=== PATIENT | male | born 1950 | race Caucasian/White ===

== ENCOUNTER → 2016-05-19 | Outpatient (CLI) | payer MEDICARE, MEDICAID ==
[~2016-05-19] MED LIST: ACET-2321 PO; BISA10SU61 RECTALLY; CALMOSEPTINE OINTMENT 3.5 G PACKET TOP ONE; CARV25TA PO; CYAN250010 SL; DOCU-168 PO; FISH1CAP2 PO; FLUT9.9S NS; FURO-153 PO; HC A10FO RECTALLY; HYDR-4246 PO; INSU100V SQ; INSU100V8 SQ; LORA0.5T86 PO; LOSA50TA52 PO; POTA20TA10 PO; PRAV10TA42 PO; SALINE FLUSH 10ml SYRINGE IVF ONE; SPIR25TA PO; TAMS0.4C47 PO; VANC2PLA IV
== END ==
LOC: NWCC 13:23
PROVIDERS: ATTEND Internal Medicine
DX: E11.621 Type 2 diabetes mellitus with foot ulcer (principal); L97.422 Non-pressure chronic ulcer of left heel and midfoot with fat layer exposed; S91.105A Unspecified open wound of left lesser toe(s) without damage to nail, initial encounter; S91.302A Unspecified open wound, left foot, initial encounter; X58.XXXS Exposure to other specified factors, sequela; Z86.14 Personal history of Methicillin resistant Staphylococcus aureus infection
CPT/HCPCS: 11042; 87070; 87075; 87076; 87077; 87181; 87186; 87205; A6209; A6210; A9270; G0463

== ENCOUNTER → 2016-05-27 | Outpatient (CLI) | payer MEDICARE, MEDICAID ==
[~2016-05-27] MED LIST changes: -CALMOSEPTINE OINTMENT 3.5 G PACKET TOP ONE; -SALINE FLUSH 10ml SYRINGE IVF ONE
== END ==
LOC: NWCC 13:31
PROVIDERS: ATTEND Internal Medicine
DX: E11.621 Type 2 diabetes mellitus with foot ulcer (principal); L97.422 Non-pressure chronic ulcer of left heel and midfoot with fat layer exposed; S91.105A Unspecified open wound of left lesser toe(s) without damage to nail, initial encounter; Z86.14 Personal history of Methicillin resistant Staphylococcus aureus infection

== ENCOUNTER → 2016-06-02 | Outpatient (CLI) | payer MEDICARE, MEDICAID ==
[~2016-06-02] MED LIST changes: +CALMOSEPTINE OINTMENT 3.5 G PACKET TOP ONE; +SILVER NITRATE APPLICATOR TOP ONE
== END ==
LOC: NWCC 13:26
PROVIDERS: ATTEND Internal Medicine
DX: E11.621 Type 2 diabetes mellitus with foot ulcer (principal); L97.422 Non-pressure chronic ulcer of left heel and midfoot with fat layer exposed; S91.105A Unspecified open wound of left lesser toe(s) without damage to nail, initial encounter; S91.302A Unspecified open wound, left foot, initial encounter; Z86.14 Personal history of Methicillin resistant Staphylococcus aureus infection; G62.9 Polyneuropathy, unspecified
CPT/HCPCS: 11042; A6209; A6210; A9270

== ENCOUNTER → 2016-06-06 | Outpatient (CLI) | payer MEDICARE, MEDICAID ==
[~2016-06-06] MED LIST changes: -CALMOSEPTINE OINTMENT 3.5 G PACKET TOP ONE; -SILVER NITRATE APPLICATOR TOP ONE
== END ==
LOC: NWCC 09:00
PROVIDERS: ATTEND Internal Medicine
DX: E11.621 Type 2 diabetes mellitus with foot ulcer (principal); L97.422 Non-pressure chronic ulcer of left heel and midfoot with fat layer exposed; S91.105A Unspecified open wound of left lesser toe(s) without damage to nail, initial encounter; Z86.14 Personal history of Methicillin resistant Staphylococcus aureus infection; S91.302A Unspecified open wound, left foot, initial encounter
CPT/HCPCS: A6209; G0463

== ENCOUNTER → 2016-06-11 | Outpatient (CLI) | payer MEDICARE, MEDICAID ==
[~2016-06-11] MED LIST changes: +SILVER NITRATE APPLICATOR TOP ONE
== END ==
LOC: NWCC 13:20
PROVIDERS: ATTEND Internal Medicine
DX: E11.621 Type 2 diabetes mellitus with foot ulcer (principal); L97.422 Non-pressure chronic ulcer of left heel and midfoot with fat layer exposed; E11.21 Type 2 diabetes mellitus with diabetic nephropathy; Z86.14 Personal history of Methicillin resistant Staphylococcus aureus infection
CPT/HCPCS: 11042; A6209

== ENCOUNTER → 2016-06-16 | Outpatient (CLI) | payer MEDICARE, MEDICAID ==
[~2016-06-16] MED LIST changes: +POTA8CAP10 PO; +SALINE FLUSH 10ml SYRINGE IVF ONE; -SILVER NITRATE APPLICATOR TOP ONE; +WARF6TAB5 PO
== END ==
LOC: NWCC 08:54
PROVIDERS: ATTEND Internal Medicine
DX: E11.621 Type 2 diabetes mellitus with foot ulcer (principal); L97.422 Non-pressure chronic ulcer of left heel and midfoot with fat layer exposed; Z86.14 Personal history of Methicillin resistant Staphylococcus aureus infection
CPT/HCPCS: 11042; A6021; A6210

== ENCOUNTER → 2016-06-23 | Outpatient (CLI) | payer MEDICARE, MEDICAID ==
[~2016-06-23] MED LIST changes: -SALINE FLUSH 10ml SYRINGE IVF ONE; +SALINE FLUSH 10ml SYRINGE ONE
--- NOTE | 2016-06-23 13:19 | DI ---
Indication: ITS.REASON: R11.621 DIABETIC FT ULCER; L97.422; E11.21 PROCEDURE: US ARTERIAL EXTREMITY LOWER BI: Technique: Grayscale color and duplex Doppler imaging was performed of the arterial tree of both legs. Findings: RIGHT LEG (cm/sec) Common Femoral 115 Superficial Femoral Proximal 107 Mid 123 Distal 77.3 Popliteal 72.2 OMERO-prox 75.6 MONITORING SPECIALIST-prox 39.5 OMERO-dist 88.5 MONITORING SPECIALIST-dist 62.7 LEFT LEG (cm/sec) Common Femoral 96.3 Superficial Femoral Proximal 119 Mid 119 Distal 97.1 Popliteal 112 OMERO-prox 93.7 MONITORING SPECIALIST-prox 120 OMERO-dist 138 MONITORING SPECIALIST-dist 96.3 Normal multiphasic waveforms throughout the right lower extremity. Normal multiphasic waveforms throughout the left lower extremity, except for slightly dampened waveforms in the dorsalis pedis distally. No velocity elevation. IMPRESSION: Mild stenosis in the left dorsalis pedis. No occlusion. .
--- NOTE | 2016-06-23 15:27 | DI ---
Indication: ITS.REASON: L97.422 Non-press chron ulcer of lt heel/midfoot;E11.21; E11.621 PROCEDURE: NM BONE SCAN, 3-PHASE: Encounter: Initial Comparison: Right foot radiographs dated July 16, 2015 and bone scan dated August 25, 2014 and left foot radiographs dated November 14, 2014 Technique: 26.9 mCi of technetium 99m MDP was administered intravenously. Plantar planar spot images of the feet were performed in the arterial, blood pool and delayed phases with lateral projections performed in the blood pool and delayed phases. Findings: Focal uptake is seen in the left first metatarsal head area on all three phases. This is more intense than the comparison study although the region of uptake is similar. The prior area of uptake in the left second metatarsal head area is much less prominent on this study. No areas of abnormal uptake seen within the right foot. Probable degenerative uptake noted in the left midfoot on the delayed phase images. Impression: Three-phase uptake in the left first metatarsal head area consistent with osteomyelitis. .
== END ==
LOC: IMA 10:40
PROVIDERS: ATTEND Internal Medicine
DX: E11.21 Type 2 diabetes mellitus with diabetic nephropathy (principal); I70.203 Unspecified atherosclerosis of native arteries of extremities, bilateral legs; R94.8 Abnormal results of function studies of other organs and systems; E11.621 Type 2 diabetes mellitus with foot ulcer; L97.422 Non-pressure chronic ulcer of left heel and midfoot with fat layer exposed
CPT/HCPCS: 78315; 93925; A9503

== ENCOUNTER → 2016-06-23 | Outpatient (CLI) | payer MEDICARE, MEDICAID ==
[~2016-06-23] MED LIST changes: +CALMOSEPTINE OINTMENT 3.5 G PACKET TOP ONE; +POLY17PO6 PO; -SALINE FLUSH 10ml SYRINGE ONE
== END ==
LOC: NWCC 14:49
PROVIDERS: ATTEND Internal Medicine
DX: E11.621 Type 2 diabetes mellitus with foot ulcer (principal); L97.422 Non-pressure chronic ulcer of left heel and midfoot with fat layer exposed; M86.172 Other acute osteomyelitis, left ankle and foot; Z86.14 Personal history of Methicillin resistant Staphylococcus aureus infection; E11.21 Type 2 diabetes mellitus with diabetic nephropathy; B96.89 Other specified bacterial agents as the cause of diseases classified elsewhere
CPT/HCPCS: 11042; A6209; A9270

== ENCOUNTER → 2016-06-25 | Outpatient (CLI) | payer MEDICARE, MEDICAID ==
[~2016-06-25] MED LIST changes: -CALMOSEPTINE OINTMENT 3.5 G PACKET TOP ONE
--- NOTE | 2016-06-26 23:04 | WOUNDPNF ---
CHIEF COMPLAINT Left foot diabetic foot ulcer. HISTORY OF PRESENT ILLNESS Mr. Fournier is a gentleman who had been treated down in the wound clinic for many months up to a couple of years for this diabetic foot ulcer, which is located over his first metatarsal head. It sounds like it will improve and then it will get worse. It will never completely heal. He has recently had a bone scan which suggests osteomyelitis in the first metatarsal head. He is a type 2 diabetic. He also has had arterial Dopplers, which show good flow. Previous treatments include Gregoria with Mepilex dressing and offloading, with a DH walker. He has also been on multiple oral antibiotics. Currently he is on Levaquin and Bactrim. Past Medical History, Past Surgical History, Medications, Allergies, Social History, and Family History are reviewed by myself and available in the [facility] EMR. REVIEW OF SYSTEMS Negative for fever, chills, nausea, vomiting, constipation, diarrhea. It is positive for numbness in his feet. It is positive for skin infection. PHYSICAL EXAMINATION GENERAL: He is alert and oriented, in no acute distress. He is here by himself today in the [facility]. LEFT FOOT: Exam of his left foot shows a hallux valgus deformity with a diabetic foot ulcer over the first metatarsal head, with subcutaneous tissue exposed. Periwound area has a small callus. It is otherwise clear. He has palpable dorsalis pedis and posterior tibial pulse. He has decreased sensation to light touch throughout the foot. Calf is soft and nontender. No foul odor today. No gross drainage today from the ulceration. Please see the EMR for full measurements. ASSESSMENT Left foot diabetic foot ulcer with possible osteomyelitis. PLAN Because he has the bone scan, which suggests osteomyelitis, I recommended a surgical debridement with a bone biopsy and possible sesamoidectomy to his left foot; although, I think he is at high risk of needing an amputation. I do think it is worth attempting an aggressive surgical debridement and targeted IV antibiotics to see if we can heal his wound for him. He agreed with this plan. We will set this up for surgery next week. I would like him to be off of his antibiotics for five days prior to the surgery. ISAI
== END ==
LOC: NWCC 10:20
PROVIDERS: ATTEND Internal Medicine
DX: E11.621 Type 2 diabetes mellitus with foot ulcer (principal); L97.422 Non-pressure chronic ulcer of left heel and midfoot with fat layer exposed; M86.172 Other acute osteomyelitis, left ankle and foot; Z86.14 Personal history of Methicillin resistant Staphylococcus aureus infection
CPT/HCPCS: A6209; G0463

== ENCOUNTER 2016-07-04 08:45 | Day surgery (SDC) | payer MEDICARE, MEDICAID ==
--- NOTE | 2016-06-25 16:26 | NUR ---
IMPLANTABLE DEVICE Med[employer]onic PostRanka S MANUFACTURING RECRUITER-D Defibrillator Model # [id number] Serial # [id number] Implanted Mar 29, 2013 [employer]
--- NOTE | 2016-06-27 10:17 | NUR ---
PHONE INTERVIEW WITH PATIENT. PMH, MEDS, ALLERGIES REVIEWED DOCUMENTED, Edilson CAMPBELL CONTACT INFORMATION INCLUDED IF PATIENT HAS QUESTIONS. PT WILL CALL Edilson RAMSAY RN ON JUNE 30 TO CONFIRM HE CAN DO HIS SURGERY ON JULY 03. HE IS SCHEDULED FOR A COLONOSCOPY ON JULY 02 IN [place]. PT REPORTS HE TAKES WARFARIN AND IS STOPPING IT ON JUNE 27 BC OF COLONOSCOPY ON 07-02
--- NOTE | 2016-07-03 09:35 | NUR ---
Antibiotics I did speak with patient on Thursday07-01-16 and we changed the date of surgery to 07-04-16, states Dr Squires put in a PICC line and started him on IV antibiotics because his wound was looking worse. Pt has been off of Warfarin since 06-27-16 in preparation for his colonoscopy on 07-02-16. Instructed patient to continue to follow Dr Squires's orders unless he was instructed to do differently. 07-02-[address] Merchant notified of new development with patient taking antibiotics. No new orders at this time. Dr Squires's contact information given to his Tiffani MA. 07-03-[address] Merchant notified of patient still on IV antibiotics and had taken one dose of Warfarin last night. Still plan to proceed tomorrow. left on patient's answering machine to plan for surgery tomorrow, continue to follow Dr Squires's orders for antibiotics, and to hold Warfarin tonight. Requested patient to return my call and my contact information was left on vm. Addendum: 07/03/16 at 1332 by HANNAH RAMSAY RN I did speak with patient on the phone and reviewed his preop orders for today and tomorrow. He is holding his warfarin today, he had his PICC line flushed today but no antibiotic.
[2016-07-04] VITALS (7 sets, daily range): BP systolic 161–191; BP diastolic 85–97; PULSE 58–65; RESP 12–16; TEMP 97.6–97.7; O2SAT 89–97; Ht 182.9 cm; Wt 106.8 kg
[~2016-07-04] VITALS: Ht 182.9 cm; Wt 106.8 kg
[~2016-07-04 08:45] MED LIST changes: +LIDOCAINE 1% (10mg/ml) 2ml SDV INJ ONE; +NORMAL SALINE 1,000 ML IV PRN; -POLY17PO6 PO
--- OUTSIDE RECORDS SUMMARY | 2016-07-04 08:49 | XMS REPORT | Summary of Care ---
Author Author Luis Carlos Sands, T. K. Organization Unknown Address [address], [place] [id number] Phone Unavailable Care Team Providers Care Inseam Trimmer Name Role Phone Benny Barfield D.O. Unavailable Unavailable Sp Dawkins M.D. Unavailable Unavailable Edilson Brennan M.D. Unavailable Unavailable Savannah Zimmerman Unavailable Unavailable Isra Brasher, Jovita Khan Unavailable Unavailable Curry Dhaliwal PP Unavailable Sp Dawkins RP Unavailable Unavailable Unavailable Functional Status Functional Status Health Issues* Name Dates Details Functional status health issues are not documented Status: Cognitive Status Health Issues* Name Dates Details Cognitive status health issues are not documented Status: Problems Name Dates Details Normal coronary arteries (V71.7, Z03.89) Status: Active Benign prostatic hyperplasia without lower urinary tract symptoms, prostatic enlargement of unspecified morphology Status: Active Actinic keratosis (702.0, L57.0) Status: Active 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, left, with fat layer exposed ( 707.14, L97.422) Status: Active On warfarin therapy (V58.61, Z79.01) Status: Active Obstructive sleep apnea (327.23, G47.33) Status: Active Type 2 diabetes mellitus with diabetic neuropathy (250.60, E11.40) Status: Active 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, I50.42) Status: Active Cardiac resynchronization therapy defibrillator (SINGLE NEEDLE OPERATOR-D) in place (V45.02, Z95.810) Status: Active PAF (paroxysmal atrial fibrillation) (427.31, I48.0) Status: Active Hypertension (401.9, I10) Status: Active Hyperlipidemia (272.4, E78.5) Status: Active Medications Name Dates Details Furosemide 40 MG Oral Tablet TAKE 1 TABLET BY MOUTH DAILY Quantity: 90 Jovita Dhaliwal D.O.* Started 30-Oct-2010 ActiveLantus SoloStar 100 UNIT/ML Subcutaneous Solution Pen-injector INJECT 44 UNITS DAILY DIRECTED * Quantity: 11 Refills: 11 Jovita Dhaliwal D.O.* Started 05-Dec-2010 Active3 ML Pen (5 Pens) Carvedilol 6.25 MG Oral Tablet TAKE 1 TABLET BY MOUTH TWICE DAILY * Quantity: 180 Refills: 1 Jovita Dhaliwal D.O.* Started 18-Dec-2010 ActiveNeedles BD PEN NEEDLE MINI [id number] Inject Insulin at hs dx 250.02 * Quantity: 200 Refills: 6 Jovita Dhaliwal D.O.* Started 23-Dec-2010 ActiveWarfarin Sodium 1 MG Oral Tablet TAKE 1 TABLET BY MOUTH DAILY * Quantity: 60 Refills: 2 Jovita Dhaliwal D.O.* Started 20-May-2011 ActiveViagra 50 MG Oral Tablet TAKE DIRECTED. * Quantity: 6 Refills: 0 Sp Dawkins M.D.* Started 25-Mar-2013 ActivePravastatin Sodium 10 MG Oral Tablet TAKE 1/2 TABLET BY MOUTH DAILY * Quantity: 15 Refills: 11 Jovita Dhaliwal D.O.* Started 30-Mar-2013 ActiveWarfarin Sodium 6 MG Oral Tablet take 1 tablet by mouth every day * Quantity: 90 Refills: 1 Jovita Dhaliwal D.O.* Started 11-May-2013 ActiveVitamin B-12 1000 MCG Sublingual Tablet Sublingual [address] 1 MCG Daily * Quantity: 1 Refills: 0 Sp Dawkins M.D.* Started [id number] Tablet Sublingual Bottle Losartan Potassium 50 MG Oral Tablet TAKE 1 TABLET TWICE DAILY. * Quantity: 180 Refills: 3 Jovita Dhaliwal D.O.* Started 28-Feb-2014 ActiveFluidinfo Next Monitor w/Device Kit testing three times daily * Quantity: 1 Refills: 3 Sp Dawkins M.D.* Started 22-Mar-2014 ActiveInsightSquared Contour Next Test In Vitro Strip TEST THREE TIMES A DAY * Quantity: 1 Refills: 3 Jovita Dhaliwal D.O.* Started 22-Mar-2014 [id number] Strip Box Tamsulosin HCl - 0.4 MG Oral Capsule TAKE 1 CAPSULE Daily * Quantity: 30 Refills: 11 Jovita Dhaliwal D.O.* Started 05-Feb-2015 ActiveSupplies CPAP repair, services and supplies, G47.33 Mask, headgear, filters, heated tubing, chinstrap * Quantity: 1 Refills: 0 Savannah Oropeza P.A.* Started 05-Mar-2015 ActiveFish Oil 1000 MG Oral Capsule TAKE 1 CAPSULE DAILY. * Refills: 0 * Started 10-May-2015 ActiveCheratussin AC 100-10 MG/5ML Oral Syrup TAKE 5 - 10 ML EVERY 4 TO 6 HOURS NEEDED FOR COUGH. * Quantity: 1 Refills: 0 Benny Barfield D.O.* Started 04-Jun-2015 Fpsczs938 ML Bottle Supplies AutoCPAP 9-13 cm H2O, Permanent use, G47.33, Heated humidity, [id number], mask , headgear, filters, heated tubing, water chamber, chinstrap * Quantity: 1 Refills: 0 Savannah Oropeza P.A.* Started 07-Jun-2015 ActiveFluticasone Propionate 50 MCG/ACT Nasal Suspension USE 1 SPRAY IN EACH NOSTRIL ONCE DAILY. * Quantity: 1 Refills: 0 Edilson Brennan M.D.* Started 29-Jun-2015 Vvynwm86 GM Bottle Allergies and Adverse Reactions Name Dates Details No Known Drug Allergies Status: Active Past Medical History Name Dates Details History of Acute upper respiratory infection (465.9, J06.9) Status: Resolved History of allergic rhinitis (V12.69, Z87.09) Status: Resolved History of Diabetes mellitus (250.00, E11.9) Status: Resolved History of hypertension (V12.59, Z86.79) Status: Resolved Procedures Procedure Dates Details History of Catheterization Of Artery Of Extremity Completed:11-Jan-2013 History of Pacemaker - Pulse Generator Replacement History of Arterial Catheterization PROTIME PANEL 7000 Ordered:03-Jul-2015 Immunization Name Dates Details Influenza Administered on:10-Dec-2010 Influenza Administered on:02-Feb-2012 Diphtheria-Tetanus Toxoids 6.7-5 LFU/0.5ML Intramuscular Injectable Administered on: Tdap (Boostrix) Administered on: Adacel 5-2-15.5 LF-MCG/0.5 Intramuscular Suspension Lot #: [id number] Administered on:21-Jul-2013 Fluzone High-Dose Intramuscular Suspension Lot #: [id number] Administered on:13-Dec-2013 Prevnar 13 Intramuscular Suspension Lot #: [id number] Administered on:07-Apr-2014 Pneumovax 23 25 MCG/0.5ML Injection Injectable Administered on:09-May-2015 Pneumo (Pneumovax) Lot #: [id number] Administered on:09-May-2015 Family History Mother* Name Dates Details Family history of Status: Active Father* Name Dates Details Family history of Status: Active Social History Name Dates Details Smoking Status* Former smoker Vital Signs Date Test Result Details 08-Aug-2015 13:01 BP Systolic 120 mm[Hg] Status: BP Diastolic 70 mm[Hg] Status: Heart Rate 89 /min Status: Weight 227.0 lb Status: O2 SAT 96 % Status: Body Mass Index Calculated 29.95 kg/m2 Status: Body Surface Area Calculated 2.27 m2 Status: Results Date Description Value Details Results not documented Plan of Care Planned Observations* Name Dates Details Planned Goals not documented Goal Planned Encounters* Appointment; Provider: Carl Ga On 19-Jun-2016 10:15 * Appointment; Provider: John Aldridge On 08-Nov-2015 13:30 * Appointment; Provider: Jovita Dhaliwal On 08:45 * Appointment; Provider: Danyel Rodriguez On 13-Jan-2015 13:00 * Appointment; Provider: Debora Figueroa On 03-Jun-2013 11:30 * Appointment; Provider: Christos Turpin On 29-Mar-2013 10:30 * Appointment; Provider: John Aldridge On 29-Mar-2013 08:30 * Appointment; Provider: Sp Dawkins On 14-Feb-2013 14:45 * Appointment; Provider: Christos Turpin On 11-Jan-2013 08:30 * Appointment; Provider: Francisca Conrad On 08:30 * Appointment; Provider: Francisca Conrad On 09:00 * Appointment; Provider: John Aldridge On 20-Dec-2010 08:00 * Appointment; Provider: John Aldridge On 13:00 * Appointment; Provider: John Aldridge On 09:30 * Appointment; Provider: Moody Choe On 07-Jun-2007 19:15 * Appointment; Provider: Yousif Cherry On 27-Apr-2007 07:30 * Appointment; Provider: Yousif Cherry On 26-Apr-2007 07:00 * Appointment; Provider: Moody Choe On 19-Apr-2007 09:15 * Appointment; Provider: Moody Choe On 18-Apr-2007 09:45 * Appointment; Provider: Modoy Choe On 17-Apr-2007 09:15 * Appointment; Provider: Moody Choe On 16-Apr-2007 08:45 * Appointment; Provider: Moody Choe On 15-Apr-2007 09:00 Instructions * Instructions not documented Encounters Appointment; John Aldridge Encounter Diagnosis: Problem not documented On 08-Aug-2015 13:00 Appointment; Moody Choe Encounter Diagnosis: Problem not documented On 06-Aug-2015 13:15 Appointment; Jovita Dhaliwal Encounter Diagnosis: Problem not documented On 06-Aug-2015 11:00 Appointment; Jovita Dhaliwal Encounter Diagnosis: Problem not documented On 04-Jul-2015 15:40 Appointment; Lety Ortiz Encounter Diagnosis: Problem not documented On 03-Jul-2015 12:10 Appointment; Jovita Dhaliwal Encounter Diagnosis: Problem not documented On 03-Jul-2015 11:49 Appointment; Edilson Brennan Encounter Diagnosis: Problem not documented On 29-Jun-2015 14:45 Appointment; Carl Ga Encounter Diagnosis: Problem not documented On 14-Jun-2015 10:00 Appointment; Moody Choe Encounter Diagnosis: Problem not documented On 07-Jun-2015 15:15 Appointment; Benny Barfield Encounter Diagnosis: Problem not documented On 04-Jun-2015 10:30 Appointment; John Aldridge Encounter Diagnosis: Problem not documented On 10-May-2015 15:00 Appointment; Carl Ga Encounter Diagnosis: Problem not documented On 10-May-2015 09:15 Appointment; Jovita Dhaliwal Encounter Diagnosis: Problem not documented On 09-May-2015 08:30 Appointment; Moody Choe Encounter Diagnosis: Problem not documented On 06-Apr-2015 10:15 Appointment; Jovita Dhaliwal Encounter Diagnosis: Problem not documented On 13-Mar-2015 10:15 Appointment; Moody Choe Encounter Diagnosis: Problem not documented On 05-Mar-2015 14:30 Appointment; Jovita Dhaliwal Encounter Diagnosis: Problem not documented On 15-Feb-2015 13:45 Appointment; Jovita Dhaliwal Encounter Diagnosis: Problem not documented On 05-Feb-2015 13:15 Appointment; John Aldridge Encounter Diagnosis: Problem not documented On 31-Jan-2015 15:45 Appointment; Jovita Dhaliwal Encounter Diagnosis: Problem not documented On 25-Jan-2015 09:30 Appointment; Jovita Dhaliwal Encounter Diagnosis: Problem not documented On 22-Jan-2015 08:35 Appointment; Jovita Dhaliwal Encounter Diagnosis: Problem not documented On 07-Nov-2014 08:45 Appointment; John Aldridge Encounter Diagnosis: Problem not documented On 27-Oct-2014 09:45 Appointment; Jovita Dhaliwal Encounter Diagnosis: Problem not documented On 25-Oct-2014 09:00 Appointment; Jovita Dhaliwal Encounter Diagnosis: Problem not documented On 10:30 Appointment; John Aldridge Encounter Diagnosis: Problem not documented On 10:15 Appointment; Carl Ga Encounter Diagnosis: Problem not documented On 09:15 Appointment; Jovita Dhaliwal Encounter Diagnosis: Problem not documented On 13:30 Appointment; Carl Ga Encounter Diagnosis: Problem not documented On 12:00 Appointment; Jovita Dhaliwal Encounter Diagnosis: Problem not documented On 09:45 Appointment; Carl Ga Encounter Diagnosis: Problem not documented On 26-Jul-2014 09:45 Appointment; Tari Chilel Encounter Diagnosis: Problem not documented On 06-Jul-2014 09:20 Appointment; Jovita Dhaliwal Encounter Diagnosis: Problem not documented On 27-Jun-2014 15:15 Appointment; Jovita Dhaliwal Encounter Diagnosis: Problem not documented On 19-Jun-2014 15:30 Appointment; Jovita Dhaliwal Encounter Diagnosis: Problem not documented On 29-May-2014 14:45 Appointment; Sp Dawkins Encounter Diagnosis: Problem not documented On 22-May-2014 11:30 Appointment; Carl Ga Encounter Diagnosis: Problem not documented On 09-May-2014 09:15 Appointment; Sp Dawkins Encounter Diagnosis: Problem not documented On 27-Apr-2014 15:00 Appointment; Carl Ga Encounter Diagnosis: Problem not documented On 17-Apr-2014 09:45 Appointment; Sp Dawkins Encounter Diagnosis: Problem not documented On 07-Apr-2014 10:45 Appointment; John Aldridge Encounter Diagnosis: Problem not documented On 28-Mar-2014 11:15 Appointment; Sp Dawkins Encounter Diagnosis: Problem not documented On 21-Mar-2014 13:15 Appointment; John Aldridge Encounter Diagnosis: Problem not documented On 28-Feb-2014 10:30 Appointment; John Aldridge Encounter Diagnosis: Problem not documented On 31-Jan-2014 15:00 Appointment; Larry Mckeon Encounter Diagnosis: Problem not documented On 04-Jan-2014 15:35 Appointment; Sp Dawkins Encounter Diagnosis: Problem not documented On 13-Dec-2013 13:15 Appointment; John Aldridge Encounter Diagnosis: Problem not documented On 06-Dec-2013 13:45 Appointment; John Aldridge Encounter Diagnosis: Problem not documented On 23-Nov-2013 14:45 Appointment; Sp Dawkins Encounter Diagnosis: Problem not documented On 14:45 Appointment; Sp Dawkins Encounter Diagnosis: Problem not documented On 10:00 Appointment; Sp Dawkins Encounter Diagnosis: Problem not documented On 13:15 Appointment; Kirt Love Encounter Diagnosis: Problem not documented On 11-Aug-2013 09:30
--- OUTSIDE RECORDS SUMMARY | 2016-07-04 08:49 | XMS REPORT | Continuity of Care Document ---
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 If you do not see the information that you expected, contact Release of Information in the Health Information Management department at [phone] for further assistance in locating additional records.[facility] Active Allergies and Adverse Reactions No Known Allergies Current Medications Prescription Sig. Disp. Refills Start End Date Status Date aspirin 81 mg chew tablet Take 1 Tab by mouth 30 0 04/04/20 Active Daily. 09 carvedilol (COREG) 6.25 Take 1 Tab by mouth Twice 60 0 04/04/20 Active mg tablet Daily. 09 furosemide (LASIX) 40 mg Take 1 Tab by mouth 30 0 /20/20 Active tablet Daily. 09 insulin glargine (LANTUS) Inject 6 Units into 1 0 04/04/20 Active 100 unit/mL injection area(s) as directed At 09 Bedtime Daily. lisinopril (PRINIVIL; Take 0.5 Tabs by mouth At 30 0 04/04/20 Active ZESTRIL) 5 mg tablet Bedtime Daily. 09 nitroglycerin (NITROSTAT) 1 Tab As Needed for Chest 30 0 04/04/20 Active 0.4 mg tablet Pain. 09 potassium chloride SR Take 2 Tabs by mouth 30 0 04/04/20 Active (K-DUR) 20 mEq tablet Daily With Breakfast. 09 spironolactone Take 1 Tab by mouth Twice 60 0 /20/20 Active (ALDACTONE) 25 mg tablet Daily. 09 warfarin (COUMADIN) 1 mg Take 1 Tab by mouth 30 0 20/20 Active tablet Daily. 09 warfarin (COUMADIN) 6 mg Take 1 Tab by mouth 30 0 04/04/19 Active tablet Daily. 09 bacitracin 500 unit/g Apply to affected area 1 tube 0 04/04/19 Active topical ointment Twice Daily. 09 Active Problems Problem Noted Date Diabetes mellitus, adult onset, with peripheral circulatory disorder CHF (congestive heart failure) ([facility]) Overview: 15 to 17 % per patient Left bundle branch block CVA (cerebral vascular accident) ([facility]) Chronic anticoagulation TRE (obstructive sleep apnea) HTN BPH A-fib ([facility]) Social History Tobacco Use Types Packs/Day Years Used Date Never Smoker Alcohol Use Drinks/Week oz/Week Comments No Last Filed Vital Signs Vital Sign Reading Time Taken Blood Pressure 103/69 04/04/2008 3:28 PM REPEATER OPERATOR Pulse 60 04/04/2008 3:28 PM REPEATER OPERATOR Temperature 36.4 C (97.5 F) 04/04/2008 3:28 PM REPEATER OPERATOR Respiratory Rate - - Height - - Weight 94.802 kg (209 lb) 04/04/2008 8:40 AM REPEATER OPERATOR Body Mass Index - - Oxygen Saturation 96% 04/04/2008 3:28 PM REPEATER OPERATOR Plan of Care Health Maintenance Due Date Last Done Comments Hepatitis C Screening 1950 Physical (Comprehensive) 05/26/1955 Exam Pertussis Vaccine 05/26/1959 Tetanus Vaccine 1965 Dilated Eye Exam 1966 Foot Exam 1966 Microalbumin 1966 Colorectal Cancer 1998 Screening Shingles Vaccine 2008 Hba1c 09/30/2008 04/02/2008 Prevnar/Pneumovax (#1) 2013 Influenza Vaccine 11/14/2016 Results from Last 3 Months Not on file
--- OUTSIDE RECORDS SUMMARY | 2016-07-04 08:50 | XMS REPORT ---
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 Role Phone DO WHEAT ROBERT PP Unavailable Reason For Visit Reason for Visit from 09/14/2015 11:30 AM:* Pt Stated Reason for Adm : Dapto Chief Complaint MRSA SEPSIS Social History Functional Status Functional Status from 10/04/2015 7:30 AM:* LOC : Alert * Oriented To : Person,Place,Time Functional Status from 10/03/2015 7:25 AM:* LOC : Alert * Oriented To : Person,Place,Time,Event Functional Status from 10/02/2015 7:50 AM:* LOC : Alert * Oriented To : Person,Place,Time,Event Functional Status from 10/01/2015 7:21 AM:* LOC : Alert * Oriented To : Person,Place,Time,Event Functional Status from 09/30/2015 7:30 AM:* LOC : Alert * Oriented To : Person,Place,Time,Event Functional Status from 09/29/2015 8:21 AM:* LOC : Alert * Oriented To : Person,Place,Time,Event Functional Status from 09/28/2015 7:25 AM:* LOC : Alert * Oriented To : Person,Place,Time Functional Status from 09/27/2015 7:43 AM:* LOC : Alert * Oriented To : Person,Place,Time Functional Status from 09/26/2015 7:33 AM:* LOC : Alert * Oriented To : Person,Place,Time Functional Status from 09/25/2015 7:35 AM:* LOC : Alert * Oriented To : Person,Place,Time,Event Functional Status from 09/24/2015 7:35 AM:* LOC : Alert * Oriented To : Person,Place,Time,Event Functional Status from 09/23/2015 7:34 AM:* LOC : Alert * Oriented To : Person,Place,Time,Event Functional Status from 09/22/2015 7:38 AM:* LOC : Alert * Oriented To : Person,Place,Time,Event Functional Status from 09/21/2015 7:36 AM:* LOC : Alert * Oriented To : Person,Place,Time Functional Status from 09/20/2015 7:58 AM:* LOC : Alert * Oriented To : Person,Place,Time,Event Functional Status from 09/19/2015 7:30 AM:* LOC : Alert * Oriented To : Person,Place,Time Functional Status from 09/18/2015 7:40 AM:* LOC : Alert * Oriented To : Person,Place,Time,Event Functional Status from 09/17/2015 7:56 AM:* LOC : Alert * Oriented To : Person,Place,Time,Event Functional Status from 09/16/2015 7:48 AM:* LOC : Alert * Oriented To : Person,Place,Time,Event Functional Status from 09/15/2015 8:04 AM:* LOC : Alert * Oriented To : Person,Place,Time,Event Functional Status from 09/14/2015 11:30 AM:* LOC : Alert * Oriented To : Person,Place,Time Vital Signs Hospital Vital Signs from 10/04/2015 7:30 AM:* Height : 6/1 ft,in * Temperature : 96.7 F * Pulse : 69 * Respirations : 18 * BP : 153/87 Hospital Vital Signs from 10/03/2015 7:30 AM:* Height : 6/1 ft,in * Temperature : 97.4 F * Pulse : 67 * Respirations : 18 * BP : 163/82 Hospital Vital Signs from 10/02/2015 7:46 AM:* Height : 6/1 ft,in * Temperature : 97.6 F * Pulse : 76 * Respirations : 18 * BP : 145/76 Hospital Vital Signs from 10/01/2015 7:30 AM:* Height : 6/1 ft,in * Temperature : 96.5 F * Pulse : 78 * Respirations : 18 * BP : 162/79 Hospital Vital Signs from 09/30/2015 7:30 AM:* Height : 6/1 ft,in * Temperature : 97.3 F * Pulse : 70 * Respirations : 18 * BP : 136/86 Hospital Vital Signs from 09/29/2015 7:47 AM:* Height : 6/1 ft,in * Temperature : 97.5 F * Pulse : 75 * Respirations : 18 * BP : 152/81 Hospital Vital Signs from 09/28/2015 7:25 AM:* Height : 6/1 ft,in * Temperature : 97.7 F * Pulse : 68 * Respirations : 18 * BP : 135/65 Hospital Vital Signs from 09/27/2015 7:43 AM:* Height : 6/1 ft,in * Temperature : 96.2 F * Pulse : 73 * Respirations : 18 * BP : 157/77 Hospital Vital Signs from 09/26/2015 7:33 AM:* Height : 6/1 ft,in * Temperature : 97.2 F * Pulse : 78 * Respirations : 18 * BP : 138/63 Hospital Vital Signs from 09/25/2015 7:40 AM:* Height : 6/1 ft,in * Temperature : 97.2 F * Pulse : 75 * Respirations : 20 * BP : 132/75 Hospital Vital Signs from 09/24/2015 7:35 AM:* Height : 6/1 ft,in * Temperature : 96.2 F * Pulse : 76 * Respirations : 18 * BP : 125/68 Hospital Vital Signs from 09/23/2015 7:45 AM:* Height : 6/1 ft,in * Temperature : 97.4 F * Pulse : 74 * Respirations : 18 * BP : 145/89 Hospital Vital Signs from 09/22/2015 7:55 AM:* Height : 6/1 ft,in * Temperature : 97.5 F * Pulse : 78 * Respirations : 18 * BP : 133/75 Hospital Vital Signs from 09/21/2015 7:36 AM:* Height : 6/1 ft,in * Temperature : 97.8 F * Pulse : 69 * Respirations : 18 * BP : 128/66 Hospital Vital Signs from 09/20/2015 7:57 AM:* Height : 6/1 ft,in * Temperature : 96.2 F * Pulse : 72 * Respirations : 18 * BP : 129/71 Hospital Vital Signs from 09/19/2015 7:30 AM:* Height : 6/1 ft,in * Temperature : 97.4 F * Pulse : 72 * Respirations : 18 * BP : 135/72 Hospital Vital Signs from 09/18/2015 7:40 AM:* Height : 6/1 ft,in * Temperature : 98.3 F * Pulse : 72 * Respirations : 18 * BP : 113/60 Hospital Vital Signs from 09/17/2015 7:56 AM:* Height : 6/1 ft,in * Temperature : 97.4 F * Pulse : 78 * Respirations : 18 * BP : 138/81 Hospital Vital Signs from 09/16/2015 7:48 AM:* Height : 6/1 ft,in * Temperature : 98.0 F * Pulse : 81 * Respirations : 18 * BP : 141/79 Hospital Vital Signs from 09/15/2015 7:43 AM:* Height : 6/1 ft,in * Temperature : 97.6 F * Pulse : 76 * Respirations : 18 * BP : 125/70 Hospital Vital Signs from 09/14/2015 11:30 AM:* Weight : 225/ lbs,oz * Weight : 102.058/ kg * Height : 6/1 ft,in * Height : 6/1 ft,in * Temperature : 97.6 F * Pulse : 66 * Respirations : 18 * BP : 151/68 Results Chemistry from 10/02/2015 7:47 AMSODIUM 140 MMOL/L (136-145 MMOL/L) POTASSIUM 4.1 MMOL/L (3.5-5.1 MMOL/L) CHLORIDE 107 MMOL/L (98-107 MMOL/L) TCO2 27.5 MMOL/L (21.0-32.0 MMOL/L) *ANION GAP 5.5 MMOL/L L (8.0-16.0 MMOL/L) BUN 15 MG/DL (7-18 MG/DL) CREATININE 1.23 MG/DL (0.70-1.30 MG/DL) *BUN/CREATININE RATIO 12.2 (9.1-17.0 ) GLUCOSE 122 MG/DL H (65-99 MG/DL) *GFR EST NON AFR SAO TOMEAN 60 ML/MIN *GFR EST AFR AMER 70 ML/MIN CALCIUM 8.3 MG/DL L (8.5-10.1 MG/DL) BILIRUBIN TOTAL 0.50 MG/DL (0.20-1.00 MG/DL) TOTAL PROTEIN 7.1 GM/DL (6.4-8.2 GM/DL) ALBUMIN 3.7 GM/DL (3.4-5.0 GM/DL) *GLOBULIN 3.4 GM/DL (2.3-3.5 GM/DL) *A/G RATIO 1.1 MG/DL L (1.5-2.2 MG/DL) ALK PHOS 81 U/L (46-116 U/L) ALT (SGPT) 16 U/L (14-59 U/L) AST (SGOT) 11 U/L L (15-37 U/L) C-REACTIVE PROTEIN <0.05 MG/DL (0.00-0.30 MG/DL) CK 85 U/L (39-308 U/L) Chemistry from 09/30/2015 7:27 AMSODIUM 140 MMOL/L (136-145 MMOL/L) POTASSIUM 3.9 MMOL/L (3.5-5.1 MMOL/L) CHLORIDE 106 MMOL/L (98-107 MMOL/L) TCO2 27.6 MMOL/L (21.0-32.0 MMOL/L) *ANION GAP 6.4 MMOL/L L (8.0-16.0 MMOL/L) BUN 16 MG/DL (7-18 MG/DL) CREATININE 1.23 MG/DL (0.70-1.30 MG/DL) *BUN/CREATININE RATIO 13.0 (9.1-17.0 ) GLUCOSE 140 MG/DL H (65-99 MG/DL) *GFR EST NON AFR SAO TOMEAN 60 ML/MIN *GFR EST AFR AMER 70 ML/MIN CALCIUM 8.5 MG/DL (8.5-10.1 MG/DL) BILIRUBIN TOTAL 0.40 MG/DL (0.20-1.00 MG/DL) TOTAL PROTEIN 7.1 GM/DL (6.4-8.2 GM/DL) ALBUMIN 3.7 GM/DL (3.4-5.0 GM/DL) *GLOBULIN 3.4 GM/DL (2.3-3.5 GM/DL) *A/G RATIO 1.1 MG/DL L (1.5-2.2 MG/DL) ALK PHOS 83 U/L (46-116 U/L) ALT (SGPT) 20 U/L (14-59 U/L) AST (SGOT) 18 U/L (15-37 U/L) C-REACTIVE PROTEIN 0.05 MG/DL (0.00-0.30 MG/DL) CK 75 U/L (39-308 U/L) Chemistry from 09/25/2015 7:43 AMC-REACTIVE PROTEIN 0.12 MG/DL (0.00-0.30 MG/DL) CK 71 U/L (39-308 U/L) Chemistry from 09/24/2015 7:50 AMSODIUM 138 MMOL/L (136-145 MMOL/L) POTASSIUM 4.4 MMOL/L (3.5-5.1 MMOL/L) CHLORIDE 104 MMOL/L (98-107 MMOL/L) TCO2 27.7 MMOL/L (21.0-32.0 MMOL/L) *ANION GAP 6.3 MMOL/L L (8.0-16.0 MMOL/L) BUN 18 MG/DL (7-18 MG/DL) CREATININE 1.22 MG/DL (0.70-1.30 MG/DL) *BUN/CREATININE RATIO 14.8 (9.1-17.0 ) GLUCOSE 195 MG/DL H (65-99 MG/DL) *GFR EST NON AFR SAO TOMEAN 61 ML/MIN *GFRA EST AFR AMER 70 ML/MIN CALCIUM 8.7 MG/DL (8.5-10.1 MG/DL) Chemistry from 09/20/2015 7:46 AMSODIUM 139 MMOL/L (136-145 MMOL/L) POTASSIUM 4.2 MMOL/L (3.5-5.1 MMOL/L) CHLORIDE 105 MMOL/L (98-107 MMOL/L) TCO2 25.5 MMOL/L (21.0-32.0 MMOL/L) *ANION GAP 8.5 MMOL/L (8.0-16.0 MMOL/L) BUN 27 MG/DL H (7-18 MG/DL) CREATININE 1.18 MG/DL (0.70-1.30 MG/DL) *BUN/CREATININE RATIO 22.9 H (9.1-17.0 ) GLUCOSE 187 MG/DL H (65-99 MG/DL) *GFR EST NON AFR SAO TOMEAN 63 ML/MIN *GFRA EST AFR AMER 73 ML/MIN CALCIUM 8.9 MG/DL (8.5-10.1 MG/DL) Hematology from 10/02/2015 7:47 AMWBC 3.6 X10e3/UL (3.6-11.2 X10e3/UL) RBC 4.62 X10e6/UL (4.06-5.63 X10e6/UL) HEMOGLOBIN 12.3 G/DL L (12.5-16.3 G/DL) HEMATOCRIT 37.2 % (36.7-47.1 %) *MCV 80.6 FL (80.0-100.0 FL) *MCH 26.7 PG L (27.0-33.0 PG) *MCHC 33.1 G/DL (32.0-36.0 G/DL) *RDW 15.3 % (12.3-17.0 %) *RDWSD 43.8 (37.1-47.8 ) PLATELET 149 X10e3/UL L (159-386 X10e3/UL) *MPV 8.0 FL (7.4-10.4 FL) *MANUAL DIFF PERFORMED SEGS 58.0 % *BANDS 0.0 % *LYMPHOCYTES 23.0 % *MONOCYTES 10.0 % *EOSINOPHILS 4.0 % *BASOPHILS 2.0 % *REACTIVE LYMPHOCYTES 3.0 % *ABSOLUTE NEUTROPHILS 2.09 X10e3/UL (1.80-7.80 X10e3/UL) *ABSOLUTE LYMPHOCYTES 0.94 X10e3/UL L (1.00-3.00 X10e3/UL) *ABSOLUTE MONOCYTES 0.36 X10e3/UL (0.30-1.00 X10e3/UL) *ABSOLUTE EOSINOPHILS 0.14 X10e3/UL (0.00-0.50 X10e3/UL) *ABSOLUTE BASOPHILS 0.07 X10e3/UL (0.00-0.20 X10e3/UL) *POLYCHROMASIA 1+ ANISOCYTOSIS 3+ SED RATE 20 MM/HR (0-20 MM/HR) Hematology from 09/30/2015 7:27 AMWBC 3.9 X10e3/UL (3.6-11.2 X10e3/UL) RBC 4.82 X10e6/UL (4.06-5.63 X10e6/UL) HEMOGLOBIN 12.9 G/DL (12.5-16.3 G/DL) HEMATOCRIT 38.5 % (36.7-47.1 %) *MCV 79.9 FL L (80.0-100.0 FL) *MCH 26.8 PG L (27.0-33.0 PG) *MCHC 33.6 G/DL (32.0-36.0 G/DL) *RDW 15.2 % (12.3-17.0 %) *RDWSD 42.9 (37.1-47.8 ) PLATELET 160 X10e3/UL (159-386 X10e3/UL) *MPV 8.2 FL (7.4-10.4 FL) *MANUAL DIFF PERFORMED SEGS 63.0 % *BANDS 1.0 % *LYMPHOCYTES 25.0 % *MONOCYTES 6.0 % *EOSINOPHILS 5.0 % *BASOPHILS 0.0 % *ABSOLUTE NEUTROPHILS 2.50 X10e3/UL (1.80-7.80 X10e3/UL) *ABSOLUTE LYMPHOCYTES 0.98 X10e3/UL L (1.00-3.00 X10e3/UL) *ABSOLUTE MONOCYTES 0.23 X10e3/UL L (0.30-1.00 X10e3/UL) *ABSOLUTE EOSINOPHILS 0.20 X10e3/UL (0.00-0.50 X10e3/UL) *ABSOLUTE BASOPHILS 0.00 X10e3/UL (0.00-0.20 X10e3/UL) *POLYCHROMASIA 1+ MICROCYTIC 1+ SED RATE 20 MM/HR (0-20 MM/HR) Hematology from 09/25/2015 7:43 AMSED RATE 34 MM/HR H (0-20 MM/HR) Hematology from 09/24/2015 7:50 AMWBC 4.0 X10e3/UL (3.6-11.2 X10e3/UL) RBC 4.56 X10e6/UL (4.06-5.63 X10e6/UL) HEMOGLOBIN 12.3 G/DL L (12.5-16.3 G/DL) HEMATOCRIT 37.0 % (36.7-47.1 %) *MCV 81.0 FL (80.0-100.0 FL) *MCH 26.9 PG L (27.0-33.0 PG) *MCHC 33.2 G/DL (32.0-36.0 G/DL) *RDW 15.2 % (12.3-17.0 %) *RDWSD 43.8 (37.1-47.8 ) PLATELET 200 X10e3/UL (159-386 X10e3/UL) *MPV 8.2 FL (7.4-10.4 FL) *MANUAL DIFF PERFORMED SEGS 79.0 % *BANDS 3.0 % *LYMPHOCYTES 8.0 % *MONOCYTES 4.0 % *EOSINOPHILS 0.0 % *BASOPHILS 5.0 % *REACTIVE LYMPHOCYTES 1.0 % *ABSOLUTE NEUTROPHILS 3.28 X10e3/UL (1.80-7.80 X10e3/UL) *ABSOLUTE LYMPHOCYTES 0.36 X10e3/UL L (1.00-3.00 X10e3/UL) *ABSOLUTE MONOCYTES 0.16 X10e3/UL L (0.30-1.00 X10e3/UL) *ABSOLUTE EOSINOPHILS 0.00 X10e3/UL (0.00-0.50 X10e3/UL) *ABSOLUTE BASOPHILS 0.20 X10e3/UL (0.00-0.20 X10e3/UL) *POLYCHROMASIA 1+ ANISOCYTOSIS 3+ Hematology from 09/20/2015 7:46 AMWBC 3.7 X10e3/UL (3.6-11.2 X10e3/UL) RBC 4.13 X10e6/UL (4.06-5.63 X10e6/UL) HEMOGLOBIN 11.1 G/DL L (12.5-16.3 G/DL) HEMATOCRIT 33.6 % L (36.7-47.1 %) *MCV 81.4 FL (80.0-100.0 FL) *MCH 26.8 PG L (27.0-33.0 PG) *MCHC 32.9 G/DL (32.0-36.0 G/DL) *RDW 15.2 % (12.3-17.0 %) *RDWSD 44.2 (37.1-47.8 ) PLATELET 250 X10e3/UL (159-386 X10e3/UL) *MPV 7.5 FL (7.4-10.4 FL) *MANUAL DIFF PERFORMED SEGS 72.0 % *BANDS 1.0 % *LYMPHOCYTES 22.0 % *MONOCYTES 2.0 % *EOSINOPHILS 0.0 % *BASOPHILS 1.0 % *REACTIVE LYMPHOCYTES 2.0 % *ABSOLUTE NEUTROPHILS 2.70 X10e3/UL (1.80-7.80 X10e3/UL) *ABSOLUTE LYMPHOCYTES 0.89 X10e3/UL L (1.00-3.00 X10e3/UL) *ABSOLUTE MONOCYTES 0.07 X10e3/UL L (0.30-1.00 X10e3/UL) *ABSOLUTE EOSINOPHILS 0.00 X10e3/UL (0.00-0.50 X10e3/UL) *ABSOLUTE BASOPHILS 0.04 X10e3/UL (0.00-0.20 X10e3/UL) *POLYCHROMASIA 1+ BASOPHILIC STIPPLING 1+ Problems Encounter Diagnosis No relevant problems exist. Additional Problems * Altered Mental Status Comment:Problem resolved by [facility] upon Discharge, Status:Resolved. * Atrial Fibrillation Comment:Problem resolved by [facility] upon Discharge, Status:Resolved. * Chest Pain Comment:Problem resolved by [facility] upon Discharge, Status :Resolved. * Chest Pain Comment:Problem resolved by [facility] Work[facility] upon Discharge, Status :Resolved. * Chronic Kidney Disease, Stage 2 Comment:Problem resolved by [facility] upon Discharge, Status:Resolved. * Coronary Arteriosclerosis Comment:Problem resolved by [facility] Workflow upon Discharge, Status:Resolved. * Diabetes Mellitus Comment:Problem resolved by [facility] upon Discharge , Status:Resolved. * Diabetes Mellitus, Type 2 Comment:Problem resolved by [facility] upon Discharge, Status:Resolved. * Diabetic Foot Ulcer Comment:Problem resolved by [facility] upon Discharge, Status:Resolved. * Fall Risk Comment:Problem resolved by [facility] upon Discharge, Status: Resolved. * Fall Risk Comment:Problem resolved by [facility] Workflow upon Discharge, Status: Resolved. * Fall Risk Comment:Problem resolved by [facility] upon Discharge, Status: Resolved. * Hypertensive Disorder Comment:Problem resolved by [facility] upon Discharge, Status:Resolved. * Infection Risk Comment:Problem resolved by [facility] upon Discharge, Status:Resolved. * Mobility Impairment Comment:Problem resolved by [facility] Work[facility] upon Discharge, Status:Resolved. * Mobility Impairment Comment:Problem resolved by [facility] upon Discharge, Status:Resolved. * Obstructive Sleep Apnea Syndrome Comment:Problem resolved by [facility] upon Discharge, Status:Resolved. * Skin Integrity Impairment Risk Comment:Problem resolved by [facility] upon Discharge, Status:Resolved. * Systemic Infection Comment:Problem resolved by [facility] upon Discharge , Status:Resolved. Encounters Encounter Diagnosis No relevant problems exist. Plan of Care Procedures * Completed Procedure Code: P417KX9 Procedure Name: not valued, on 09/05/2015 12 :00 AM * Completed , on 03/29/2013 12:00 AM * Completed , on 01/17/2013 12:00 AM * Completed , on 01/11/2013 12:00 AM * Completed , on 01/11/2013 12:00 AM * Completed Procedure Code: 86.22 Procedure Name: not valued, on 01/10/2013 12: 00 AM * Completed Procedure Code: 86.22 Procedure Name: not valued, on 12/27/2012 12: 00 AM * Completed , on 12/23/2012 12:00 AM * Completed Procedure Code: 86.28 Procedure Name: not valued, on 12/20/2012 12: 00 AM * Completed Procedure Code: 93.95 Procedure Name: not valued, on 12/14/2012 12: 00 AM * Completed , on 12/14/2012 12:00 AM * Completed Procedure Code: 86.22 Procedure Name: not valued, on 12/13/2012 12: 00 AM * Completed Procedure Code: 86.22 Procedure Name: not valued, on 12/06/2012 12: 00 AM * Completed Procedure Code: 83.45 Procedure Name: not valued, on 11/29/2012 12: 00 AM * Completed Procedure Code: 93.95 Procedure Name: not valued, on 11/22/2012 12: 00 AM * Completed Procedure Code: 83.45 Procedure Name: not valued, on 11/22/2012 12: 00 AM * Completed , on 11/14/2012 12:00 AM * Completed Procedure Code: 83.45 Procedure Name: not valued, on 11/08/2012 12: 00 AM * Completed Procedure Code: 83.45 Procedure Name: not valued, on 11/01/2012 12: 00 AM * Completed Procedure Code: 86.22 Procedure Name: not valued, on 10/25/2012 12: 00 AM * Completed Procedure Code: 86.22 Procedure Name: not valued, on 10/18/2012 12: 00 AM * Completed , on 10/14/2012 12:00 AM * Completed , on 10/07/2012 12:00 AM * Completed , on 10/07/2012 12:00 AM * Completed , on 10/04/2012 12:00 AM * Completed , on 09/28/2012 12:00 AM * Completed , on 08/10/2011 12:00 AM * Completed , on 08/10/2011 12:00 AM * Completed , on 04/08/2011 12:00 AM * Completed , on 03/25/2011 12:00 AM * Completed , on 02/25/2011 12:00 AM * Completed , on 02/11/2011 12:00 AM * Completed , on 01/17/2011 12:00 AM * Completed , on 12/31/2010 12:00 AM * Completed , on 12/17/2010 12:00 AM * Completed , on 12/03/2010 12:00 AM * Completed , on 11/19/2010 12:00 AM * Completed , on 10/15/2010 12:00 AM * Completed , on 10/15/2010 12:00 AM * Completed , on 09/10/2010 12:00 AM * Completed , on 08/20/2010 12:00 AM * Completed , on 08/02/2010 12:00 AM * Completed , on 07/30/2010 12:00 AM * Completed , on 07/15/2010 12:00 AM * Completed , on 07/02/2010 12:00 AM * Completed , on 06/07/2010 12:00 AM * Completed , on 04/16/2010 12:00 AM * Completed , on 04/16/2010 12:00 AM * Completed , on 04/02/2010 12:00 AM * Completed , on 03/26/2010 12:00 AM * Completed , on 03/18/2010 12:00 AM * Completed , on 02/13/2010 12:00 AM * Completed , on 02/12/2010 12:00 AM * Completed , on 01/29/2010 12:00 AM * Completed , on 01/14/2010 12:00 AM * Completed , on 01/10/2010 12:00 AM * Completed , on 12/25/2009 12:00 AM * Completed , on 12/11/2009 12:00 AM * Completed , on 10/23/2009 12:00 AM * Completed , on 09/11/2009 12:00 AM * Completed , on 08/28/2009 12:00 AM * Completed , on 07/31/2009 12:00 AM * Completed , on 05/01/2009 12:00 AM * Completed , on 04/24/2009 12:00 AM * Completed , on 02/13/2009 12:00 AM * Completed , on 02/06/2009 12:00 AM * Completed , on 01/09/2009 12:00 AM * Completed , on 01/02/2009 12:00 AM * Completed , on 12/26/2008 12:00 AM * Completed , on 12/05/2008 12:00 AM * Completed , on 11/14/2008 12:00 AM * Completed , on 10/31/2008 12:00 AM * Completed , on 10/17/2008 12:00 AM * Completed , on 10/10/2008 12:00 AM * Completed , on 10/03/2008 12:00 AM Immunizations No immunizations administered or ordered. Hospital Course Hospital Discharge Instructions Allergies, Adverse Reactions, Alerts * No Latex Allergy. * No IV Contrast Allergy. * No Known Drug Allergies. Medication Medication reconciliation has not been performed.
--- OUTSIDE RECORDS SUMMARY | 2016-07-04 08:50 | XMS REPORT | Summary of Care ---
Author Author Jovita Dhaliwal D.O. Organization Unknown Address [address], [place] [id number] Phone Unavailable Care Team Providers Care Tube Carrier Name Role Phone Sp Dawkins M.D. Unavailable Unavailable Edilson Brennan M.D. Unavailable Unavailable Savannah Zimmerman Unavailable Unavailable Jovita Dhaliwal D.O. Unavailable Unavailable Curry Dhaliwal Unavailable Unavailable Sp Dawkins Unavailable Unavailable Unavailable Unavailable Functional Status Name Dates Details Functional status health issues are not documented Status: Name Dates Details Cognitive status health issues are not documented Status: Problems Name Dates Details Normal coronary arteries (V71.7, Z03.89) Status: Active Benign prostatic hyperplasia without lower urinary tract symptoms, prostatic enlargement of unspecified morphology Status: Active Actinic keratosis (702.0, L57.0) Status: Active Obstructive sleep apnea (327.23, G47.33) Status: Active Cardiac resynchronization therapy defibrillator (LINE ASSEMBLER-D) in place (V45.02, Z95.810) Status: Active Hyperlipidemia (272.4, E78.5) Status: Active On warfarin therapy (V58.61, Z79.01) Status: Active Seborrheic keratosis (702.19, L82.1) Status: Active 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, 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 Medicare annual wellness visit, initial (V70.0, Z00.00) Status: Active Former smoker (V15.82, Z87.891) Status: Active Medicare annual wellness visit, initial (V70.0, Z00.00) Status: Active CHF (congestive heart failure) (428.0, I50.9) Status: Active Papule of skin (709.8, R23.8) Status: Active Lung nodule (793.11, R91.1) Status: Active 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, I50.42) Status: Active 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, left, with fat layer exposed ( 707.14, L97.422) Status: Active Hypertension (401.9, I10) Status: Active PAF (paroxysmal atrial fibrillation) (427.31, I48.0) Status: Active Type 2 diabetes mellitus with diabetic neuropathy (250.60, E11.40) Status: Active Medications Name Dates Details Furosemide 40 MG Oral Tablet TAKE 1 TABLET BY MOUTH DAILY Quantity: 90 Isra D.O.Jovita * Start 30-Oct-2010 Active Lantus SoloStar 100 UNIT/ML Subcutaneous Solution Pen-injector INJECT 44 UNITS DAILY DIRECTED * Quantity: 11 Refills: 11 Isra D.O.Jovita * Start 05-Dec-2010 Active 3 ML Pen (5 Pens) Carvedilol 6.25 MG Oral Tablet TAKE 1 TABLET BY MOUTH TWICE DAILY * Quantity: 180 Refills: 1 Isra D.O.Jovita * Start 18-Dec-2010 Active [place] BD PEN NEEDLE MINI 30yseqv0/16 Inject Insulin at hs dx 250.02 * Quantity: 200 Refills: 6 Isra D.O.Jovita * Start 23-Dec-2010 Active Pravastatin Sodium 10 MG Oral Tablet TAKE 1/2 TABLET BY MOUTH DAILY * Quantity: 15 Refills: 11 Isra D.O.Jovita * Start 30-Mar-2013 Active Warfarin Sodium 6 MG Oral Tablet take 1 tablet by mouth every day * Quantity: 90 Refills: 0 Isra D.O.Jovita * Start 11-May-2013 Active Vitamin B-12 1000 MCG Sublingual Tablet Sublingual PLACE 1 MCG Daily * Quantity: 1 Refills: 0 Sp Dawkins M.D. * Start Active 100 Tablet Sublingual Bottle Lantus SoloStar 100 UNIT/ML Subcutaneous Solution Pen-injector INJECT 25 UNITS DAILY DIRECTED * Quantity: 15 Refills: 3 Isra D.O.Jovita * Start 20-Nov-2015 Active Losartan Potassium 100 MG Oral Tablet Take one tablet by mouth daily * Quantity: 90 Refills: 0 Isra D.O. RFabio Khan * Start 28-Feb-2014 Active [employer] Contour Next Monitor w/Device Kit testing three times daily * Quantity: 1 Refills: 3 Sp Dawkins M.D. * Start 22-Mar-2014 Active [place] Contour Next Test In Vitro Strip TEST THREE TIMES DAILY * Quantity: 100 Refills: 0 Jovita Dhaliwal D.O. * Start 22-Mar-2014 Active Tamsulosin HCl - 0.4 MG Oral Capsule TAKE 1 CAPSULE Daily * Quantity: 30 Refills: 11 Isra Salinas.Jovita Frazier * Start 05-Feb-2015 Active Supplies CPAP repair, services and supplies, G47.33 Mask, headgear, filters, heated tubing, chinstrap * Quantity: 1 Refills: 0 Sandip P.A.[place] * Start 05-Mar-2015 Active Fish Oil 1000 MG Oral Capsule TAKE 1 CAPSULE DAILY. * Refills: 0 * Start 10-May-2015 Active Supplies AutoCPAP 9-13 cm H2O, Permanent use, G47.33, Heated humidity, [id number], mask , headgear, filters, heated tubing, water chamber, chinstrap * Quantity: 1 Refills: 0 Sandip P.A.[place] * Start 07-Jun-2015 Active Fluticasone Propionate 50 MCG/ACT Nasal Suspension USE 1 SPRAY IN EACH NOSTRIL ONCE DAILY. * Quantity: 1 Refills: 0 Edilson Brennan M.D. * Start 29-Jun-2015 Active 16 GM Bottle BD Pen Needle Mini U/F 31G X 5 MM Miscellaneous USE TO INJECT INSULIN AT BEDTIME * Quantity: 200 Refills: 0 Jovita Dhaliwal D.O. * Start Active Allergies and Adverse Reactions Name Dates Details No Known Drug Allergies (Allergy) Status: Active Past Medical History Name Dates Details History of Acute upper respiratory infection (465.9, J06.9) Status: Resolved History of allergic rhinitis (V12.69, Z87.09) Status: Resolved History of Diabetes mellitus (250.00, E11.9) Status: Resolved History of hypertension (V12.59, Z86.79) Status: Resolved Procedures Procedure Dates Details History of Catheterization Of Artery Of Extremity Completed: 11-Jan-2013 History of Pacemaker - Pulse Generator Replacement History of Arterial Catheterization CBC w/ Auto Diff 7150 Ordered: 22-Oct-2015 BASIC METABOLIC PROFILE 1210 Ordered: 22-Oct-2015 HEMOGLOBIN A1C 3507 Ordered: 22-Oct-2015 PROTIME PANEL 7000 Ordered: 16-Nov-2015 PROTIME PANEL 7000 Ordered: 30-Nov-2015 Immunization Name Dates Details Influenza on: 10-Dec-2010 Influenza on: 02-Feb-2012 Diphtheria-Tetanus Toxoids 6.7-5 LFU/0.5ML INJ on: Tdap (Boostrix) on: Adacel 5-2-15.5 LF-MCG/0.5 Intramuscular Suspension Lot #: [id number] on: 21-Jul-2013 Fluzone High-Dose SUSP Lot #: [id number] on: 13-Dec-2013 Prevnar 13 Intramuscular Suspension Lot #: [id number] on: 07-Apr-2014 Pneumovax 23 25 MCG/0.5ML Injection Injectable on: 09-May-2015 Pneumo (Pneumovax) Lot #: [id number] on: 09-May-2015 Family History Name Dates Details Family history of Status: Active Name Dates Details Family history of Status: Active Social History Name Dates Details - Status: Name Dates Details Former smoker Vital Signs Date Test Result Details 30-Nov-2015 13:12 BP Systolic 149 mm[Hg] Status: Comments: Location: ; Position: BP Diastolic 80 mm[Hg] Status: Comments: Location: ; Position: Heart Rate 87 /min Status: Comments: Location: ; Weight 237 lb Status: Body Mass Index Calculated 32.59 kg/m2 Status: Body Surface Area Calculated 2.28 m2 Status: 16-Nov-2015 09:38 Temperature 98.5 f Status: Weight 235 lb Status: Body Mass Index Calculated 32.32 kg/m2 Status: Body Surface Area Calculated 2.27 m2 Status: 14-Nov-2015 10:31 BP Systolic 140 mm[Hg] Status: Comments: Location: ; Position: BP Diastolic 80 mm[Hg] Status: Comments: Location: ; Position: 14-Nov-2015 10:29 BP Systolic 174 mm[Hg] Status: BP Diastolic 96 mm[Hg] Status: Heart Rate 82 /min Status: Weight 240 lb Status: Body Mass Index Calculated 33.01 kg/m2 Status: Body Surface Area Calculated 2.29 m2 Status: Results Date Description Value Details 01-Nov-2015 09:18 ULTRASOUND AORTA AAA SCREENING MEDICARE PATIENT Comments: Exam Date: 11/01/2015 09:04Dictation Date: 11/01/2015 09:18 XS ABDOMINAL AORTA AAA SCREEN 07-Nov-2015 09:53 ECG/ EKG Outside Interp Electro CardioGram 14-Nov-2015 12:12 PROTIME PANEL 7000 PROTIME 19.1 secs (Above high threshold) Range: 12.0-14.9 INR 1.61 22-Nov-2015 15:30 CT CHEST WITH IV CONTRAST Comments: Exam Date: 11/22/2015 14:33Dictation Date: 11/22/2015 15:30 XC CHEST Plan of Care Name Dates Details Planned Observations Planned Goals not documented Planned Encounters Appointment; Provider: Jovita Dhaliwal D.O. On 19-Feb-2016 10:00 Appointment; Provider: John Aldridge M.D. On 10-Dec-2015 09:45 Appointment; Provider: Moody Choe M.D. On 05-Dec-2015 14:15 Interventions Provided Medication Changes* Losartan Potassium 100 MG Oral Tablet - Renew with Changes Labs/Procedures/Imaging* PROTIME PANEL 7000; To be Done: 30 Nov 2015 Instructions Name Dates Details Instructions not documented Encounters Appointment; Jovita Dhaliwal D.O. Encounter Diagnosis: Problem not documented On 21-Nov-2015 14:00 Appointment; Jovita Dhaliwal D.O. Encounter Diagnosis: Problem not documented On 16-Nov-2015 09:15 Appointment; Jovita Dhaliwal D.O. Encounter Diagnosis: Problem not documented On 14-Nov-2015 10:15 Appointment; Moody Choe M.D. Encounter Diagnosis: Problem not documented On 23-Oct-2015 14:45 Appointment; Jovita Dhaliwal D.O. Encounter Diagnosis: Problem not documented On 22-Oct-2015 10:30 Appointment; John Aldridge M.D. Encounter Diagnosis: Problem not documented On 11:30 Appointment; Jovita Dhaliwal D.O. Encounter Diagnosis: Problem not documented On 10:00 Appointment; Moody Choe M.D. Encounter Diagnosis: Problem not documented On 13:45 Appointment; Jovita Dhaliwal D.O. Encounter Diagnosis: Problem not documented On 10:45 Appointment; Jovita Dhaliwal D.O. Encounter Diagnosis: Problem not documented On 10-Aug-2015 10:45 Appointment; John Aldridge M.D. Encounter Diagnosis: Problem not documented On 08-Aug-2015 13:00 Appointment; Moody Choe M.D. Encounter Diagnosis: Problem not documented On 06-Aug-2015 13:15 Appointment; Jovita Dhaliwal D.O. Encounter Diagnosis: Problem not documented On 06-Aug-2015 11:00 Appointment; Jovita Dhaliwal D.O. Encounter Diagnosis: Problem not documented On 04-Jul-2015 15:40 Appointment; Lety Ortiz A.P.R.N. Encounter Diagnosis: Problem not documented On 03-Jul-2015 12:10 Appointment; Jovita Dhaliwal D.O. Encounter Diagnosis: Problem not documented On 03-Jul-2015 11:49 Appointment; Edilson Brennan M.D. Encounter Diagnosis: Problem not documented On 29-Jun-2015 14:45 Appointment; Carl Ga D.O. Encounter Diagnosis: Problem not documented On 14-Jun-2015 10:00 Appointment; Moody Choe M.D. Encounter Diagnosis: Problem not documented On 07-Jun-2015 15:15 Appointment; Benny Barfield D.O. Encounter Diagnosis: Problem not documented On 04-Jun-2015 10:30 Appointment; John Aldridge M.D. Encounter Diagnosis: Problem not documented On 10-May-2015 15:00 Appointment; Carl Ga D.O. Encounter Diagnosis: Problem not documented On 10-May-2015 09:15 Appointment; Jovita Dhaliwal D.O. Encounter Diagnosis: Problem not documented On 09-May-2015 08:30 Appointment; Moody Choe M.D. Encounter Diagnosis: Problem not documented On 06-Apr-2015 10:15 Appointment; Jovita Dhaliwal D.O. Encounter Diagnosis: Problem not documented On 13-Mar-2015 10:15 Appointment; Moody Choe M.D. Encounter Diagnosis: Problem not documented On 05-Mar-2015 14:30 Appointment; Jovita Dhaliwal D.O. Encounter Diagnosis: Problem not documented On 15-Feb-2015 13:45 Appointment; Jovita Dhaliwal D.O. Encounter Diagnosis: Problem not documented On 05-Feb-2015 13:15 Appointment; John Aldridge M.D. Encounter Diagnosis: Problem not documented On 31-Jan-2015 15:45 Appointment; Jovita Dhaliwal D.O. Encounter Diagnosis: Problem not documented On 25-Jan-2015 09:30 Appointment; Jovita Dhaliwal D.O. Encounter Diagnosis: Problem not documented On 22-Jan-2015 08:35 Appointment; Jovita Dhaliwal D.O. Encounter Diagnosis: Problem not documented On 07-Nov-2014 08:45 Appointment; John Aldridge M.D. Encounter Diagnosis: Problem not documented On 27-Oct-2014 09:45 Appointment; Jovita Dhaliwal D.O. Encounter Diagnosis: Problem not documented On 25-Oct-2014 09:00 Appointment; Jovita Dhaliwal D.O. Encounter Diagnosis: Problem not documented On 10:30 Appointment; John Aldridge M.D. Encounter Diagnosis: Problem not documented On 10:15 Appointment; Carl Ga D.O. Encounter Diagnosis: Problem not documented On 09:15 Appointment; Jovita Dhaliwal D.O. Encounter Diagnosis: Problem not documented On 13:30 Appointment; Carl Ga D.O. Encounter Diagnosis: Problem not documented On 12:00 Appointment; Jovita Dhaliwal D.O. Encounter Diagnosis: Problem not documented On 09:45 Appointment; Carl Ga D.O. Encounter Diagnosis: Problem not documented On 26-Jul-2014 09:45 Appointment; Tari Chilel A.P.R.N. Encounter Diagnosis: Problem not documented On 06-Jul-2014 09:20 Appointment; Jovita Dhlaiwal D.O. Encounter Diagnosis: Problem not documented On 27-Jun-2014 15:15 Appointment; Jovita Dhaliwal D.O. Encounter Diagnosis: Problem not documented On 19-Jun-2014 15:30 Appointment; Jovita Dhaliwal D.O. Encounter Diagnosis: Problem not documented On 29-May-2014 14:45 Appointment; Sp Dawkins M.D. Encounter Diagnosis: Problem not documented On 22-May-2014 11:30 Appointment; Carl Ga D.O. Encounter Diagnosis: Problem not documented On 09-May-2014 09:15 Appointment; Sp Dawkins M.D. Encounter Diagnosis: Problem not documented On 27-Apr-2014 15:00 Appointment; Carl Ga D.O. Encounter Diagnosis: Problem not documented On 17-Apr-2014 09:45 Appointment; Sp Dawkins M.D. Encounter Diagnosis: Problem not documented On 07-Apr-2014 10:45 Appointment; John Aldridge M.D. Encounter Diagnosis: Problem not documented On 28-Mar-2014 11:15 Appointment; Sp Dawkins M.D. Encounter Diagnosis: Problem not documented On 21-Mar-2014 13:15 Appointment; John Aldridge M.D. Encounter Diagnosis: Problem not documented On 28-Feb-2014 10:30 Appointment; John Aldridge M.D. Encounter Diagnosis: Problem not documented On 31-Jan-2014 15:00 Appointment; Larry Mckeon M.D. Encounter Diagnosis: Problem not documented On 04-Jan-2014 15:35 Appointment; Sp Dawkins M.D. Encounter Diagnosis: Problem not documented On 13-Dec-2013 13:15 Appointment; John Aldridge M.D. Encounter Diagnosis: Problem not documented On 06-Dec-2013 13:45
--- OUTSIDE RECORDS SUMMARY | 2016-07-04 08:50 | XMS REPORT | Summary of Care ---
Author Author Jovita Dhaliwal D.O. 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 Unavailable Unavailable Tari Chilel APRN Unavailable Unavailable Luis Carlos Sands, T. KFabio Unavailable Unavailable Sp Dawkins M.D. Unavailable Unavailable Jovita Dhaliwal D.O. 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, I50.42) Status: Active Presence of cardiac resynchronization therapy defibrillator (V45.02, Z95.810) Status: Active Hyperlipidemia (272.4, E78.5) Status: Active Hypertension (401.9, I10) Status: Active Acute sinusitis (461.9, J01.90) Status: Active Type 2 diabetes mellitus with diabetic neuropathy (250.60, E11.40) Status: Active Obstructive sleep apnea (327.23, G47.33) Status: Active Atrial fibrillation, currently in sinus rhythm (427.31, I48.91) Status: Active 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 Quantity: 30 Sp Dawkins M.D.* Started 30-Oct-2010 ActiveFurosemide 40 MG Oral Tablet TAKE 1 TABLET BY MOUTH DAILY * Quantity: 90 Refills: 0 Sp Dawkins M.D.* Started 30-Oct-2010 ActiveLantus SoloStar 100 UNIT/ML Subcutaneous Solution Pen-injector INJECT 25 UNITS DAILY DIRECTED * Quantity: 11 Refills: 11 Jovita Dhaliwal D.O.* Started 05-Dec-2010 Active3 ML Pen (5 Pens) Carvedilol 6.25 MG Oral Tablet TAKE 1 TABLET BY MOUTH TWICE DAILY * Quantity: 180 Refills: 1 Jovita Dhaliwal D.O.* Started 18-Dec-2010 ActiveNeedles BD PEN NEEDLE MINI 12dirjh0/16 Inject Insulin at hs dx 250.02 * Quantity: 200 Refills: 6 Jovita Dhaliwal D.O.* Started 23-Dec-2010 ActiveWarfarin Sodium 1 MG Oral Tablet Take 1 tablet daily * Quantity: 60 Refills: 11 Sp Dawkins M.D.* Started 20-May-2011 ActiveViagra 50 MG Oral Tablet [...] 1 Refills: 0 Sp Dawkins M.D.* Started [id number] Tablet Sublingual Bottle Lantus SoloStar 100 UNIT/ML Subcutaneous Solution Pen-injector INJECT 25 UNITS DAILY DIRECTED * Quantity: 1 Refills: 5 Jovita Dhaliwal D.O.* Started 16-Dec-2013 Active3 ML Pen (5 Pens) Carvedilol 12.5 MG Oral Tablet TAKE 1 TABLET TWICE DAILY. * Quantity: 180 Refills: 3 John Aldridge M.D.* Started 28-Feb-2014 ActiveLosartan Potassium 50 MG Oral Tablet TAKE 1 TABLET TWICE DAILY. * Quantity: 180 Refills: 3 Jovita Dhaliwal D.O.* Started 28-Feb-2014 [facility] Cont[facility] Next Monitor w/Device Kit testing three times daily * Quantity: 1 Refills: 3 Sp Dawkins M.D.* Started 22-Mar-2014 ActiveBayer Contour Next Test In Vitro Strip TEST THREE TIMES A DAY * Quantity: 1 Refills: 3 Jovita Dhaliwal D.O.* Started 22-Mar-2014 [id number] Strip Box ZyrTEC Allergy 10 MG Oral Tablet TAKE 1 TABLET DAILY DIRECTED. * Quantity: 30 Refills: 2 Jovita Dhaliwal D.O.* Started 19-Jun-2014 ActiveFluticasone Propionate 50 MCG/ACT Nasal Suspension USE 1 TO 2 SPRAYS IN EACH NOSTRIL ONCE DAILY. * Quantity: 1 Refills: 0 Jovita Dhaliwal D.O.* Started 19-Jun-2014 Kinfaf71 GM Bottle Doxycycline Monohydrate 100 MG Oral Capsule TAKE 1 CAPSULE TWICE DAILY WITH FOOD. * Quantity: 14 Refills: 0 Jovita Dhaliwal D.O.* Started 19-Jun-2014 ActiveCephalexin 500 MG Oral Capsule TAKE 1 CAPSULE 3 TIMES DAILY. * Quantity: 5 Refills: 0 Tari Chilel APRN* Started 06-Jul-2014 ActivePrednisoLONE Acetate 1 % Ophthalmic Suspension INSTILL 1 DROP INTO LEFT EYE 3 TIMES DAILY FOR ONE WEEK * Quantity: 1 Refills: 0 Carl Ga D.O.* Started Active5 ML Bottle Allergies and Adverse Reactions Name Dates [...] History of Pacemaker - Pulse Generator Replacement Procedures not documented Immunization Name Dates Details Influenza Administered on:10-Dec-2010 Influenza Administered on:02-Feb-2012 Diphtheria-Tetanus Toxoids 6.7-5 LFU/0.5ML Intramuscular Injectable Administered on: Tdap (Boostrix) Administered on: Adacel 5-2-15.5 LF-MCG/0.5 Intramuscular Suspension Lot #: [id number] Administered on:21-Jul-2013 Fluzone High-Dose Intramuscular Suspension Lot #: [id number] Administered on:13-Dec-2013 Prevnar 13 Intramuscular Suspension Lot #: [id number] Administered on:07-Apr-2014 Social History Name Dates Details Smoking Status* Former smoker Vital Signs Date Test Result Details 22-Jan-2015 08:45 BP Systolic 130 mm[Hg] Status: BP Diastolic 78 mm[Hg] Status: Heart Rate 84 /min Status: Weight 225.25 lb Status: Body Mass Index Calculated 29.72 kg/m2 Status: Body Surface Area Calculated 2.26 m2 Status: Results Date Description Value Details Results not documented Plan of Care Planned Observations* Name Dates Details Planned Goals not documented Goal Planned Encounters* Appointment; Provider: Carl Ga On 10-May-2015 09:15 * Appointment; Provider: John Aldridge On 02-May-2015 09:45 * Appointment; Provider: Jovita Dhaliwal On 25-Jan-2015 09:30 * Appointment; Provider: Danyel Rodriguez On 13-Jan-2015 [...] Choe On 18-Apr-2007 09:45 * Appointment; Provider: Moody Choe On 17-Apr-2007 09:15 * Appointment; Provider: Moody Choe On 16-Apr-2007 08:45 * Appointment; Provider: Moody Choe On 15-Apr-2007 09:00 Instructions * Instructions not documented Encounters Appointment; Jovita Dhaliwal Encounter Diagnosis: Problem not [...] Diagnosis: Problem not documented On 11-Aug-2013 09:30 Appointment; Sp Dawkins Encounter Diagnosis: Problem not documented On 21-Jul-2013 15:30 Appointment; Eladia Kerr Encounter Diagnosis: Problem not documented On 12-Jul-2013 11:35 Appointment; Eladia Kerr Encounter Diagnosis: Problem not documented On 17-Jun-2013 09:00 Appointment; Eladia Kerr Encounter Diagnosis: Problem not documented On 27-May-2013 09:45 Appointment; John Aldridge Encounter Diagnosis: Problem not documented On 25-May-2013 11:45 Appointment; Sp Dawkins Encounter Diagnosis: Problem not documented On 29-Apr-2013 10:45 Appointment; Carl Ga Encounter Diagnosis: Problem not documented On 15-Apr-2013 09:45 Appointment; John Aldridge Encounter Diagnosis: Problem not documented On 12-Apr-2013 10:45 Appointment; Sp Dawkins Encounter Diagnosis: Problem not documented On 08-Apr-2013 13:45 Appointment; Sp Dawkins Encounter Diagnosis: Problem not documented On 25-Mar-2013 10:00 Appointment; Sp Dawkins Encounter Diagnosis: Problem not documented On 23-Mar-2013 14:15 Appointment; John Aldridge Encounter Diagnosis: Problem not documented On 18-Mar-2013 10:15 Appointment; Sp Dawkins Encounter Diagnosis: Problem not documented On 17-Mar-2013 11:15 Appointment; Sp Dawkins Encounter Diagnosis: Problem not documented On 14-Feb-2013 15:15 Appointment; Kirt Love Encounter Diagnosis: Problem not documented On 07-Feb-2013 14:15 Appointment; Sp Dawkins Encounter Diagnosis: Problem not documented On 27-Jan-2013 13:30 Appointment; John Aldridge Encounter Diagnosis: Problem not documented On 25-Jan-2013 10:15
--- OUTSIDE RECORDS SUMMARY | 2016-07-04 08:50 | XMS REPORT | Summary of Care ---
Author Author Jovita Dhaliwal D.O. Organization Unknown Address [address], [place] [id number] Phone Unavailable Care Team Providers Care Local Operator Name Role Phone Sp Dawkins M.D. 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, left, with fat layer exposed ( 707.14, L97.422) Status: Active Anticoagulant long-term use (V58.61, Z79.01) Status: Active Insomnia (780.52, G47.00) Status: Active Type 2 diabetes mellitus with diabetic neuropathy (250.60, E11.40) Status: Active Tooth infection (522.4, K04.7) Status: Active 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, I50.42) Status: Active Presence of cardiac resynchronization therapy defibrillator (V45.02, Z95.810) Status: Active PAF (paroxysmal atrial fibrillation) (427.31, I48.0) Status: Active On warfarin therapy (V58.61, Z79.01) Status: Active Hypertension (401.9, I10) Status: Active Hyperlipidemia (272.4, E78.5) Status: Active Normal coronary arteries (V71.7, Z03.89) Status: Active Benign prostatic hyperplasia without lower urinary tract symptoms, prostatic enlargement of unspecified morphology (600.00, N40.0) Status: Active Candidal balanitis (112.2, B37.42) Status: Active Actinic keratosis (702.0, L57.0) Status: Active Medications Name Dates Details Furosemide 40 MG Oral Tablet TAKE 1 TABLET BY MOUTH DAILY Quantity: 90 Sp Dawkins M.D.* Started 30-Oct-2010 ActiveLantus SoloStar 100 UNIT/ML Subcutaneous Solution Pen-injector INJECT 25 UNITS DAILY DIRECTED * Quantity: 11 Refills: 11 Jovita Dhaliwal.O.* Started 05-Dec-2010 Active3 ML Pen (5 Pens) Carvedilol 6.25 MG Oral Tablet TAKE 1 TABLET BY MOUTH TWICE DAILY * Quantity: 180 Refills: 1 Jovita Dhaliwal D.O.* Started 18-Dec-2010 ActiveNeedles BD PEN NEEDLE MINI 26mcthd3/16 Inject Insulin at hs dx 250.02 * Quantity: 200 Refills: 6 Jovita Dhaliwal D.O.* Started 23-Dec-2010 ActiveViagra 50 MG Oral Tablet TAKE DIRECTED. [...] 1 Refills: 0 Sp Dawkins M.D.* Started [id number] Tablet Sublingual Bottle Lantus SoloStar 100 UNIT/ML Subcutaneous Solution Pen-injector INJECT 25 UNITS DAILY DIRECTED * Quantity: 1 Refills: 5 Jovita DhaliwalO.* Started 16-Dec-2013 Active3 ML Pen (5 Pens) Losartan Potassium 50 MG Oral Tablet TAKE 1 TABLET TWICE DAILY. * Quantity: 180 Refills: 3 Jovita DhaliwalO.* Started 28-Feb-2014 ActiveParso Next Monitor w/Device Kit testing three times daily * Quantity: 1 Refills: 3 Sp Dawkins M.D.* Started 22-Mar-2014 ActiveBayer Contour Next Test In Vitro Strip TEST THREE TIMES A DAY * Quantity: 1 Refills: 3 Jovita Dhaliwal.O.* Started 22-Mar-2014 [id number] Strip Box Tamsulosin HCl - 0.4 MG Oral Capsule TAKE 1 CAPSULE Daily * Quantity: 30 Refills: 11 Jovita Dhaliwal D.O.* Started 05-Feb-2015 ActiveClotrimazole 1 % External Cream APPLY SPARINGLY TO AFFECTED AREA(S) TWICE DAILY UNTIL RESOLVED * Quantity: 1 Refills: 0 Jovita Dhaliwal.O.* Started 05-Feb-2015 [id number] GM Tube Fluconazole 150 MG Oral Tablet TAKE 1 TABLET ONCE AND REPEAT IN 1 WEEK. * Quantity: 2 Refills: 0 Jovita Dhaliwal.Juancarlos.* Started 05-Feb-2015 Active Allergies and Adverse Reactions Name Dates [...] History of Arterial Catheterization PROTIME PANEL 7000 Ordered:25-Jan-2015 BASIC METABOLIC PROFILE 1210 Ordered:26-Jan-2015 HEMOGLOBIN A1C 3507 Ordered:26-Jan-2015 Immunization Name Dates Details Influenza Administered on:10-Dec-2010 Influenza Administered on:02-Feb-2012 Diphtheria-Tetanus Toxoids 6.7-5 LFU/0.5ML Intramuscular Injectable Administered on: Tdap (Boostrix) Administered on: Adacel 5-2-15.5 LF-MCG/0.5 Intramuscular Suspension Lot #: [id number] Administered on:21-Jul-2013 Fluzone High-Dose Intramuscular Suspension Lot #: [id number] Administered on:13-Dec-2013 Prevnar 13 Intramuscular Suspension Lot #: [id number] Administered on:07-Apr-2014 Family History Mother* Name Dates Details Family history of Status: Active Father* Name Dates Details Family history of Status: Active Social History Name Dates Details Smoking Status* Former smoker Vital Signs Date Test Result Details 15-Feb-2015 13:34 BP Systolic 140 mm[Hg] Status: BP Diastolic 86 mm[Hg] Status: Heart Rate 80 /min Status: Weight 229 lb Status: Body Mass Index Calculated 30.21 kg/m2 Status: Body Surface Area Calculated 2.28 m2 Status: 05-Feb-2015 13:41 BP Systolic 138 mm[Hg] Status: BP Diastolic 70 mm[Hg] Status: Heart Rate 102 /min Status: Weight 229.4375 lb Status: Body Mass Index Calculated 30.27 kg/m2 Status: Body Surface Area Calculated 2.28 m2 Status: 31-Jan-2015 16:00 BP Systolic 140 mm[Hg] Status: BP Diastolic 90 mm[Hg] Status: Heart Rate 84 /min Status: Weight 225.0 lb Status: Body Mass Index Calculated 29.69 kg/m2 Status: Body Surface Area Calculated 2.26 m2 Status: 25-Jan-2015 09:42 BP Systolic 124 mm[Hg] Status: BP Diastolic 70 mm[Hg] Status: Heart Rate 80 /min Status: Weight 231 lb Status: Body Mass Index Calculated 30.48 kg/m2 Status: Body Surface Area Calculated 2.29 m2 Status: 22-Jan-2015 08:45 BP Systolic 130 mm[Hg] Status: BP Diastolic 78 mm[Hg] Status: Heart Rate 84 /min Status: Weight 225.25 lb Status: Body Mass Index Calculated 29.72 kg/m2 Status: Body Surface Area Calculated 2.26 m2 Status: Results Date Description Value Details 23-Jan-2015 11:10 Comprehensive Metabolic Panel 1212 Comments: Fasting : 0 hours SODIUM 140 mmol/L (Better) Range: 133-144 POTASSIUM 4.1 mmol/L (Better) Range: 3.5-5.1 CHLORIDE 102 mmol/L (Better) Range: 98-110 CARBON DIOXIDE 27.5 mmol/L (Better) Range: 23.0-33.0 ANION GAP 11 mmol/L (Better) Range: 6-16 BUN 17 mg/dL (Better) Range: 7-18 CREATININE, SERUM 1.24 mg/dL (Better) Range: 0.70-1.30 Comments: Please note new reference ranges effective 2014.----- BUN:CREATININE RATIO 14 (Better) EST GFR, >60 ml/min (Better) Range: >60 EST GFR, NON-AFR BULGARIAN 58 ml/min (Below low threshold) Range: >60 Comments: EST GFR is reported in ml/min per 1.73 m2 of body surface area. For -Nauruan, please multiple result by 1.2.----- GLUCOSE 97 mg/dL (Better) Range: 70-100 ALK PHOSPHATASE 76 U/L (Better) Range: 46-116 TOTAL BILIRUBIN 0.40 mg/dL (Better) Range: 0.20-1.00 AST 19 U/L (Better) Range: 8-35 ALT 22 U/L (Better) Range: 16-63 Comments: Please note new reference ranges. Effective 2014.----- ALBUMIN 3.5 g/dL (Better) Range: 3.4-5.0 TOTAL PROTEIN 7.5 g/dL (Better) Range: 6.4-8.2 A/G RATIO 0.9 units (Below low threshold) Range: 1.0-1.8 CALCIUM 8.7 mg/dL (Better) Range: 8.5-10.1 13:14 HEMOGLOBIN A1C 3507 Comments: Fastin hours Hemoglobin A1C 6.7 % (Better) ESTIMATED AVG. GLUCOSE 146 (Better) 25-Jan-2015 11:09 PROTIME PANEL 7000 PROTIME 18.9 secs (Above high threshold) Range: 12.0-14.9 INR 1.59 (Better) Plan of Care Planned Observations* Name Dates Details Planned Goals not documented Goal Planned Encounters* Appointment; Provider: Carl Ga On 10-May-2015 09:15 * Appointment; Provider: Jovita Dhaliwal On 09-May-2015 10:15 * Appointment; Provider: John Aldridge On 02-May-2015 09:45 * Appointment; Provider: Moody Choe On 05-Mar-2015 14:30 * Appointment; Provider: Danyel Rodriguez On 13-Jan-2015 [...] Problem not documented On 12:00 Appointment; Jovita Dhalwial Encounter Diagnosis: Problem not documented On 09:45 [...]
--- OUTSIDE RECORDS SUMMARY | 2016-07-04 08:50 | XMS REPORT | Summary of Care ---
Author Author Jovita Dhaliwal D.O. Organization Unknown Address [address] [place], [place] [id number] Phone Unavailable Care Team Providers Care Grinder Set Up Operator Jig Name Role Phone Sp Dawkins M.D. Unavailable Unavailable Edilson Brennan M.D. Unavailable Unavailable Savannah Zimmerman Unavailable Unavailable Jovita Dhaliwal D.O. Unavailable Unavailable Jose King M.D. Unavailable Unavailable Don Reed M.D. 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 Medicare annual wellness visit, initial (V70.0, Z00.00) Status: Active Former smoker (V15.82, Z87.891) Status: Active Medicare annual wellness visit, initial (V70.0, Z00.00) Status: Active Lung nodule (793.11, R91.1) Status: Active Combined form of age-related cataract, left eye (366.19, H25.812) Status: Active Combined form of age-related cataract, right eye (366.19, H25.811) Status: Active Presbyopia OU (367.4, H52.4) Status: Active Blood blister (919.2, T14.8) Status: Active Hordeolum externum of right lower eyelid (373.11, H00.012) Status: Active Anatomical narrow angle, bilateral (365.02, H40.033) Status: Active Left knee tendonitis (727.09, M76.892) Status: Active Low back pain (724.2, M54.5) Status: Active Fatigue (780.79, R53.83) Status: Active 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, left, with fat layer exposed ( 707.14, L97.422) Status: Active Knee pain, right (719.46, M25.561) Status: Active Right knee sprain (844.9, S83.91XA) Status: Active Allergic reaction to chemical substance (989.9, T65.91XA) Status: Active Seborrheic keratosis (702.19, L82.1) Status: Active Acute bronchitis, unspecified organism (466.0, J20.9) Status: Active History of colon polyps (V12.72, Z86.010) Status: Active Actinic keratosis (702.0, L57.0) Status: Active Papule of skin (709.8, R23.8) Status: Active Screen for colon cancer (V76.51, Z12.11) Status: Active Obstructive sleep apnea (327.23, G47.33) Status: Active Type 2 diabetes mellitus with diabetic neuropathy (250.60, E11.40) Status: Active Primary open angle glaucoma of both eyes, moderate stage (365.11, H40.1132) Status: Active Type 2 diabetes mellitus without retinopathy (250.00, E11.9) Status: Active 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 * Start 30-Oct-2010 Active Lantus SoloStar 100 UNIT/ML Subcutaneous Solution Pen-injector INJECT 46 UNITS DAILY DIRECTED * Quantity: 11 Refills: 11 Isra Rita.Jovita Frazier * Start 05-Dec-2010 Active 3 ML Pen (5 Pens) Carvedilol 6.25 MG Oral Tablet TAKE 1 TABLET BY MOUTH TWICE DAILY * Quantity: 180 Refills: 0 Isra D.OJovita Mccarthy * Start 13-Jun-2016 Active [place] BD PEN NEEDLE MINI 62ubozi1/16 Inject Insulin at hs dx 250.02 * Quantity: 200 Refills: 6 Isra D.O.Jovita * Start 23-Dec-2010 Active Pravastatin Sodium 10 MG Oral Tablet TAKE 1/2 TABLET BY MOUTH DAILY * Quantity: 15 Refills: 3 Isra D.O.Jovita * Start 16-May-2016 Active Warfarin Sodium 6 MG Oral Tablet take 1 tablet by mouth every day * Quantity: 90 Refills: 1 Isra D.O.Jovita * Start 21-Feb-2016 Active Vitamin B-12 1000 MCG Sublingual Tablet Sublingual PLACE 1 MCG Daily * Quantity: 1 Refills: 0 Sp Dawkins M.D. * Start Active 100 Tablet Sublingual Bottle Losartan Potassium 50 MG Oral Tablet TAKE 1 TABLET BY MOUTH TWICE DAILY * Quantity: 180 Refills: 0 Isra D.Juancarlos.Jovita * Start 13-Jun-2016 Active Lantus SoloStar 100 UNIT/ML Subcutaneous Solution Pen-injector INJECT 25 UNITS DAILY DIRECTED * Quantity: 15 Refills: 0 Isra D.Jovita Frazier * Start 12-Jun-2016 Active Losartan Potassium 50 MG Oral Tablet TAKE 1 TABLET DAILY. * Quantity: 90 Refills: 3 Isra D.O.Jovita * Start 28-Feb-2014 Active [employer] Contour Next Monitor w/Device Kit testing three times daily * Quantity: 1 Refills: 3 Sp Dawkins M.D. * Start 22-Mar-2014 Active [employer] Contour Next Test In Vitro Strip TEST THREE TIMES DAILY * Quantity: 100 Refills: 1 Isra D.O.Jovita * Start 21-Dec-2015 Active Supplies CPAP repair, services and supplies, G47.33 Mask, headgear, filters, heated tubing, chinstrap * Quantity: 1 Refills: 0 Sandip Montaño.Savannah Carvalho * Start 05-Mar-2015 Active Fish Oil 1000 MG Oral Capsule TAKE 1 CAPSULE DAILY. * Refills: 0 * Start 10-May-2015 Active Supplies AutoCPAP 9-13 cm H2O, Permanent use, G47.33, Heated humidity, [id number], mask , headgear, filters, heated tubing, water chamber, chinstrap * Quantity: 1 Refills: 0 Savannah Zimmerman * Start 07-Jun-2015 Active Fluticasone Propionate 50 MCG/ACT Nasal Suspension USE 1 SPRAY IN EACH NOSTRIL ONCE DAILY. * Quantity: 1 Refills: 0 Edilson Brennan M.D. * Start 29-Jun-2015 Active 16 GM Bottle BD Pen Needle Mini U/F 31G X 5 MM Miscellaneous USE TO INJECT INSULIN AT BEDTIME * Quantity: 200 Refills: 0 Isra D.Jovita Frazier * Start Active Supplies CPAP repair, services and supplies, G47.33 Mask, headgear, filters, heated tubing, chinstrap * Quantity: 1 Refills: 0 Sandip Montaño.Savannah Carvalho * Start 05-Dec-2015 Active Latanoprost 0.005 % Ophthalmic Solution INSTILL 1 DROP IN BOTH EYES AT BEDTIME. * Quantity: 1 Refills: 12 Fernando Sands, Prabhakar Garcia * Start 11-Jan-2016 Active 2.5 ML Bottle Chlorpheniramine Maleate 4 MG Oral Tablet TAKE 1 TABLET EVERY 4 TO 6 HOURS NEEDED. * Quantity: 20 Refills: 0 Jovita Dhaliwal D.O. * Start 15-Apr-2016 Active Metoclopramide HCl - 10 MG Oral Tablet TAKE 1 TABLET Once As Directed HOLD UNTIL ORDERED BY PATIENT * Quantity: 1 Refills: 0 Don Reed M.D. * Start 21-May-2016 Active MetFORMIN HCl - 500 MG Oral Tablet TAKE 1 TABLET BY MOUTH TWICE DAILY * Quantity: 60 Refills: 2 Isra Salinas.Jovita Frazier * Start 27-May-2016 Active Sulfamethoxazole-Trimethoprim 800-160 MG Oral Tablet TAKE 1 TABLET TWICE DAILY WITH FOOD. * Refills: 0 * Start 10-Jun-2016 Active Suprep Bowel Prep Oral Solution DILUTE CONTENTS AND USE DIRECTED FOR BOWEL PREP * Quantity: 1 Refills: 0 Don Reed M.D. * Start 11-Jun-2016 Active 354 ML Bottle Allergies and Adverse Reactions Name [...] History of Arterial Catheterization PROTIME PANEL 7000 Ordered: 09-May-2016 BASIC METABOLIC PROFILE 1210 Ordered: 03-Jun-2016 Quant Microalbumin 1106 Ordered: 03-Jun-2016 HEMOGLOBIN A1C 3507 Ordered: 03-Jun-2016 Immunization Name Dates Details Influenza on: 10-Dec-2010 Influenza on: 02-Feb-2012 Diphtheria-Tetanus Toxoids 6.7-5 LFU/0.5ML INJ on: Tdap (Boostrix) on: Adacel 5-2-15.5 LF-MCG/0.5 Intramuscular Suspension Lot #: [id number] on: 21-Jul-2013 Fluzone High-Dose SUSP Lot #: [id number] on: 13-Dec-2013 Prevnar 13 Intramuscular Suspension Lot #: [id number] on: 07-Apr-2014 Pneumovax 23 25 MCG/0.5ML Injection Injectable on: 09-May-2015 Pneumo (Pneumovax) Lot #: [id number] on: 09-May-2015 Fluzone High-Dose 0.5 ML Intramuscular Suspension Prefilled Syringe Lot #: [id number] on: 28-Dec-2015 Zoster (Zostavax) on: 19-Feb-2016 Family History Name Dates Details Family history of Status: Active Name Dates Details Family history of Status: Active Social History Name Dates Details - Status: Name Dates Details Former smoker Vital Signs Date Test Result Details 10-Jun-2016 10:18 BP Systolic 142 mm[Hg] Status: Comments: Location: ; Position: BP Diastolic 82 mm[Hg] Status: Comments: Location: ; Position: Heart Rate 68 /min Status: Comments: Location: ; Weight 240.0625 lb Status: Physical Findings 97 Status: Comments: O2 Saturation Body Mass Index Calculated 33.02 kg/m2 Status: Body Surface Area Calculated 2.29 m2 Status: 20-May-2016 16:17 BP Systolic 154 mm[Hg] Status: Comments: Location: ; Position: BP Diastolic 89 mm[Hg] Status: Comments: Location: ; Position: Heart Rate 97 /min Status: Comments: Location: ; Physical Findings 100 Status: Comments: O2 Saturation Results Date Description Value Details 26-May-2016 15:13 BASIC METABOLIC PROFILE 1210 Comments: 05/27/16 Fastin hours SODIUM 141 mmol/L Range: 133-144 POTASSIUM 4.4 mmol/L Range: 3.5-5.1 CHLORIDE 105 mmol/L Range: 98-110 CARBON DIOXIDE 28.3 mmol/L Range: 23.0-33.0 ANION GAP 8 mmol/L Range: 6-16 BUN 19 mg/dL (Above high threshold) Range: 7-18 CREATININE, SERUM 1.25 mg/dL Range: 0.70-1.30 EST GFR, >60 ml/min Range: >60 EST GFR, NON-AFR UZBEK 57 ml/min (Below low threshold) Range: >60 Comments: EST GFR is reported in ml/min per 1.73 m2 of body surface area. ----- BUN:CREATININE RATIO 15 GLUCOSE 115 mg/dL (Above high threshold) Range: 70-100 CALCIUM 9.0 mg/dL Range: 8.5-10.1 27-May-2016 08:11 HEMOGLOBIN A1C 3507 Comments: Fastin hours Hemoglobin A1C 7.8 % ESTIMATED AVG. GLUCOSE 177 Plan of Care Name Dates Details Planned Observations PROTIME PANEL 7000 On 26-May-2016 Intent Planned Goals not documented Planned Encounters Appointment; Provider: John Aldridge M.D. On 11-Dec-2016 10:30 Appointment; Provider: Monica Mancera On 08-Dec-2016 14:00 Appointment; Provider: Prabhakar King M.D. On 14:15 Appointment; Provider: Jovita Dhaliwal D.O. On 10:30 Appointment; Provider: Don Reed M.D. On 25-Jun-2016 09:30 Appointment; Provider: Marisela Figueroa On 25-Jun-2016 09:00 Instructions Name Dates Details Instructions not documented Encounters Appointment; Jovita Dhaliwal D.O. Encounter Diagnosis: Problem not documented On 15-Apr-2016 09:20 Appointment; Jovita Dhaliwal D.O. Encounter Diagnosis: Problem not documented On 18-Mar-2016 09:30 Appointment; Jovita Dhaliwal D.O. Encounter Diagnosis: Problem not documented On 12-Mar-2016 11:15 Appointment; Jovita Dhaliwal D.O. Encounter Diagnosis: Problem not documented On 19-Feb-2016 10:00 Appointment; Prabhakar King M.D. Encounter Diagnosis: Problem not documented On 28-Jan-2016 10:15 Appointment; Jovita Dhaliwal D.O. Encounter Diagnosis: Problem not documented On 21-Jan-2016 15:15 Appointment; Prabhakar King M.D. Encounter Diagnosis: Problem not documented On 11-Jan-2016 08:15 Appointment; Prabhakar King M.D. Encounter Diagnosis: Problem not documented On 03-Jan-2016 10:30 Appointment; Jovita Dhaliwal D.O. Encounter Diagnosis: Problem not documented On 02-Jan-2016 14:00 Appointment; Prabhakar King M.D. Encounter Diagnosis: Problem not documented On 01-Jan-2016 09:00 Appointment; Prabhakar King M.D. Encounter Diagnosis: Problem not documented On 31-Dec-2015 13:30 Appointment; Jovita Dhaliwal D.O. Encounter Diagnosis: Problem not documented On 28-Dec-2015 10:00 Appointment; John Aldridge M.D. Encounter Diagnosis: Problem not documented On 12-Dec-2015 13:45 Appointment; John Aldridge M.D. Encounter Diagnosis: Problem not documented On 10-Dec-2015 09:45 Appointment; Moody Choe M.D. Encounter Diagnosis: Problem not documented On 05-Dec-2015 14:15 Appointment; Jovita Dhaliwal D.O. Encounter Diagnosis: Problem not documented On 30-Nov-2015 13:15 Appointment; Jovita Dhaliwal D.O. Encounter Diagnosis: [...] not documented On 06-Apr-2015 10:15 Appointment; Jovita Dhaliawl D.O. Encounter Diagnosis: Problem not documented On [...] documented On 06-Jul-2014 09:20 Appointment; Jovita Dhaliwal D.O. Encounter Diagnosis: Problem not documented On 27-Jun-2014 15:15 Appointment; Jovita Dhaliwal D.O. Encounter Diagnosis: Problem not documented On 19-Jun-2014 15:30
--- OUTSIDE RECORDS SUMMARY | 2016-07-04 08:51 | XMS REPORT | Summary of Care ---
Author Author Edilson Brennan M.D. Organization Unknown Address [address], [place] [id number] Phone Unavailable Care Team Providers Care Training Specialist Name Role Phone Benny Barfield D.O. Unavailable Sp Dawkins M.D. Unavailable Unavailable Edilson Brennan M.D. Unavailable Unavailable Savannah Zimmerman Unavailable Unavailable Jovita Dhaliwal D.O. Unavailable Unavailable Curry Dhaliwal PP Unavailable Sp Dawknis RP Unavailable Unavailable Unavailable Functional Status Functional Status Health Issues* Name Dates Details Functional status health issues are not documented Status: Cognitive Status Health Issues* Name Dates Details Cognitive status health issues are not documented Status: Problems Name Dates Details Intermittent knee pain, left (719.46, M25.562) Status: Active Right shoulder strain (840.9, S46.911A) Status: Active Insomnia (780.52, G47.00) Status: Active Tooth infection (522.4, K04.7) Status: Active Normal coronary arteries (V71.7, Z03.89) Status: Active Benign prostatic hyperplasia without lower urinary tract symptoms, prostatic enlargement of unspecified morphology Status: Active Actinic keratosis (702.0, L57.0) Status: Active External hemorrhoid (455.3, K64.4) Status: Active Slow transit constipation (564.01, K59.01) Status: Active 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, left, with fat layer exposed ( 707.14, L97.422) Status: Active 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, I50.42) Status: Active Cardiac resynchronization therapy defibrillator (PRODUCTION UTILITY WORKER-D) in place (V45.02, Z95.810) Status: Active PAF (paroxysmal atrial fibrillation) (427.31, I48.0) Status: Active On warfarin therapy (V58.61, Z79.01) Status: Active Hypertension (401.9, I10) Status: Active Hyperlipidemia (272.4, E78.5) Status: Active Acute bronchitis, unspecified organism (466.0, J20.9) Status: Active Obstructive sleep apnea (327.23, G47.33) Status: Active Type 2 diabetes mellitus with diabetic neuropathy (250.60, E11.40) Status: Active Combined form of senile cataract of left eye (366.19, H25.812) Status: Active Combined form of senile cataract of right eye (366.19, H25.811) Status: Active Anatomical narrow angle, bilateral (365.02, H40.033) Status: Active 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, 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 Acute maxillary sinusitis, recurrence not specified (461.0, J01.00) Status: Active Medications Name Dates Details Furosemide [...] Started 18-Dec-2010 ActiveNeedles BD PEN NEEDLE MINI 31rzyds6/16 Inject Insulin at hs dx 250.02 * Quantity: 200 Refills: 6 Jovita Dhaliwal D.O.* Started 23-Dec-2010 ActiveWarfarin Sodium 1 MG Oral Tablet TAKE 1 TABLET BY MOUTH DAILY * Quantity: 60 Refills: 2 Jovita DhaliwalO.* Started 20-May-2011 ActiveAmpicillin 500 MG Oral Capsule TAKE 1 CAPSULE 3 times daily * Quantity: 30 Refills: 0 Edilson Brennan M.D.* Started 25-Mar-2013 ActiveViagra 50 MG Oral Tablet TAKE DIRECTED. [...] 1 Refills: 0 Sp Dawkins M.D.* Started Kphygp024 Tablet Sublingual Bottle Losartan Potassium 50 MG Oral Tablet TAKE 1 TABLET TWICE DAILY. * Quantity: 180 Refills: 3 Jovita Dhaliwal D.O.* Started 28-Feb-2014 Activedigitalbox Next Monitor w/Device Kit testing three times daily * Quantity: 1 Refills: 3 Sp Dawkins M.D.* Started 22-Mar-2014 Activedigitalbox Next Test In Vitro Strip TEST THREE TIMES A DAY * Quantity: 1 Refills: 3 Jovita Dhaliwal D.O.* Started 22-Mar-2014 Ajmpts881 Strip Box Tamsulosin HCl - 0.4 MG Oral Capsule TAKE 1 CAPSULE Daily * Quantity: 30 Refills: 11 Jovita Dhaliwal D.O.* Started 05-Feb-2015 ActiveSupplies CPAP repair, services and supplies, G47.33 Mask, headgear, filters, heated tubing, chinstrap * Quantity: 1 Refills: 0 Savannah Oropeza* Started 05-Mar-2015 ActiveColace 100 MG Oral Capsule TAKE 1 CAPSULE TWICE DAILY NEEDED. * Quantity: 60 Refills: 2 Jovita Dhaliwal D.O.* Started 13-Mar-2015 ActiveProctofoam 1 % Rectal Foam USE 1 APPLICATORFUL RECTALLY 1-2 TIMES DAILY. * Quantity: 1 Refills: 0 Jovita Dhaliwal D.O.* Started 13-Mar-2015 Cpcask69 GM Can Fish Oil 1000 MG Oral Capsule TAKE 1 CAPSULE DAILY. * Refills: 0 * Started 10-May-2015 ActiveCheratussin AC 100-10 MG/5ML Oral Syrup TAKE 5 - 10 ML EVERY 4 TO 6 HOURS NEEDED FOR COUGH. * Quantity: 1 Refills: 0 Benny Barfield D.O.* Started 04-Jun-2015 Dcimwk087 ML Bottle Supplies AutoCPAP 9-13 cm H2O, Permanent use, G47.33, Heated humidity, EpddikozV54, mask , headgear, filters, heated tubing, water chamber, chinstrap * Quantity: 1 Refills: 0 Savannah Oropeza* Started 07-Jun-2015 ActiveFluticasone Propionate 50 MCG/ACT Nasal Suspension USE 1 SPRAY IN EACH NOSTRIL ONCE DAILY. * Quantity: 1 Refills: 0 Edilson Brennan M.D.* Started 29-Jun-2015 Soebjc06 GM Bottle Allergies and Adverse Reactions Name [...] Pulse Generator Replacement History of Arterial Catheterization BASIC METABOLIC PROFILE 1210 Ordered:10-May-2015 HEMOGLOBIN A1C 3507 Ordered:10-May-2015 Immunization Name Dates Details Influenza Administered on:10-Dec-2010 Influenza Administered on:02-Feb-2012 Diphtheria-Tetanus Toxoids 6.7-5 LFU/0.5ML Intramuscular Injectable Administered on: Tdap (Boostrix) Administered on: Adacel 5-2-15.5 LF-MCG/0.5 Intramuscular Suspension Lot #: [id number] Administered on:21-Jul-2013 Fluzone High-Dose Intramuscular Suspension Lot #: [id number] Administered on:13-Dec-2013 Prevnar 13 Intramuscular Suspension Lot #: [id number] Administered on:07-Apr-2014 Pneumovax 23 25 MCG/0.5ML Injection Injectable Administered on:09-May-2015 Pneumo (Pneumovax) Lot #: [id number] Administered on:09-May-2015 Family History Mother* Name Dates Details Family history of Status: Active Father* Name Dates Details Family history of Status: Active Social History Name Dates Details Smoking Status* Former smoker Vital Signs Date Test Result Details 29-Jun-2015 14:57 BP Systolic 126 mm[Hg] Status: BP Diastolic 84 mm[Hg] Status: Temperature 97.5 f Status: Heart Rate 84 /min Status: Respiration Rate 20 /min Status: Weight 239 lb Status: Body Mass Index Calculated 31.53 kg/m2 Status: Body Surface Area Calculated 2.32 m2 Status: 07-Jun-2015 15:12 BP Systolic 147 mm[Hg] Status: BP Diastolic 88 mm[Hg] Status: Heart Rate 87 /min Status: Weight 234 lb Status: O2 SAT 94 % Status: Body Mass Index Calculated 30.87 kg/m2 Status: Body Surface Area Calculated 2.3 m2 Status: 04-Jun-2015 10:18 Temperature 97.8 f Status: Heart Rate 78 /min Status: Weight 235.375 lb Status: Body Mass Index Calculated 31.05 kg/m2 Status: Body Surface Area Calculated 2.31 m2 Status: Results Date Description Value Details 14-Jun-2015 11:40 Diabetic Eye Exam Diabetic Eye Exam No Diabetic Retinopathy (Better) Diabetic Eye Exam on Chart Yes (Better) Plan of Care Planned Observations* Name Dates Details Planned Goals not documented Goal Planned Encounters* Appointment; Provider: Carl Ga On 19-Jun-2016 10:15 * Appointment; Provider: John Aldridge On 08-Nov-2015 13:30 * Appointment; Provider: Jovita Dhaliwal On 08:45 * Appointment; Provider: Moody Choe On 06-Aug-2015 13:15 * Appointment; Provider: Danyel Rodriguez On 13-Jan-2015 [...] Instructions * Instructions not documented Encounters Appointment; Edilson Brennan Encounter Diagnosis: Problem not [...]
--- OUTSIDE RECORDS SUMMARY | 2016-07-04 08:51 | XMS REPORT | Summary of Care ---
Author Author Sp Dawkins M.D. Unknown Address [address] [place] [address], [place] [id number] Phone Unavailable Care Team Providers Care Indigo Mixer Name Role Phone John Aldridge M.D. Unavailable Unavailable Sp Dawkins M.D. Unavailable Unavailable Gómez Grier M.D. 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.91, I63.9) Status: Active Benign prostatic hypertrophy with urinary obstruction (600.01, N40.1) Status: Active Actinic keratoses (702.0, L57.0) Status: Active Atrial fibrillation, currently in sinus rhythm (427.31, I48.91) Status: Active Presence of cardiac resynchronization therapy defibrillator (V45.02, Z95.810) Status: Active Congestive heart failure (428.0, I50.9) Status: Active Peripheral neuropathy (356.9, G62.9) Status: Active Anticoagulant long-term use (V58.61, Z79.01) Status: Active Chronic renal failure (585.9, N18.9) Status: Active Combined form of senile cataract (366.19, H25.819) Status: Active Yeast infection of the skin (112.3, B37.2) Status: Active Dry skin dermatitis (692.89, L85.0) Status: Active Acute upper respiratory infection (465.9, J06.9) Status: Active Anatomical narrow angle glaucoma (365.02, H40.039) Status: Active Diabetes mellitus (250.00, E11.9) Status: Active Hypertension (401.9, I10) Status: Active 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 Quantity: 30 Sp Dawkins M.D.* Started 30-Oct-2010 ActiveFurosemide 40 MG Oral Tablet TAKE 1 TABLET BY MOUTH DAILY * Quantity: 90 Refills: 0 Sp Dawkins M.D.* Started 30-Oct-2010 ActiveNeedles BD PEN NEEDLE MINI 53glgyx8/16 * Quantity: 200 Refills: 6 Gómez Grier M.D.* Started 23-Dec-2010 ActiveLantus SoloStar 100 UNIT/ML Subcutaneous Solution Pen-injector INJECT 44 UNIT Daily * Refills: 0 Sp Dawkins M.D.* Started 05-Dec-2010 ActiveTriamcinolone .1%/ Eucerin Compound (50/50 mix) -- 1 pound tub (454 grams) Use liberally twice daily * Quantity: 454 Refills: 5 Sp Dawkins M.D.* Started 25-Mar-2013 ActiveWarfarin Sodium 1 MG Oral Tablet Take 1 tablet daily * Quantity: 60 Refills: 11 Sp Dawkins M.D.* Started 20-May-2011 ActiveViagra 50 MG Oral Tablet TAKE DIRECTED. * Quantity: 6 Refills: 0 Sp Dawkins M.D.* Started 25-Mar-2013 ActiveHydrocodone-Acetaminophen 5-325 MG Oral Tablet TAKE ONE TABLET(S) BY MOUTH EVERY SIX HOURS NEEDED * Quantity: 30 Refills: 0 Sp Dawkins M.D.* Started 28-Mar-2013 ActiveVitamin B-12 1000 MCG Sublingual Tablet Sublingual [address] 1 MCG Daily * Quantity: 1 Refills: 0 Sp Dawkins M.D.* Started Lofqih390 Tablet Sublingual Bottle Carvedilol 12.5 MG Oral Tablet TAKE 1 TABLET TWICE DAILY. * Quantity: 180 Refills: 3 John Aldridge M.D.* Started 28-Feb-2014 ActiveLosartan Potassium 50 MG Oral Tablet TAKE 1 TABLET TWICE DAILY. * Quantity: 180 Refills: 3 John Aldridge M.D.* Started 28-Feb-2014 [facility]/Device Kit testing three times daily * Quantity: 1 Refills: 3 Sp Dawkins M.D.* Started 22-Mar-2014 ActiveBayer Contour Next Test In Vitro Strip TEST THREE TIMES A DAY * Quantity: 1 Refills: 3 Sp Dawkins M.D.* Started 22-Mar-2014 Cwuabv369 Strip Box Ampicillin 500 MG Oral Capsule Take 1 capsule twice daily * Quantity: 30 Refills: 2 Sp Dawkins M.D.* Started 07-Apr-2014 ActivePravastatin Sodium 10 MG Oral Tablet TAKE 1/2 TABLET BY MOUTH DAILY * Quantity: 30 Refills: 3 Sp Dawkins M.D.* Started 30-Mar-2013 ActiveLantus SoloStar 100 UNIT/ML Subcutaneous Solution Pen-injector INJECT 25 UNITS DAILY DIRECTED * Quantity: 15 Refills: 3 Sp Dawkins M.D.* Started 16-Dec-2013 ActiveClotrimazole-Betamethasone 1-0.05 % External Cream APPLY AND RUB IN A THIN FILM TO AFFECTED AREAS TWICE DAILY.(AM AND PM). * Quantity: 1 Refills: 0 Sp Dawkins M.D.* Started 27-Apr-2014 Hkwrff03 GM Tube Allergies and Adverse Reactions Name Dates Details No Known Drug Allergies Status: Active Past Medical History Name Dates Details History of Diabetes mellitus (250.00, E11.9) Status: Resolved History of hypertension (V12.59, Z86.79) Status: Resolved Procedures Procedure Dates Details History of Catheterization Of Artery Of Extremity Completed:11-Jan-2013 History of Pacemaker - Pulse Generator Replacement PSA ( PROSTATE SPECIFIC ANTIGEN) 3100 Ordered:12-May-2014 Immunization Name Dates Details Influenza Administered on:10-Dec-2010 Influenza Administered on:02-Feb-2012 Diphtheria-Tetanus Toxoids 6.7-5 LFU/0.5ML Intramuscular Injectable Administered on: Tdap (Boostrix) Administered on: Adacel 5-2-15.5 LF-MCG/0.5 Intramuscular Suspension Lot #: [id number] Administered on:21-Jul-2013 Fluzone High-Dose Intramuscular Suspension Lot #: [id number] Administered on:13-Dec-2013 Prevnar 13 Intramuscular Suspension Lot #: [id number] Administered on:07-Apr-2014 Social History Name Dates Details Smoking Status* Former smoker Vital Signs Date Test Result Details 22-May-2014 11:05 BP Systolic 130 mm[Hg] Status: BP Diastolic 80 mm[Hg] Status: Heart Rate 87 /min Status: Temperature 97.9 f Status: Weight 228.8 lb Status: O2 SAT 97 % Status: Body Mass Index Calculated 30.19 kg/m2 Status: Body Surface Area Calculated 2.28 m2 Status: 27-Apr-2014 14:22 BP Systolic 114 mm[Hg] Status: BP Diastolic 80 mm[Hg] Status: Heart Rate 89 /min Status: Weight 225 lb Status: O2 SAT 94 % Status: Body Mass Index Calculated 29.69 kg/m2 Status: Body Surface Area Calculated 2.26 m2 Status: Results Date Description Value Details 12-May-2014 11:12 PROTIME PANEL 7000 PROTIME 26.3 secs (Above high threshold) Range: 12.0-14.9 INR 2.47 (Better) Plan of Care Planned Observations* Name Dates Details Planned Goals not documented Goal Planned Encounters* Appointment; Provider: Carl Ga On 10-May-2015 09:15 * Appointment; Provider: John Aldridge On 10:15 * Appointment; Provider: Debora Figueroa On 03-Jun-2013 [...] Instructions * Instructions not documented Encounters Appointment; Sp Dawkins Encounter Diagnosis: Problem not [...] not documented On 06-Dec-2013 13:45 Appointment; John Adlridge Encounter Diagnosis: Problem not documented On 23-Nov-2013 [...] Diagnosis: Problem not documented On 25-Jan-2013 10:15 Appointment; Kirt Love Encounter Diagnosis: Problem not documented On 20-Jan-2013 09:30 Appointment; Lindsey Winkler Encounter Diagnosis: Problem not documented On 12-Jan-2013 12:45 Appointment; Sp Dawkins Encounter Diagnosis: Problem not documented On 27-Dec-2012 15:45 Appointment; John Aldridge Encounter Diagnosis: Problem not documented On 03-Dec-2012 11:30 Appointment; Sp Dawkins Encounter Diagnosis: Problem not documented On 24-Nov-2012 13:30 Appointment; Lnidsey Winkler Encounter Diagnosis: Problem not documented On 23-Nov-2012 13:15 Appointment; Kirt Love Encounter Diagnosis: Problem not documented On 18-Nov-2012 08:30 Appointment; Sp Dawkins Encounter Diagnosis: Problem not documented On 16-Nov-2012 14:45 Appointment; pS Dawkins Encounter Diagnosis: Problem not documented On 11-Nov-2012 11:30 Appointment; Lindsey Winkler Encounter Diagnosis: Problem not documented On 13:30 Appointment; Sp Dwakins Encounter Diagnosis: Problem not documented On 13:45 Appointment; Suzanne Daniel Encounter Diagnosis: Problem not documented On 09:00 Appointment; Sp Dawkins Encounter Diagnosis: Problem not documented On 10:45 Appointment; John Aldridge Encounter Diagnosis: Problem not documented On 26-May-2012 10:30
--- OUTSIDE RECORDS SUMMARY | 2016-07-04 08:51 | XMS REPORT | Summary of Care ---
Author Author Jovita Dhaliwal D.O. Organization Unknown Address [address], [place] [id number] Phone Unavailable Care Team Providers Care Fancy Sewer Name Role Phone Sp Dawkins M.D. 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, left, with fat layer exposed ( 707.14, L97.422) Status: Active Type 2 diabetes mellitus with diabetic neuropathy (250.60, E11.40) Status: Active Hyperlipidemia (272.4, E78.5) Status: Active Papule of skin (709.8, R23.8) Status: Active On warfarin therapy (V58.61, Z79.01) Status: Active PAF (paroxysmal atrial fibrillation) (427.31, I48.0) Status: Active Seborrheic keratosis (702.19, L82.1) Status: Active 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, I50.42) Status: Active 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, 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 Medicare annual wellness visit, initial (V70.0, Z00.00) Status: Active Former smoker (V15.82, Z87.891) Status: Active Medicare annual wellness visit, initial (V70.0, Z00.00) Status: Active Medications Name Dates Details Furosemide 40 MG Oral Tablet TAKE 1 TABLET BY MOUTH DAILY Quantity: 90 Isra D.O.Jovita * Start 30-Oct-2010 Active Lantus SoloStar 100 UNIT/ML Subcutaneous Solution Pen-injector INJECT 44 UNITS DAILY DIRECTED * Quantity: 11 Refills: 11 Isra D.Juancarlos.Jovita * Start 05-Dec-2010 Active 3 ML Pen (5 Pens) Carvedilol 6.25 MG Oral Tablet TAKE 1 TABLET BY MOUTH TWICE DAILY * Quantity: 180 Refills: 1 Isra Salinas.Jovita Frazier * Start 18-Dec-2010 Active Worden BD PEN NEEDLE MINI 69esmyd3/16 Inject Insulin at hs dx 250.02 * Quantity: 200 Refills: 6 Isra Salinas.Juancarlos.Jovita * Start 23-Dec-2010 Active Warfarin Sodium 1 MG Oral Tablet TAKE 1 TABLET BY MOUTH DAILY * Quantity: 60 Refills: 2 Isra Salinas.Juancarlos.Jovita * Start 20-May-2011 Active Pravastatin Sodium 10 MG Oral Tablet TAKE 1/2 TABLET BY MOUTH DAILY * Quantity: 15 Refills: 11 Isra Salinas.Juancarlos.Jovita * Start 30-Mar-2013 Active Warfarin Sodium 6 MG Oral Tablet take 1 tablet by mouth every day * Quantity: 90 Refills: 0 Isra D.Jovita Frazier * Start 11-May-2013 Active Vitamin B-12 1000 MCG Sublingual Tablet Sublingual PLACE 1 MCG Daily * Quantity: 1 Refills: 0 Sp Dawkins M.D. * Start Active 100 Tablet Sublingual Bottle Lantus SoloStar 100 UNIT/ML Subcutaneous Solution Pen-injector INJECT 25 UNITS DAILY DIRECTED * Quantity: 15 Refills: 0 Isra D.OJovita Mccarthy * Start 18-Oct-2015 Active Losartan Potassium 50 MG Oral Tablet TAKE 1 TABLET TWICE DAILY. * Quantity: 180 Refills: 3 Isra D.O.Jovita * Start 28-Feb-2014 Active [employer] Contour Next Monitor w/Device Kit testing three [...] cm H2O, Permanent use, G47.33, Heated humidity, LkgcyhtpM40, mask , headgear, filters, heated tubing, water [...] of Arterial Catheterization PROTIME PANEL 7000 Ordered: Immunization Name Dates Details Influenza on: 10-Dec-2010 Influenza on: 02-Feb-2012 Diphtheria-Tetanus Toxoids 6.7-5 LFU/0.5ML INJ on: Tdap (Boostrix) on: Adacel 5-2-15.5 LF-MCG/0.5 Intramuscular Suspension Lot #: [id number] on: 21-Jul-2013 Fluzone High-Dose SUSP Lot #: [id number] on: 13-Dec-2013 Prevnar 13 Intramuscular Suspension Lot #: [id number] on: 07-Apr-2014 Pneumovax 23 25 MCG/0.5ML Injection Injectable on: 09-May-2015 Pneumo (Pneumovax) Lot #: [id number] on: 09-May-2015 Family History Name Dates Details Family history of Status: Active Name Dates Details Family history of Status: Active Social History Name Dates Details - Status: Name Dates Details Former smoker Vital Signs Date Test Result Details 22-Oct-2015 10:28 BP Systolic 120 mm[Hg] Status: Comments: Location: ; Position: BP Diastolic 74 mm[Hg] Status: Comments: Location: ; Position: Heart Rate 74 /min Status: Comments: Location: ; Height 71.5 in Status: Weight 230 lb Status: Body Mass Index Calculated 31.63 kg/m2 Status: Body Surface Area Calculated 2.25 m2 Status: 11:24 BP Systolic 120 mm[Hg] Status: Comments: Location: ; Position: BP Diastolic 72 mm[Hg] Status: Comments: Location: ; Position: Heart Rate 68 /min Status: Comments: Location: ; Weight 229.125 lb Status: Physical Findings 97 Status: Comments: O2 Saturation Body Mass Index Calculated 30.23 kg/m2 Status: Body Surface Area Calculated 2.28 m2 Status: 10:10 BP Systolic 144 mm[Hg] Status: Comments: Location: LUE; Position: Sitting BP Diastolic 82 mm[Hg] Status: Comments: Location: LUE; Position: Sitting Heart Rate 64 /min Status: Comments: Location: ; Weight 229 lb Status: Physical Findings 99 Status: Comments: O2 Saturation Body Mass Index Calculated 30.21 kg/m2 Status: Body Surface Area Calculated 2.28 m2 Status: 10:52 BP Systolic 130 mm[Hg] Status: Comments: Location: ; Position: BP Diastolic 82 mm[Hg] Status: Comments: Location: ; Position: Heart Rate 85 /min Status: Comments: Location: ; Weight 220.5 lb Status: Body Mass Index Calculated 29.09 kg/m2 Status: Body Surface Area Calculated 2.24 m2 Status: Results Date Description Value Details 12:27 BASIC METABOLIC PROFILE 1210 Comments: 09/05/15 SODIUM 137 mmol/L Range: 133-144 POTASSIUM 4.3 mmol/L Range: 3.5-5.1 CHLORIDE 102 mmol/L Range: 98-110 CARBON DIOXIDE 25.6 mmol/L Range: 23.0-33.0 ANION GAP 9 mmol/L Range: 6-16 BUN 20 mg/dL (Above high threshold) Range: 7-18 CREATININE, SERUM 1.17 mg/dL Range: 0.70-1.30 Comments: Please note new reference ranges effective 2014.----- EST GFR, >60 ml/min Range: >60 EST GFR, NON-AFR BRAZILIAN >60 ml/min Range: >60 Comments: EST GFR is reported in ml/min per 1.73 m2 of body surface area. For -[place], please multiple result by 1.2.----- BUN:CREATININE RATIO 17 GLUCOSE 152 mg/dL (Above high threshold) Range: 70-100 CALCIUM 9.1 mg/dL Range: 8.5-10.1 12:30 PROTIME PANEL 7000 PROTIME 22.7 secs (Above high threshold) Range: 12.0-14.9 INR 2.00 13:19 HEMOGLOBIN A1C 3507 Hemoglobin A1C 6.0 % ESTIMATED AVG. GLUCOSE 126 Plan of Care Name Dates Details Planned Observations PROTIME PANEL 7000 On Intent Planned Goals not documented Planned Encounters Appointment; Provider: Jovita Dhaliwal D.O. On 19-Feb-2016 10:00 Appointment; Provider: John Aldridge M.D. On 08-Feb-2016 11:00 Appointment; Provider: Moody Choe M.D. On 23-Oct-2015 14:45 Instructions Name Dates Details Instructions not documented [...] documented On 06-Dec-2013 13:45 Appointment; John Aldridge M.D. Encounter Diagnosis: Problem not documented On 23-Nov-2013 14:45
--- OUTSIDE RECORDS SUMMARY | 2016-07-04 08:51 | XMS REPORT | Summary of Care ---
Author Author Jovita Dhaliwal D.O. Organization Unknown Address [address], [place] [id number] Phone Unavailable Care Team Providers Care Fashion Buyer Name Role Phone Sp Dawkins M.D. Unavailable Unavailable Edilson Brennan M.D. Unavailable Unavailable Savannah Zimmerman Unavailable Unavailable Jovita Dhaliawl D.O. Unavailable Unavailable Jose King M.D. 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 Medicare annual wellness visit, initial (V70.0, Z00.00) Status: Active Former smoker (V15.82, Z87.891) Status: Active Medicare annual wellness visit, initial (V70.0, Z00.00) Status: Active Papule of skin (709.8, R23.8) Status: Active Lung nodule (793.11, R91.1) Status: Active Obstructive sleep apnea (327.23, G47.33) Status: Active Cardiac resynchronization therapy defibrillator (JUNIOR BRAND MANAGER-D) in place (V45.02, Z95.810) Status: Active On warfarin therapy (V58.61, Z79.01) Status: Active Actinic keratosis (702.0, L57.0) Status: Active Combined form of age-related cataract, [...] Low back pain (724.2, M54.5) Status: Active Primary open angle glaucoma of both eyes, moderate stage (365.11, H40.1132) Status: Active Fatigue (780.79, R53.83) Status: Active 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, I50.42) Status: Active 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 Bill * Start 30-Oct-2010 Active Lantus SoloStar 100 UNIT/ML Subcutaneous Solution Pen-injector INJECT 44 UNITS DAILY DIRECTED * Quantity: 11 Refills: 11 Isra D.O. R. Bill * Start 05-Dec-2010 Active 3 ML Pen (5 Pens) Carvedilol 6.25 MG Oral Tablet TAKE 1 TABLET BY MOUTH TWICE DAILY * Quantity: 180 Refills: 0 Isra D.O., R. Bill * Start 19-Dec-2015 Active [place] BD PEN NEEDLE MINI 14kvnib9/16 Inject Insulin at hs dx 250.02 * Quantity: 200 Refills: 6 Isra D.O. R. Bill * Start 23-Dec-2010 Active Pravastatin Sodium 10 MG Oral Tablet TAKE 1/2 TABLET BY MOUTH DAILY * Quantity: 15 Refills: 11 Isra Salinas.Juancarlos.Jovita * Start 30-Mar-2013 Active Warfarin Sodium 6 MG Oral Tablet take 1 tablet by mouth every day * Quantity: 90 Refills: 1 Isra Salinas.Jovita Frazier * Start 21-Feb-2016 Active Vitamin B-12 1000 MCG Sublingual Tablet Sublingual PLACE 1 MCG Daily * Quantity: 1 Refills: 0 Sp Dawkins M.D. * Start Active 100 Tablet Sublingual Bottle Losartan Potassium 50 MG Oral Tablet TAKE 1 TABLET BY MOUTH TWICE DAILY * Quantity: 180 Refills: 0 Jovita Dhaliwal D.O. * Start 21-Feb-2016 Active Lantus SoloStar 100 UNIT/ML Subcutaneous Solution Pen-injector INJECT 25 UNITS DAILY DIRECTED * Quantity: 15 Refills: 0 Isra Salinas.Jovita Frazier * Start 19-Dec-2015 Active Losartan Potassium 100 MG Oral Tablet Take one tablet by mouth daily * Quantity: 90 Refills: 0 Jovita Dhaliwal D.O. * Start 28-Feb-2014 Active SurgiCount Medical Contour Next Monitor w/Device Kit testing three times daily * Quantity: 1 Refills: 3 Sp Dawkins M.D. * Start 22-Mar-2014 Active Jeronimo Contour Next Test In Vitro Strip TEST THREE TIMES DAILY * Quantity: 100 Refills: 1 Jovita Dhaliwal D.O. * Start 21-Dec-2015 Active Tamsulosin HCl - 0.4 MG Oral [...] cm H2O, Permanent use, G47.33, Heated humidity, [id number], mask , headgear, filters, heated tubing, water [...] BEDTIME * Quantity: 200 Refills: 0 Isra D.O.Jovita * Start Active Supplies CPAP repair, services and supplies, G47.33 Mask, headgear, filters, heated tubing, chinstrap * Quantity: 1 Refills: 0 Sandip P.ASavannah Mccarthy * Start 05-Dec-2015 Active Latanoprost 0.005 % Ophthalmic Solution INSTILL 1 DROP IN BOTH EYES AT BEDTIME. * Quantity: 1 Refills: 12 Prabhakar King M.D. * Start 11-Jan-2016 Active 2.5 ML Bottle PredniSONE 20 MG Oral Tablet TAKE 2 TABLETS DAILY WITH FOOD * Quantity: 10 Refills: 0 Isra D.O.Jovita * Start 18-Mar-2016 Active Allergies and Adverse Reactions Name Dates [...] of Arterial Catheterization PROTIME PANEL 7000 Ordered: 11-Feb-2016 PROTIME PANEL 7000 Ordered: 19-Feb-2016 BASIC METABOLIC PROFILE 1210 Ordered: 19-Feb-2016 HEMOGLOBIN A1C 3507 Ordered: 19-Feb-2016 Immunization Name Dates Details Influenza on: 10-Dec-2010 Influenza on: 02-Feb-2012 Diphtheria-Tetanus Toxoids 6.7-5 LFU/0.5ML INJ on: Tdap (Boostrix) on: Adacel 5-2-15.5 LF-MCG/0.5 Intramuscular Suspension Lot #: [id number] on: 21-Jul-2013 Fluzone High-Dose SUSP Lot #: [id number] on: 13-Dec-2013 Prevnar 13 Intramuscular Suspension Lot #: [id number] on: 07-Apr-2014 Pneumovax 23 25 MCG/0.5ML Injection Injectable on: 09-May-2015 Pneumo (Pneumovax) Lot #: [id number] on: 09-May-2015 Fluzone High-Dose 0.5 ML Intramuscular Suspension Prefilled Syringe Lot #: [id number] on: 28-Dec-2015 Zoster (Zostavax) on: 19-Feb-2016 Family History Name Dates Details Family history of Status: Active Name Dates Details Family history of Status: Active Social History Name Dates Details - Status: Name Dates Details Former smoker Vital Signs Date Test Result Details 18-Mar-2016 09:43 BP Systolic 156 mm[Hg] Status: Comments: Location: ; Position: BP Diastolic 87 mm[Hg] Status: Comments: Location: ; Position: Temperature 97.5 f Status: Heart Rate 85 /min Status: Comments: Location: ; Weight 241 lb Status: Body Mass Index Calculated 33.14 kg/m2 Status: Body Surface Area Calculated 2.29 m2 Status: 12-Mar-2016 11:48 BP Systolic 130 mm[Hg] Status: Comments: Location: ; Position: BP Diastolic 87 mm[Hg] Status: Comments: Location: ; Position: Heart Rate 88 /min Status: Comments: Location: ; Weight 230 lb Status: Body Mass Index Calculated 31.63 kg/m2 Status: Body Surface Area Calculated 2.25 m2 Status: 19-Feb-2016 09:57 BP Systolic 139 mm[Hg] Status: Comments: Location: ; Position: BP Diastolic 83 mm[Hg] Status: Comments: Location: ; Position: Heart Rate 78 /min Status: Comments: Location: ; Weight 243 lb Status: Body Mass Index Calculated 33.42 kg/m2 Status: Body Surface Area Calculated 2.3 m2 Status: Results Date Description Value Details 18-Feb-2016 14:53 CBC w/ Auto Diff 7150 WBC 4.9 K/uL Range: 4.5-11.0 RBC 5.19 mil/uL Range: 4.20-5.40 HGB 15.7 g/dL Range: 14.0-18.0 HCT 45.0 % Range: 42.0-53.0 MCV 86.8 fL Range: 80.0-99.0 MCH 30.3 pg Range: 27.3-32.5 MCHC 35.0 % Range: 32.0-36.0 RDW 15.4 % (Above high threshold) Range: 11.6-14.8 PLATELETS 156 K/uL Range: 150-400 MPV 8.1 fL Range: 6.0-11.0 %NEUTRO 66.1 % Range: 37.0-80.0 %LYMPHS 24.0 % Range: 13.0-50.0 %MONO 5.6 % Range: 0.0-12.0 %EOS 2.4 % Range: 0.0-7.0 %BASO 0.8 % Range: 0.0-2.5 %LAWRENCE 1.1 % Range: 0.0-5.0 NEUTRO 3.2 K/uL Range: 2.0-6.9 LYMPHS 1.2 K/uL Range: 0.6-3.4 MONOS 0.3 K/uL Range: 0.0-0.9 EOS 0.1 K/uL Range: 0.0-0.7 BASO 0.0 K/uL Range: 0.0-0.2 14:54 PROTIME PANEL 7000 PROTIME 20.5 secs (Above high threshold) Range: 12.0-14.9 INR 1.76 15:22 Vitamin D, 25 - Hydroxy 3111 VITAMIN D, 25-HYDROXY 33 ng/mL Range: 30-100 15:22 VITAMIN B12 3606 VITAMIN B12 673 pg/mL Range: 211-911 15:24 BASIC METABOLIC PROFILE 1210 SODIUM 140 mmol/L Range: 133-144 POTASSIUM 4.2 mmol/L Range: 3.5-5.1 CHLORIDE 105 mmol/L Range: 98-110 CARBON DIOXIDE 26.7 mmol/L Range: 23.0-33.0 ANION GAP 8 mmol/L Range: 6-16 BUN 14 mg/dL Range: 7-18 CREATININE, SERUM 1.29 mg/dL Range: 0.70-1.30 EST GFR, >60 ml/min Range: >60 EST GFR, NON-AFR BURKINAN 55 ml/min (Below low threshold) Range: >60 Comments: EST GFR is reported in ml/min per 1.73 m2 of body surface area. ----- BUN:CREATININE RATIO 11 GLUCOSE 139 mg/dL (Above high threshold) Range: 70-100 CALCIUM 8.3 mg/dL (Below low threshold) Range: 8.5-10.1 15:25 LIPID PROFILE 1184 CHOLESTEROL 139 mg/dL Range: <200 TRIGLYCERIDES 114 mg/dL Range: 30-200 HDL Cholesterol 43 mg/dL Range: >39 NON HDL CHOLESTEROL 96 CARDIAC RSK FACTOR 3.2 units (Below low threshold) Range: 4.4-5.0 LDL - CALCULATED 73 mg/dL Range: 0-130 15:25 MAGNESIUM 1260 MAGNESIUM 1.8 mg/dL Range: 1.8-2.4 16:10 HEMOGLOBIN A1C 3507 Hemoglobin A1C 7.1 % ESTIMATED AVG. GLUCOSE 157 12-Mar-2016 11:53 XRay KNEE-Right Comments: Exam Date: 03/12/2016 11: 17Dictation Date: 03/12/2016 11:53 X KNEE COMP (MIN 4V) RT Plan of Care Name Dates Details Planned Observations Planned Goals not documented Planned Encounters Appointment; Provider: Monica Mancera On 08-Dec-2016 14:00 Appointment; Provider: John Aldridge M.D. On 10-Jun-2016 10:15 Appointment; Provider: Prabhakar King M.D. On 02-Jun-2016 10:15 Appointment; Provider: Jovita Dhaliwal D.O. On 27-May-2016 09:30 Interventions Provided Medication Changes* PredniSONE 20 MG Oral Tablet - Start Instructions Name Dates Details Instructions not documented [...]
--- OUTSIDE RECORDS SUMMARY | 2016-07-04 08:52 | XMS REPORT | Summary of Care ---
Author Author Jovita Dhaliwal D.O. Organization Unknown Address [address], [place] [id number] Phone Unavailable Care Team Providers Care Welding Technician Name Role Phone Carl Ga D.O. Unavailable [...] Obstructive sleep apnea (327.23, G47.33) Status: Active Diabetes mellitus (250.00, E11.9) Status: Active Intermittent knee pain, left (719.46, M25.562) Status: Active Right shoulder strain (840.9, S46.911A) Status: Active 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, I50.42) Status: Active Presence of cardiac resynchronization therapy defibrillator (V45.02, Z95.810) Status: Active Atrial fibrillation, currently in sinus rhythm (427.31, I48.91) Status: Active Anticoagulant long-term use (V58.61, Z79.01) Status: Active Hyperlipidemia (272.4, E78.5) Status: Active Hypertension (401.9, I10) Status: Active Acute sinusitis (461.9, J01.90) Status: Active Medications Name Dates Details Warfarin [...] DAILY * Quantity: 180 Refills: 1 Jovita Dhaliwal.O.* Started 18-Dec-2010 ActiveNeedles BD PEN NEEDLE MINI 05osrzh5/16 Inject Insulin at hs dx 250.02 * Quantity: 200 Refills: 6 Jovita Dhaliwal D.O.* Started 23-Dec-2010 ActiveViagra 50 MG Oral Tablet TAKE DIRECTED. * Quantity: 6 Refills: 0 Sp Dawkins M.D.* Started 25-Mar-2013 ActiveWarfarin Sodium 1 MG Oral Tablet Take 1 tablet daily * Quantity: 60 Refills: 11 Sp Dawkins M.D.* Started 20-May-2011 ActivePravastatin Sodium 10 MG Oral Tablet TAKE 1/2 TABLET BY MOUTH DAILY * Quantity: 30 Refills: 3 Sp Dawkins M.D.* Started 30-Mar-2013 ActiveVitamin B-12 1000 MCG Sublingual Tablet Sublingual PLACE 1 MCG Daily * Quantity: 1 Refills: 0 Sp Dawkins M.D.* Started [id number] Tablet Sublingual Bottle Carvedilol 12.5 MG Oral Tablet TAKE 1 TABLET TWICE DAILY. * Quantity: 180 Refills: 3 John Aldridge M.D.* Started 28-Feb-2014 Pulse.io Next Monitor w/Device Kit testing three times daily * Quantity: 1 Refills: 3 Sp Dawkins M.D.* Started 22-Mar-2014 ActivePollitoIngles Next Test In Vitro Strip TEST THREE TIMES A DAY * Quantity: 1 Refills: 3 Jovita Dhaliwal D.O.* Started 22-Mar-2014 [id number] Strip Box ZyrTEC Allergy 10 MG Oral Tablet TAKE 1 TABLET DAILY DIRECTED. * Quantity: 30 Refills: 2 Jovita Dhaliwal.O.* Started 19-Jun-2014 ActiveFluticasone Propionate 50 MCG/ACT Nasal Suspension USE 1 TO 2 SPRAYS IN EACH NOSTRIL ONCE DAILY. * Quantity: 1 Refills: 0 Jovita DhaliwalO.* Started 19-Jun-2014 Xhpwlb75 GM Bottle Doxycycline Monohydrate 100 MG Oral Capsule TAKE 1 CAPSULE TWICE DAILY WITH FOOD. * Quantity: 14 Refills: 0 Jovita Dhaliwal D.O.* Started 19-Jun-2014 ActiveCephalexin 500 MG Oral Capsule TAKE 1 CAPSULE 3 TIMES DAILY. * Quantity: 5 Refills: 0 Tari Chilel BOTTOM PAINTER* Started 06-Jul-2014 ActiveLantus SoloStar 100 UNIT/ML Subcutaneous Solution Pen-injector INJECT 25 UNITS DAILY DIRECTED * Quantity: 1 Refills: 5 Jovita Dhaliwal D.O.* Started 16-Dec-2013 Active3 ML Pen (5 Pens) Warfarin Sodium 6 MG Oral Tablet take 1 tablet by mouth every day * Quantity: 90 Refills: 1 Jovita Dhaliwal D.O.* Started 11-May-2013 ActivePrednisoLONE Acetate 1 % Ophthalmic Suspension INSTILL 1 DROP INTO LEFT EYE 3 TIMES DAILY FOR ONE WEEK * Quantity: 1 Refills: 0 Carl Ga D.O.* Started Active5 ML Bottle Losartan Potassium 50 MG Oral Tablet TAKE 1 TABLET TWICE DAILY. * Quantity: 180 Refills: 3 Jovita Dhaliwal D.O.* Started 28-Feb-2014 ActiveAmoxicillin 500 MG Oral Tablet TAKE 1 TABLET 3 TIMES DAILY. * Quantity: 21 Refills: 0 Jovita Dhaliwal D.O.* Started 07-Nov-2014 Active Allergies and Adverse Reactions Name Dates [...] History of Pacemaker - Pulse Generator Replacement PROTIME PANEL 7000 Ordered:25-Oct-2014 Comprehensive Metabolic Panel 1212 Ordered:25-Oct-2014 HEMOGLOBIN A1C 3507 Ordered:25-Oct-2014 Immunization Name Dates Details Influenza Administered on:10-Dec-2010 Influenza Administered on:02-Feb-2012 Diphtheria-Tetanus Toxoids 6.7-5 LFU/0.5ML Intramuscular Injectable Administered on: Tdap (Boostrix) Administered on: Adacel 5-2-15.5 LF-MCG/0.5 Intramuscular Suspension Lot #: [id number] Administered on:21-Jul-2013 Fluzone High-Dose Intramuscular Suspension Lot #: [id number] Administered on:13-Dec-2013 Prevnar 13 Intramuscular Suspension Lot #: [id number] Administered on:07-Apr-2014 Social History Name Dates Details Smoking Status* Former smoker Vital Signs Date Test Result Details 07-Nov-2014 08:52 BP Systolic 120 mm[Hg] Status: BP Diastolic 72 mm[Hg] Status: Temperature 97.5 f Status: Heart Rate 92 /min Status: Weight 233 lb Status: O2 SAT 97 % Status: Body Mass Index Calculated 30.74 kg/m2 Status: Body Surface Area Calculated 2.3 m2 Status: 27-Oct-2014 09:54 BP Systolic 132 mm[Hg] Status: BP Diastolic 86 mm[Hg] Status: Heart Rate 60 /min Status: Respiration Rate 20 /min Status: Weight 225.4 lb Status: Body Mass Index Calculated 29.74 kg/m2 Status: Body Surface Area Calculated 2.26 m2 Status: 25-Oct-2014 09:09 BP Systolic 138 mm[Hg] Status: BP Diastolic 78 mm[Hg] Status: Heart Rate 86 /min Status: Weight 228 lb Status: Body Mass Index Calculated 30.08 kg/m2 Status: Body Surface Area Calculated 2.28 m2 Status: Results Date Description Value Details 10:47 PROTIME PANEL 7000 PROTIME 33.5 secs (Above high threshold) Range: 12.0-14.9 INR 3.39 (Better) 25-Oct-2014 11:12 PROTIME PANEL 7000 PROTIME 26.2 secs (Above high threshold) Range: 12.0-14.9 INR 2.46 (Better) 11:14 BASIC METABOLIC PROFILE 1210 SODIUM 137 mmol/L (Better) Range: 133-144 POTASSIUM 4.1 mmol/L (Better) Range: 3.5-5.1 CHLORIDE 100 mmol/L (Better) Range: 98-110 CARBON DIOXIDE 26.9 mmol/L (Better) Range: 23.0-33.0 ANION GAP 10 mmol/L (Better) Range: 6-16 BUN 19 mg/dL (Above high threshold) Range: 7-18 CREATININE, SERUM 1.10 mg/dL (Better) Range: 0.70-1.30 Comments: Please note new reference ranges effective 2014.----- EST GFR, >60 ml/min (Better) Range: >60 EST GFR, NON-AFR TURKMEN >60 ml/min (Better) Range: >60 Comments: EST GFR is reported in ml/min per 1.73 m2 of body surface area. For -Pakistani, please multiple result by 1.2.----- BUN:CREATININE RATIO 17 (Better) GLUCOSE 108 mg/dL (Above high threshold) Range: 70-100 CALCIUM 9.0 mg/dL (Better) Range: 8.5-10.1 Plan of Care Planned Observations* Name Dates Details Planned Goals not documented Goal Planned Encounters* Appointment; Provider: Carl Ga On 10-May-2015 09:15 * Appointment; Provider: John Aldridge On 02-May-2015 09:45 * Appointment; Provider: Jovita Dhaliwal On 25-Jan-2015 09:30 * Appointment; Provider: Debora Figueroa On 03-Jun-2013 [...] Problem not documented On 13-Dec-2013 13:15 Appointment; oJhn Aldridge Encounter Diagnosis: Problem not documented On [...] Problem not documented On 20-Jan-2013 09:30 Appointment; Lnidsey Winkler Encounter Diagnosis: Problem not documented On 12-Jan-2013 12:45 Appointment; Sp Dawkins Encounter Diagnosis: Problem not documented On 27-Dec-2012 15:45 Appointment; John Aldridge Encounter Diagnosis: Problem not documented On 03-Dec-2012 11:30 Appointment; Sp Dawkins Encounter Diagnosis: Problem not documented On 24-Nov-2012 13:30 Appointment; Lindsey Winkler Encounter Diagnosis: Problem not documented On 23-Nov-2012 13:15 Appointment; Kirt Love Encounter Diagnosis: Problem not documented On 18-Nov-2012 08:30 Appointment; Sp Dawkins Encounter Diagnosis: Problem not documented On 16-Nov-2012 14:45 Appointment; Sp Dawkins Encounter Diagnosis: Problem not documented On 11-Nov-2012 11:30
--- OUTSIDE RECORDS SUMMARY | 2016-07-04 08:52 | XMS REPORT | Referral Summary ---
Author Author [facility] Organization [facility] Address Unknown Phone Unavailable Encounter VC Date(s): 12/12/14 - 12/12/14 [facility] [address] [place] [address] [place] [address] Discharge Disposition: 01-Home or Self Care Attending Physician: Mike Monson MD Admitting Physician: Mike Monson MD Vital Signs No data available for this section Problem List Condition Effective Dates Status Health Status Informant Atrial 2013 Active fibrillation(Confirm ed) Pacemaker-replacemen 2013 Active t(Confirmed) Pacemaker(Confirmed) 2007 Active Cardiomyopathy(Confi Active rmed) Cerebrovascular 2010 Active accident(Confirmed) Congestive heart 2008 Active failure(Confirmed) Diabetes(Confirmed) Active Diabetic foot Active ulcer(Confirmed) Diabetic Active neuropathy(Confirmed ) Hypertension(Confirm Active ed) Renal Active disease(Confirmed) Osteomyelitis(Confir Active med) Allergies, Adverse Reactions, Alerts No Known Allergies Medications carvedilol 6.25 mg oral tablet 1 tabs, Oral, BID, with food, 0 Refill(s) Start Date: 03/24/14 Status: Ordered furosemide 40 mg oral tablet 1 tabs, Oral, Daily, 0 Refill(s) Start Date: 03/24/14 Status: Ordered Lantus Solostar Pen 100 units/mL subcutaneous solution SubCutaneous, inject by subcutaneous route as directed by doctor, 0 Refill(s) Start Date: 03/24/14 Status: Ordered lisinopril 10 mg oral tablet 1 tabs, Oral, Daily, 0 Refill(s) Start Date: 03/24/14 Status: Ordered pravastatin 10 mg oral tablet 1 tabs, Oral, Daily, 0 Refill(s) Start Date: 03/24/14 Status: Ordered warfarin 1 mg oral tablet 2 tabs, Oral, Daily, 0 Refill(s) Start Date: 03/24/14 Status: Ordered warfarin 5 mg oral tablet 1 tabs, Oral, Daily, 0 Refill(s) Start Date: 03/24/14 Status: Ordered Results No data available for this section Immunizations No data available for this section Procedures Procedure Date Related Diagnosis Body Site Debridement, muscle and/or fascia (includes 12/12/14 epidermis, dermis, and subcutaneous tissue, if performed); first 20 sq cm or less Replacement/pacemaker/dual chamber 03/2013 Procedure/heart catherization 2012 Placement/pacemaker 2007 Procedure/IV ABX and hyperbaric oxygen Social History No data available for this section Assessment and Plan No data available for this section
--- OUTSIDE RECORDS SUMMARY | 2016-07-04 08:52 | XMS REPORT | Summary of Care ---
Author Author Luis Carlos Sands, T. K. Organization Unknown Address [address], [place] [id number] Phone Unavailable Care Team Providers Care Staff Weapons Officer Name Role Phone Sp Dawkins M.D. Unavailable [...] Active Tooth infection (522.4, K04.7) Status: Active PAF (paroxysmal atrial fibrillation) (427.31, I48.0) Status: Active On warfarin therapy (V58.61, Z79.01) Status: Active Normal coronary arteries (V71.7, Z03.89) Status: Active 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, I50.42) Status: Active Presence of cardiac resynchronization therapy defibrillator (V45.02, Z95.810) Status: Active Hypertension (401.9, I10) [...] Started 18-Dec-2010 ActiveNeedles BD PEN NEEDLE MINI 38tdfbl5/16 Inject Insulin at hs dx 250.02 * [...] 1 Refills: 0 Sp Dawkins M.D.* Started [id number] Tablet Sublingual Bottle Lantus SoloStar 100 UNIT/ML Subcutaneous Solution Pen-injector INJECT 25 UNITS DAILY DIRECTED * Quantity: 1 Refills: 5 Jovita Dhaliwal D.O.* Started 16-Dec-2013 Active3 ML Pen (5 Pens) Losartan Potassium 50 MG Oral Tablet TAKE 1 TABLET TWICE DAILY. * Quantity: 180 Refills: 3 Jovita Dhaliwal D.O.* Started 28-Feb-2014 ActiveBriteseed Next Monitor w/Device Kit testing three times daily * Quantity: 1 Refills: 3 Sp Dawkins M.D.* Started 22-Mar-2014 ActiveBriteseed Next Test In Vitro Strip TEST THREE TIMES A DAY * Quantity: 1 Refills: 3 Jovita Dhaliwal D.O.* Started 22-Mar-2014 Xenfzi888 Strip Box Allergies and Adverse Reactions Name Dates Details [...] Adacel 5-2-15.5 LF-MCG/0.5 Intramuscular Suspension Lot #: [id number] Administered on:21-Jul-2013 Fluzone High-Dose Intramuscular Suspension Lot #: [id number] Administered on:13-Dec-2013 Prevnar 13 Intramuscular Suspension Lot #: [id number] Administered on:07-Apr-2014 Family History Mother* Name Dates Details Family history of Status: Active Father* Name Dates Details Family history of Status: Active Social History Name Dates Details Smoking Status* Former smoker Vital Signs Date Test Result Details 31-Jan-2015 16:00 BP Systolic 140 mm[Hg] Status: [...] ml/min (Better) Range: >60 EST GFR, NON-AFR LATVIAN 58 ml/min (Below low threshold) Range: >60 Comments: EST GFR is reported in ml/min per 1.73 m2 of body surface area. For -[place], please multiple result by 1.2.----- GLUCOSE 97 [...] Problem not documented On 23-Mar-2013 14:15 Appointment; Aldridge, T. K. Encounter Diagnosis: Problem not documented On 18-Mar-2013 10:15 Appointment; Sp Dawkins Encounter Diagnosis: Problem not documented On 17-Mar-2013 11:15 Appointment; Sp aDwkins Encounter Diagnosis: Problem not documented On 14-Feb-2013 15:15 Appointment; Kirt Love Encounter Diagnosis: Problem not documented On 07-Feb-2013 14:15
--- OUTSIDE RECORDS SUMMARY | 2016-07-04 08:52 | XMS REPORT | Summary of Care ---
Author Author Jovita Dhaliwal D.O. Organization Unknown Address [address], [place] [id number] Phone Unavailable Care Team Providers Care Hose Inspector Name Role Phone Sp Dawkins M.D. Unavailable [...] Active Lung nodule (793.11, R91.1) Status: Active Cardiac resynchronization therapy defibrillator (SALICYLIC ACID BLENDER-D) in place (V45.02, Z95.810) Status: Active Combined form of age-related cataract, [...] for colon cancer (V76.51, Z12.11) Status: Active 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, I50.42) Status: Active Hyperlipidemia (272.4, E78.5) Status: Active Hypertension (401.9, I10) Status: Active Obstructive sleep apnea (327.23, G47.33) Status: Active PAF (paroxysmal atrial fibrillation) (427.31, I48.0) Status: Active On warfarin therapy (V58.61, Z79.01) Status: Active Type 2 diabetes mellitus with diabetic neuropathy (250.60, E11.40) Status: Active Medications Name Dates Details Furosemide 40 MG Oral Tablet TAKE 1 TABLET BY MOUTH DAILY Quantity: 90 Isra D.O. R. Bill * Start 30-Oct-2010 Active Lantus SoloStar 100 UNIT/ML Subcutaneous Solution Pen-injector INJECT 46 UNITS DAILY DIRECTED * Quantity: 11 Refills: 11 Isra D.O. R. Bill * Start 05-Dec-2010 Active 3 ML Pen (5 Pens) Carvedilol 6.25 MG Oral Tablet TAKE 1 TABLET BY MOUTH TWICE DAILY * Quantity: 180 Refills: 0 Isra D.O., R. Bill * Start 18-Mar-2016 Active [place] BD PEN NEEDLE MINI 88tmplz1/16 Inject Insulin at hs dx 250.02 * Quantity: 200 Refills: 6 Jovita Dhaliwal D.O. * Start 23-Dec-2010 Active Pravastatin Sodium 10 MG Oral Tablet TAKE 1/2 TABLET BY MOUTH DAILY * Quantity: 15 Refills: 3 Isra Salinas.Jovita Frazier * Start 16-May-2016 Active Warfarin Sodium 6 MG Oral Tablet take 1 tablet by mouth every day * Quantity: 90 Refills: 1 Jovita Dhaliwal D.O. * Start 21-Feb-2016 Active Vitamin B-12 1000 MCG Sublingual Tablet Sublingual PLACE 1 MCG Daily * Quantity: 1 Refills: 0 Sp Dawkins M.D. * Start Active 100 Tablet Sublingual Bottle Losartan Potassium 50 MG Oral Tablet TAKE 1 TABLET BY MOUTH TWICE DAILY * Quantity: 180 Refills: 0 Jovita Dhaliwal D.O. * Start 21-Feb-2016 Active Losartan Potassium 100 MG Oral Tablet Take one tablet by mouth daily * Quantity: 90 Refills: 0 Jovita Dhaliwal D.O. * Start 28-Feb-2014 Active LOC&ALL Contour Next Monitor w/Device Kit testing three times daily * Quantity: 1 Refills: 3 Sp Dawkins M.D. * Start 22-Mar-2014 Active LOC&ALL Contour Next Test In Vitro Strip TEST [...] Refills: 0 Sandip P.ASavannah Mccarthy * Start 05-Mar-2015 Active Fish Oil 1000 MG Oral Capsule TAKE 1 CAPSULE DAILY. * Refills: 0 * Start 10-May-2015 Active Supplies AutoCPAP 9-13 cm H2O, Permanent use, G47.33, Heated humidity, [id number], mask , headgear, filters, heated tubing, water chamber, chinstrap * Quantity: 1 Refills: 0 Sandip PSavannah Alba * Start 07-Jun-2015 Active Fluticasone Propionate 50 MCG/ACT Nasal Suspension USE 1 SPRAY IN EACH NOSTRIL ONCE DAILY. * Quantity: 1 Refills: 0 Edilson Brennan M.D. * Start 29-Jun-2015 Active 16 GM Bottle BD Pen Needle Mini U/F 31G X 5 MM Miscellaneous USE TO INJECT INSULIN AT BEDTIME * Quantity: 200 Refills: 0 Isra D.OJovita Mccarthy * Start Active Supplies CPAP repair, services and supplies, G47.33 Mask, headgear, filters, heated tubing, chinstrap * Quantity: 1 Refills: 0 Savannah Zimmerman * Start 05-Dec-2015 Active Latanoprost 0.005 % Ophthalmic Solution INSTILL 1 DROP IN BOTH EYES AT BEDTIME. * Quantity: 1 Refills: 12 Prabhakar King M.D. * Start 11-Jan-2016 Active 2.5 ML Bottle Chlorpheniramine Maleate 4 MG Oral Tablet TAKE 1 TABLET EVERY 4 TO 6 HOURS NEEDED. * Quantity: 20 Refills: 0 Isra D.OJovita Mccarthy * Start 15-Apr-2016 Active Metoclopramide HCl - 10 MG Oral Tablet TAKE 1 TABLET Once As Directed HOLD UNTIL ORDERED BY PATIENT * Quantity: 1 Refills: 0 Don Reed M.D. * Start 21-May-2016 Active MetFORMIN HCl - 500 MG Oral Tablet TAKE 1 TABLET BY MOUTH TWICE DAILY * Quantity: 60 Refills: 2 Isra D.O.Jovita * Start 27-May-2016 Active Allergies and Adverse Reactions Name Dates [...] Pulse Generator Replacement History of Arterial Catheterization Colonoscopy- Screening or Dx Ordered: 15-Apr-2016 PROTIME PANEL 7000 Ordered: 09-May-2016 Immunization Name Dates Details Influenza on: 10-Dec-2010 Influenza on: 02-Feb-2012 Diphtheria-Tetanus Toxoids 6.7-5 LFU/0.5ML INJ on: Tdap (Boostrix) on: Adacel 5-2-15.5 LF-MCG/0.5 Intramuscular Suspension Lot #: [id number] on: 21-Jul-2013 Fluzone High-Dose SUSP Lot #: [id number] on: 13-Dec-2013 Prevnar 13 Intramuscular Suspension Lot #: [id number] on: 07-Apr-2014 Pneumovax 23 25 MCG/0.5ML Injection Injectable on: 09-May-2015 Pneumo (Pneumovax) Lot #: [id number] on: 09-May-2015 Fluzone High-Dose 0.5 ML Intramuscular Suspension Prefilled Syringe Lot #: [id number] on: 28-Dec-2015 Zoster (Zostavax) on: 19-Feb-2016 Family History Name Dates Details Family history of Status: Active Name Dates Details Family history of Status: Active Social History Name Dates Details - Status: Name Dates Details Former smoker Vital Signs Date Test Result Details 20-May-2016 16:17 BP Systolic 154 mm[Hg] Status: Comments: Location: ; Position: BP Diastolic 89 mm[Hg] Status: Comments: Location: ; Position: Heart Rate 97 /min Status: Comments: Location: ; Physical Findings 100 Status: Comments: O2 Saturation Results Date Description Value Details 09-May-2016 15:08 PROTIME PANEL 7000 PROTIME 23.0 secs (Above high threshold) Range: 12.0-14.9 INR 2.13 26-May-2016 15:13 BASIC METABOLIC PROFILE 1210 Comments: 05/27/16 Fastin hours SODIUM 141 mmol/L Range: 133-144 POTASSIUM 4.4 mmol/L Range: 3.5-5.1 CHLORIDE 105 mmol/L Range: 98-110 CARBON DIOXIDE 28.3 mmol/L Range: 23.0-33.0 ANION GAP 8 mmol/L Range: 6-16 BUN 19 mg/dL (Above high threshold) Range: 7-18 CREATININE, SERUM 1.25 mg/dL Range: 0.70-1.30 EST GFR, >60 ml/min Range: >60 EST GFR, NON-AFR [place] 57 ml/min (Below low threshold) Range: >60 [...] Monica Mancera On 08-Dec-2016 14:00 Appointment; Provider: Jovita Dhaliwal D.O. On 10:30 Appointment; Provider: John Aldridge M.D. On 10-Jun-2016 10:15 Appointment; Provider: Don Reed M.D. On 04-Jun-2016 08:30 Appointment; Provider: Marisela Figueroa On 04-Jun-2016 08:00 Appointment; Provider: Prabhakar King M.D. On 02-Jun-2016 10:15 Interventions Provided Medication Changes* Lantus SoloStar 100 UNIT/ML Subcutaneous Solution Pen- injector - Renew * MetFORMIN HCl - 500 MG Oral Tablet - Start Instructions Name Dates Details Instructions not documented Encounters Appointment; Jovita Dhaliwal D.O. Encounter Diagnosis: Problem not documented On 20-May-2016 16:15 Appointment; Jovita Dhaliwal D.O. Encounter Diagnosis: Problem [...]
--- OUTSIDE RECORDS SUMMARY | 2016-07-04 08:52 | XMS REPORT | Summary of Care ---
Author Author Don Reed M.D. Organization Unknown Address [address] [place], [place] [id number] Phone Unavailable Care Team Providers Care Shake Out Worker Name Role Phone Sp Dawkins M.D. Unavailable [...] bronchitis, unspecified organism (466.0, J20.9) Status: Active Actinic keratosis (702.0, L57.0) Status: Active Papule of skin (709.8, R23.8) Status: Active Obstructive sleep apnea (327.23, G47.33) Status: Active Type 2 diabetes mellitus with diabetic neuropathy (250.60, E11.40) Status: Active Primary open angle glaucoma of both eyes, moderate stage (365.11, H40.1132) Status: Active Type 2 diabetes mellitus without retinopathy (250.00, E11.9) Status: Active 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, I50.42) Status: Active Cardiac resynchronization therapy defibrillator (X RAY SERVICE TECHNICIAN-D) in place (V45.02, Z95.810) Status: Active Hyperlipidemia (272.4, E78.5) Status: Active Hypertension (401.9, I10) Status: Active PAF (paroxysmal atrial fibrillation) (427.31, I48.0) Status: Active On warfarin therapy (V58.61, Z79.01) Status: Active History of colon polyps (V12.72, Z86.010) Status: Active Screen for colon cancer (V76.51, Z12.11) Status: Active Medications Name Dates Details Furosemide [...] DAILY * Quantity: 180 Refills: 0 Isra D.O.Jovita * Start 13-Jun-2016 Active [place] BD PEN NEEDLE MINI 05ufdpf2/16 Inject Insulin at hs dx 250.02 * [...] DAILY * Quantity: 180 Refills: 0 Isra D.O.Jovita * Start 13-Jun-2016 Active Lantus SoloStar 100 UNIT/ML Subcutaneous Solution Pen-injector INJECT 25 UNITS DAILY DIRECTED * Quantity: 15 Refills: 0 Isra D.O.Jovita * Start 12-Jun-2016 Active Losartan Potassium 50 MG Oral Tablet TAKE 1 TABLET DAILY. * Quantity: 90 Refills: 3 Isra D.O.Jovita * Start 28-Feb-2014 Active [place] Contour Next Monitor w/Device Kit testing three times daily * Quantity: 1 Refills: 3 Sp Dawkins M.D. * Start 22-Mar-2014 Active [place] Contour Next Test In Vitro Strip TEST THREE TIMES DAILY * Quantity: 100 Refills: 0 Isra D.O.Jovita * Start 18-Jun-2016 Active Supplies CPAP repair, services and supplies, G47.33 Mask, headgear, filters, heated tubing, chinstrap * Quantity: 1 Refills: 0 Sandip Montaño.Savannah Carvalho * Start 05-Mar-2015 Active Fish Oil 1000 MG Oral Capsule TAKE 1 CAPSULE DAILY. * Refills: 0 * Start 10-May-2015 Active Supplies AutoCPAP 9-13 cm H2O, Permanent use, G47.33, Heated humidity, [id number], mask , headgear, filters, heated tubing, water [...] NEEDED. * Quantity: 20 Refills: 0 Isra D.Jovita Frazier * Start 15-Apr-2016 Active Metoclopramide HCl - 10 MG Oral Tablet TAKE 1 TABLET Once As Directed HOLD UNTIL ORDERED BY PATIENT * Quantity: 1 Refills: 0 Don Reed M.D. * Start 21-May-2016 Active MetFORMIN HCl - 500 MG Oral Tablet TAKE 1 TABLET BY MOUTH TWICE DAILY * Quantity: 60 Refills: 2 Isra D.Juancarlos.Jovita * Start 27-May-2016 Active Sulfamethoxazole-Trimethoprim 800-160 MG Oral Tablet TAKE 1 TABLET TWICE DAILY WITH FOOD. * Refills: 0 * Start 10-Jun-2016 Active Warfarin Sodium 5 MG Oral Tablet TAKE 1 TABLET DAILY ALONG WITH 1MG x 2 TO EQUAL 7MG DAILY * Quantity: 30 Refills: 0 Isra D.O.Jovita * Start 20-Jun-2016 Active Warfarin Sodium 1 MG Oral Tablet TAKE 2TABLET DAILY WITH 5MG TO EQUAL 7 MG DAILY DIRECTED * Quantity: 30 Refills: 6 Isra D.O.Jovita * Start 20-Jun-2016 Active Allergies and Adverse Reactions Name Dates [...] of Arterial Catheterization BASIC METABOLIC PROFILE 1210 Ordered: 03-Jun-2016 Quant Microalbumin 1106 Ordered: 03-Jun-2016 HEMOGLOBIN A1C 3507 Ordered: 03-Jun-2016 Immunization Name Dates Details Influenza on: 10-Dec-2010 Influenza on: 02-Feb-2012 Diphtheria-Tetanus Toxoids 6.7-5 LFU/0.5ML INJ on: Tdap (Boostrix) on: Adacel 5-2-15.5 LF-MCG/0.5 Intramuscular Suspension Lot #: [id number] on: 21-Jul-2013 Fluzone High-Dose SUSP Lot #: [id number] on: 13-Dec-2013 Prevnar 13 Intramuscular Suspension Lot #: [id number] on: 07-Apr-2014 Pneumovax 23 25 MCG/0.5ML Injection Injectable on: 09-May-2015 Pneumo (Pneumovax) Lot #: [id number] on: 09-May-2015 Fluzone High-Dose 0.5 ML Intramuscular Suspension Prefilled Syringe Lot #: [id number] on: 28-Dec-2015 Zoster (Zostavax) on: 19-Feb-2016 Family [...] m2 Status: Results Date Description Value Details 13-Jun-2016 15:20 PROTIME PANEL 7000 PROTIME 13.1 secs Range: 12.0-14.9 INR 1.03 02-Jul-2016 08:53 PROTIME PANEL 7000 PROTIME 16.1 secs (Above high threshold) Range: 12.0-14.9 INR 1.34 10:04 Colonoscopy Normal Range: 0 Plan of Care Name Dates Details Planned Observations Planned Goals not documented Planned Encounters Appointment; Provider: John Aldridge M.D. On 11-Dec-2016 10:30 Appointment; Provider: Monica Mancera On 08-Dec-2016 14:00 Appointment; Provider: Prabhakar King M.D. On 14:15 Appointment; Provider: Jovita Dhaliwal D.O. On 10:30 Interventions Provided Medication Changes* Suprep Bowel Prep 17.5-3.13-1.6 GM/180ML Oral Solution - Completed Instructions Name Dates Details Instructions not documented Encounters Appointment; Marisela Figueroa Encounter Diagnosis: Problem not documented On 02-Jul-2016 09:00 Appointment; John Aldridge M.D. Encounter Diagnosis: Problem not documented On 10-Jun-2016 10:15 Appointment; Prabhakar King M.D. Encounter Diagnosis: Problem not documented On 02-Jun-2016 10:15 Appointment; Jovita Dhaliwal D.O. Encounter Diagnosis: Problem not documented On 27-May-2016 09:30 Appointment; Jovita Dhaliwal D.O. Encounter Diagnosis: [...]
--- OUTSIDE RECORDS SUMMARY | 2016-07-04 08:53 | XMS REPORT | Summary of Care ---
Author Author Jovita Dhaliwal D.O. Organization Unknown Address [address], [place] [id number] Phone Unavailable Care Team Providers Care Can Carrier Name Role Phone Carl Ga D.O. Unavailable [...] Of The Left Sole (707.14) Status: Active Presence of cardiac resynchronization therapy defibrillator (V45.02, Z95.810) Status: Active Anticoagulant long-term use (V58.61, Z79.01) Status: Active Congestive heart failure (428.0, I50.9) Status: Active Obstructive sleep apnea (327.23, G47.33) Status: Active Atrial fibrillation, currently in sinus rhythm (427.31, I48.91) Status: Active Diabetes mellitus (250.00, E11.9) Status: Active Hypertension (401.9, I10) Status: Active Intermittent knee pain, left (719.46, M25.562) Status: Active Right shoulder strain (840.9, S46.911A) Status: Active Medications Name Dates Details Warfarin [...] Started 18-Dec-2010 [employer] BD PEN NEEDLE MINI 11pwcij7/16 Inject Insulin at hs dx 250.02 * [...] Refills: 3 Sp Dawkins M.D.* Started 30-Mar-2013 ActiveWarfarin Sodium 6 MG Oral Tablet take 1 tablet by mouth every day * Quantity: 90 Refills: 1 Jovita Dhaliwal D.O.* Started 11-May-2013 ActiveVitamin B-12 1000 MCG Sublingual Tablet Sublingual PLACE 1 MCG Daily * Quantity: 1 Refills: 0 Sp Dawkins M.D.* Started Nccuwh266 Tablet Sublingual Bottle Lantus SoloStar 100 UNIT/ML [...] Refills: 3 Jovita Dhaliwal D.O.* Started 28-Feb-2014 [employer] Next Monitor w/Device Kit testing three times daily * Quantity: 1 Refills: 3 Sp Dawkins M.D.* Started 22-Mar-2014 [place] Next Test In Vitro Strip TEST THREE TIMES A DAY * Quantity: 1 Refills: 3 Jovita Dhaliwal D.O.* Started 22-Mar-2014 Tktbft662 Strip Box ZyrTEC Allergy 10 MG Oral Tablet TAKE 1 TABLET DAILY DIRECTED. * Quantity: 30 Refills: 2 Jovita Dhaliwal D.O.* Started 19-Jun-2014 ActiveFluticasone Propionate 50 MCG/ACT Nasal Suspension USE 1 TO 2 SPRAYS IN EACH NOSTRIL ONCE DAILY. * Quantity: 1 Refills: 0 Jovita Dhaliwal D.O.* Started 19-Jun-2014 Nqygaf00 GM Bottle Doxycycline Monohydrate 100 MG Oral Capsule TAKE 1 CAPSULE TWICE DAILY WITH FOOD. * Quantity: 14 Refills: 0 Jovita Dhaliwal D.O.* Started 19-Jun-2014 ActiveCephalexin 500 MG Oral Capsule TAKE 1 CAPSULE 3 TIMES DAILY. * Quantity: 5 Refills: 0 Tari Chilel SPONGE HOOKER* Started 06-Jul-2014 ActivePrednisoLONE Acetate 1 % Ophthalmic Suspension INSTILL 1 DROP INTO LEFT EYE 3 TIMES DAILY FOR ONE WEEK * Quantity: 1 Refills: 0 Carl Ga.Juancarlos.* Started Active5 ML Bottle Allergies and Adverse [...] Pulse Generator Replacement PROTIME PANEL 7000 Ordered:25-Oct-2014 Immunization Name Dates Details Influenza Administered on:10-Dec-2010 Influenza Administered on:02-Feb-2012 Diphtheria-Tetanus Toxoids 6.7-5 LFU/0.5ML Intramuscular Injectable Administered on: Tdap (Boostrix) Administered on: Adacel 5-2-15.5 LF-MCG/0.5 Intramuscular Suspension Lot #: [id number] Administered on:21-Jul-2013 Fluzone High-Dose Intramuscular Suspension Lot #: [id number] Administered on:13-Dec-2013 Prevnar 13 Intramuscular Suspension Lot #: [id number] Administered on:07-Apr-2014 Social History Name Dates Details Smoking Status* Former smoker Vital Signs Date Test Result Details 25-Oct-2014 09:09 BP Systolic 138 mm[Hg] Status: [...] ml/min (Better) Range: >60 EST GFR, NON-AFR [place] >60 ml/min (Better) Range: >60 Comments: EST GFR is reported in ml/min per 1.73 m2 of body surface area. For -Malian, please multiple result by 1.2.----- BUN:CREATININE RATIO 17 (Better) GLUCOSE 108 mg/dL (Above high threshold) Range: 70-100 CALCIUM 9.0 mg/dL (Better) Range: 8.5-10.1 Plan of Care Planned Observations* Name Dates Details Planned Goals not documented Goal Planned Encounters* Appointment; Provider: Carl Ga On 10-May-2015 09:15 * Appointment; Provider: Jovita Dhaliwal On 25-Jan-2015 09:30 * Appointment; Provider: John Aldridge On 27-Oct-2014 09:45 * Appointment; Provider: Debora Figueroa On 03-Jun-2013 [...] Diagnosis: Problem not documented On 09:15 Appointment; Joviat Dhaliwal Encounter Diagnosis: Problem not documented On [...]
--- OUTSIDE RECORDS SUMMARY | 2016-07-04 08:53 | XMS REPORT | Summary of Care ---
Author Author John Aldridge M.D. Organization Unknown Address [address], [place] [phone] Phone Unavailable Care Team Providers Care Vp Integration Name Role Phone Carl Ga D.O. Unavailable Unavailable Tari Chilel APRN Unavailable Unavailable John Aldridge M.D. Unavailable Unavailable Sp Dawkins [...] Status: Active Hypertension (401.9, I10) Status: Active Medications Name Dates Details Warfarin [...] Started 18-Dec-2010 [employer] BD PEN NEEDLE MINI 06xslgd6/16 Inject Insulin at hs dx 250.02 * [...] 1 Refills: 0 Sp Dawkins M.D.* Started Nykqzt614 Tablet Sublingual Bottle Lantus SoloStar 100 UNIT/ML [...] Refills: 3 Jovita Dhaliwal D.O.* Started 28-Feb-2014 [employer] Next Monitor w/Device Kit testing three times daily * Quantity: 1 Refills: 3 Sp Dawkins M.D.* Started 22-Mar-2014 [employer] Contour Next Test In Vitro Strip TEST THREE TIMES A DAY * Quantity: 1 Refills: 3 Jovita Dhaliwal D.O.* Started 22-Mar-2014 Ceijtr451 Strip Box ZyrTEC Allergy 10 MG Oral Tablet TAKE 1 TABLET DAILY DIRECTED. * Quantity: 30 Refills: 2 Jovita Dhaliwal D.O.* Started 19-Jun-2014 ActiveFluticasone Propionate 50 MCG/ACT Nasal Suspension USE 1 TO 2 SPRAYS IN EACH NOSTRIL ONCE DAILY. * Quantity: 1 Refills: 0 Jovita Dhaliwal D.O.* Started 19-Jun-2014 Npbmqu51 GM Bottle Doxycycline Monohydrate 100 MG Oral [...] Adacel 5-2-15.5 LF-MCG/0.5 Intramuscular Suspension Lot #: [id number] Administered on:21-Jul-2013 Fluzone High-Dose Intramuscular Suspension Lot #: [id number] Administered on:13-Dec-2013 Prevnar 13 Intramuscular Suspension Lot #: [id number] Administered on:07-Apr-2014 Social History Name Dates Details Smoking Status* Former smoker Vital Signs Date Test Result Details 27-Oct-2014 09:54 BP Systolic 132 mm[Hg] Status: [...] ml/min (Better) Range: >60 EST GFR, NON-AFR [place] >60 ml/min (Better) Range: >60 Comments: EST GFR is reported in ml/min per 1.73 m2 of body surface area. For -[place]rist[place], please multiple result by 1.2.----- BUN:CREATININE RATIO [...]
--- OUTSIDE RECORDS SUMMARY | 2016-07-04 08:53 | XMS REPORT | Summary of Care ---
Author Author Savannah Zimmerman Organization Unknown Address [address] [place] [address] Phone Unavailable Care Team Providers Care Fermenting Cellar Dropper Name Role Phone Benny Barfield D.O. Unavailable Unavailable Sp Dawkins M.D. Unavailable Unavailable Savannah Zimmerman Unavailable Unavailable [...] Slow transit constipation (564.01, K59.01) Status: Active Type 2 diabetes mellitus with diabetic neuropathy (250.60, E11.40) Status: Active 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, left, with fat layer exposed ( 707.14, L97.422) Status: Active 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, I50.42) Status: Active Cardiac resynchronization therapy defibrillator (DIRECTOR FUNDRAISING-D) in place (V45.02, Z95.810) Status: Active PAF (paroxysmal atrial fibrillation) (427.31, I48.0) Status: Active On warfarin therapy (V58.61, Z79.01) Status: Active Hypertension (401.9, I10) Status: Active Hyperlipidemia (272.4, E78.5) Status: Active Acute bronchitis, unspecified organism (466.0, J20.9) Status: Active Acute maxillary sinusitis, recurrence not specified (461.0, J01.00) Status: Active Obstructive sleep apnea (327.23, G47.33) Status: Active Medications Name Dates Details Furosemide [...] Started 18-Dec-2010 ActiveNeedles BD PEN NEEDLE MINI 79lqsws2/16 Inject Insulin at hs dx 250.02 * Quantity: 200 Refills: 6 Jovita Dhaliwal D.O.* Started 23-Dec-2010 ActiveWarfarin Sodium 1 MG Oral Tablet TAKE 1 TABLET BY MOUTH DAILY * Quantity: 60 Refills: 2 Jovita Dhaliwal.O.* Started 20-May-2011 ActiveAmpicillin 500 MG Oral Capsule TAKE 1 CAPSULE 3 times daily * Quantity: 30 Refills: 0 Jovita Dhaliwal D.O.* Started 25-Mar-2013 ActiveViagra 50 MG Oral Tablet [...] 1 Refills: 0 Sp Dawkins M.D.* Started Iklylv176 Tablet Sublingual Bottle Losartan Potassium 50 MG Oral Tablet TAKE 1 TABLET TWICE DAILY. * Quantity: 180 Refills: 3 Jovita Dhaliwal D.O.* Started 28-Feb-2014 ActiveDezide Next Monitor w/Device Kit testing three times daily * Quantity: 1 Refills: 3 Sp Dawkins M.D.* Started 22-Mar-2014 ActiveBaAdvanced Digital Design Contour Next Test In Vitro Strip TEST THREE TIMES A DAY * Quantity: 1 Refills: 3 Jovita Dhaliwal D.O.* Started 22-Mar-2014 Dlogcc949 Strip Box Tamsulosin HCl - 0.4 MG Oral Capsule TAKE 1 CAPSULE Daily * Quantity: 30 Refills: 11 Jovita Dhaliwal D.O.* Started 05-Feb-2015 ActiveSupplies CPAP repair, services and supplies, G47.33 Mask, headgear, filters, heated tubing, chinstrap * Quantity: 1 Refills: 0 Savannah Oropeza P.A.* Started 05-Mar-2015 ActiveColace 100 MG Oral Capsule TAKE 1 CAPSULE TWICE DAILY NEEDED. * Quantity: 60 Refills: 2 Jovita Dhaliwal D.O.* Started 13-Mar-2015 ActiveProctofoam 1 % Rectal Foam USE 1 APPLICATORFUL RECTALLY 1-2 TIMES DAILY. * Quantity: 1 Refills: 0 Jovita Dhaliwal D.O.* Started 13-Mar-2015 Mivwfg10 GM Can Fish Oil 1000 MG Oral Capsule TAKE 1 CAPSULE DAILY. * Refills: 0 * Started 10-May-2015 ActiveAzithromycin 250 MG Oral Tablet TAKE 2 TABLETS ON DAY 1 THEN TAKE 1 TABLET A DAY FOR 4 DAYS. * Quantity: 1 Refills: 0 Benny Barfield D.O.* Started 04-Jun-2015 Active6 Tablet Bottle Cheratussin AC 100-10 MG/5ML Oral Syrup TAKE 5 - 10 ML EVERY 4 TO 6 HOURS NEEDED FOR COUGH. * Quantity: 1 Refills: 0 Benny Barfield D.O.* Started 04-Jun-2015 Pxvcuo443 ML Bottle Supplies AutoCPAP 9-13 cm H2O, Permanent use, G47.33, Heated humidity, JkwmnapoK42, mask , headgear, filters, heated tubing, water chamber, chinstrap * Quantity: 1 Refills: 0 Savannah Oropeza P.A.* Started 07-Jun-2015 Active Allergies and Adverse Reactions Name Dates [...] History of Arterial Catheterization PROTIME PANEL 7000 Ordered:09-May-2015 BASIC METABOLIC PROFILE 1210 Ordered:10-May-2015 HEMOGLOBIN A1C 3507 Ordered:10-May-2015 Immunization Name Dates Details Influenza Administered on:10-Dec-2010 Influenza Administered on:02-Feb-2012 Diphtheria-Tetanus Toxoids 6.7-5 LFU/0.5ML Intramuscular Injectable Administered on: Tdap (Boostrix) Administered on: Adacel 5-2-15.5 LF-MCG/0.5 Intramuscular Suspension Lot #: [id number] Administered on:21-Jul-2013 Fluzone High-Dose Intramuscular Suspension Lot #: [id number] Administered on:13-Dec-2013 Prevnar 13 Intramuscular Suspension Lot #: [id number] Administered on:07-Apr-2014 Pneumovax 23 25 MCG/0.5ML Injection Injectable Administered on:09-May-2015 Pneumo (Pneumovax) Lot #: [id number] Administered on:09-May-2015 Family History Mother* Name Dates Details Family history of Status: Active Father* Name Dates Details Family history of Status: Active Social History Name Dates Details Smoking Status* Former smoker Vital Signs Date Test Result Details 07-Jun-2015 15:12 BP Systolic 147 mm[Hg] Status: [...] Body Surface Area Calculated 2.31 m2 Status: 10-May-2015 15:20 BP Systolic 130 mm[Hg] Status: BP Diastolic 70 mm[Hg] Status: 10-May-2015 15:08 BP Systolic 156 mm[Hg] Status: BP Diastolic 84 mm[Hg] Status: Heart Rate 82 /min Status: Weight 234.6 lb Status: O2 SAT 96 % Status: Body Mass Index Calculated 30.95 kg/m2 Status: Body Surface Area Calculated 2.3 m2 Status: 09-May-2015 08:30 BP Systolic 140 mm[Hg] Status: BP Diastolic 82 mm[Hg] Status: Heart Rate 90 /min Status: Weight 230.375 lb Status: Body Mass Index Calculated 30.39 kg/m2 Status: Body Surface Area Calculated 2.29 m2 Status: Results Date Description Value Details Results not documented Plan of Care Planned Observations* Name Dates Details Planned Goals not documented Goal Planned Encounters* Appointment; Provider: John Aldridge On 08-Nov-2015 13:30 * Appointment; Provider: Joivta Dhaliwal On 08:45 * Appointment; Provider: Carl Ga On 14-Jun-2015 10:00 * Appointment; Provider: Danyel Rodriguez On 13-Jan-2015 [...] Instructions * Instructions not documented Encounters Appointment; Moody Choe Encounter Diagnosis: Problem not [...] Problem not documented On 06-Dec-2013 13:45 Appointment; Aldridge, T. K. Encounter Diagnosis: Problem not documented On 23-Nov-2013 [...]
--- OUTSIDE RECORDS SUMMARY | 2016-07-04 08:53 | XMS REPORT | Summary of Care ---
Author Author Jovita Dhaliwal D.O. Organization Unknown Address [address], [place] [address] Phone Unavailable Care Team Providers Care Grievance Manager Name Role Phone Carl Ga D.O. Unavailable Unavailable Luis Carlos Sands, John Black Unavailable Unavailable Sp Dawkins M.D. 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] Started 18-Dec-2010 ActiveNeedles BD PEN NEEDLE MINI 10wqwvq9/16 Inject Insulin at hs dx 250.02 * Quantity: 200 Refills: 6 Jovita Dhaliwal D.O.* Started 23-Dec-2010 ActiveWarfarin Sodium 1 MG Oral Tablet Take 1 tablet daily * Quantity: 60 Refills: 11 Sp Dawkins M.D.* Started 20-May-2011 ActiveAmpicillin 500 MG Oral Capsule [...] 1 Refills: 0 Sp Dawkins M.D.* Started Udpgej940 Tablet Sublingual Bottle Lantus SoloStar 100 UNIT/ML [...] DAILY. * Quantity: 180 Refills: 3 Jovita Dhaliwal.O.* Started 28-Feb-2014 ActiveBayer Contour Next Monitor w/Device Kit testing three times daily * Quantity: 1 Refills: 3 Sp Dawkins M.D.* Started 22-Mar-2014 ActiveBayer Contour Next Test In Vitro Strip TEST THREE TIMES A DAY * Quantity: 1 Refills: 3 Jovita DhaliwalO.* Started 22-Mar-2014 Ikpuww554 Strip Box ZyrTEC Allergy 10 MG Oral Tablet TAKE 1 TABLET DAILY DIRECTED. * Quantity: 30 Refills: 2 Jovita Dhaliwal.Juancarlos.* Started 19-Jun-2014 ActiveFluticasone Propionate 50 MCG/ACT Nasal Suspension USE 1 TO 2 SPRAYS IN EACH NOSTRIL ONCE DAILY. * Quantity: 1 Refills: 0 Jovita Dhaliwal.O.* Started 19-Jun-2014 Ibbtmg22 GM Bottle PrednisoLONE Acetate 1 % Ophthalmic Suspension INSTILL 1 [...] - Pulse Generator Replacement PROTIME PANEL 7000 Ordered:25-Jan-2015 Immunization Name Dates Details Influenza Administered on:10-Dec-2010 Influenza Administered on:02-Feb-2012 Diphtheria-Tetanus Toxoids 6.7-5 LFU/0.5ML Intramuscular Injectable Administered on: Tdap (Boostrix) Administered on: Adacel 5-2-15.5 LF-MCG/0.5 Intramuscular Suspension Lot #: [id number] Administered on:21-Jul-2013 Fluzone High-Dose Intramuscular Suspension Lot #: [id number] Administered on:13-Dec-2013 Prevnar 13 Intramuscular Suspension Lot #: [id number] Administered on:07-Apr-2014 Social History Name Dates Details Smoking Status* Former smoker Vital Signs Date Test Result Details 25-Jan-2015 09:42 BP Systolic 124 mm[Hg] Status: [...] ml/min (Better) Range: >60 EST GFR, NON-AFR [place] CITIZ[place] 58 ml/min (Below low threshold) Range: >60 Comments: EST GFR is reported in ml/min per 1.73 m2 of body surface area. For -[place], please multiple result by 1.2.----- GLUCOSE 97 [...] Choe On 05-Mar-2015 14:30 * Appointment; Provider: John Aldridge On 31-Jan-2015 15:45 * Appointment; Provider: Danyel Rodriguez On 13-Jan-2015 [...]
--- OUTSIDE RECORDS SUMMARY | 2016-07-04 08:54 | XMS REPORT | Summary of Care ---
Author Author Jovita Dhaliwal D.O. Organization Unknown Address [address] [place], [place] [id number] Phone Unavailable Care Team Providers Care Charm Filter Operator Helper Name Role Phone Sp Dawkins M.D. Unavailable [...] G47.33) Status: Active Cardiac resynchronization therapy defibrillator (TRAFFIC SUPERVISOR-D) in place (V45.02, Z95.810) Status: Active Hypertension [...] Papule of skin (709.8, R23.8) Status: Active Medications Name Dates Details Furosemide 40 MG Oral Tablet TAKE 1 TABLET BY MOUTH DAILY Quantity: 90 Isra D.Jovita Frazier * Start 30-Oct-2010 Active Lantus SoloStar 100 UNIT/ML Subcutaneous Solution Pen-injector INJECT 44 UNITS DAILY DIRECTED * Quantity: 11 Refills: 11 Isra D.Jovita Frazier * Start 05-Dec-2010 Active 3 ML Pen (5 Pens) Carvedilol 6.25 MG Oral Tablet TAKE 1 TABLET BY MOUTH TWICE DAILY * Quantity: 180 Refills: 1 Isra Salinas.Jovita Frazier * Start 18-Dec-[address] BD PEN NEEDLE MINI 63cxsgs3/16 Inject Insulin at hs dx 250.02 * Quantity: 200 Refills: 6 Jovita Dhaliwal D.O. * Start 23-Dec-2010 Active Warfarin Sodium 1 MG Oral Tablet TAKE 1 TABLET BY MOUTH DAILY * Quantity: 60 Refills: 2 Jovita Dhaliwal D.O. * Start 20-May-2011 Active Pravastatin Sodium 10 MG Oral Tablet TAKE 1/2 TABLET BY MOUTH DAILY * Quantity: 15 Refills: 11 Isra Salinas.Jovita Frazier * Start 30-Mar-2013 Active Warfarin Sodium 6 MG Oral Tablet take 1 tablet by mouth every day * Quantity: 90 Refills: 0 Jovita Dhaliwal D.O. * Start 11-May-2013 Active Vitamin B-12 1000 MCG Sublingual Tablet Sublingual PLACE 1 MCG Daily * Quantity: 1 Refills: 0 Sp Dawkins M.D. * Start Active 100 Tablet Sublingual Bottle Lantus SoloStar 100 UNIT/ML Subcutaneous Solution Pen-injector INJECT 25 UNITS DAILY DIRECTED * Quantity: 15 Refills: 0 Isra DJovita Cole * Start 18-Oct-2015 Active PPLCONNECT Next Monitor w/Device Kit testing three times daily * Quantity: 1 Refills: 3 Sp Dawkins M.D. * Start 22-Mar-2014 Active Losartan Potassium 50 MG Oral Tablet TAKE 1 TABLET TWICE DAILY. * Quantity: 180 Refills: 3 Isra Salinas.Jovita Frazier * Start 28-Feb-2014 Active Tamsulosin HCl - 0.4 MG Oral Capsule TAKE 1 CAPSULE Daily * Quantity: 30 Refills: 11 Isra D.O.Jovita * Start 05-Feb-2015 Active Supplies CPAP repair, services and supplies, G47.33 Mask, headgear, filters, heated tubing, chinstrap * Quantity: 1 Refills: 0 Sandip P.A., Savannah * Start 05-Mar-2015 Active Fish Oil 1000 MG Oral Capsule TAKE 1 CAPSULE DAILY. * Refills: 0 * Start 10-May-2015 Active Supplies AutoCPAP 9-13 cm H2O, Permanent use, G47.33, Heated humidity, XyagqdvlA58, mask , headgear, filters, heated tubing, water chamber, chinstrap * Quantity: 1 Refills: 0 Sandip P.A., Savannah * Start 07-Jun-2015 Active Fluticasone Propionate 50 MCG/ACT Nasal Suspension USE 1 SPRAY IN EACH NOSTRIL ONCE DAILY. * Quantity: 1 Refills: 0 Edilson Brennan M.D. * Start 29-Jun-2015 Active 16 GM Bottle Jeronimo Contour Next Test In Vitro Strip TEST THREE TIMES DAILY * Quantity: 100 Refills: 0 Isra D.OJovita Mccarthy * Start 22-Mar-2014 Active BD Pen Needle Mini U/F 31G X 5 MM Miscellaneous USE TO INJECT INSULIN AT BEDTIME * Quantity: 200 Refills: 0 Isra D.O.Jovita * Start Active Allergies and Adverse Reactions [...] Ordered: 22-Oct-2015 PROTIME PANEL 7000 Ordered: 16-Nov-2015 Immunization Name Dates Details Influenza on: 10-Dec-2010 Influenza on: 02-Feb-2012 Diphtheria-Tetanus Toxoids 6.7-5 LFU/0.5ML INJ on: Tdap (Boostrix) on: Adacel 5-2-15.5 LF-MCG/0.5 Intramuscular Suspension Lot #: [id number] on: 21-Jul-2013 Fluzone High-Dose SUSP Lot #: [id number] on: 13-Dec-2013 Prevnar 13 Intramuscular Suspension Lot #: [id number] on: 07-Apr-2014 Pneumovax 23 25 MCG/0.5ML Injection Injectable on: 09-May-2015 Pneumo (Pneumovax) Lot #: [id number] on: 09-May-2015 Family History Name Dates Details Family history of Status: Active Name Dates Details Family history of Status: Active Social History Name Dates Details - Status: Name Dates Details Former smoker Vital Signs Date Test Result Details 16-Nov-2015 09:38 Temperature 98.5 f Status: Weight 235 lb Status: Body Mass Index Calculated 32.32 kg/m2 Status: Body Surface Area Calculated 2.27 m2 Status: 14-Nov-2015 10:31 BP Systolic 140 mm[Hg] Status: Comments: Location: ; Position: BP Diastolic 80 mm[Hg] Status: Comments: Location: ; Position: 14-Nov-2015 10:29 BP Systolic 174 mm[Hg] Status: Comments: Location: ; Position: BP Diastolic 96 mm[Hg] Status: Comments: Location: ; Position: Heart Rate 82 /min Status: Weight 240 lb Status: Body Mass Index Calculated 33.01 kg/m2 Status: Body Surface Area Calculated 2.29 m2 Status: 22-Oct-2015 10:28 BP Systolic 120 mm[Hg] Status: BP Diastolic 74 mm[Hg] Status: Heart Rate 74 /min Status: Height 71.5 in Status: Weight 230 lb Status: Body Mass Index Calculated 31.63 kg/m2 Status: Body Surface Area Calculated 2.25 m2 Status: Results Date Description Value Details 22-Oct-2015 12:58 PROTIME PANEL 7000 Comments: Critical result called to Jocelyne/Isra by Tiffani Hirsch on 10/22/2015 at 1:02 PM (INR) PROTIME 57.3 secs (Above high threshold) Range: 12.0-14.9 INR 6.42 (High alert) Comments: Verified by Repeat Analysis----- 29-Oct-2015 10:18 PROTIME PANEL 7000 PROTIME 15.3 secs (Above high threshold) Range: 12.0-14.9 INR 1.22 01-Nov-2015 09:18 ULTRASOUND AORTA AAA SCREENING MEDICARE PATIENT Comments: Exam Date: 11/01/2015 09:04Dictation Date: 11/01/2015 09:18 XS ABDOMINAL AORTA AAA SCREEN 07-Nov-2015 09:53 ECG/ EKG Outside Interp Electro CardioGram 14-Nov-2015 12:12 PROTIME PANEL 7000 PROTIME 19.1 secs (Above high threshold) Range: 12.0-14.9 INR 1.61 Plan of Care Name Dates Details Planned Observations PROTIME PANEL 7000 On 30-Nov-2015 Intent Planned Goals not documented Planned Encounters Appointment; Provider: Jovita Dhaliwal D.O. On 19-Feb-2016 10:00 Appointment; Provider: John Aldridge M.D. On 10-Dec-2015 09:45 Appointment; Provider: Moody Choe M.D. On 05-Dec-2015 14:15 Instructions Name Dates Details Instructions not documented Encounters Appointment; Jovita Dhaliwal D.O. Encounter Diagnosis: Problem not documented On 14-Nov-2015 10:15 Appointment; Modoy Choe M.D. Encounter Diagnosis: Problem not documented [...]
--- OUTSIDE RECORDS SUMMARY | 2016-07-04 08:54 | XMS REPORT | Summary of Care ---
Author Author Provider, Outside Organization Unknown Address Unknown Phone Unavailable Care Team Providers Care Endband Cutter Hand Name Role Phone Sp Dawkins M.D. Unavailable [...] G47.33) Status: Active Cardiac resynchronization therapy defibrillator (COMPUTER INFORMATION SCIENCE PROFESSOR-D) in place (V45.02, Z95.810) Status: Active Hypertension [...] 1 Isra D.O.Jovita * Start 18-Dec-2010 Active [place] BD PEN NEEDLE MINI 17wfymx2/16 Inject Insulin at hs dx 250.02 * Quantity: 200 Refills: 6 Isra D.O.Jovita * Start 23-Dec-2010 Active Warfarin Sodium 1 MG Oral Tablet TAKE 1 TABLET BY MOUTH DAILY * Quantity: 60 Refills: 2 Isra D.O.Jovita * Start 20-May-2011 Active Pravastatin Sodium 10 [...] 15 Refills: 0 Isra D.O.Jovita * Start 18-Oct-2015 Active Losartan Potassium 50 MG Oral Tablet TAKE 1 TABLET TWICE DAILY. * Quantity: 180 Refills: 3 Isra D.O.Jovita * Start 28-Feb-2014 Active Baiyaxuan Contour Next Monitor w/Device Kit testing three times daily * Quantity: 1 Refills: 3 Sp Dawkins M.D. * Start 22-Mar-2014 Active Jeronimo Contour Next Test In Vitro Strip TEST THREE TIMES DAILY * Quantity: 100 Refills: 0 Isra D.O.Jovita * Start 22-Mar-2014 Active Tamsulosin HCl - 0.4 MG Oral Capsule TAKE 1 CAPSULE Daily * Quantity: 30 Refills: 11 Jovita Dhaliwal D.O. * Start 05-Feb-2015 Active Supplies CPAP repair, services and supplies, G47.33 Mask, headgear, filters, heated tubing, chinstrap * Quantity: 1 Refills: 0 Sandip P.A., [place] * Start 05-Mar-2015 Active Fish Oil 1000 MG Oral Capsule TAKE 1 CAPSULE DAILY. * Refills: 0 * Start 10-May-2015 Active Supplies AutoCPAP 9-13 cm H2O, Permanent use, G47.33, Heated humidity, RgssrvxiR81, mask , headgear, filters, heated tubing, water [...] Adacel 5-2-15.5 LF-MCG/0.5 Intramuscular Suspension Lot #: [id number] on: 21-Jul-2013 Fluzone High-Dose SUSP Lot #: [id number] on: 13-Dec-2013 Prevnar 13 Intramuscular Suspension Lot #: [id number] on: 07-Apr-2014 Pneumovax 23 25 MCG/0.5ML Injection Injectable on: 09-May-2015 Pneumo (Pneumovax) Lot #: [id number] on: 09-May-2015 Family History Name Dates Details [...] >60 ml/min Range: >60 EST GFR, NON-AFR [place] >60 ml/min Range: >60 Comments: EST GFR is reported in ml/min per 1.73 m2 of body surface area. For -[place], please multiple result by 1.2.----- BUN:CREATININE RATIO [...] Provider: Moody Choe M.D. On 23-Oct-2015 14:45 Appointment; Provider: Danyel Rodriguez M.D. On 15:00 Appointment; Provider: Danyel Rodriguez M.D. On 13-Jan-2015 13:00 Appointment; Provider: Debora Figueroa On 03-Jun-2013 11:30 Appointment; Provider: Christos Turpin M.D. On 29-Mar-2013 10:30 Appointment; Provider: John Aldridge M.D. On 29-Mar-2013 08:30 Appointment; Provider: Sp Dawkins M.D. On 14-Feb-2013 14:45 Appointment; Provider: Christos Turpin M.D. On 11-Jan-2013 08:30 Appointment; Provider: Francisca Conrad P.T.A.|PHARMACEUTICAL LABORATORY TECHNICIAN On 08:30 Appointment; Provider: Francisca Conrad P.T.A.|PHARMACEUTICAL LABORATORY TECHNICIAN On 09:00 Appointment; Provider: John Aldridge M.D. On 20-Dec-2010 08:00 Appointment; Provider: John Aldridge M.D. On 13:00 Appointment; Provider: John Aldridge M.D. On 09:30 Appointment; Provider: Moody Choe M.D. On 07-Jun-2007 19:15 Appointment; Provider: Yousif Cherry M.D. On 27-Apr-2007 07:30 Appointment; Provider: Yousif Cherry M.D. On 26-Apr-2007 07:00 Appointment; Provider: Moody Choe M.D. On 19-Apr-2007 09:15 Appointment; Provider: Moody Choe M.D. On 18-Apr-2007 09:45 Appointment; Provider: Moody Choe M.D. On 17-Apr-2007 09:15 Appointment; Provider: Moody Choe M.D. On 16-Apr-2007 08:45 Appointment; Provider: Moody Choe M.D. On 15-Apr-2007 09:00 Instructions Name Dates Details Instructions not [...] not documented On 31-Jan-2015 15:45 Appointment; Jovita hDaliwal D.O. Encounter Diagnosis: Problem not documented On [...] Problem not documented On 21-Mar-2014 13:15 Appointment; oJhn Aldridge M.D. Encounter Diagnosis: Problem not documented [...] Encounter Diagnosis: Problem not documented On 23-Nov-2013 14:45"
--- OUTSIDE RECORDS SUMMARY | 2016-07-04 08:54 | XMS REPORT | Summary of Care ---
Author Author John Aldridge M.D. Organization Unknown Address [address] [place], [place] [address] Phone Unavailable Care Team Providers Care Methods Specialist Name Role Phone Carl Ga D.O. Unavailable Unavailable Tari Chilel APRN Unavailable Unavailable Luis Carlos Sands, John Black [...] Anticoagulant long-term use (V58.61, Z79.01) Status: Active Atrial fibrillation, currently in sinus rhythm (427.31, I48.91) Status: Active Congestive heart failure (428.0, I50.9) Status: Active Hypertension (401.9, I10) Status: Active Obstructive sleep apnea (327.23, G47.33) Status: Active Diabetes mellitus (250.00, E11.9) Status: Active Medications Name Dates Details Warfarin [...] Started 18-Dec-2010 ActiveNeedles BD PEN NEEDLE MINI 64ecimq7/16 Inject Insulin at hs dx 250.02 * [...] 1 Refills: 0 Sp Dawkins M.D.* Started Qlnzcd200 Tablet Sublingual Bottle Lantus SoloStar 100 UNIT/ML [...] Refills: 3 Jovita Dhaliwal D.O.* Started 28-Feb-2014 ActiveYobble Next Monitor w/Device Kit testing three times daily * Quantity: 1 Refills: 3 Sp Dawkins M.D.* Started 22-Mar-2014 ActiveYobble Next Test In Vitro Strip TEST THREE TIMES A DAY * Quantity: 1 Refills: 3 Jovita Dhaliwal D.O.* Started 22-Mar-2014 Oymoaz027 Strip Box ZyrTEC Allergy 10 MG Oral Tablet TAKE 1 TABLET DAILY DIRECTED. * Quantity: 30 Refills: 2 Jovita Dhaliwal D.O.* Started 19-Jun-2014 ActiveFluticasone Propionate 50 MCG/ACT Nasal Suspension USE 1 TO 2 SPRAYS IN EACH NOSTRIL ONCE DAILY. * Quantity: 1 Refills: 0 Jovita Dhaliwal D.O.* Started 19-Jun-2014 Glslwc60 GM Bottle Doxycycline Monohydrate 100 MG Oral Capsule TAKE 1 CAPSULE TWICE DAILY WITH FOOD. * Quantity: 14 Refills: 0 Jovita Dhaliwal D.O.* Started 19-Jun-2014 ActiveCephalexin 500 MG Oral Capsule TAKE 1 CAPSULE 3 TIMES DAILY. * Quantity: 5 Refills: 0 Tari Chilel SYRUP MAKER* Started 06-Jul-2014 ActivePrednisoLONE Acetate 1 % Ophthalmic Suspension INSTILL 1 DROP INTO LEFT EYE 3 TIMES DAILY FOR ONE WEEK * Quantity: 1 Refills: 0 TarCarl mendez D.O.* Started Active5 ML Bottle Allergies and [...] - Pulse Generator Replacement PROTIME PANEL 7000 Ordered: Immunization Name Dates Details Influenza Administered on:10-Dec-2010 Influenza Administered on:02-Feb-2012 Diphtheria-Tetanus Toxoids 6.7-5 LFU/0.5ML Intramuscular Injectable Administered on: Tdap (Boostrix) Administered on: Adacel 5-2-15.5 LF-MCG/0.5 Intramuscular Suspension Lot #: [id number] Administered on:21-Jul-2013 Fluzone High-Dose Intramuscular Suspension Lot #: [id number] Administered on:13-Dec-2013 Prevnar 13 Intramuscular Suspension Lot #: [id number] Administered on:07-Apr-2014 Social History Name Dates Details Smoking Status* Former smoker Vital Signs Date Test Result Details No Known Vitals to report Results Date Description Value Details 14:25 PROTIME PANEL 7000 PROTIME 13.9 secs (Better) Range: 12.0-14.9 INR 1.08 (Better) Plan of Care Planned Observations* Name Dates Details Planned Goals not documented Goal Planned Encounters* Appointment; Provider: Carl Ga On 10-May-2015 09:15 * Appointment; Provider: Jovita Dhaliwal On 10:30 * Appointment; Provider: John Aldridge On 10:15 [...] Instructions * Instructions not documented Encounters Appointment; Carl Ga Encounter Diagnosis: Problem not [...] Problem not documented On 12-Jul-2013 11:35 Appointment; Cirilo Crystal Encounter Diagnosis: Problem not documented On 17-Jun-2013 09:00 Appointment; Cirilo Crystal Encounter Diagnosis: Problem not documented On 27-May-2013 [...] Problem not documented On 13:30 Appointment; Sp Dawkins Encounter Diagnosis: Problem not documented On 13:45
--- OUTSIDE RECORDS SUMMARY | 2016-07-04 08:54 | XMS REPORT ---
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 : Never Smoker Social History from 09/03/2015 12:30 PM:* Tobacco Use? : Never Smoker Social History from 09/03/2015 3:47 AM:* Tobacco Use? : Never Smoker Functional Status Functional Status from 09/06/2015 7:10 AM:* LOC : Alert * Oriented To : Person,Place,Time,Event * Weight Bearing Status : Full * Assist Level : Independent * # Assists : 1 Functional Status from 09/05/2015 7:30 PM:* LOC : Alert * Oriented To : Person,Place,Time,Event * Weight Bearing Status : Full * Assist Level : Partial * # Assists : 1 Functional Status from 09/05/2015 7:57 AM:* LOC : Confused * Oriented To : Person * Weight Bearing Status : Full * Assist Level : Partial * # Assists : 1 Functional Status from 09/04/2015 7:40 PM:* LOC : Alert * Oriented To : Person,Place,Time,Event * Weight Bearing Status : Full * Assist Level : Independent * # Assists : 1 Functional Status from 09/04/2015 8:04 AM:* LOC : Alert * Oriented To : Person * Weight Bearing Status : Full * Assist Level : Dependent * # Assists : 1 Functional Status from 09/03/2015 7:20 PM:* LOC : Alert * Oriented To : Person,Place,Time,Event * Weight Bearing Status : Full * Assist Level : Partial * # Assists : 1 Functional Status from 09/03/2015 7:40 AM:* LOC : Alert * Oriented To : Person,Place,Time,Event * Weight Bearing Status : Full * Assist Level : Partial * # Assists : 1 Functional Status from 09/03/2015 3:47 AM:* LOC : Alert * Oriented To : Person,Place,Time * Weight Bearing Status : Full * Assist Level : Partial * # Assists : 1 Vital Signs [facility] Vital Signs from 09/06/2015 7:45 AM:* Heart Rate : 72 * Resp Rate : 17 * O2 Saturation (%) : 86 [facility] Vital Signs from 09/06/2015 7:30 AM:* Heart Rate : 73 * Resp Rate : 19 * O2 Saturation (%) : 90 [facility] Vital Signs from 09/06/2015 7:15 AM:* Heart Rate : 72 * Resp Rate : 20 * O2 Saturation (%) : 85 [facility] Vital Signs from 09/06/2015 7:00 AM:* Temp : 99.5 * Heart Rate : 73 * Resp Rate : 20 * Systolic BP (mmHg) : 137 * Diastolic BP (mmHg) : 70 * Mean BP (mmHg) : 95 * O2 Saturation (%) : 90 [facility] Vital Signs from 09/06/2015 12:00 AM:* Heart Rate : 70 * Resp Rate : 16 * Systolic BP (mmHg) : 130 * Diastolic BP (mmHg) : 70 * Mean BP (mmHg) : 92 * O2 Saturation (%) : 97 [facility] Vital Signs from 09/05/2015 11:00 PM:* Temp : 99 * Heart Rate : 69 * Resp Rate : 17 * Systolic BP (mmHg) : 129 * Diastolic BP (mmHg) : 64 * Mean BP (mmHg) : 85 * O2 Saturation (%) : 94 [facility] Vital Signs from 09/05/2015 10:45 PM:* Heart Rate : 73 * Resp Rate : 17 * O2 Saturation (%) : 93 [facility] Vital Signs from 09/05/2015 10:30 PM:* Heart Rate : 72 * Resp Rate : 18 * O2 Saturation (%) : 93 [facility] Vital Signs from 09/05/2015 10:15 PM:* Heart Rate : 74 * Resp Rate : 27 * O2 Saturation (%) : 95 [facility] Vital Signs from 09/05/2015 9:45 PM:* Heart Rate : 70 * Resp Rate : 18 * Systolic BP (mmHg) : 144 * Diastolic BP (mmHg) : 72 * Mean BP (mmHg) : 97 * O2 Saturation (%) : 97 [facility] Vital Signs from 09/05/2015 9:30 PM:* Heart Rate : 70 * Resp Rate : 21 * Systolic BP (mmHg) : 145 * Diastolic BP (mmHg) : 79 * Mean BP (mmHg) : 99 * O2 Saturation (%) : 97 [facility] Vital Signs from 09/05/2015 9:15 PM:* Heart Rate : 72 * Resp Rate : 23 * Systolic BP (mmHg) : 152 * Diastolic BP (mmHg) : 65 * Mean BP (mmHg) : 85 * O2 Saturation (%) : 96 [facility] Vital Signs from 09/05/2015 9:00 PM:* Heart Rate : 70 * Resp Rate : 19 * Systolic BP (mmHg) : 143 * Diastolic BP (mmHg) : 76 * Mean BP (mmHg) : 105 * O2 Saturation (%) : 97 [facility] Vital Signs from 09/05/2015 8:45 PM:* Heart Rate : 69 * Resp Rate : 19 * Systolic BP (mmHg) : 142 * Diastolic BP (mmHg) : 59 * Mean BP (mmHg) : 100 * O2 Saturation (%) : 97 [facility] Vital Signs from 09/05/2015 8:30 PM:* Heart Rate : 71 * Resp Rate : 18 * Systolic BP (mmHg) : 141 * Diastolic BP (mmHg) : 67 * Mean BP (mmHg) : 85 * O2 Saturation (%) : 99 [facility] Vital Signs from 09/05/2015 8:15 PM:* Heart Rate : 69 * Resp Rate : 21 * Systolic BP (mmHg) : 152 * Diastolic BP (mmHg) : 68 * Mean BP (mmHg) : 105 * O2 Saturation (%) : 98 [facility] Vital Signs from 09/05/2015 8:00 PM:* Heart Rate : 69 * Resp Rate : 16 * Systolic BP (mmHg) : 141 * Diastolic BP (mmHg) : 78 * Mean BP (mmHg) : 97 * O2 Saturation (%) : 97 [facility] Vital Signs from 09/05/2015 7:45 PM:* Heart Rate : 70 * Resp Rate : 25 * Systolic BP (mmHg) : 125 * Diastolic BP (mmHg) : 116 * Mean BP (mmHg) : 121 * O2 Saturation (%) : 96 [facility] Vital Signs from 09/05/2015 7:30 PM:* Heart Rate : 70 * Resp Rate : 23 * Systolic BP (mmHg) : 125 * Diastolic BP (mmHg) : 78 * Mean BP (mmHg) : 91 * O2 Saturation (%) : 97 [facility] Vital Signs from 09/05/2015 7:15 PM:* Heart Rate : 69 * Resp Rate : 25 * Systolic BP (mmHg) : 137 * Diastolic BP (mmHg) : 72 * Mean BP (mmHg) : 90 * O2 Saturation (%) : 97 [facility] Vital Signs from 09/05/2015 7:00 PM:* Temp : 99.1 * Heart Rate : 69 * Resp Rate : 25 * Systolic BP (mmHg) : 141 * Diastolic BP (mmHg) : 69 * Mean BP (mmHg) : 99 * O2 Saturation (%) : 99 [facility] Vital Signs from 09/05/2015 5:15 PM:* Heart Rate : 69 * Resp Rate : 19 [facility] Vital Signs from 09/05/2015 5:00 PM:* Heart Rate : 69 * Resp Rate : 20 * Systolic BP (mmHg) : 117 * Diastolic BP (mmHg) : 65 * Mean BP (mmHg) : 84 * O2 Saturation (%) : 94 [facility] Vital Signs from 09/05/2015 4:45 PM:* Heart Rate : 69 * Resp Rate : 21 * Systolic BP (mmHg) : 128 * Diastolic BP (mmHg) : 69 * Mean BP (mmHg) : 92 * O2 Saturation (%) : 92 [facility] Vital Signs from 09/05/2015 4:30 PM:* Temp : 99.9 * Heart Rate : 72 * Resp Rate : 69 * Systolic BP (mmHg) : 124 * Diastolic BP (mmHg) : 44 * Mean BP (mmHg) : 90 * O2 Saturation (%) : 94 [facility] Vital Signs from 09/05/2015 3:30 PM:* Heart Rate : 81 * Resp Rate : 17 [facility] Vital Signs from 09/05/2015 3:15 PM:* Temp : 100.6 * Heart Rate : 74 * Resp Rate : 20 * O2 Saturation (%) : 94 [facility] Vital Signs from 09/05/2015 3:00 PM:* Heart Rate : 73 * Resp Rate : 18 [facility] Vital Signs from 09/05/2015 2:45 PM:* Heart Rate : 74 * Resp Rate : 20 * Systolic BP (mmHg) : 142 * Diastolic BP (mmHg) : 75 * Mean BP (mmHg) : 95 * O2 Saturation (%) : 91 [facility] Vital Signs from 09/05/2015 2:30 PM:* Heart Rate : 74 * Resp Rate : 19 [facility] Vital Signs from 09/05/2015 2:15 PM:* Heart Rate : 75 * Resp Rate : 25 [facility] Vital Signs from 09/05/2015 2:00 PM:* Heart Rate : 72 * Resp Rate : 15 [facility] Vital Signs from 09/05/2015 1:45 PM:* Heart Rate : 73 * Resp Rate : 21 [facility] Vital Signs from 09/05/2015 1:30 PM:* Heart Rate : 72 * Resp Rate : 20 [facility] Vital Signs from 09/05/2015 1:15 PM:* Heart Rate : 73 * Resp Rate : 18 * O2 Saturation (%) : 91 [facility] Vital Signs from 09/05/2015 1:00 PM:* Heart Rate : 70 * Resp Rate : 11 [facility] Vital Signs from 09/05/2015 12:45 PM:* Heart Rate : 69 * Resp Rate : 13 * O2 Saturation (%) : 91 [facility] Vital Signs from 09/05/2015 12:30 PM:* Heart Rate : 75 * Resp Rate : 15 [facility] Vital Signs from 09/05/2015 12:15 PM:* Heart Rate : 71 * Resp Rate : 15 [facility] Vital Signs from 09/05/2015 12:00 PM:* Heart Rate : 71 * Resp Rate : 19 [facility] Vital Signs from 09/05/2015 11:45 AM:* Heart Rate : 70 * Resp Rate : 22 [facility] Vital Signs from 09/05/2015 11:30 AM:* Heart Rate : 71 * Resp Rate : 16 * Systolic BP (mmHg) : 128 * Diastolic BP (mmHg) : 71 * Mean BP (mmHg) : 77 * O2 Saturation (%) : 83 [facility] Vital Signs from 09/05/2015 11:15 AM:* Heart Rate : 72 * Resp Rate : 21 * O2 Saturation (%) : 90 [facility] Vital Signs from 09/05/2015 11:00 AM:* Temp : 98.7 * Heart Rate : 72 * Resp Rate : 20 [facility] Vital Signs from 09/05/2015 10:45 AM:* Heart Rate : 72 * Resp Rate : 23 [facility] Vital Signs from 09/05/2015 10:30 AM:* Heart Rate : 73 * Resp Rate : 21 [facility] Vital Signs from 09/05/2015 10:15 AM:* Heart Rate : 75 * Resp Rate : 22 [facility] Vital Signs from 09/05/2015 10:00 AM:* Heart Rate : 73 * Resp Rate : 16 [facility] Vital Signs from 09/05/2015 9:45 AM:* Heart Rate : 76 * Resp Rate : 21 [facility] Vital Signs from 09/05/2015 9:30 AM:* Heart Rate : 75 * Resp Rate : 23 [facility] Vital Signs from 09/05/2015 9:15 AM:* Heart Rate : 76 * Resp Rate : 18 * O2 Saturation (%) : 90 [facility] Vital Signs from 09/05/2015 9:00 AM:* Heart Rate : 78 * Resp Rate : 20 [facility] Vital Signs from 09/05/2015 8:45 AM:* Heart Rate : 77 * Resp Rate : 21 [facility] Vital Signs from 09/05/2015 8:30 AM:* Heart Rate : 76 * Resp Rate : 22 [facility] Vital Signs from 09/05/2015 8:15 AM:* Heart Rate : 75 * Resp Rate : 20 [facility] Vital Signs from 09/05/2015 8:00 AM:* Heart Rate : 77 * Resp Rate : 21 * Systolic BP (mmHg) : 161 * Diastolic BP (mmHg) : 80 * Mean BP (mmHg) : 106 [facility] Vital Signs from 09/05/2015 7:45 AM:* Heart Rate : 76 * Resp Rate : 24 * O2 Saturation (%) : 93 [facility] Vital Signs from 09/05/2015 7:30 AM:* Heart Rate : 72 * Resp Rate : 23 * O2 Saturation (%) : 88 [facility] Vital Signs from 09/05/2015 7:15 AM:* Heart Rate : 71 * Resp Rate : 17 * O2 Saturation (%) : 90 [facility] Vital Signs from 09/05/2015 7:00 AM:* Temp : 97.6 * Heart Rate : 75 * Resp Rate : 19 * Systolic BP (mmHg) : 109 * Diastolic BP (mmHg) : 70 * Mean BP (mmHg) : 87 * O2 Saturation (%) : 88 [facility] Vital Signs from 09/05/2015 3:50 AM:* Weight : 111.0/ kg * Height : 6/1 ft,in [facility] Vital Signs from 09/05/2015 3:00 AM:* Temp : 100 * Heart Rate : 89 * Resp Rate : 20 * Systolic BP (mmHg) : 135 * Diastolic BP (mmHg) : 72 * Mean BP (mmHg) : 89 * O2 Saturation (%) : 92 [facility] Vital Signs from 09/05/2015 2:00 AM:* Heart Rate : 97 * Resp Rate : 26 * Systolic BP (mmHg) : 129 * Diastolic BP (mmHg) : 68 * Mean BP (mmHg) : 89 * O2 Saturation (%) : 83 [facility] Vital Signs from 09/05/2015 1:00 AM:* Heart Rate : 94 * Resp Rate : 22 * Systolic BP (mmHg) : 137 * Diastolic BP (mmHg) : 71 * Mean BP (mmHg) : 98 * O2 Saturation (%) : 90 [facility] Vital Signs from 09/05/2015 12:00 AM:* Heart Rate : 103 * Resp Rate : 33 * Systolic BP (mmHg) : 153 * Diastolic BP (mmHg) : 81 * Mean BP (mmHg) : 107 * O2 Saturation (%) : 96 [facility] Vital Signs from 09/04/2015 11:15 PM:* Heart Rate : 85 * Resp Rate : 34 * Systolic BP (mmHg) : 165 * Diastolic BP (mmHg) : 96 * Mean BP (mmHg) : 132 * O2 Saturation (%) : 90 [facility] Vital Signs from 09/04/2015 11:00 PM:* Temp : 102.2 * Heart Rate : 120 * Resp Rate : 37 * O2 Saturation (%) : 72 [facility] Vital Signs from 09/04/2015 7:00 PM:* Temp : 98.6 * O2 Saturation (%) : 90 [facility] Vital Signs from 09/04/2015 6:00 PM:* Temp : 99.1 * O2 Saturation (%) : 92 [facility] Vital Signs from 09/04/2015 5:00 PM:* Heart Rate : 70 * Systolic BP (mmHg) : 146 * Diastolic BP (mmHg) : 79 * Mean BP (mmHg) : 99 [facility] Vital Signs from 09/04/2015 4:00 PM:* Heart Rate : 72 * Systolic BP (mmHg) : 116 * Diastolic BP (mmHg) : 53 * Mean BP (mmHg) : 74 * O2 Saturation (%) : 92 [facility] Vital Signs from 09/04/2015 3:00 PM:* Heart Rate : 70 * Systolic BP (mmHg) : 140 * Diastolic BP (mmHg) : 69 * Mean BP (mmHg) : 102 [facility] Vital Signs from 09/04/2015 2:00 PM:* Heart Rate : 70 * Resp Rate : 22 * Systolic BP (mmHg) : 118 * Diastolic BP (mmHg) : 69 * Mean BP (mmHg) : 89 [facility] Vital Signs from 09/04/2015 1:00 PM:* Heart Rate : 70 * Resp Rate : 20 * Systolic BP (mmHg) : 111 * Diastolic BP (mmHg) : 70 * Mean BP (mmHg) : 78 [facility] Vital Signs from 09/04/2015 12:00 PM:* Heart Rate : 72 * Resp Rate : 18 * Systolic BP (mmHg) : 108 * Diastolic BP (mmHg) : 64 * Mean BP (mmHg) : 78 * O2 Saturation (%) : 92 [facility] Vital Signs from 09/04/2015 11:00 AM:* Heart Rate : 70 * Resp Rate : 16 * Systolic BP (mmHg) : 121 * Diastolic BP (mmHg) : 81 * Mean BP (mmHg) : 99 [facility] Vital Signs from 09/04/2015 9:30 AM:* Heart Rate : 70 * Resp Rate : 20 * Systolic BP (mmHg) : 93 * Diastolic BP (mmHg) : 78 * Mean BP (mmHg) : 91 [facility] Signs from 09/04/2015 8:00 AM:* Heart Rate : 72 * Resp Rate : 18 * Systolic BP (mmHg) : 113 * Diastolic BP (mmHg) : 57 * Mean BP (mmHg) : 66 * O2 Saturation (%) : 95 [facility] Vital Signs from 09/04/2015 7:45 AM:* O2 Saturation (%) : 97 [facility]ital Signs from 09/04/2015 7:30 AM:* O2 Saturation (%) : 96 [facility] Vital Signs from 09/04/2015 7:15 AM:* Temp : 98.8 * Heart Rate : 70 * Resp Rate : 16 * Systolic BP (mmHg) : 109 * Diastolic BP (mmHg) : 60 * Mean BP (mmHg) : 75 * O2 Saturation (%) : 93 [facility] Vital Signs from 09/04/2015 6:17 AM:* Weight : 107.1/ kg * Height : 6/1 ft,in [facility] Vital Signs from 09/04/2015 4:38 AM:* Temperature : 101.1 F [facility] Vital Signs from 09/04/2015 4:30 AM:* Heart Rate : 69 * Resp Rate : 14 * O2 Saturation (%) : 97 [facility] Vital Signs from 09/04/2015 4:15 AM:* Heart Rate : 72 * Resp Rate : 12 * O2 Saturation (%) : 97 [facility] Vital Signs from 09/04/2015 4:00 AM:* Temp : 101.1 * Heart Rate : 69 * Resp Rate : 14 * O2 Saturation (%) : 97 [facility] Vital Signs from 09/04/2015 3:45 AM:* Heart Rate : 75 * Resp Rate : 15 * O2 Saturation (%) : 99 [facility] Vital Signs from 09/04/2015 3:30 AM:* Heart Rate : 71 * Resp Rate : 12 * O2 Saturation (%) : 97 [facility] Vital Signs from 09/04/2015 3:15 AM:* Heart Rate : 70 * Resp Rate : 15 * O2 Saturation (%) : 96 [facility] Vital Signs from 09/04/2015 3:00 AM:* Heart Rate : 71 * Resp Rate : 14 * Systolic BP (mmHg) : 109 * Diastolic BP (mmHg) : 54 * Mean BP (mmHg) : 70 * O2 Saturation (%) : 90 [facility] Vital Signs from 09/04/2015 2:45 AM:* Heart Rate : 71 * Resp Rate : 15 * O2 Saturation (%) : 90 [facility] Vital Signs from 09/04/2015 2:30 AM:* Heart Rate : 72 * Resp Rate : 14 * O2 Saturation (%) : 93 [facility] Vital Signs from 09/04/2015 2:15 AM:* Heart Rate : 74 * Resp Rate : 13 * O2 Saturation (%) : 96 [facility] Vital Signs from 09/04/2015 2:00 AM:* Heart Rate : 70 * Resp Rate : 14 * Systolic BP (mmHg) : 108 * Diastolic BP (mmHg) : 52 * Mean BP (mmHg) : 69 * O2 Saturation (%) : 96 [facility] Vital Signs from 09/04/2015 1:45 AM:* Heart Rate : 71 * Resp Rate : 14 * O2 Saturation (%) : 96 [facility] Vital Signs from 09/04/2015 1:30 AM:* Heart Rate : 70 * Resp Rate : 15 * O2 Saturation (%) : 96 [facility] Vital Signs from 09/04/2015 1:15 AM:* Heart Rate : 71 * Resp Rate : 16 * O2 Saturation (%) : 97 [facility] Vital Signs from 09/04/2015 1:00 AM:* Heart Rate : 74 * Resp Rate : 16 * Systolic BP (mmHg) : 104 * Diastolic BP (mmHg) : 58 * Mean BP (mmHg) : 73 * O2 Saturation (%) : 96 [facility] Vital Signs from 09/04/2015 12:45 AM:* Heart Rate : 75 * Resp Rate : 15 * O2 Saturation (%) : 95 Results Chemistry from 09/04/2015 1:16 PMVANCOMYCIN TROUGH 8.9 MCG/ML (5.0-10.0 MCG/ML) Chemistry from 09/04/2015 3:48 AMSODIUM 135 MMOL/L L (136-145 MMOL/L) POTASSIUM 3.9 MMOL/L (3.5-5.1 MMOL/L) CHLORIDE 104 MMOL/L (98-107 MMOL/L) TCO2 26.1 MMOL/L (21.0-32.0 MMOL/L) *ANION GAP 4.9 MMOL/L L (8.0-16.0 MMOL/L) BUN 19 MG/DL H (7-18 MG/DL) CREATININE 1.39 MG/DL H (0.70-1.30 MG/DL) *BUN/CREATININE RATIO 13.7 (9.1-17.0 ) GLUCOSE 92 MG/DL (65-99 MG/DL) *GFR EST NON AFR CITIZEN OF [place] 52 ML/MIN *GFRA EST AFR AMER 60 ML/MIN CALCIUM 7.8 MG/DL L (8.5-10.1 MG/DL) Chemistry from 09/03/2015 5:41 PMTROPONIN-I 0.162 NG/ML H (0.000-0.056 NG/ML) Chemistry from 09/03/2015 11:36 AMTROPONIN-I 0.170 NG/ML H (0.000-0.056 NG/ML) Chemistry from 09/03/2015 8:04 AMLACTIC ACID 2.1 mmol/L H (0.9-1.7 mmol/L) Chemistry from 09/03/2015 4:47 AMSODIUM 141 MMOL/L (136-145 MMOL/L) POTASSIUM 3.1 MMOL/L L (3.5-5.1 MMOL/L) CHLORIDE 107 MMOL/L (98-107 MMOL/L) TCO2 23.6 MMOL/L (21.0-32.0 MMOL/L) *ANION GAP 10.4 MMOL/L (8.0-16.0 MMOL/L) BUN 21 MG/DL H (7-18 MG/DL) CREATININE 1.45 MG/DL H (0.70-1.30 MG/DL) *BUN/CREATININE RATIO 14.5 (9.1-17.0 ) GLUCOSE 76 MG/DL (65-99 MG/DL) CALCIUM 8.2 MG/DL L (8.5-10.1 MG/DL) BILIRUBIN TOTAL 0.60 MG/DL (0.20-1.00 MG/DL) TOTAL PROTEIN 6.3 GM/DL L (6.4-8.2 GM/DL) ALBUMIN 3.4 GM/DL (3.4-5.0 GM/DL) *GLOBULIN 2.9 GM/DL (2.3-3.5 GM/DL) *A/G RATIO 1.2 MG/DL L (1.5-2.2 MG/DL) ALK PHOS 76 U/L (46-116 U/L) ALT (SGPT) 14 U/L (14-59 U/L) AST (SGOT) 12 U/L L (15-37 U/L) TROPONIN-I 0.173 NG/ML H (0.000-0.056 NG/ML) LACTIC ACID 2.0 mmol/L H (0.9-1.7 mmol/L) Hematology from 09/04/2015 3:48 AMWBC 11.1 X10e3/UL (3.6-11.2 X10e3/UL) RBC 3.73 X10e6/UL L (4.06-5.63 X10e6/UL) HEMOGLOBIN 10.1 G/DL L (12.5-16.3 G/DL) HEMATOCRIT 30.7 % L (36.7-47.1 %) *MCV 82.5 FL (80.0-100.0 FL) *MCH 27.2 PG (27.0-33.0 PG) *MCHC 33.0 G/DL (32.0-36.0 G/DL) *RDW 14.8 % (12.3-17.0 %) *RDWSD 43.3 (37.1-47.8 ) PLATELET 98 X10e3/UL L (159-386 X10e3/UL) *MPV 8.2 FL (7.4-10.4 FL) *MANUAL DIFF PERFORMED SEGS 81.0 % *BANDS 11.0 % *LYMPHOCYTES 4.0 % *MONOCYTES 3.0 % *EOSINOPHILS 0.0 % *BASOPHILS 0.0 % METAMYELOCYTES 1.0 % *ABSOLUTE NEUTROPHILS 10.32 X10e3/UL H (1.80-7.80 X10e3/UL) *ABSOLUTE LYMPHOCYTES 0.44 X10e3/UL L (1.00-3.00 X10e3/UL) *ABSOLUTE MONOCYTES 0.33 X10e3/UL (0.30-1.00 X10e3/UL) *ABSOLUTE EOSINOPHILS 0.00 X10e3/UL (0.00-0.50 X10e3/UL) *ABSOLUTE BASOPHILS 0.00 X10e3/UL (0.00-0.20 X10e3/UL) *POLYCHROMASIA 1+ BASOPHILIC STIPPLING 1+ Coagulation from 09/06/2015 6:20 AM*PROTHROMBIN TIME 24.8 SECONDS H (9.4-11.5 SECONDS) *INR 2.2 H (0.9-1.1 ) Coagulation from 09/05/2015 4:20 AM*PROTHROMBIN TIME 18.3 SECONDS H (9.4-11.5 SECONDS) *INR 1.7 H (0.9-1.1 ) Coagulation from 09/04/2015 3:48 AM*PROTHROMBIN TIME 28.6 SECONDS H (9.4-11.5 SECONDS) *INR 2.6 H (0.9-1.1 ) Coagulation from 09/03/2015 11:36 AM*PROTHROMBIN TIME 47.0 SECONDS H (9.4-11.5 SECONDS) *INR 4.1 HH (0.9-1.1 ) Microbiology from 09/05/2015 4:20 AM* CULTURE BLOOD (Preliminary Result) Specimen Number: [id number] Sample Collection Date/Time: 09/05/2015 4:20 AM Specimen Source: Blood Peripheral CULTURE BLOOD: No growth after 24 hours of incubation, testing to continue for an additional 96 hours. * CULTURE BLOOD (Preliminary Result) Specimen Number: [id number] Sample Collection Date/Time: 09/05/2015 4:20 AM Specimen Source: Blood Peripheral CULTURE BLOOD: Gram stain:Gram positive cocci in clusters 09/05/2015 23:18 JDN Staphylococcus aureus See report #[id number] for MARCO ANTONIO Microbiology from 09/03/2015 6:15 PM* C. DIFFICILE Specimen Number: [id number] Sample Collection Date/Time: 09/03/2015 6:15 PM Specimen Source: Stool C. DIFFICILE: Negative-No toxigenic C. difficile detected. THE ILLUMIGENE C.DIFFICILE PCR ASSAY UTILIZES LOOP-MEDIATED ISOTHERMAL DNA AMPLIFICATION (LAMP ) TECHNOLOGY TO DETECT A GENE SEGMENT PRESENT IN ALL KNOWN TOXIGENIC C. DIFFICILE STRAINS. Microbiology from 09/03/2015 12:50 PM* CULTURE ANAEROBIC Specimen Number: [id number] Sample Collection Date/Time: 09/03/2015 12:50 PM Specimen Source: Foot Left CULTURE WOUND: Pseudomonas aeruginosa Rare growth Staphylococcus aureus Very rare growth - Methicillin Resistant Staphylococcus aureus isolated. Use Infection Control Precautions. - This isolate is presumed to be resistant based on detection of inducible clindamycin resistance. Clindamycin may still be effective in some patients. *GRAM STAIN: Few Epithelial cells Rare RBC's Rare WBC's No organisms seen CULTURE ANAEROBIC: No anaerobes isolated *ISOLATE1: Pseudomonas aeruginosa *ISOLATE2: Staphylococcus aureus 1 2 Comment Result Value Pseudomonas aeruginosa Staphylococcus aureus Result Status Final Result Final Result Cefepime <=1 S Ceftazidime =4 S Ciprofloxacin >=8 R Clindamycin =0.25 R Daptomycin =1 S Doxycycline =8 I Gentamicin <=1 S <=0.5 S Levofloxacin =1 S =4 R Linezolid =2 S Meropenem =0.5 S Moxifloxacin =2 R Oxacillin >=4 R Piperacillin/tazobactam =8 S Rifampin <=0.5 S Tetracycline >=16 R Tigecycline =0.25 S Tobramycin <=1 S Trimethoprim/Sulfa <=10 S Vancomycin =1 S * CULTURE WOUND Specimen Number: [id number] Sample Collection Date/Time: 09/03/2015 12:50 PM Specimen Source: Foot Left CULTURE ANAEROBIC: No anaerobes isolated *GRAM STAIN: Few Epithelial cells Rare RBC's Rare WBC's No organisms seen CULTURE WOUND: Pseudomonas aeruginosa Rare growth Staphylococcus aureus Very rare growth - Methicillin Resistant Staphylococcus aureus isolated. Use Infection Control Precautions. - This isolate is presumed to be resistant based on detection of inducible clindamycin resistance. Clindamycin may still be effective in some patients. *ISOLATE1: Pseudomonas aeruginosa *ISOLATE2: Staphylococcus aureus 1 2 Comment Result Value Pseudomonas aeruginosa Staphylococcus aureus Result Status Final Result Final Result Cefepime <=1 S Ceftazidime =4 S Ciprofloxacin >=8 R Clindamycin =0.25 R Daptomycin =1 S Doxycycline =8 I Gentamicin <=1 S <=0.5 S Levofloxacin =1 S =4 R Linezolid =2 S Meropenem =0.5 S Moxifloxacin =2 R Oxacillin >=4 R Piperacillin/tazobactam =8 S Rifampin <=0.5 S Tetracycline >=16 R Tigecycline =0.25 S Tobramycin <=1 S Trimethoprim/Sulfa <=10 S Vancomycin =1 S * *GRAM STAIN Specimen Number: [id number] Sample Collection Date/Time: 09/03/2015 12:50 PM Specimen Source: Foot Left CULTURE ANAEROBIC: No anaerobes isolated CULTURE WOUND: Pseudomonas aeruginosa Rare growth Staphylococcus aureus Very rare growth - Methicillin Resistant Staphylococcus aureus isolated. Use Infection Control Precautions. - This isolate is presumed to be resistant based on detection of inducible clindamycin resistance. Clindamycin may still be effective in some patients. *GRAM STAIN: Few Epithelial cells Rare RBC's Rare WBC's No organisms seen *ISOLATE1: Pseudomonas aeruginosa *ISOLATE2: Staphylococcus aureus 1 2 Comment Result Value Pseudomonas aeruginosa Staphylococcus aureus Result Status Final Result Final Result Cefepime <=1 S Ceftazidime =4 S Ciprofloxacin >=8 R Clindamycin =0.25 R Daptomycin =1 S Doxycycline =8 I Gentamicin <=1 S <=0.5 S Levofloxacin =1 S =4 R Linezolid =2 S Meropenem =0.5 S Moxifloxacin =2 R Oxacillin >=4 R Piperacillin/tazobactam =8 S Rifampin <=0.5 S Tetracycline >=16 R Tigecycline =0.25 S Tobramycin <=1 S Trimethoprim/Sulfa <=10 S Vancomycin =1 S Echocardiology from 09/05/2015 12:00 AMEchocardiogram See also the report from this date CT Scan from 09/03/2015 2:26 PMCT ABD/PELVIS W/CONTRAST History: left psoas muscle fluid collection . Technique: Post contrast images were performed after the administration of 75 milliliters of Isovue intravenous contrast. Priors: CT of abdomen pelvis dated 08/03/2015 Findings: Abdomen Lung bases: There has been interval improvement in a left pleural effusion with development of mild linear left lower lobe atelectasis. A small hiatal hernia is noted. Liver: Normal density. No definable mass. Spleen: There is mild splenomegaly. Pancreas: No discrete mass or inflammatory process. Gallbladder and biliary tract: No radiodense calculus or dilation. Adrenal glands: Normal. Kidneys: Normal enhancement. No masses. There are punctate nonobstructing left upper and left lower pole renal calculi. There is no evidence of hydronephrosis. Urinary Bladder: Normal. Aorta: Normal in caliber. No periaortic lymphadenopathy. Bowel and Mesentery: Grossly normal. No findings of appendicitis. Ascites: None. There has been interval decrease in size in a complex fluid collection within the lateral aspect of the left psoas muscle which now measures 2.5 centimeters transverse by 1.9 centimeters AP by 5.4 centimeter cephalocaudal compared with 4.3 x 7 by 7.4 centimeters previously. Pelvis Lymphadenopathy: None. Reproductive: Unremarkable. Osseous Structures: There are remote fracture deformities of the right superior and inferior pubic rami. Impression: Interval decrease in size in a complex fluid collection within the left psoas muscle, suspicious for improving hematoma versus abscess. Punctate nonobstructing left renal calculi. Mild splenomegaly. Electronically signed by: Bita Jurado MD Dictated: 09/03/2015 14:46 Problems Encounter Diagnosis * Chronic Kidney Disease, Stage 2 Status:Active. * Diabetes Mellitus Status:Active. * Diabetic Foot Ulcer Status:Active. * Fall Risk Status:Active. * Mobility Impairment Status:Active. * Obstructive Sleep Apnea Syndrome Status:Active. * Skin Integrity Impairment Risk Status:Active. * Systemic Infection Status:Active. Additional Problems * Altered Mental Status Comment:Problem resolved by [facility] Work[employer] upon Discharge, Status:Resolved. * Atrial Fibrillation Comment:Problem resolved by [facility] Workflow upon Discharge, Status:Resolved. * Chest Pain Comment:Problem resolved by [facility] Workflow upon Discharge, Status :Resolved. * Chest Pain Comment:Problem resolved by [facility] Workflow upon Discharge, Status :Resolved. * Coronary Arteriosclerosis Comment:Problem resolved by [facility] Workflow upon Discharge, Status:Resolved. * Diabetes Mellitus, Type 2 Comment:Problem resolved by [facility] Workflow upon Discharge, Status:Resolved. * Hypertensive Disorder Comment:Problem resolved by [facility] Workflow upon Discharge, Status:Resolved. * Infection Risk Comment:Problem resolved by [facility] Workflow upon Discharge, Status:Resolved. Encounters Encounter Diagnosis * Chronic Kidney Disease, Stage 2 Status:Active. * Diabetes Mellitus Status:Active. * Diabetic Foot Ulcer Status:Active. * Fall Risk Status:Active. * Mobility Impairment Status:Active. * Obstructive Sleep Apnea Syndrome Status:Active. * Skin Integrity Impairment Risk Status:Active. * Systemic Infection Status:Active. Plan of Care Treatment Plan from 09/05/2015 11:15 AM:* [facility] to reveiw discharge planning. Dr. Whalen would like for patient to consider LTAC at discharge for wound care. Patient declined and stated he didn' t want to go to [place]. 'er discussed possibility of skilled care and patient declined this as well stating he felt he could go home. [facility] if he would consider any options to receive the care needed for getting his wounds healed. He asked "what do you mean?" [facility] began to discuss with patient the need for more medical services that what he can receive at home or as outpatient, but discussion was interrupted by visit from MARIANNE Kelley. [facility] left so he could meet with [facility]. [facility] tomorrow. 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 Patient cont to receive IV antibiotics for diabetic foot wounds. Cont to run fevers > 101. ID consulted to manage antibiotics. Surgery consulted d/t concern for the L psoas muscle being filled w/ fluid. Will repeat CT a/p. Further POC dependent upon test results et consult recommendations. Treatment Plan from 09/03/2015 2:39 PM:* Care Management Note : Patient lives at home with spouse and plans to return at dismissal. He has recently discharged from hospital snu and was set up at outpatient infusion for iv meds. Uncertain if this will need to be set up again. Home health, fpc may be options if needed. Will continue to follow and set up services as needed. Social work assessment completed and patient high risk for readmission. Treatment Plan from 09/03/2015 10:32 AM:* Care Management Note : Admission status: Inpatient Patient presented to ER for complaints of nausea, vomiting, fever, and BLE wounds. Patient has history of MRSA - completed Outpatient IV Vancomycin per Dr Edward. Dr Edward also notes possible abscess present. labs: K+ 3.1. Bun 21. Cr 1.45. Ca 8.2. AST 12. Troponin 0.173. Lactic acid 3.1. CXR: Cardiomegaly and mild pulmonary venous congestion. 3View Left foot: Appear erosive changes involving 1 of the sesamoid bones. Possibility osteo myelitis is not excluded. Temp in ER 102.8. Consulted Skin/wound for evaluation of diabetic foot wounds. Consulted Infectious Disease for septicemia. Home CPAP. Follow vital signs with oximetry. Bedside glucose checks ac/hs. SCDs for DVT prevention. I/O. Up with assist. Cultures pending. Follow labs. IVF at 200. IV Vancomycin and Aztreonam. Replace K+ with PO. patient stay is anticipated longer than 2 midnights. meets inpatient status for sepsis. Procedures * Completed , on 03/29/2013 12:00 AM [...] or ordered. Hospital Course Hospital Discharge Instructions How to care for yourself at home from 09/06/2015 9:25 AM:* Discharge Activity : Activity as tolerated,May Shower * Discharge Diet : As before hospitalization * Discharge Diet: : ADA * Discharge Wound Care : Keep dressings dry,Change dressings as necessary, Notify your physician if the following develops: redness, swelling, drainage or color of drainage changes, odor or increased pain. * Call your doctor if: : Fever over 101 F or severe chills,Chest pain or other unexplained symptoms,Tingling or numbness develops,A sudden increase or decrease in weight,You have persistent or worsening symptoms,If you have Heart Failure and you gain 3 pounds within 1 week or your symptoms worsen. (Weigh at home tomorrow morning) * Specific Discharge Teaching Instructions provided: : No * Discharge on Warfarin : Yes * Appointment for INR : last INR 1.8 Allergies, Adverse Reactions, Alerts * No Latex Allergy. * No IV Contrast Allergy. * No Known Drug Allergies. Medication It is the responsibility of the patient or patient architectural representative to confirm the list of medications with either the patient's personal care provider or the patient's follow-up care provider to ensure the patient has an appropriate list of medications to take at home. Discharge medications Continued medications* carvedilol 25 mg Tablet, Ordered By: VANDANA WHALEN MD Directions: 1 tablet oral twice a day * cyanocobalamin (vitamin B-12) (Vitamin B-12) 1,000 mcg Tablet, Ordered By: VANDANA WHALEN MD Directions: 1 tablet oral daily with breakfast * docusate sodium (DOK) 100 mg Capsule, Ordered By: VANDANA WHALEN MD Directions: 1 capsule oral twice a day * doxycycline hyclate 100 mg Capsule, Ordered By: VANDANA WHALEN MD Directions: 1 capsule oral twice a day Additional Instructions: TK 1 C PO BID PER DAY FOR 7 DAYS * fluticasone 50 mcg/actuation spray,suspension, Ordered By: VANDANA WHALEN MD Directions: 1 spray nasal daily * furosemide 40 mg Tablet, Ordered By: VANDANA WHALEN MD Directions: 1 tablet oral daily * HYDROcodone-acetaminophen 5 mg-325 mg Tablet, Ordered By: VANDANA WHALEN MD Directions: 1 tablet oral every six hours PRN PAIN * insulin glargine (LanTUS Solostar) 100 unit/mL (3 mL) Insulin Pen, Ordered By : VANDANA WHALEN MD Directions: 25 unit subcutaneous daily at bedtime Additional Instructions: INJECT 25 UNITS D UTD * losartan 50 mg Tablet, Ordered By: VANDANA WHALEN MD Directions: 1 tablet oral twice a day * omega-3 fatty acids-fish oil (Fish Oil) 340 mg-1,000 mg Capsule, Ordered By: VANDANA WHALEN MD Directions: 1 capsule oral daily with breakfast * potassium chloride 20 mEq tablet,ER particles/crystals, Ordered By: VANDANA WHALEN MD Directions: 1 tablet oral daily with breakfast * pravastatin 10 mg Tablet, Ordered By: VANDANA WHALEN MD Directions: 1 tablet oral daily at bedtime * spironolactone 25 mg Tablet, Ordered By: VANDANA WHALEN MD Directions: 1 tablet oral daily * tamsuLOSIN 0.4 mg capsule,extended release 24hr, Ordered By: VANDANA WHALEN MD Directions: 1 capsule oral daily at bedtime * warfarin 7.5 mg Tablet, Ordered By: VANDANA WHALEN MD Directions: 1 tablet oral daily Stopped medications* None
--- OUTSIDE RECORDS SUMMARY | 2016-07-04 08:55 | XMS REPORT | Summary of Care ---
Author Author Jovita Dhaliwal D.O. Organization Unknown Address [address], [place] [address] Phone Unavailable Care Team Providers Care Machine Puller Name Role Phone Sp Dawkins M.D. Unavailable Unavailable Edilson Brennan M.D. Unavailable Unavailable Savannah Zimmemran Unavailable Unavailable Jovita Dhaliwal D.O. Unavailable Unavailable [...] G47.33) Status: Active Cardiac resynchronization therapy defibrillator (ANIMAL HUSBANDRY TECHNICIAN-D) in place (V45.02, Z95.810) Status: Active Hypertension [...] Isra Salinas.Jovita Frazier * Start 18-Dec-2010 Active [place] BD PEN NEEDLE MINI 82haupl3/16 Inject Insulin at hs dx 250.02 * [...] day * Quantity: 90 Refills: 0 Isra D.oJvita Frazier * Start 11-May-2013 Active Vitamin B-12 [...] 3 Isra D.O.Jovita * Start 28-Feb-2014 Active Figma Contour Next Monitor w/Device Kit testing three [...] cm H2O, Permanent use, G47.33, Heated humidity, ZaviurlrS47, mask , headgear, filters, heated tubing, water [...] Adacel 5-2-15.5 LF-MCG/0.5 Intramuscular Suspension Lot #: [id number] on: 21-Jul-2013 Fluzone High-Dose SUSP Lot #: [id number] on: 13-Dec-2013 Prevnar 13 Intramuscular Suspension Lot #: [id number] on: 07-Apr-2014 Pneumovax 23 25 MCG/0.5ML Injection Injectable on: 09-May-2015 Pneumo (Pneumovax) Lot #: [id number] on: 09-May-2015 Family History Name Dates Details [...] >60 ml/min Range: >60 EST GFR, NON-AFR FINNISH >60 ml/min Range: >60 Comments: EST GFR is reported in ml/min per 1.73 m2 of body surface area. For -H[place] Konger, please multiple result by 1.2.----- BUN:CREATININE RATIO [...] Provider: Moody Choe M.D. On 23-Oct-2015 14:45 Interventions Provided Labs/Procedures/Imaging* Diabetic Foot - Pulse Exam; Done: 22-Oct-2015 * Diabetic Foot - Sensory Exam; Done: 22-Oct-2015 * Diabetic Foot - Visual Exam; Done: 22-Oct-2015 Instructions Name Dates Details Instructions not documented Encounters Appointment; John Aldridge M.D. Encounter Diagnosis: Problem [...] not documented On 05-Feb-2015 13:15 Appointment; John Alrdidge M.D. Encounter Diagnosis: Problem not documented On [...]
--- OUTSIDE RECORDS SUMMARY | 2016-07-04 08:55 | XMS REPORT | Summary of Care ---
Author Author Jovita Dhaliwal D.O. Organization Unknown Address [address], [place] [id number] Phone Unavailable Care Team Providers Care Elevator Service Technician Name Role Phone Benny Barfield D.O. 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, left, with fat layer exposed ( 707.14, L97.422) Status: Active Type 2 diabetes mellitus with diabetic neuropathy (250.60, E11.40) Status: Active PAF (paroxysmal atrial fibrillation) (427.31, I48.0) Status: Active On warfarin therapy (V58.61, Z79.01) Status: Active Medications Name Dates Details Furosemide 40 MG Oral Tablet TAKE 1 TABLET BY MOUTH DAILY Quantity: 90 Jovita Dhaliwal.O.* Started 30-Oct-2010 ActiveLantus SoloStar 100 UNIT/ML Subcutaneous Solution Pen-injector INJECT 44 UNITS DAILY DIRECTED * Quantity: 11 Refills: 11 Jovita Dhaliwal D.O.* Started 05-Dec-2010 Active3 ML Pen (5 Pens) Carvedilol 6.25 MG Oral Tablet TAKE 1 TABLET BY MOUTH TWICE DAILY * Quantity: 180 Refills: 1 Jovita Dhaliwal D.O.* Started 18-Dec-2010 ActiveNeedles BD PEN NEEDLE MINI 28lattc1/16 Inject Insulin at hs dx 250.02 * [...] 1 Refills: 0 Sp Dawkins M.D.* Started Cjqqfv210 Tablet Sublingual Bottle Losartan Potassium 50 MG Oral Tablet TAKE 1 TABLET TWICE DAILY. * Quantity: 180 Refills: 3 Jovita Dhaliwal D.O.* Started 28-Feb-2014 [facility] [place] [facility] Next Monitor w/Device Kit testing three times daily * Quantity: 1 Refills: 3 Sp Dawkins M.D.* Started 22-Mar-2014 ActiveUnisense FertiliTech Contour Next Test In Vitro Strip TEST THREE TIMES A DAY * Quantity: 1 Refills: 3 Jovita Dhaliwal D.O.* Started 22-Mar-2014 Gnxaod892 Strip Box Tamsulosin HCl - 0.4 MG [...] Refills: 0 Benny Barfield D.O.* Started 04-Jun-2015 Iygfbq313 ML Bottle Supplies AutoCPAP 9-13 cm H2O, Permanent use, G47.33, Heated humidity, UcbnjfhoU74, mask , headgear, filters, heated tubing, water chamber, chinstrap * Quantity: 1 Refills: 0 Savannah Oropeza P.A.* Started 07-Jun-2015 ActiveFluticasone Propionate 50 MCG/ACT Nasal Suspension USE 1 SPRAY IN EACH NOSTRIL ONCE DAILY. * Quantity: 1 Refills: 0 Edilson Brennan M.D.* Started 29-Jun-2015 Tygruv14 GM Bottle Allergies and Adverse Reactions Name [...] Pulse Generator Replacement History of Arterial Catheterization Procedures not documented Immunization Name Dates Details Influenza Administered on:10-Dec-2010 Influenza Administered on:02-Feb-2012 Diphtheria-Tetanus Toxoids 6.7-5 LFU/0.5ML Intramuscular Injectable Administered on: Tdap (Boostrix) Administered on: Adacel 5-2-15.5 LF-MCG/0.5 Intramuscular Suspension Lot #: [id number] Administered on:21-Jul-2013 Fluzone High-Dose Intramuscular Suspension Lot #: [id number] Administered on:13-Dec-2013 Prevnar 13 Intramuscular Suspension Lot #: [id number] Administered on:07-Apr-2014 Pneumovax 23 25 MCG/0.5ML Injection Injectable Administered on:09-May-2015 Pneumo (Pneumovax) Lot #: [id number] Administered on:09-May-2015 Family History Mother* Name Dates [...] m2 Status: Results Date Description Value Details 08-Aug-2015 15:12 PROTIME PANEL 7000 PROTIME 17.6 secs (Above high threshold) Range: 12.0-14.9 INR 1.45 (Better) Plan of Care Planned Observations* Name Dates Details Planned Goals not documented Goal Planned Encounters* Appointment; Provider: Carl Ga On 19-Jun-2016 10:15 * Appointment; Provider: John Aldridge On 08-Feb-2016 11:00 * Appointment; Provider: Jovita Dhaliwal On 08:45 [...] Dhaliwal Encounter Diagnosis: Problem not documented On 10-Aug-2015 10:45 Appointment; John Aldridge Encounter Diagnosis: Problem [...]
--- OUTSIDE RECORDS SUMMARY | 2016-07-04 08:55 | XMS REPORT | Summary of Care ---
Author Author Jovita Dhaliwal D.O. Organization Unknown Address [address], [place] [id number] Phone Unavailable Care Team Providers Care Drill Press Hand Name Role Phone Ranjana MARTINEZNTari Unavailable Unavailable John Aldridge M.D. 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 Yeast infection of the skin (112.3, B37.2) Status: Active Dry skin dermatitis (692.89, L85.0) Status: Active Diabetic foot ulcer (250.80, E11.621) Status: Active Folliculitis (704.8, L73.9) Status: Active Peripheral neuropathy (356.9, G62.9) Status: Active Puncture wound of finger (883.0, S61.239A) Status: Active Blister of finger (915.2, S60.429A) Status: Active 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 Quantity: 30 Sp Dawkins M.D.* Started 30-Oct-2010 ActiveFurosemide 40 MG Oral Tablet TAKE 1 TABLET BY MOUTH DAILY * Quantity: 90 Refills: 0 Sp Dawkins M.D.* Started 30-Oct-2010 ActiveLantus SoloStar 100 UNIT/ML Subcutaneous Solution Pen-injector INJECT 44 UNIT Daily * Refills: 0 Sp Dawkins M.D.* Started 05-Dec-2010 ActiveNeedles BD PEN NEEDLE MINI 45bfbae9/16 Inject Insulin at hs dx 250.02 * [...] 1 Refills: 0 Sp Dawkins M.D.* Started Bvckbo200 Tablet Sublingual Bottle Carvedilol 12.5 MG Oral Tablet TAKE 1 TABLET TWICE DAILY. * Quantity: 180 Refills: 3 John Aldridge M.D.* Started 28-Feb-2014 ActiveLosartan Potassium 50 MG Oral Tablet TAKE 1 TABLET TWICE DAILY. * Quantity: 180 Refills: 3 John Aldridge M.D.* Started 28-Feb-2014 ActiveBayer Contour Next Monitor w/Device Kit testing three times daily * Quantity: 1 Refills: 3 Sp Dawkins M.D.* Started 22-Mar-2014 ActiveBayer Contour Next Test In Vitro Strip TEST THREE TIMES A DAY * Quantity: 1 Refills: 3 Jovita Dhaliwal D.O.* Started 22-Mar-2014 Mkvupz473 Strip Box ZyrTEC Allergy 10 MG Oral Tablet TAKE 1 TABLET DAILY DIRECTED. * Quantity: 30 Refills: 2 Isra RFabio Khan D.O.* Started 19-Jun-2014 ActiveFluticasone Propionate 50 MCG/ACT Nasal Suspension USE 1 TO 2 SPRAYS IN EACH NOSTRIL ONCE DAILY. * Quantity: 1 Refills: 0 Jovita Dhaliwal D.O.* Started 19-Jun-2014 Ozqgge09 GM Bottle Doxycycline Monohydrate 100 MG Oral Capsule TAKE 1 CAPSULE TWICE DAILY WITH FOOD. * Quantity: 14 Refills: 0 Jovita Dhaliwal D.O.* Started 19-Jun-2014 ActiveCephalexin 500 MG Oral Capsule TAKE 1 CAPSULE 3 TIMES DAILY. * Quantity: 5 Refills: 0 Tari Chilel APRN* Started 06-Jul-2014 Active Allergies and Adverse Reactions Name Dates [...] History of Pacemaker - Pulse Generator Replacement BASIC METABOLIC PROFILE 1210 Ordered:28-Jun-2014 HEMOGLOBIN A1C 3507 Ordered:28-Jun-2014 CBC w/ Auto Diff 7150 Ordered:28-Jun-2014 Immunization Name Dates Details Influenza Administered on:10-Dec-2010 Influenza Administered on:02-Feb-2012 Diphtheria-Tetanus Toxoids 6.7-5 LFU/0.5ML Intramuscular Injectable Administered on: Tdap (Boostrix) Administered on: Adacel 5-2-15.5 LF-MCG/0.5 Intramuscular Suspension Lot #: [id number] Administered on:21-Jul-2013 Fluzone High-Dose Intramuscular Suspension Lot #: [id number] Administered on:13-Dec-2013 Prevnar 13 Intramuscular Suspension Lot #: [id number] Administered on:07-Apr-2014 Social History Name Dates Details Smoking Status* Former smoker Vital Signs Date Test Result Details 10:13 BP Systolic 124 mm[Hg] Status: BP Diastolic 60 mm[Hg] Status: Heart Rate 80 /min Status: Weight 230 lb Status: Body Mass Index Calculated 30.35 kg/m2 Status: Body Surface Area Calculated 2.28 m2 Status: Results Date Description Value Details 14:55 CBC w/ Auto Diff 7150 Comments: appointment with DR Dhaliwal 08/31/14 Fastin hours WBC 8.8 K/uL (Better) Range: 4.5-11.0 RBC 5.59 mil/uL (Above high threshold) Range: 4.20-5.40 HGB 16.0 g/dL (Better) Range: 14.0-18.0 HCT 47.1 % (Better) Range: 42.0-53.0 MCV 84.2 fL (Better) Range: 80.0-99.0 MCH 28.6 pg (Better) Range: 27.3-32.5 MCHC 33.9 % (Better) Range: 32.0-36.0 RDW 14.2 % (Better) Range: 11.6-14.8 PLATELETS 188 K/uL (Better) Range: 150-400 MPV 8.3 fL (Better) Range: 6.0-11.0 %NEUTRO 74.5 % (Better) Range: 37.0-80.0 %LYMPHS 15.7 % (Better) Range: 13.0-50.0 %MONO 6.0 % (Better) Range: 0.0-12.0 %EOS 1.5 % (Better) Range: 0.0-7.0 %BASO 1.0 % (Better) Range: 0.0-2.5 %LAWRENCE 1.3 % (Better) Range: 0.0-5.0 NEUTRO 6.5 K/uL (Better) Range: 2.0-6.9 LYMPHS 1.4 K/uL (Better) Range: 0.6-3.4 MONOS 0.5 K/uL (Better) Range: 0.0-0.9 EOS 0.1 K/uL (Better) Range: 0.0-0.7 BASO 0.1 K/uL (Better) Range: 0.0-0.2 15:06 LIPID PROFILE 1184 Comments: Fastin hours CHOLESTEROL 155 mg/dL (Better) Range: <200 TRIGLYCERIDES 188 mg/dL (Better) Range: 30-200 HDL Cholesterol 35 mg/dL (Below low threshold) Range: >39 NON HDL CHOLESTEROL 120 (Better) CARDIAC RSK FACTOR 4.4 units (Better) Range: 4.4-5.0 LDL - CALCULATED 82 mg/dL (Better) Range: 0-130 15:07 PROTIME PANEL 7000 Comments: Fastin hours PROTIME 16.5 secs (Above high threshold) Range: 12.0-14.9 INR 1.35 (Better) 08:39 HEMOGLOBIN A1C 3507 Comments: Fastin hours Hemoglobin A1C 7.4 % (Better) ESTIMATED AVG. GLUCOSE 166 (Better) 09:59 ECG/ EKG Preop Electro CardioGram ECG waiting for interpretation, click ImageLink button to view/confirm the study. (Better) 10:06 XRay CHEST-PA & LAT Comments: Exam Date: 08/17/2014 09: 44Dictation Date: 08/17/2014 10:06 X CHEST PA & LAT (Better) 10:11 Urinalysis, reflex to Micro and Culture ([facility]) 8016 pH 5.0 (Better) Range: 5.0-7.5 SP GRAVITY 1.030 (Better) Range: 1.010-1.030 APPEARANCE Cloudy (Abnormal) Range: Clear COLOR Yellow (Better) Range: Straw-Yellow PROTEIN 15 mg/dL (Abnormal) Range: Negative-Trace GLUCOSE Negative mg/dL (Better) Range: Negative KETONES Negative mg/dL (Better) Range: Negative BILIRUBIN Negative (Better) Range: Negative BLOOD Negative (Better) Range: Negative UROBIL 0.2 EU/dL (Better) Range: 0.2-1.0 NITRITE Negative (Better) Range: Negative LEUKOCYTES Negative (Better) Range: Negative Plan of Care Planned Observations* Name Dates Details Planned Goals not documented Goal Planned Encounters* Appointment; Provider: Carl Ga On 10-May-2015 09:15 * Appointment; Provider: Jovita Dhaliwal On 10:30 * Appointment; Provider: John Aldridge On 10:15 * Appointment; Provider: Carl Ga On 09:15 * Appointment; Provider: Jovita Dhaliwal On 13:30 * Appointment; Provider: Carl Ga On 12:00 * Appointment; Provider: Debora Figueroa On 03-Jun-2013 11:30 * Appointment; Provider: Christos Turipn On 29-Mar-2013 10:30 * Appointment; Provider: John Aldridge On 29-Mar-2013 08:30 * Appointment; Provider: Sp Dawkins On 14-Feb-2013 14:45 * Appointment; Provider: Christos Turpin On 11-Jan-2013 08:30 * Appointment; Provider: Francisca Conrad On 08:30 * Appointment; Provider: rFancisca Conrad On 09:00 * Appointment; Provider: John Aldridge On 20-Dec-2010 08:00 * Appointment; Provider: John Aldirdge On 13:00 * Appointment; Provider: John Aldridge [...]
--- OUTSIDE RECORDS SUMMARY | 2016-07-04 08:55 | XMS REPORT | Summary of Care ---
Author Author Luis Carlos Sands, T. Sofia Organization Unknown Address [address], [place] [id number] Phone Unavailable Care Team Providers Care Motorcycle Engine Assembler Name Role Phone Sp Dawkins M.D. Unavailable [...] K04.7) Status: Active Medications Name Dates Details Furosemide [...] Started 18-Dec-2010 ActiveNeedles BD PEN NEEDLE MINI 17gbqrd3/16 Inject Insulin at hs dx 250.02 * [...] 1 Refills: 0 Sp Dawkins M.D.* Started Aepyrv951 Tablet Sublingual Bottle Lantus SoloStar 100 UNIT/ML Subcutaneous Solution Pen-injector INJECT 25 UNITS DAILY DIRECTED * Quantity: 1 Refills: 5 Jovita Dhaliwal D.O.* Started 16-Dec-2013 Active3 ML Pen (5 Pens) Losartan Potassium 50 MG Oral Tablet TAKE 1 TABLET TWICE DAILY. * Quantity: 180 Refills: 3 Jovita Dhaliwal D.O.* Started 28-Feb-2014 ActiveProvesica Next Monitor w/Device Kit testing three times daily * Quantity: 1 Refills: 3 Sp Dawkins M.D.* Started 22-Mar-2014 Venda Next Test In Vitro Strip TEST THREE TIMES A DAY * Quantity: 1 Refills: 3 Jovita Dhaliwal D.O.* Started 22-Mar-2014 Ujdthb125 Strip Box Allergies and Adverse Reactions Name [...] Adacel 5-2-15.5 LF-MCG/0.5 Intramuscular Suspension Lot #: [id number] Administered on:21-Jul-2013 Fluzone High-Dose Intramuscular Suspension Lot #: [id number] Administered on:13-Dec-2013 Prevnar 13 Intramuscular Suspension Lot #: [id number] Administered on:07-Apr-2014 Family History Mother* Name Dates [...] ml/min (Better) Range: >60 EST GFR, NON-AFR ZAMBIAN 58 ml/min (Below low threshold) Range: >60 Comments: EST GFR is reported in ml/min per 1.73 m2 of body surface area. For -Belarusian, please multiple result by 1.2.----- GLUCOSE 97 [...] not documented On 08-Apr-2013 13:45 Appointment; Sp aDwkins Encounter Diagnosis: Problem not documented On 25-Mar-2013 [...]
--- OUTSIDE RECORDS SUMMARY | 2016-07-04 08:56 | XMS REPORT | Summary of Care ---
Author Author Jovita Dhaliwal D.O. Organization Unknown Address [address] [place], [place] [id number] Phone Unavailable Care Team Providers Care Advertising Executive Name Role Phone Benny Barfield D.O. 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 Combined form of senile cataract of right eye (366.19, H25.811) Status: Active Anatomical narrow angle, bilateral (365.02, H40.033) Status: Active 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, 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 Bilateral impacted cerumen (380.4, H61.23) Status: Active Acute bronchitis, unspecified organism (466.0, [...] Started 18-Dec-2010 ActiveNeedles BD PEN NEEDLE MINI 58askbl7/16 Inject Insulin at hs dx 250.02 * Quantity: 200 Refills: 6 Jovita Dhaliwal.O.* Started 23-Dec-2010 ActiveWarfarin Sodium 1 MG Oral [...] 15 Refills: 11 Jovita Dhaliwal D.O.* Started 15-Av-2014 ActiveWarfarin Sodium 6 MG Oral Tablet take 1 tablet by mouth every day * Quantity: 90 Refills: 1 Jovita Dhaliwal D.O.* Started 11-May-2013 ActiveVitamin B-12 1000 MCG Sublingual Tablet Sublingual PL[address] 1 MCG Daily * Quantity: 1 Refills: 0 Sp Dawkins M.D.* Started [id number] Tablet Sublingual Bottle Losartan Potassium 50 MG Oral Tablet TAKE 1 TABLET TWICE DAILY. * Quantity: 180 Refills: 3 Jovita Dhaliwal D.O.* Started 28-Feb-2014 [employer] Next Monitor w/Device Kit testing three times daily * Quantity: 1 Refills: 3 Sp Dawkins M.D.* Started 22-Mar-2014 [employer] Contour Next Test In Vitro Strip TEST THREE TIMES A DAY * Quantity: 1 Refills: 3 Jovita Dhaliwal D.O.* Started 22-Mar-2014 [id number] Strip Box Tamsulosin HCl - 0.4 MG [...] Refills: 0 Jovita Dhaliwal D.O.* Started 13-Mar-2015 [id number] GM Can Fish Oil 1000 MG Oral Capsule TAKE 1 CAPSULE DAILY. * Refills: 0 * Started 10-May-2015 ActiveCheratussin AC 100-10 MG/5ML Oral Syrup TAKE 5 - 10 ML EVERY 4 TO 6 HOURS NEEDED FOR COUGH. * Quantity: 1 Refills: 0 Benny Barfield D.O.* Started 04-Jun-2015 [id number] ML Bottle Supplies AutoCPAP 9-13 cm H2O, Permanent use, G47.33, Heated humidity, [id number], mask , headgear, filters, heated tubing, water chamber, chinstrap * Quantity: 1 Refills: 0 Savannah Oropeza* Started 07-Jun-2015 ActiveFluticasone Propionate 50 MCG/ACT Nasal Suspension USE 1 SPRAY IN EACH NOSTRIL ONCE DAILY. * Quantity: 1 Refills: 0 Edilson Brennan M.D.* Started 29-Jun-2015 Cdqzua83 GM Bottle PredniSONE 10 MG Oral Tablet TAKE 6 TABLETS TODAY, THEN DECREASE BY 1 TABLET EACH DAY UNTIL GONE. * Quantity: 21 Refills: 0 Jovita Dhaliwal D.O.* Started 04-Jul-2015 ActiveAzithromycin 250 MG Oral Tablet TAKE 2 TABLETS ON DAY 1 THEN TAKE 1 TABLET A DAY FOR 4 DAYS. * Quantity: 6 Refills: 0 Jovita Dhaliwal.O.* Started 04-Jul-2015 Active Allergies and Adverse Reactions Name Dates [...] PROFILE 1210 Ordered:10-May-2015 HEMOGLOBIN A1C 3507 Ordered:10-May-2015 PROTIME PANEL 7000 Ordered:03-Jul-2015 Immunization Name Dates Details Influenza Administered on:10-Dec-2010 Influenza Administered on:02-Feb-2012 Diphtheria-Tetanus Toxoids 6.7-5 LFU/0.5ML Intramuscular Injectable Administered on: Tdap (Boostrix) Administered on: Adacel 5-2-15.5 LF-MCG/0.5 Intramuscular Suspension Lot #: [id number] Administered on:21-Jul-2013 Fluzone High-Dose Intramuscular Suspension Lot #: [id number] Administered on:13-Dec-2013 Prevnar 13 Intramuscular Suspension Lot #: [id number] Administered on:07-Apr-2014 Pneumovax 23 25 MCG/0.5ML Injection Injectable Administered on:09-May-2015 Pneumo (Pneumovax) Lot #: [id number] Administered on:09-May-2015 Family History Mother* Name Dates Details Family history of Status: Active Father* Name Dates Details Family history of Status: Active Social History Name Dates Details Smoking Status* Former smoker Vital Signs Date Test Result Details 04-Jul-2015 15:44 Temperature 97.8 f Status: Heart Rate 90 /min Status: O2 SAT 96 % Status: 03-Jul-2015 11:53 BP Systolic 148 mm[Hg] Status: BP Diastolic 82 mm[Hg] Status: Heart Rate 89 /min Status: Weight 235 lb Status: Body Mass Index Calculated 31 kg/m2 Status: Body Surface Area Calculated 2.3 m2 Status: 29-Jun-2015 14:57 BP Systolic 126 mm[Hg] Status: [...] Diabetic Eye Exam on Chart Yes (Better) 03-Jul-2015 13:11 PROTIME PANEL 7000 PROTIME 22.7 secs (Above high threshold) Range: 12.0-14.9 INR 2.00 (Better) Plan of Care Planned Observations* Name Dates Details Planned Goals not documented Goal Planned Encounters* Appointment; Provider: Carl Ga On 19-Jun-2016 10:15 * Appointment; Provider: John Aldridge On 08-Nov-2015 13:30 * Appointment; Provider: Jovita Dhaliwal On 08:45 * Appointment; Provider: Moody Choe On 06-Aug-2015 13:15 * Appointment; Provider: Daneyl Rodriguez On 13-Jan-2015 13:00 * Appointment; Provider: Deobra Figueroa On 03-Jun-2013 11:30 * Appointment; Provider: [...] Problem not documented On 21-Jul-2013 15:30 Appointment; Eldaia Kerr Encounter Diagnosis: Problem not documented On 12-Jul-2013 11:35
--- OUTSIDE RECORDS SUMMARY | 2016-07-04 08:56 | XMS REPORT | Summary of Care ---
Author Author Benny Barfield D.O. Unknown Address [address], [place] [id number] Phone Unavailable Care Team Providers Care Underwriting Service Representative Name Role Phone Sp Dawkins M.D. 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, I50.42) Status: Active Cardiac resynchronization therapy defibrillator (MUCK BOSS-D) in place (V45.02, Z95.810) Status: Active PAF [...] DIRECTED * Quantity: 11 Refills: 11 Jovita DhaliwalO.* Started 05-Dec-2010 Active3 ML Pen (5 Pens) Carvedilol 6.25 MG Oral Tablet TAKE 1 TABLET BY MOUTH TWICE DAILY * Quantity: 180 Refills: 1 Jovita Dhaliwal D.O.* Started 18-Dec-2010 ActiveNeedles BD PEN NEEDLE MINI 48nskde3/16 Inject Insulin at hs dx 250.02 * Quantity: 200 Refills: 6 Jovita Dhaliwal D.O.* Started 23-Dec-2010 ActiveWarfarin Sodium 1 MG Oral Tablet TAKE 1 TABLET BY MOUTH DAILY * Quantity: 60 Refills: 2 Jovita Dhaliwal D.O.* Started 20-May-2011 ActiveAmpicillin 500 MG Oral Capsule TAKE 1 CAPSULE 3 times daily * Quantity: 30 Refills: 0 Jovita DhaliwalO.* Started 25-Mar-2013 ActiveViagra 50 MG Oral Tablet TAKE DIRECTED. * Quantity: 6 Refills: 0 Sp Dawkins M.D.* Started 25-Mar-2013 ActivePravastatin Sodium 10 MG Oral Tablet TAKE 1/2 TABLET BY MOUTH DAILY * Quantity: 15 Refills: 11 Jovita DhaliwalO.* Started 30-Mar-2013 ActiveWarfarin Sodium 6 MG Oral Tablet take 1 tablet by mouth every day * Quantity: 90 Refills: 1 Jovita Dhaliwal D.O.* Started 11-May-2013 ActiveVitamin B-12 1000 MCG Sublingual Tablet Sublingual PLACE 1 MCG Daily * Quantity: 1 Refills: 0 Sp Dawkins M.D.* Started [id number] Tablet Sublingual Bottle Losartan Potassium 50 MG Oral Tablet TAKE 1 TABLET TWICE DAILY. * Quantity: 180 Refills: 3 Jovita DhaliwalO.* Started 28-Feb-2014 [employer] Next Monitor w/Device Kit testing three times daily * Quantity: 1 Refills: 3 Sp Dawkins M.D.* Started 22-Mar-2014 [employer] Contour Next Test In Vitro Strip TEST THREE TIMES A DAY * Quantity: 1 Refills: 3 Jovita Dhaliwal D.O.* Started 22-Mar-2014 [id number] Strip Box Tamsulosin HCl - 0.4 MG [...] Refills: 0 Jovita Dhaliwal D.O.* Started 13-Mar-2015 Udtkqg39 GM Can Fish Oil 1000 MG Oral Capsule TAKE 1 CAPSULE DAILY. * Refills: 0 * Started 10-May-2015 Active Allergies and Adverse Reactions Name Dates [...] Adacel 5-2-15.5 LF-MCG/0.5 Intramuscular Suspension Lot #: [id number] Administered on:21-Jul-2013 Fluzone High-Dose Intramuscular Suspension Lot #: [id number] Administered on:13-Dec-2013 Prevnar 13 Intramuscular Suspension Lot #: [id number] Administered on:07-Apr-2014 Pneumovax 23 25 MCG/0.5ML Injection Injectable Administered on:09-May-2015 Pneumo (Pneumovax) Lot #: [id number] Administered on:09-May-2015 Family History Mother* Name Dates Details Family history of Status: Active Father* Name Dates Details Family history of Status: Active Social History Name Dates Details Smoking Status* Former smoker Vital Signs Date Test Result Details 04-Jun-2015 10:18 Temperature 97.8 f Status: Heart [...] m2 Status: Results Date Description Value Details 08-May-2015 11:01 BASIC METABOLIC PROFILE 1210 Comments: Items were attached to this order: PT Fastin hours SODIUM 142 mmol/L (Better) Range: 133-144 POTASSIUM 4.1 mmol/L (Better) Range: 3.5-5.1 CHLORIDE 105 mmol/L (Better) Range: 98-110 CARBON DIOXIDE 26.9 mmol/L (Better) Range: 23.0-33.0 ANION GAP 10 mmol/L (Better) Range: 6-16 BUN 19 mg/dL (Above high threshold) Range: 7-18 CREATININE, SERUM 1.32 mg/dL (Above high threshold) Range: 0.70-1.30 Comments: Please note new reference ranges effective 2014.----- EST GFR, >60 ml/min (Better) Range: >60 EST GFR, NON-AFR CHADIAN 54 ml/min (Below low threshold) Range: >60 Comments: EST GFR is reported in ml/min per 1.73 m2 of body surface area. For -Spanish, please multiple result by 1.2.----- BUN:CREATININE RATIO 14 (Better) GLUCOSE 89 mg/dL (Better) Range: 70-100 CALCIUM 9.1 mg/dL (Better) Range: 8.5-10.1 11:06 PROTIME PANEL 7000 Comments: Items were attached to this order: PT Fastin hours PROTIME 18.8 secs (Above high threshold) Range: 12.0-14.9 INR 1.58 (Better) 12:57 HEMOGLOBIN A1C 3507 Comments: Items were attached to this order: PT Fastin hours Hemoglobin A1C 6.2 % (Better) ESTIMATED AVG. GLUCOSE 131 (Better) Plan of Care Planned Observations* Name Dates Details Planned Goals not documented Goal Planned Encounters* Appointment; Provider: John Aldridge On 08-Nov-2015 13:30 * Appointment; Provider: Jovita Dhaliwal On 08:45 * Appointment; Provider: Carl Ga On 14-Jun-2015 10:00 * Appointment; Provider: Moody Choe On 07-Jun-2015 15:15 * Appointment; Provider: Danyel Rodriguez On 13-Jan-2015 [...] Choe On 07-Jun-2007 19:15 * Appointment; Provider: Yuosif Cherry On 27-Apr-2007 07:30 * Appointment; Provider: Yousif Cherry On 26-Apr-2007 07:00 * Appointment; Provider: Moody Choe On 19-Apr-2007 09:15 * Appointment; Provider: Moody Choe On 18-Apr-2007 09:45 * Appointment; Provider: Moody Choe On 17-Apr-2007 09:15 * Appointment; Provider: Moody Choe On 16-Apr-2007 08:45 * Appointment; Provider: Moody Choe On 15-Apr-2007 09:00 Instructions * Instructions not documented Encounters Appointment; Benny Barfield Encounter Diagnosis: Problem not [...] not documented On 29-May-2014 14:45 Appointment; Sp Dawkisn Encounter Diagnosis: Problem not documented On 22-May-2014 [...]
--- OUTSIDE RECORDS SUMMARY | 2016-07-04 08:56 | XMS REPORT ---
Author Author GENERATED, SYSTEM Organization Unknown Address Unknown Phone Unavailable Care Team Providers Care Maintenance Of Way Supervisor Name Role Phone DO WHEAT ROBERT PP Unavailable Reason For Visit Reason for Visit from 08/04/2015 8:52 AM:* Pt Stated Reason for Adm : Vancomycin infusions Chief Complaint MRSA SEPTICEMIA D/T L DM FOOT INFECTION Social History Functional Status Functional Status from 08/14/2015 7:50 AM:* LOC : Alert * Oriented To : Person,Place,Time Functional Status from 08/13/2015 8:30 AM:* LOC : Alert * Oriented To : Person,Place,Time Functional Status from 08/12/2015 7:35 AM:* LOC : Alert * Oriented To : Person,Place,Time Functional Status from 08/11/2015 7:50 AM:* LOC : Alert * Oriented To : Person,Place,Time Functional Status from 08/10/2015 7:50 AM:* LOC : Alert * Oriented To : Person,Place,Time Functional Status from 08/09/2015 7:37 AM:* LOC : Alert * Oriented To : Person,Place,Time,Event Functional Status from 08/08/2015 7:50 AM:* LOC : Alert * Oriented To : Person,Place,Time Functional Status from 08/07/2015 8:10 AM:* LOC : Alert * Oriented To : Person,Place,Time Functional Status from 08/06/2015 8:10 AM:* LOC : Alert * Oriented To : Person,Place,Time,Event Functional Status from 08/05/2015 8:15 AM:* LOC : Alert * Oriented To : Person,Place,Time,Event Functional Status from 08/04/2015 8:52 AM:* LOC : Alert * Oriented To : Person,Place,Time,Event Vital Signs Hospital Vital Signs from 08/14/2015 7:50 AM:* Height : 6/1 ft,in * Temperature : 97.5 F * Pulse : 80 * Respirations : 18 * BP : 155/91 Hospital Vital Signs from 08/13/2015 8:30 AM:* Height : 6/1 ft,in * Temperature : 97.6 F * Pulse : 78 * Respirations : 18 * BP : 138/84 Hospital Vital Signs from 08/12/2015 7:35 AM:* Height : 6/1 ft,in * Temperature : 97.1 F * Pulse : 88 * Respirations : 18 * BP : 131/82 Hospital Vital Signs from 08/11/2015 7:50 AM:* Height : 6/1 ft,in * Temperature : 96.7 F * Pulse : 95 * Respirations : 18 * BP : 126/66 Hospital Vital Signs from 08/10/2015 7:50 AM:* Height : 6/1 ft,in * Temperature : 97.7 F * Pulse : 83 * Respirations : 18 * BP : 130/71 Hospital Vital Signs from 08/09/2015 7:39 AM:* Height : 6/1 ft,in * Temperature : 96.2 F * Pulse : 77 * Respirations : 18 * BP : 124/64 Hospital Vital Signs from 08/08/2015 8:00 AM:* Height : 6/1 ft,in * Temperature : 97.3 F * Pulse : 77 * Respirations : 18 * BP : 126/64 Hospital Vital Signs from 08/07/2015 8:15 AM:* Height : 6/1 ft,in * Temperature : 96.2 F * Pulse : 87 * Respirations : 18 * BP : 105/64 Hospital Vital Signs from 08/06/2015 8:10 AM:* Height : 6/1 ft,in * Temperature : 97.1 F * Pulse : 80 * Respirations : 18 * BP : 120/63 Hospital Vital Signs from 08/05/2015 8:15 AM:* Height : 6/1 ft,in * Temperature : 97.0 F * Pulse : 74 * Respirations : 18 * BP : 127/69 Hospital Vital Signs from 08/04/2015 8:52 AM:* Weight : 225/ lbs,oz * Height : 6/1 ft,in * Height : 6/1 ft,in * Temperature : 97.5 F * Pulse : 73 * Respirations : 18 * BP : 128/62 Results Chemistry from 08/13/2015 8:04 AMSODIUM 142 MMOL/L (136-145 MMOL/L) POTASSIUM 3.8 MMOL/L (3.5-5.1 MMOL/L) CHLORIDE 108 MMOL/L H (98-107 MMOL/L) TCO2 26.6 MMOL/L (21.0-32.0 MMOL/L) *ANION GAP 7.4 MMOL/L L (8.0-16.0 MMOL/L) BUN 10 MG/DL (7-18 MG/DL) CREATININE 1.25 MG/DL (0.70-1.30 MG/DL) *BUN/CREATININE RATIO 8.0 L (9.1-17.0 ) GLUCOSE 83 MG/DL (65-99 MG/DL) *GFR EST NON AFR MARSHALLESE 59 ML/MIN *GFRA EST AFR AMER 69 ML/MIN CALCIUM 8.6 MG/DL (8.5-10.1 MG/DL) C-REACTIVE PROTEIN 1.16 MG/DL H (0.00-0.30 MG/DL) VANCOMYCIN TROUGH 11.5 MCG/ML H (5.0-10.0 MCG/ML) Chemistry from 08/06/2015 8:16 AMSODIUM 138 MMOL/L (136-145 MMOL/L) POTASSIUM 4.3 MMOL/L (3.5-5.1 MMOL/L) CHLORIDE 104 MMOL/L (98-107 MMOL/L) TCO2 26.8 MMOL/L (21.0-32.0 MMOL/L) *ANION GAP 7.2 MMOL/L L (8.0-16.0 MMOL/L) BUN 20 MG/DL H (7-18 MG/DL) CREATININE 1.33 MG/DL H (0.70-1.30 MG/DL) *BUN/CREATININE RATIO 15.0 (9.1-17.0 ) GLUCOSE 193 MG/DL H (65-99 MG/DL) *GFR EST NON AFR MARSHALLESE 55 ML/MIN *GFRA EST AFR AMER 64 ML/MIN CALCIUM 8.8 MG/DL (8.5-10.1 MG/DL) C-REACTIVE PROTEIN 1.86 MG/DL H (0.00-0.30 MG/DL) VANCOMYCIN TROUGH 13.3 MCG/ML H (5.0-10.0 MCG/ML) Hematology from 08/13/2015 8:04 AMWBC 3.6 X10e3/UL (3.6-11.2 X10e3/UL) RBC 3.91 X10e6/UL L (4.06-5.63 X10e6/UL) HEMOGLOBIN 10.9 G/DL L (12.5-16.3 G/DL) HEMATOCRIT 32.4 % L (36.7-47.1 %) *MCV 83.0 FL (80.0-100.0 FL) *MCH 27.8 PG (27.0-33.0 PG) *MCHC 33.6 G/DL (32.0-36.0 G/DL) *RDW 14.4 % (12.3-17.0 %) *RDWSD 42.0 (37.1-47.8 ) PLATELET 173 X10e3/UL (159-386 X10e3/UL) *MPV 7.2 FL L (7.4-10.4 FL) *MANUAL DIFF PERFORMED SEGS 72.0 % *BANDS 4.0 % *LYMPHOCYTES 11.0 % *MONOCYTES 8.0 % *EOSINOPHILS 3.0 % *BASOPHILS 2.0 % *ABSOLUTE NEUTROPHILS 2.74 X10e3/UL (1.80-7.80 X10e3/UL) *ABSOLUTE LYMPHOCYTES 0.40 X10e3/UL L (1.00-3.00 X10e3/UL) *ABSOLUTE MONOCYTES 0.29 X10e3/UL L (0.30-1.00 X10e3/UL) *ABSOLUTE EOSINOPHILS 0.11 X10e3/UL (0.00-0.50 X10e3/UL) *ABSOLUTE BASOPHILS 0.07 X10e3/UL (0.00-0.20 X10e3/UL) *POLYCHROMASIA 1+ SED RATE 53 MM/HR H (0-20 MM/HR) Hematology from 08/06/2015 8:16 AMWBC 4.5 X10e3/UL (3.6-11.2 X10e3/UL) RBC 4.12 X10e6/UL (4.06-5.63 X10e6/UL) HEMOGLOBIN 11.3 G/DL L (12.5-16.3 G/DL) HEMATOCRIT 34.3 % L (36.7-47.1 %) *MCV 83.4 FL (80.0-100.0 FL) *MCH 27.4 PG (27.0-33.0 PG) *MCHC 32.8 G/DL (32.0-36.0 G/DL) *RDW 14.5 % (12.3-17.0 %) *RDWSD 42.9 (37.1-47.8 ) PLATELET 151 X10e3/UL L (159-386 X10e3/UL) *MPV 7.7 FL (7.4-10.4 FL) *MANUAL DIFF PERFORMED SEGS 75.0 % *BANDS 1.0 % *LYMPHOCYTES 12.0 % *MONOCYTES 4.0 % *EOSINOPHILS 4.0 % *BASOPHILS 4.0 % *ABSOLUTE NEUTROPHILS 3.42 X10e3/UL (1.80-7.80 X10e3/UL) *ABSOLUTE LYMPHOCYTES 0.54 X10e3/UL L (1.00-3.00 X10e3/UL) *ABSOLUTE MONOCYTES 0.18 X10e3/UL L (0.30-1.00 X10e3/UL) *ABSOLUTE EOSINOPHILS 0.18 X10e3/UL (0.00-0.50 X10e3/UL) *ABSOLUTE BASOPHILS 0.18 X10e3/UL (0.00-0.20 X10e3/UL) SED RATE 56 MM/HR H (0-20 MM/HR) Problems Encounter Diagnosis No relevant problems exist. [...] Workflow upon Discharge, Status:Resolved. Encounters Encounter Diagnosis No relevant problems exist. Plan of Care Procedures * Completed , on 03/29/2013 12:00 [...]
--- OUTSIDE RECORDS SUMMARY | 2016-07-04 08:56 | XMS REPORT ---
Author Author GENERATED, SYSTEM Organization Unknown Address Unknown Phone Unavailable Care Team Providers Care Administrative Processor Name Role Phone DO WHEAT ROBERT PP Unavailable Reason For Visit Reason for Visit from 07/25/2015 7:20 PM:* Pt Stated Reason for Adm : septic foot wound Chief Complaint CELLULITIS Social History Social History from 08/03/2015 3:39 PM:* Tobacco Use? : Never Smoker Social History from 07/26/2015 3:30 PM:* Tobacco Use? : Never Smoker Social History from 07/25/2015 7:20 PM:* Tobacco Use? : Never Smoker Functional Status Functional Status from 08/03/2015 9:15 AM:* LOC : Alert * Oriented To : Person,Place,Time,Event * Weight Bearing Status : Full * Assist Level : Independent * # Assists : 1 Functional Status from 08/02/2015 7:34 PM:* LOC : Alert * Oriented To : Person,Place,Time,Event * Weight Bearing Status : Full * Assist Level : Independent * # Assists : Independent Functional Status from 08/02/2015 10:15 AM:* LOC : Alert * Oriented To : Person,Place,Time,Event * Weight Bearing Status : Full * Assist Level : Independent * # Assists : Independent Functional Status from 08/01/2015 11:39 PM:* LOC : Alert * Oriented To : Person,Place,Time,Event * Weight Bearing Status : Full * Assist Level : Independent * # Assists : Independent Functional Status from 08/01/2015 8:09 PM:* LOC : Alert * Oriented To : Person,Place,Time,Event * Weight Bearing Status : Full * Assist Level : Independent * # Assists : Independent Functional Status from 08/01/2015 7:55 AM:* LOC : Alert * Oriented To : Person,Place,Time,Event * Weight Bearing Status : Full * Assist Level : Independent * # Assists : Independent Functional Status from 07/31/2015 7:58 PM:* LOC : Alert * Oriented To : Person,Place,Time,Event * Weight Bearing Status : Full * Assist Level : Independent * # Assists : Independent Functional Status from 07/31/2015 8:22 AM:* # Assists : Independent Functional Status from 07/31/2015 8:20 AM:* LOC : Alert * Oriented To : Person,Place,Time,Event * Weight Bearing Status : Full * Assist Level : Independent * # Assists : Independent Functional Status from 07/30/2015 8:22 PM:* LOC : Alert * Oriented To : Person,Place,Time,Event * Weight Bearing Status : Full * Assist Level : Independent * # Assists : Independent Functional Status from 07/30/2015 7:55 AM:* LOC : Alert * Oriented To : Person,Place,Time,Event * Weight Bearing Status : Full * Assist Level : Independent * # Assists : Independent Functional Status from 07/29/2015 7:27 PM:* LOC : Alert * Oriented To : Person,Place,Time,Event * Weight Bearing Status : Full * Assist Level : Independent * # Assists : Independent Functional Status from 07/29/2015 8:30 AM:* # Assists : Independent Functional Status from 07/29/2015 7:15 AM:* LOC : Alert * Oriented To : Person,Place,Time,Event * Weight Bearing Status : Full * Assist Level : Independent * # Assists : Independent Functional Status from 07/28/2015 8:20 PM:* LOC : Alert * Oriented To : Person,Place,Time,Event * Weight Bearing Status : Full * Assist Level : Independent * # Assists : Independent Functional Status from 07/28/2015 10:00 AM:* LOC : Alert * Oriented To : Person,Place,Time,Event * Weight Bearing Status : Full * Assist Level : Independent * # Assists : Independent Functional Status from 07/27/2015 7:51 PM:* LOC : Alert * Oriented To : Person,Place,Time,Event * Weight Bearing Status : Full * Assist Level : Independent * # Assists : Independent Functional Status from 07/27/2015 7:45 AM:* LOC : Alert * Oriented To : Person,Place,Time,Event * Weight Bearing Status : Full * Assist Level : Independent * # Assists : Independent Functional Status from 07/26/2015 7:39 PM:* LOC : Alert * Oriented To : Person,Place,Time,Event * Weight Bearing Status : Full * Assist Level : Partial * # Assists : 1 Functional Status from 07/26/2015 10:38 AM:* Oriented To : Person,Place,Time Functional Status from 07/26/2015 9:50 AM:* LOC : Alert * Oriented To : Person,Place,Time,Event * Weight Bearing Status : Full * Assist Level : Partial * # Assists : 1 Functional Status from 07/26/2015 8:40 AM:* Oriented To : Person,Place,Time,Event Functional Status from 07/25/2015 7:20 PM:* LOC : Alert * Oriented To : Person,Place,Time,Event * Weight Bearing Status : Full * Assist Level : Partial * # Assists : 1 Vital Signs Hospital Vital Signs from 08/03/2015 5:00 AM:* Height : 6/1 ft,in * Temperature : 06.0 F * Pulse : 71 * Respirations : 18 * BP : 112/58 Hospital Vital Signs from 08/02/2015 3:31 AM:* Height : 6/1 ft,in * Temperature : 95.3 F * Pulse : 72 * Respirations : 18 * BP : 110/55 Hospital Vital Signs from 08/01/2015 5:27 AM:* Height : 6/1 ft,in * Temperature : 95.5 F * Pulse : 70 * Respirations : 20 * BP : 113/55 Hospital Vital Signs from 07/31/2015 2:09 AM:* Height : 6/1 ft,in * Temperature : 95.7 F * Pulse : 71 * Respirations : 20 * BP : 127/61 Hospital Vital Signs from 07/30/2015 10:56 AM:* Weight : 102.4/ kg * Height : 6/1 ft,in Hospital Vital Signs from 07/30/2015 5:56 AM:* Weight : 102.4/ kg * Height : 6/1 ft,in * Temperature : 96.2 F * Pulse : 70 * Respirations : 20 * BP : 114/59 Hospital Vital Signs from 07/29/2015 6:48 AM:* Height : 6/1 ft,in * Temperature : 97.8 F * Pulse : 73 * Respirations : 20 * BP : 113/55 Hospital Vital Signs from 07/28/2015 6:22 AM:* Height : 6/1 ft,in * Temperature : 96.1 F * Pulse : 80 * Respirations : 20 * BP : 122/65 Hospital Vital Signs from 07/27/2015 3:59 AM:* Height : 6/1 ft,in * Temperature : 97.0 F * Pulse : 85 * Respirations : 20 * BP : 132/66 Hospital Vital Signs from 07/26/2015 9:09 PM:* Height : 6/1 ft,in * BP : 128/61 Hospital Vital Signs from 07/26/2015 9:43 AM:* Height : 6/1 ft,in Hospital Vital Signs from 07/26/2015 6:04 AM:* Height : 6/1 ft,in * Temperature : 97.4 F * Pulse : 72 * Respirations : 18 * BP : 112/57 Hospital Vital Signs from 07/25/2015 7:20 PM:* Weight : 106.9/ kg * Height : 6/1 ft,in Hospital Vital Signs from 07/25/2015 7:00 PM:* Height : 6/1 ft,in * Temperature : 98.7 F * Pulse : 89 * Respirations : 20 * BP : 167/83 Results Chemistry from 08/02/2015 4:30 AMSODIUM 137 MMOL/L (136-145 MMOL/L) POTASSIUM 4.5 MMOL/L (3.5-5.1 MMOL/L) CHLORIDE 103 MMOL/L (98-107 MMOL/L) TCO2 27.4 MMOL/L (21.0-32.0 MMOL/L) *ANION GAP 6.6 MMOL/L L (8.0-16.0 MMOL/L) BUN 27 MG/DL H (7-18 MG/DL) CREATININE 1.30 MG/DL (0.70-1.30 MG/DL) *BUN/CREATININE RATIO 20.8 H (9.1-17.0 ) GLUCOSE 140 MG/DL H (65-99 MG/DL) *GFR EST NON AFR [facility] 56 ML/MIN *GFRA EST AFR AMER 65 ML/MIN CALCIUM 8.3 MG/DL L (8.5-10.1 MG/DL) Chemistry from 08/01/2015 7:55 AMVANCOMYCIN TROUGH 19.3 MCG/ML H (5.0-10.0 MCG/ML ) Chemistry from 07/30/2015 5:10 AMSODIUM 137 MMOL/L (136-145 MMOL/L) POTASSIUM 4.4 MMOL/L (3.5-5.1 MMOL/L) CHLORIDE 102 MMOL/L (98-107 MMOL/L) TCO2 28.8 MMOL/L (21.0-32.0 MMOL/L) *ANION GAP 6.2 MMOL/L L (8.0-16.0 MMOL/L) BUN 26 MG/DL H (7-18 MG/DL) CREATININE 1.22 MG/DL (0.70-1.30 MG/DL) *BUN/CREATININE RATIO 21.3 H (9.1-17.0 ) GLUCOSE 143 MG/DL H (65-99 MG/DL) *GFR EST NON AFR [facility] 61 ML/MIN *GFRA EST AFR AMER 71 ML/MIN CALCIUM 8.6 MG/DL (8.5-10.1 MG/DL) C-REACTIVE PROTEIN 1.68 MG/DL H (0.00-0.30 MG/DL) Chemistry from 07/29/2015 7:54 PMVANCOMYCIN TROUGH 23.7 MCG/ML H (5.0-10.0 MCG/ML ) Chemistry from 07/28/2015 6:00 AMSODIUM 138 MMOL/L (136-145 MMOL/L) POTASSIUM 4.6 MMOL/L (3.5-5.1 MMOL/L) CHLORIDE 104 MMOL/L (98-107 MMOL/L) TCO2 28.6 MMOL/L (21.0-32.0 MMOL/L) *ANION GAP 5.4 MMOL/L L (8.0-16.0 MMOL/L) BUN 23 MG/DL H (7-18 MG/DL) CREATININE 1.31 MG/DL H (0.70-1.30 MG/DL) *BUN/CREATININE RATIO 17.6 H (9.1-17.0 ) GLUCOSE 139 MG/DL H (65-99 MG/DL) *GFR EST NON AFR [facility] 56 ML/MIN *GFRA EST AFR AMER 65 ML/MIN CALCIUM 8.6 MG/DL (8.5-10.1 MG/DL) C-REACTIVE PROTEIN 2.87 MG/DL H (0.00-0.30 MG/DL) Chemistry from 07/27/2015 7:48 PMVANCOMYCIN TROUGH 34.0 MCG/ML H (5.0-10.0 MCG/ML ) Chemistry from 07/27/2015 4:00 AMSODIUM 138 MMOL/L (136-145 MMOL/L) POTASSIUM 4.1 MMOL/L (3.5-5.1 MMOL/L) CHLORIDE 103 MMOL/L (98-107 MMOL/L) TCO2 28.5 MMOL/L (21.0-32.0 MMOL/L) *ANION GAP 6.5 MMOL/L L (8.0-16.0 MMOL/L) BUN 22 MG/DL H (7-18 MG/DL) CREATININE 1.28 MG/DL (0.70-1.30 MG/DL) *BUN/CREATININE RATIO 17.2 H (9.1-17.0 ) GLUCOSE 148 MG/DL H (65-99 MG/DL) *GFR EST NON AFR [facility] 57 ML/MIN *GFRA EST AFR AMER 67 ML/MIN CALCIUM 8.4 MG/DL L (8.5-10.1 MG/DL) C-REACTIVE PROTEIN 2.81 MG/DL H (0.00-0.30 MG/DL) Chemistry from 07/26/2015 5:50 AMSODIUM 138 MMOL/L (136-145 MMOL/L) POTASSIUM 3.8 MMOL/L (3.5-5.1 MMOL/L) CHLORIDE 102 MMOL/L (98-107 MMOL/L) TCO2 30.4 MMOL/L (21.0-32.0 MMOL/L) *ANION GAP 5.6 MMOL/L L (8.0-16.0 MMOL/L) BUN 22 MG/DL H (7-18 MG/DL) CREATININE 1.18 MG/DL (0.70-1.30 MG/DL) *BUN/CREATININE RATIO 18.6 H (9.1-17.0 ) GLUCOSE 77 MG/DL (65-99 MG/DL) *GFR EST NON AFR [facility] 63 ML/MIN *GFRA EST AFR AMER 73 ML/MIN CALCIUM 8.6 MG/DL (8.5-10.1 MG/DL) C-REACTIVE PROTEIN 2.64 MG/DL H (0.00-0.30 MG/DL) Hematology from 08/02/2015 4:30 AMWBC 4.1 X10e3/UL (3.6-11.2 X10e3/UL) RBC 3.74 X10e6/UL L (4.06-5.63 X10e6/UL) HEMOGLOBIN 10.2 G/DL L (12.5-16.3 G/DL) HEMATOCRIT 31.1 % L (36.7-47.1 %) *MCV 83.1 FL (80.0-100.0 FL) *MCH 27.4 PG (27.0-33.0 PG) *MCHC 33.0 G/DL (32.0-36.0 G/DL) *RDW 14.4 % (12.3-17.0 %) *RDWSD 42.4 (37.1-47.8 ) PLATELET 159 X10e3/UL (159-386 X10e3/UL) *MPV 7.6 FL (7.4-10.4 FL) *MANUAL DIFF PERFORMED SEGS 73.0 % *BANDS 1.0 % *LYMPHOCYTES 15.0 % *MONOCYTES 7.0 % *EOSINOPHILS 4.0 % *BASOPHILS 0.0 % *ABSOLUTE NEUTROPHILS 3.03 X10e3/UL (1.80-7.80 X10e3/UL) *ABSOLUTE LYMPHOCYTES 0.62 X10e3/UL L (1.00-3.00 X10e3/UL) *ABSOLUTE MONOCYTES 0.29 X10e3/UL L (0.30-1.00 X10e3/UL) *ABSOLUTE EOSINOPHILS 0.16 X10e3/UL (0.00-0.50 X10e3/UL) *ABSOLUTE BASOPHILS 0.00 X10e3/UL (0.00-0.20 X10e3/UL) *POLYCHROMASIA 1+ Hematology from 07/30/2015 5:10 AMWBC 5.1 X10e3/UL (3.6-11.2 X10e3/UL) RBC 3.90 X10e6/UL L (4.06-5.63 X10e6/UL) HEMOGLOBIN 10.5 G/DL L (12.5-16.3 G/DL) HEMATOCRIT 32.4 % L (36.7-47.1 %) *MCV 83.2 FL (80.0-100.0 FL) *MCH 26.9 PG L (27.0-33.0 PG) *MCHC 32.4 G/DL (32.0-36.0 G/DL) *RDW 14.3 % (12.3-17.0 %) *RDWSD 42.4 (37.1-47.8 ) PLATELET 194 X10e3/UL (159-386 X10e3/UL) *MPV 8.1 FL (7.4-10.4 FL) Hematology from 07/28/2015 6:00 AMWBC 4.9 X10e3/UL (3.6-11.2 X10e3/UL) RBC 3.81 X10e6/UL L (4.06-5.63 X10e6/UL) HEMOGLOBIN 10.5 G/DL L (12.5-16.3 G/DL) HEMATOCRIT 31.8 % L (36.7-47.1 %) *MCV 83.5 FL (80.0-100.0 FL) *MCH 27.5 PG (27.0-33.0 PG) *MCHC 32.9 G/DL (32.0-36.0 G/DL) *RDW 14.7 % (12.3-17.0 %) *RDWSD 43.8 (37.1-47.8 ) PLATELET 199 X10e3/UL (159-386 X10e3/UL) *MPV 7.8 FL (7.4-10.4 FL) AUTOMATED DIFF PERFORMED SEGS 74.5 % *LYMPHOCYTES 14.1 % *MONOCYTES 8.0 % *EOSINOPHILS 2.0 % *BASOPHILS 1.4 % *ABSOLUTE NEUTROPHILS 3.70 X10e3/UL (1.80-7.80 X10e3/UL) *ABSOLUTE LYMPHOCYTES 0.70 X10e3/UL L (1.00-3.00 X10e3/UL) *ABSOLUTE MONOCYTES 0.40 X10e3/UL (0.30-1.00 X10e3/UL) *ABSOLUTE EOSINOPHILS 0.10 X10e3/UL (0.00-0.50 X10e3/UL) *ABSOLUTE BASOPHILS 0.10 X10e3/UL (0.00-0.20 X10e3/UL) Hematology from 07/27/2015 4:00 AMWBC 5.8 X10e3/UL (3.6-11.2 X10e3/UL) RBC 3.64 X10e6/UL L (4.06-5.63 X10e6/UL) HEMOGLOBIN 10.0 G/DL L (12.5-16.3 G/DL) HEMATOCRIT 30.3 % L (36.7-47.1 %) *MCV 83.4 FL (80.0-100.0 FL) *MCH 27.4 PG (27.0-33.0 PG) *MCHC 32.8 G/DL (32.0-36.0 G/DL) *RDW 14.7 % (12.3-17.0 %) *RDWSD 43.3 (37.1-47.8 ) PLATELET 196 X10e3/UL (159-386 X10e3/UL) *MPV 8.0 FL (7.4-10.4 FL) AUTOMATED DIFF PERFORMED SEGS 79.0 % *LYMPHOCYTES 10.6 % *MONOCYTES 8.1 % *EOSINOPHILS 1.5 % *BASOPHILS 0.8 % *ABSOLUTE NEUTROPHILS 4.60 X10e3/UL (1.80-7.80 X10e3/UL) *ABSOLUTE LYMPHOCYTES 0.60 X10e3/UL L (1.00-3.00 X10e3/UL) *ABSOLUTE MONOCYTES 0.50 X10e3/UL (0.30-1.00 X10e3/UL) *ABSOLUTE EOSINOPHILS 0.10 X10e3/UL (0.00-0.50 X10e3/UL) *ABSOLUTE BASOPHILS 0.00 X10e3/UL (0.00-0.20 X10e3/UL) Hematology from 07/26/2015 5:50 AMWBC 6.3 X10e3/UL (3.6-11.2 X10e3/UL) RBC 3.81 X10e6/UL L (4.06-5.63 X10e6/UL) HEMOGLOBIN 10.4 G/DL L (12.5-16.3 G/DL) HEMATOCRIT 31.7 % L (36.7-47.1 %) *MCV 83.1 FL (80.0-100.0 FL) *MCH 27.4 PG (27.0-33.0 PG) *MCHC 32.9 G/DL (32.0-36.0 G/DL) *RDW 14.4 % (12.3-17.0 %) *RDWSD 42.0 (37.1-47.8 ) PLATELET 216 X10e3/UL (159-386 X10e3/UL) *MPV 7.9 FL (7.4-10.4 FL) AUTOMATED DIFF PERFORMED SEGS 78.5 % *LYMPHOCYTES 11.0 % *MONOCYTES 7.7 % *EOSINOPHILS 1.7 % *BASOPHILS 1.1 % *ABSOLUTE NEUTROPHILS 4.90 X10e3/UL (1.80-7.80 X10e3/UL) *ABSOLUTE LYMPHOCYTES 0.70 X10e3/UL L (1.00-3.00 X10e3/UL) *ABSOLUTE MONOCYTES 0.50 X10e3/UL (0.30-1.00 X10e3/UL) *ABSOLUTE EOSINOPHILS 0.10 X10e3/UL (0.00-0.50 X10e3/UL) *ABSOLUTE BASOPHILS 0.10 X10e3/UL (0.00-0.20 X10e3/UL) CT Scan from 08/03/2015 1:37 PMCT ABD/PELVIS W/CONTRAST History: left psoas muscle abscess . Technique: Post contrast images were performed after the administration of 95 milliliters of Isovue intravenous contrast. Priors: None. Findings: Abdomen Lung bases: There is minimal bibasilar atelectasis and a small left pleural effusion Liver: Normal density. No definable mass. Spleen: Normal. Pancreas: No discrete mass or inflammatory process. Gallbladder and biliary tract: No radiodense calculus or dilation. Adrenal glands: Normal. Kidneys: Normal enhancement. No masses. No radiodense stones or hydronephrosis. Urinary Bladder: Normal. Aorta: Normal in caliber. No periaortic lymphadenopathy. Bowel and Mesentery: There is a moderate of stool noted within colon. No findings of appendicitis. Ascites: None. There is fullness within left psoas muscle. There is complex fluid collection in the left psoas muscle measuring 4.3 x 7.0 centimeters in transverse dimension. Differential include infectious process, hematoma, and necrotic mass. Pelvis Lymphadenopathy: None. Reproductive: Unremarkable. Osseous Structures: No suspicious findings. Impression: There is a complex collection in fullness involving the left psoas muscle with mild adjacent strandy changes. Differential includes early abscess, hematoma, and necrotic mass. Small left pleural effusion and left basilar atelectasis. Constipation. Electronically signed by: Sabino Gore MD Dictated: 08/03/2015 14:41 Problems Encounter Diagnosis * Fall Risk Status:Active. * Infection Risk Status:Active. Additional Problems * Altered Mental Status [...] upon Discharge, Status:Resolved. Encounters Encounter Diagnosis * Fall Risk Status:Active. * Infection Risk Status:Active. Plan of Care Follow-up Appointments from 08/03/2015 3:39 PM:* #1 Office appointment: : Outpatient IV's * #1 Date/Time : 08/04/2015 9:00 AM * Address # 1 : [facility]: [address] - * #2 Office appointment: : Call to schedule follow-up appt with Dr. Squires * Address # 2 : [facility]: [address], [address] * #3 Office appointment: : Dr. Wheat (arrive 30 min early for lab work...INR) * #3 Date/Time : 08/06/2015 11:00 AM * Address # 3 : [facility]: [facility] [address] [facility] [place] * #4 Office appointment: : [facility] * #4 Date/Time : 08/07/2015 11:00 AM * Address # 4 : * #5 Office appointment: : Dr. Aldridge * #5 Date/Time : 08/08/2015 1:00 PM * Address # 5 : [facility]: [address] [place] or Treatment Plan from 08/03/2015 9:10 AM:* Care Management Note : Arranged for outpatient IV's at hospital beginning tomorrow at 9 a.m. Treatment Plan from 08/02/2015 3:10 PM:* Care Management Note : Received word from Infectious Disease that they are changing patient's IV's to daily and that patient wants to go home and come in as an outpatient for IV's. Visited with patient. He assures he is able to come in daily for IV's. Will set up outpatient IV's. Treatment Plan from 07/31/2015 12:10 PM:* Care Management Note : Visited with patient this a.m. Patient lives at home with spouse and planning to return home at discharge. Is unsure at this time if will need any services. At noon, had team meeting. Patient will be on IV antibiotices through August 15 and will continue skilled care. Procedures * Completed , on 03/29/2013 12:00 [...] to care for yourself at home from 08/03/2015 3:39 PM:* Do not drive or operate machinery for: : Do NOT operate a vehicle while taking narcotic pain medication. Do not operate a vehicle until you feel safe to operate it. * Discharge Diet: : 2,400 Calorie Diabetic, Low Fat, Low Cholesterol Diet with NO Added Salt * Call your doctor if: : Fever over 101 F or severe chills,Chest pain or other unexplained symptoms,Tingling or numbness develops,A sudden increase or decrease in weight,You have persistent or worsening symptoms,If you have Heart Failure and you gain 3 pounds within 1 week or your symptoms worsen. (Weigh at home tomorrow morning) Allergies, Adverse Reactions, Alerts * No Latex Allergy. * No IV Contrast Allergy. * No Known Drug Allergies. Medication It is the responsibility of the patient or patient customer retention representative to confirm the list of medications with either the patient's personal care provider or the patient's follow-up care provider to ensure the patient has an appropriate list of medications to take at home. Discharge medications New medications* Vancomycin 1.75 gm IV daily through 08/16/15 Additional Instructions: Vancomycin 1.75 gm IV daily start 08/02/15 at 0900 * pravastatin 10 mg Tablet, Ordered By: DEWEY HANEY PA-C Directions: 1 tablet oral daily at bedtime * carvedilol 25 mg Tablet, Ordered By: DEWEY HANEY PA-C Directions: 1 tablet oral twice a day * cyanocobalamin (vitamin B-12) (Vitamin B-12) 1,000 mcg Tablet, Ordered By: DEWEY HANEY PA-C Directions: 1 tablet oral daily with breakfast * omega-3 fatty acids-fish oil (Fish Oil) 340 mg-1,000 mg Capsule, Ordered By: DEWEY HANEY PA-C Directions: 1 capsule oral daily with breakfast * docusate sodium (DOK) 100 mg Capsule, Ordered By: DEWEY HANEY PA-C Directions: 1 capsule oral twice a day * fluticasone 50 mcg/actuation spray,suspension, Ordered By: DEWEY HANEY PA-C Directions: 1 spray nasal daily * furosemide 40 mg Tablet, Ordered By: DEWEY HANEY PA-C Directions: 1 tablet oral daily * HYDROcodone-acetaminophen 5 mg-325 mg Tablet, Ordered By: MARIANNE MARTINEZ Directions: 1 tablet oral every six hours PRN PAIN * INSULIN GLARGINE (LANTUS) 44 Units subcut [facility] Directions: 0.35 mL daily at bedtime * losartan 50 mg Tablet, Ordered By: DEWEY HANEY PA-C Directions: 1 tablet oral twice a day * potassium chloride 20 mEq tablet,ER particles/crystals, Ordered By: DEWEY HANEY PA-C Directions: 1 tablet oral daily with breakfast * spironolactone 25 mg Tablet, Ordered By: DEWEY HANEY PA-C Directions: 1 tablet oral daily * tamsuLOSIN 0.4 mg capsule,extended release 24hr, Ordered By: DEWEY HANEY PA-C Directions: 1 capsule oral daily at bedtime Continued medications* warfarin 7.5 mg Tablet, Ordered By: VAUGHN MARTINEZ Directions: 1 tablet oral daily Stopped medications* insulin glargine (LanTUS) 100 unit/mL Solution Directions: 44 unit subcutaneous daily at bedtime
--- OUTSIDE RECORDS SUMMARY | 2016-07-04 08:56 | XMS REPORT | Summary of Care ---
Author Author Jovita Dhaliwal D.O. Organization Unknown Address [address], [place] [id number] Phone Unavailable Care Team Providers Care Aircraft Delivery Checker Name Role Phone John Aldridge M.D. Unavailable Unavailable Sp Dawkins M.D. Unavailable Unavailable Jovita Dhaliwal D.O. 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) Status: Active Diabetic foot ulcer (250.80, E11.621) Status: Active Congestive heart failure (428.0, I50.9) Status: Active Hypertension (401.9, I10) Status: Active Acute upper respiratory infection (465.9, J06.9) Status: Active Allergic rhinitis (477.9, J30.9) Status: Active Folliculitis (704.8, L73.9) Status: Active Anticoagulant long-term use (V58.61, Z79.01) Status: Active Atrial fibrillation, currently in sinus rhythm (427.31, I48.91) Status: Active Chronic renal failure (585.9, N18.9) Status: Active Diabetes mellitus (250.00, E11.9) Status: Active Obstructive sleep apnea (327.23, G47.33) Status: Active Peripheral neuropathy (356.9, G62.9) Status: Active Medications Name Dates Details Warfarin [...] Started 05-Dec-2010 ActiveNeedles BD PEN NEEDLE MINI 26yhrph2/16 Inject Insulin at hs dx 250.02 * [...] 1 Refills: 0 Sp Dawkins M.D.* Started [id number] Tablet Sublingual Bottle Carvedilol 12.5 MG Oral Tablet TAKE 1 TABLET TWICE DAILY. * Quantity: 180 Refills: 3 John Aldridge M.D.* Started 28-Feb-2014 ActiveLosartan Potassium 50 MG Oral Tablet TAKE 1 TABLET TWICE DAILY. * Quantity: 180 Refills: 3 John Aldridge M.D.* Started 28-Feb-2014 Caterva Next Monitor w/Device Kit testing three times daily * Quantity: 1 Refills: 3 Sp Dawkins M.D.* Started 22-Mar-2014 ActiveBayer Contour Next Test In Vitro Strip TEST THREE TIMES A DAY * Quantity: 1 Refills: 3 Isra RFabio Khan D.O.* Started 22-Mar-2014 [id number] Strip Box ZyrTEC Allergy 10 MG Oral Tablet TAKE 1 TABLET DAILY DIRECTED. * Quantity: 30 Refills: 2 Isra R. Bill D.O.* Started 19-Jun-2014 ActiveFluticasone Propionate 50 MCG/ACT Nasal Suspension USE 1 TO 2 SPRAYS IN EACH NOSTRIL ONCE DAILY. * Quantity: 1 Refills: 0 Isra R. Bill D.O.* Started 19-Jun-2014 [id number] GM Bottle Doxycycline Monohydrate 100 MG Oral Capsule TAKE 1 CAPSULE TWICE DAILY WITH FOOD. * Quantity: 14 Refills: 0 Isra R. Bill D.O.* Started 19-Jun-2014 Active Allergies and Adverse Reactions Name Dates Details No Known Drug Allergies Status: Active Past Medical History Name Dates Details History of Diabetes mellitus (250.00, E11.9) Status: Resolved History of hypertension (V12.59, Z86.79) Status: Resolved Procedures Procedure Dates Details History of Catheterization Of Artery Of Extremity Completed:11-Jan-2013 History of Pacemaker - Pulse Generator Replacement PSA ( PROSTATE SPECIFIC ANTIGEN) 3100 Ordered:12-May-2014 LIPID PROFILE 1184 Ordered:30-May-2014 HEMOGLOBIN A1C 3507 Ordered:30-May-2014 Comprehensive Metabolic Panel 1212 Ordered:30-May-2014 CBC w/ Auto Diff 7150 Ordered:30-May-2014 PROTIME PANEL 7000 Ordered:27-Jun-2014 Immunization Name Dates Details Influenza Administered on:10-Dec-2010 Influenza Administered on:02-Feb-2012 Diphtheria-Tetanus Toxoids 6.7-5 LFU/0.5ML Intramuscular Injectable Administered on: Tdap (Boostrix) Administered on: Adacel 5-2-15.5 LF-MCG/0.5 Intramuscular Suspension Lot #: [id number] Administered on:21-Jul-2013 Fluzone High-Dose Intramuscular Suspension Lot #: [id number] Administered on:13-Dec-2013 Prevnar 13 Intramuscular Suspension Lot #: [id number] Administered on:07-Apr-2014 Social History Name Dates Details Smoking Status* Former smoker Vital Signs Date Test Result Details 27-Jun-2014 15:22 BP Systolic 124 mm[Hg] Status: BP Diastolic 60 mm[Hg] Status: Heart Rate 84 /min Status: Weight 229 lb Status: Body Mass Index Calculated 30.21 kg/m2 Status: Body Surface Area Calculated 2.28 m2 Status: 19-Jun-2014 15:17 Heart Rate 88 /min Status: Temperature 97.3 f Status: Weight 229.1875 lb Status: O2 SAT 95 % Status: Body Mass Index Calculated 30.24 kg/m2 Status: Body Surface Area Calculated 2.28 m2 Status: 29-May-2014 14:58 BP Systolic 124 mm[Hg] Status: BP Diastolic 72 mm[Hg] Status: Heart Rate 74 /min Status: Weight 232.25 lb Status: Height 73 in Status: Body Mass Index Calculated 30.64 kg/m2 Status: Body Surface Area Calculated 2.29 [...] not documented On 24-Nov-2012 13:30 Appointment; Lindsey iWnkler Encounter Diagnosis: Problem not documented On 23-Nov-2012 [...]
--- OUTSIDE RECORDS SUMMARY | 2016-07-04 08:57 | XMS REPORT | Referral Summary ---
Author Author [facility] [place] Organization [facility] [place] Address Unknown Phone Unavailable Encounter VC Date(s): 01/09/15 - 01/09/15 [facility] [place] [address] [place] [address] ELLEN Barajas [id number] Discharge Disposition: 01-Home or Self Care Attending [...] Procedures Procedure Date Related Diagnosis Body Site Replacement/pacemaker/dual chamber 03/2013 Procedure/heart catherization 2012 Placement/pacemaker 2007 Procedure/IV ABX and hyperbaric oxygen Social History No data available for this section Assessment and Plan No data available for this section
--- OUTSIDE RECORDS SUMMARY | 2016-07-04 08:57 | XMS REPORT | Summary of Care ---
Author Author Jovita Dhaliwal D.O. Organization Unknown Address [address], [place] [id number] Phone Unavailable Care Team Providers Care Mill Feeder Name Role Phone Sp Dawkins M.D. Unavailable [...] G47.33) Status: Active Cardiac resynchronization therapy defibrillator (INTERVENTIONAL SALE CONSULTANT-D) in place (V45.02, Z95.810) Status: Active Hyperlipidemia [...] 1 Isra D.O.Jovita * Start 18-Dec-2010 Active [place] BD PEN NEEDLE MINI 84wtizk9/16 Inject Insulin at hs dx 250.02 * [...] D.O. RFabio Khan * Start 28-Feb-2014 Active [employer] Contour Next Monitor w/Device Kit testing three [...] cm H2O, Permanent use, G47.33, Heated humidity, MdnbxuwrA76, mask , headgear, filters, heated tubing, water [...] Adacel 5-2-15.5 LF-MCG/0.5 Intramuscular Suspension Lot #: [id number] on: 21-Jul-2013 Fluzone High-Dose SUSP Lot #: [id number] on: 13-Dec-2013 Prevnar 13 Intramuscular Suspension Lot #: [id number] on: 07-Apr-2014 Pneumovax 23 25 MCG/0.5ML Injection Injectable on: 09-May-2015 Pneumo (Pneumovax) Lot #: [id number] on: 09-May-2015 Family History Name Dates Details [...] m2 Status: Results Date Description Value Details 07-Nov-2015 09:53 ECG/ EKG Outside Interp Electro CardioGram 14-Nov-2015 12:12 PROTIME PANEL 7000 PROTIME 19.1 secs (Above high threshold) Range: 12.0-14.9 INR 1.61 22-Nov-2015 15:30 CT CHEST WITH IV CONTRAST Comments: Exam Date: 11/22/2015 14:33Dictation Date: 11/22/2015 15:30 XC CHEST 30-Nov-2015 15:12 PROTIME PANEL 7000 PROTIME 14.1 secs Range: 12.0-14.9 INR 1.10 Plan of Care Name Dates Details Planned Observations Planned Goals not documented Planned Encounters Appointment; Provider: Jovita Dhaliwal D.O. On 19-Feb-2016 10:00 Appointment; Provider: John Aldridge M.D. On 10-Dec-2015 09:45 Appointment; Provider: Moody Choe M.D. On 05-Dec-2015 14:15 Interventions Provided Medication Changes* Losartan Potassium 100 MG Oral Tablet - Renew with Changes Labs/Procedures/Imaging* PROTIME PANEL 7000; To be Done: 30 Nov 2015 * PROTIME PANEL 7000; Done: Nov 30 2015 1:26PM Instructions Name Dates Details Instructions not documented [...]
--- OUTSIDE RECORDS SUMMARY | 2016-07-04 08:57 | XMS REPORT | Summary of Care ---
Author Author Jovita Dhaliwal D.O. Organization Unknown Address [address], [place] [id number] Phone Unavailable Care Team Providers Care Setter Cold Rolling Machine Name Role Phone Carl Ga D.O. Unavailable [...] Started 18-Dec-2010 Active[employer]les BD PEN NEEDLE MINI 86ekrnr3/16 Inject Insulin at hs dx 250.02 * [...] 1 Refills: 0 Sp Dawkins M.D.* Started [id number] Tablet Sublingual Bottle Lantus SoloStar 100 UNIT/ML [...] Refills: 3 Jovita Dhaliwal D.O.* Started 28-Feb-2014 [facility] Next Monitor w/Device Kit testing three times daily * Quantity: 1 Refills: 3 Sp Dawkins M.D.* Started 22-Mar-2014 Active[employer]ayer Contour Next Test In Vitro Strip TEST THREE TIMES A DAY * Quantity: 1 Refills: 3 Jovita Dhaliwal D.O.* Started 22-Mar-2014 Xmzdrx409 Strip Box ZyrTEC Allergy 10 MG Oral Tablet TAKE 1 TABLET DAILY DIRECTED. * Quantity: 30 Refills: 2 Jovita Dhaliwal.O.* Started 19-Jun-2014 ActiveFluticasone Propionate 50 MCG/ACT Nasal Suspension USE 1 TO 2 SPRAYS IN EACH NOSTRIL ONCE DAILY. * Quantity: 1 Refills: 0 Jovita Dhaliwal.O.* Started 19-Jun-2014 Dwgbfe12 GM Bottle Doxycycline Monohydrate 100 MG Oral Capsule TAKE 1 CAPSULE TWICE DAILY WITH FOOD. * Quantity: 14 Refills: 0 Jovita Dhaliwal.Juancarlos.* Started 19-Jun-2014 ActiveCephalexin 500 MG Oral Capsule TAKE 1 CAPSULE 3 TIMES DAILY. * Quantity: 5 Refills: 0 Tari Chilel APRN* Started 06-Jul-2014 ActivePrednisoLONE Acetate 1 % Ophthalmic Suspension INSTILL 1 DROP INTO LEFT EYE 3 TIMES DAILY FOR ONE WEEK * Quantity: 1 Refills: 0 Carl Ga.O.* Started Active5 ML Bottle Amoxicillin 500 MG Oral Tablet TAKE 1 TABLET 3 TIMES DAILY. * Quantity: 21 Refills: 0 Jovita DhaliwalO.* Started 07-Nov-2014 Active Allergies and Adverse Reactions Name Dates Details No Known Drug Allergies Status: Active Past Medical History Name Dates Details History of Acute upper respiratory infection (465.9, J06.9) Status: Resolved History of allergic rhinitis (V12.69, Z87.09) Status: Resolved History of Diabetes mellitus (250.00, E11.9) Status: Resolved History of hypertension (V12.59, Z86.79) Status: Resolved Procedures Procedure Dates Details History of Pacemaker - Pulse Generator Replacement History of Catheterization Of Artery Of Extremity Completed:11-Jan-2013 Procedures not documented Immunization Name Dates Details Influenza Administered on:10-Dec-2010 Influenza Administered on:02-Feb-2012 Diphtheria-Tetanus Toxoids 6.7-5 LFU/0.5ML Intramuscular Injectable Administered on: Tdap (Boostrix) Administered on: Adacel 5-2-15.5 LF-MCG/0.5 Intramuscular Suspension Lot #: [id number] Administered on:21-Jul-2013 Fluzone High-Dose Intramuscular Suspension Lot #: [id number] Administered on:13-Dec-2013 Prevnar 13 Intramuscular Suspension Lot #: [id number] Administered on:07-Apr-2014 Social History Name Dates Details Smoking Status* Former smoker Vital Signs Date Test Result Details No Known Vitals to report Results Date Description Value Details Results not [...]
--- OUTSIDE RECORDS SUMMARY | 2016-07-04 08:57 | XMS REPORT | Summary of Care ---
Author Author Jovita Dhaliwal D.O. Organization Unknown Address [address], [place] [id number] Phone Unavailable Care Team Providers Care Forms Builder Name Role Phone Sp Dawkins M.D. Unavailable [...] G47.33) Status: Active Cardiac resynchronization therapy defibrillator (MATERIALS COORDINATOR-D) in place (V45.02, Z95.810) Status: Active Hypertension [...] Isra Salinas.Jovita Frazier * Start 18-Dec-2010 Active [place] BD PEN NEEDLE MINI 80kmrvf3/16 Inject Insulin at hs dx 250.02 * [...] 3 Isra D.O.Jovita * Start 28-Feb-2014 Active [employer] Contour Next Monitor w/Device Kit testing three [...] cm H2O, Permanent use, G47.33, Heated humidity, RazfzvyuZ52, mask , headgear, filters, heated tubing, water [...] of Arterial Catheterization PROTIME PANEL 7000 Ordered: 22-Oct-2015 CBC w/ Auto Diff 7150 Ordered: 22-Oct-2015 BASIC METABOLIC PROFILE 1210 Ordered: 22-Oct-2015 HEMOGLOBIN A1C 3507 Ordered: 22-Oct-2015 ULTRASOUND AORTA AAA SCREENING MEDICARE PATIENT Ordered: 22-Oct-2015 Immunization Name Dates Details Influenza on: 10-Dec-2010 Influenza on: 02-Feb-2012 Diphtheria-Tetanus Toxoids 6.7-5 LFU/0.5ML INJ on: Tdap (Boostrix) on: Adacel 5-2-15.5 LF-MCG/0.5 Intramuscular Suspension Lot #: [id number] on: 21-Jul-2013 Fluzone High-Dose SUSP Lot #: [id number] on: 13-Dec-2013 Prevnar 13 Intramuscular Suspension Lot #: [id number] on: 07-Apr-2014 Pneumovax 23 25 MCG/0.5ML Injection Injectable on: 09-May-2015 Pneumo (Pneumovax) Lot #: [id number] on: 09-May-2015 Family History Name Dates Details [...] BP Systolic 120 mm[Hg] Status: Comments: Location: LUE; Position: Sitting BP Diastolic 72 mm[Hg] Status: Comments: Location: E; Position: Sitting Heart Rate 68 /min Status: Comments: Location: ; Weight 229.125 lb Status: Physical Findings 97 Status: Comments: O2 Saturation Body Mass Index Calculated 30.23 kg/m2 Status: Body Surface Area Calculated 2.28 m2 Status: 10:10 BP Systolic 144 mm[Hg] Status: Comments: Location: ; Position: BP Diastolic 82 mm[Hg] Status: Comments: Location: ; Position: Heart Rate 64 /min Status: Comments: Location: ; Weight 229 lb Status: Physical Findings 99 Status: Comments: O2 Saturation Body Mass Index Calculated 30.21 kg/m2 Status: Body Surface Area Calculated 2.28 m2 Status: Results Date Description Value Details 22-Oct-2015 12:58 PROTIME PANEL 7000 Comments: Critical result called to Burt by Tiffani Hirsch on 10/22/2015 at 1:02 PM (INR) PROTIME 57.3 secs (Above high threshold) Range: 12.0-14.9 INR 6.42 (High alert) Comments: Verified by Repeat Analysis----- Plan of Care Name Dates Details Planned Observations CBC w/ Auto Diff 7150 On 19-Feb-2016 Intent BASIC METABOLIC PROFILE 1210 On 19-Feb-2016 Intent HEMOGLOBIN A1C 3507 On 19-Feb-2016 Intent Planned Goals not documented Planned Encounters Appointment; Provider: Jovita Dhaliwal D.O. On 19-Feb-2016 10:00 Appointment; Provider: John Aldridge M.D. On 08-Feb-2016 11:00 Interventions Provided Labs/Procedures/Imaging* PROTIME PANEL 7000; To be Done: 22 Oct 2015 * ULTRASOUND AORTA AAA SCREENING MEDICARE PATIENT; To be Done: 22 Oct 2015 * Diabetic Foot - Pulse Exam; Done: 22-Oct-2015 [...]
--- OUTSIDE RECORDS SUMMARY | 2016-07-04 08:57 | XMS REPORT | Summary of Care ---
Author Author Jovita Dhaliwal D.O. Organization Unknown Address [address] [place], [place] [id number] Phone Unavailable Care Team Providers Care Form Setter Name Role Phone Sp Dawkins M.D. 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, left, with fat layer exposed ( 707.14, L97.422) Status: Active Fatigue (780.79, R53.83) Status: Active Blood blister (919.2, T14.8) Status: Active Actinic keratosis (702.0, L57.0) Status: Active Seborrheic keratosis (702.19, L82.1) Status: Active Obstructive sleep apnea (327.23, G47.33) Status: Active Hyperlipidemia (272.4, E78.5) Status: Active Lung nodule (793.11, R91.1) Status: Active Screen for colon cancer (V76.51, Z12.11) Status: Active Former smoker (V15.82, Z87.891) Status: Active 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, 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 PAF (paroxysmal atrial fibrillation) (427.31, I48.0) Status: Active 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, I50.42) Status: Active Hypertension (401.9, I10) Status: Active Primary open angle glaucoma of both eyes, moderate stage (365.11, H40.1132) Status: Active Left knee tendonitis (727.09, M76.892) Status: Active Anatomical narrow angle, bilateral (365.02, H40.033) Status: Active On warfarin therapy (V58.61, Z79.01) Status: Active Acute bronchitis, unspecified organism (466.0, J20.9) Status: Active Knee pain, right (719.46, M25.561) Status: Active Cardiac resynchronization therapy defibrillator (DRUG DISCOVERY INFORMATICS SPECIALIST-D) in place (V45.02, Z95.810) Status: Active Type 2 diabetes mellitus with diabetic neuropathy (250.60, E11.40) Status: Active Papule of skin (709.8, R23.8) Status: Active Allergic reaction to chemical substance (989.9, T65.91XA) Status: Active Medicare annual wellness visit, initial (V70.0, Z00.00) Status: Active Medicare annual wellness visit, initial (V70.0, Z00.00) Status: Active Combined form of age-related cataract, right eye (366.19, H25.811) Status: Active Combined form of age-related cataract, left eye (366.19, H25.812) Status: Active Benign prostatic hyperplasia without lower urinary tract symptoms, prostatic enlargement of unspecified morphology Status: Active Medications Name Dates Details Furosemide [...] D.O., R. Bill * Start 18-Mar-2016 Active [place] BD PEN NEEDLE MINI 59joemo8/16 Inject Insulin at hs dx 250.02 * Quantity: 200 Refills: 6 Isra Salinas.Jovita Frazier * Start 23-Dec-2010 Active Pravastatin Sodium 10 [...] DAILY * Quantity: 180 Refills: 0 Isra Salinas.Jovita Frazier * Start 21-Feb-2016 Active Lantus SoloStar 100 UNIT/ML Subcutaneous Solution Pen-injector INJECT 25 UNITS DAILY DIRECTED * Quantity: 15 Refills: 0 Jovita Dhaliwal D.O. * Start 12-May-2016 Active Losartan Potassium 100 MG Oral Tablet Take one tablet by mouth daily * Quantity: 90 Refills: 0 Jovita Dhaliwal D.O. * Start 28-Feb-2014 Active [employer] Contour Next Monitor w/Device Kit testing three times daily * Quantity: 1 Refills: 3 Sp Dawkins M.D. * Start 22-Mar-2014 Active [employer] Contour Next Test In Vitro Strip TEST [...] cm H2O, Permanent use, G47.33, Heated humidity, ZzpncoqqN09, mask , headgear, filters, heated tubing, water chamber, chinstrap * Quantity: 1 Refills: 0 Sandip Montaño.Ivette.[place] * Start 07-Jun-2015 Active Fluticasone Propionate 50 [...] 1 Refills: 0 Sandip P.A.[place] * Start 05-Dec-2015 Active Latanoprost 0.005 % Ophthalmic Solution INSTILL 1 DROP IN BOTH EYES AT BEDTIME. * Quantity: 1 Refills: 12 Prabhakar King M.D. * Start 11-Jan-2016 Active 2.5 ML Bottle Chlorpheniramine Maleate 4 MG Oral Tablet TAKE 1 TABLET EVERY 4 TO 6 HOURS NEEDED. * Quantity: 20 Refills: 0 Isra D.O.Jovita * Start 15-Apr-2016 Active Metoclopramide HCl - 10 MG Oral Tablet TAKE 1 TABLET Once As Directed HOLD UNTIL ORDERED BY PATIENT * Quantity: 1 Refills: 0 Don Reed M.D. * Start 21-May-2016 Active Allergies and Adverse Reactions Name Dates [...] Pulse Generator Replacement History of Arterial Catheterization History of Catheterization Of Artery Of Extremity Completed: 11-Jan-2013 Colonoscopy- Screening or Dx Ordered: 15-Apr-2016 PROTIME PANEL 7000 Ordered: 09-May-2016 Immunization Name Dates Details Influenza on: 10-Dec-2010 Influenza on: 02-Feb-2012 Diphtheria-Tetanus Toxoids 6.7-5 LFU/0.5ML INJ on: Tdap (Boostrix) on: Adacel 5-2-15.5 LF-MCG/0.5 Intramuscular Suspension Lot #: [id number] on: 21-Jul-2013 Fluzone High-Dose SUSP Lot #: [id number] on: 13-Dec-2013 Prevnar 13 Intramuscular Suspension Lot #: [id number] on: 07-Apr-2014 Pneumovax 23 25 MCG/0.5ML Injection Injectable on: 09-May-2015 Pneumo (Pneumovax) Lot #: [id number] on: 09-May-2015 Fluzone High-Dose 0.5 ML Intramuscular Suspension Prefilled Syringe Lot #: [id number] on: 28-Dec-2015 Zoster (Zostavax) on: 19-Feb-2016 Family [...] (Above high threshold) Range: 12.0-14.9 INR 2.13 Plan of Care Name Dates Details Planned Observations HEMOGLOBIN A1C 3507 On 16-May-2016 Intent BASIC METABOLIC PROFILE 1210 On 16-May-2016 Intent Planned Goals not documented Planned Encounters Appointment; Provider: Monica Mancera On 08-Dec-2016 14:00 Appointment; Provider: John Aldridge M.D. On 10-Jun-2016 10:15 Appointment; Provider: Don Reed M.D. On 04-Jun-2016 08:30 Appointment; Provider: Marisela Figueroa On 04-Jun-2016 08:00 Appointment; Provider: Prabhakar King M.D. On 02-Jun-2016 10:15 Appointment; Provider: Jovita Dhaliwal D.O. On 27-May-2016 09:30 Instructions Name Dates Details Instructions not documented Encounters Appointment; Prabhakar King M.D. Encounter Diagnosis: Problem [...]
--- OUTSIDE RECORDS SUMMARY | 2016-07-04 08:58 | XMS REPORT | Summary of Care ---
Author Author Jovita Dhaliwal D.O. Organization Unknown Address [address], [place] [id number] Phone Unavailable Care Team Providers Care Lip Reading Teacher Name Role Phone Sp Dawkins M.D. Unavailable [...] R91.1) Status: Active Cardiac resynchronization therapy defibrillator (SUPERVISOR TYPESETTING-D) in place (V45.02, Z95.810) Status: Active Combined [...] D.O., R. Bill * Start 18-Mar-2016 Active [place] BD PEN NEEDLE MINI 24xeojb4/16 Inject Insulin at hs dx 250.02 * [...] Jovita Dhaliwal D.O. * Start 28-Feb-2014 Active [employer] Contour Next Monitor w/Device Kit testing three times daily * Quantity: 1 Refills: 3 Sp Dawkins M.D. * Start 22-Mar-2014 Active [employer] Contour Next Test In Vitro Strip TEST [...] cm H2O, Permanent use, G47.33, Heated humidity, TbmxkknlU68, mask , headgear, filters, heated tubing, water [...] Adacel 5-2-15.5 LF-MCG/0.5 Intramuscular Suspension Lot #: [id number] on: 21-Jul-2013 Fluzone High-Dose SUSP Lot #: [id number] on: 13-Dec-2013 Prevnar 13 Intramuscular Suspension Lot #: [id number] on: 07-Apr-2014 Pneumovax 23 25 MCG/0.5ML Injection Injectable on: 09-May-2015 Pneumo (Pneumovax) Lot #: [id number] on: 09-May-2015 Fluzone High-Dose 0.5 ML Intramuscular Suspension Prefilled Syringe Lot #: [id number] on: 28-Dec-2015 Zoster (Zostavax) on: 19-Feb-2016 Family [...] >60 ml/min Range: >60 EST GFR, NON-AFR GREEK 57 ml/min (Below low threshold) Range: >60 [...]
--- OUTSIDE RECORDS SUMMARY | 2016-07-04 08:58 | XMS REPORT | Summary of Care ---
Author Author Jovita Dhaliwal D.O. Organization Unknown Address [address], [place] [address] Phone Unavailable Care Team Providers Care Railroad Car Inspector Name Role Phone Sp Dawkins M.D. [...] sleep apnea (327.23, G47.33) Status: Active 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, I50.42) Status: Active Cardiac resynchronization therapy defibrillator (LICENSE DISTRIBUTOR-D) in place (V45.02, Z95.810) Status: Active Hyperlipidemia (272.4, E78.5) Status: Active Hypertension (401.9, I10) Status: Active PAF (paroxysmal atrial fibrillation) (427.31, I48.0) Status: Active On warfarin therapy (V58.61, Z79.01) Status: Active Actinic keratosis (702.0, L57.0) Status: Active Type 2 diabetes mellitus with diabetic neuropathy (250.60, E11.40) Status: Active Combined form of age-related cataract, left eye (366.19, H25.812) Status: Active Combined form of age-related cataract, right eye (366.19, H25.811) Status: Active Presbyopia OU (367.4, H52.4) Status: Active Blood blister (919.2, T14.8) Status: Active Hordeolum externum of right lower eyelid (373.11, H00.012) Status: Active Anatomical narrow angle, bilateral (365.02, H40.033) Status: Active 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 RFabio Khan * Start 19-Dec-2015 Active [place] BD PEN NEEDLE MINI 89guphj7/16 Inject Insulin at hs dx 250.02 * [...] 180 Refills: 0 Isra D.O.Jovita * Start 19-Dec-2015 Active Lantus SoloStar 100 UNIT/ML Subcutaneous Solution Pen-injector INJECT 25 UNITS DAILY DIRECTED * Quantity: 15 Refills: 0 Isra D.O.Jovita * Start 19-Dec-2015 Active Losartan Potassium 100 MG Oral Tablet Take one tablet by mouth daily * Quantity: 90 Refills: 0 Isra D.O.Jovita * Start 28-Feb-2014 Active [employer] Contour Next Monitor w/Device Kit testing three times daily * Quantity: 1 Refills: 3 Sp Dawkins M.D. * Start 22-Mar-2014 Active [employer] Contour Next Test In Vitro Strip TEST THREE TIMES DAILY * Quantity: 100 Refills: 1 Isra Salinas.Jovita Frazier * Start 21-Dec-2015 Active Tamsulosin HCl - [...] cm H2O, Permanent use, G47.33, Heated humidity, MefwepjcJ89, mask , headgear, filters, heated tubing, water [...] 0 Jovita Dhaliwal D.O. * Start Active Supplies CPAP repair, services and supplies, G47.33 Mask, headgear, filters, heated tubing, chinstrap * Quantity: 1 Refills: 0 Sandip Montaño.A.[place] * Start 05-Dec-2015 Active Latanoprost 0.005 % Ophthalmic Solution INSTILL 1 DROP IN BOTH EYES AT BEDTIME. * Quantity: 1 Refills: 12 Prabhakar King M.D. * Start 11-Jan-2016 Active 2.5 ML Bottle Allergies and Adverse Reactions Name [...] Arterial Catheterization PROTIME PANEL 7000 Ordered: 11-Feb-2016 Vitamin D, 25 - Hydroxy 3111 Ordered: 18-Feb-2016 VITAMIN B12 3606 Ordered: 18-Feb-2016 MAGNESIUM 1260 Ordered: 18-Feb-2016 LIPID PROFILE 1184 Ordered: 18-Feb-2016 Immunization Name Dates Details Influenza on: 10-Dec-2010 Influenza on: 02-Feb-2012 Diphtheria-Tetanus Toxoids 6.7-5 LFU/0.5ML INJ on: Tdap (Boostrix) on: Adacel 5-2-15.5 LF-MCG/0.5 Intramuscular Suspension Lot #: [id number] on: 21-Jul-2013 Fluzone High-Dose SUSP Lot #: [id number] on: 13-Dec-2013 Prevnar 13 Intramuscular Suspension Lot #: [id number] on: 07-Apr-2014 Pneumovax 23 25 MCG/0.5ML Injection Injectable on: 09-May-2015 Pneumo (Pneumovax) Lot #: [id number] on: 09-May-2015 Fluzone High-Dose 0.5 ML Intramuscular Suspension Prefilled Syringe Lot #: [id number] on: 28-Dec-2015 Family History Name Dates Details Family history of Status: Active Name Dates Details Family history of Status: Active Social History Name Dates Details - Status: Name Dates Details Former smoker Vital Signs Date Test Result Details 21-Jan-2016 15:39 BP Systolic 149 mm[Hg] Status: Comments: Location: ; Position: BP Diastolic 89 mm[Hg] Status: Comments: Location: ; Position: Heart Rate 84 /min Status: Comments: Location: ; Weight 238 lb Status: Body Mass Index Calculated 32.73 kg/m2 Status: Body Surface Area Calculated 2.28 m2 Status: Results Date Description Value Details 21-Jan-2016 17:07 PROTIME PANEL 7000 PROTIME 15.2 secs (Above high threshold) Range: 12.0-14.9 INR 1.21 06-Feb-2016 15:11 PROTIME PANEL 7000 PROTIME 21.3 secs (Above high threshold) Range: 12.0-14.9 INR 1.85 Plan of Care Name Dates Details Planned Observations Planned Goals not documented Planned Encounters Appointment; Provider: Monica Mancera On 08-Dec-2016 14:00 Appointment; Provider: John Aldridge M.D. On 10-Jun-2016 10:15 Appointment; Provider: Prabhakar King M.D. On 02-Jun-2016 10:15 Appointment; Provider: Jovita Dhaliwal D.O. On 19-Feb-2016 10:00 Instructions Name Dates Details Instructions not documented [...]
--- OUTSIDE RECORDS SUMMARY | 2016-07-04 08:58 | XMS REPORT ---
Author Author Blayne Warner [facility] eClinicalWorks Address Unknown Phone Unavailable Care Team Providers Care Farm Marketer Name Role Phone Blayne Warner CP Unavailable Allergies No Known Allergies Problems Problem Type Condition Code Onset Dates Condition Status Problem NYHA class 3 systolic congestive heart failure with reduced left ventricular function I50.20 Active Problem Cardiomyopathy I42.9 Active Medications No Known Medications Results No Known Results Summary Purpose eClinicalWorks Submission
--- OUTSIDE RECORDS SUMMARY | 2016-07-04 08:58 | XMS REPORT | Summary of Care ---
Author Author Jovita Dhaliwal D.O. Organization Unknown Address [address], [place] [id number] Phone Unavailable Care Team Providers Care Transfer Station Attendant Name Role Phone Benny Barfield D.O. Unavailable [...] E78.5) Status: Active Cardiac resynchronization therapy defibrillator (SERVICE ARCHITECT-D) in place (V45.02, Z95.810) Status: Active Chronic [...] I10) Status: Active Medications Name Dates Details Furosemide [...] Started 18-Dec-2010 ActiveNeedles BD PEN NEEDLE MINI 31qhikb7/16 Inject Insulin at hs dx 250.02 * [...] * Quantity: 90 Refills: 0 Jovita Dhaliwal D.O.* Started 11-May-2013 ActiveVitamin B-12 1000 MCG Sublingual Tablet Sublingual [address] 1 MCG Daily * Quantity: 1 Refills: 0 Sp Dawkins M.D.* Started Uehyyi360 Tablet Sublingual Bottle Lantus SoloStar 100 UNIT/ML Subcutaneous Solution Pen-injector INJECT 25 UNITS DAILY DIRECTED * Quantity: 15 Refills: 0 Jovita Dhaliwal D.O.* Started 16-Dec-2013 ActiveLosartan Potassium 50 MG Oral Tablet TAKE 1 TABLET TWICE DAILY. * Quantity: 180 Refills: 3 Jovita Dhaliwal D.O.* Started 28-Feb-2014 CO-Value Next Monitor w/Device Kit testing three times daily * Quantity: 1 Refills: 3 Sp Dawkins M.D.* Started 22-Mar-2014 [email or web address] Next Test In Vitro Strip TEST THREE TIMES DAILY * Quantity: 100 Refills: 0 Jovita Dhaliwal D.O.* Started 22-Mar-2014 ActiveTamsulosin HCl - 0.4 MG Oral Capsule TAKE 1 CAPSULE Daily * Quantity: 30 Refills: 11 Jovita Dhaliwal D.O.* Started 05-Feb-2015 ActiveSupplies CPAP repair, services and supplies, G47.33 Mask, headgear, filters, heated tubing, chinstrap * Quantity: 1 Refills: 0 Savannah Oropeza.A.* Started 05-Mar-2015 ActiveFish Oil 1000 MG Oral Capsule TAKE 1 CAPSULE DAILY. * Refills: 0 * Started 10-May-2015 ActiveCheratussin AC 100-10 MG/5ML Oral Syrup TAKE 5 - 10 ML EVERY 4 TO 6 HOURS NEEDED FOR COUGH. * Quantity: 1 Refills: 0 Benny Barfield D.O.* Started 04-Jun-2015 Uiancg858 ML Bottle Supplies AutoCPAP 9-13 cm H2O, Permanent use, G47.33, Heated humidity, RbiwsnvoC35, mask , headgear, filters, heated tubing, water chamber, chinstrap * Quantity: 1 Refills: 0 Savannah Oropeza.A.* Started 07-Jun-2015 ActiveFluticasone Propionate 50 MCG/ACT Nasal Suspension USE 1 SPRAY IN EACH NOSTRIL ONCE DAILY. * Quantity: 1 Refills: 0 Edilson Brennan M.D.* Started 29-Jun-2015 Pbmnmf10 GM Bottle BD Pen Needle Mini U/F 31G X 5 MM Miscellaneous USE TO INJECT INSULIN AT BEDTIME * Quantity: 200 Refills: 0 Jovita Dhaliwal D.O.* Started Active Allergies and Adverse Reactions Name Dates [...] Adacel 5-2-15.5 LF-MCG/0.5 Intramuscular Suspension Lot #: [id number] Administered on:21-Jul-2013 Fluzone High-Dose Intramuscular Suspension Lot #: [id number] Administered on:13-Dec-2013 Prevnar 13 Intramuscular Suspension Lot #: [id number] Administered on:07-Apr-2014 Pneumovax 23 25 MCG/0.5ML Injection Injectable Administered on:09-May-2015 Pneumo (Pneumovax) Lot #: [id number] Administered on:09-May-2015 Family History Mother* Name Dates Details Family history of Status: Active Father* Name Dates Details Family history of Status: Active Social History Name Dates Details Smoking Status* Former smoker Vital Signs Date Test Result Details 10:52 BP Systolic 130 mm[Hg] Status: BP Diastolic 82 mm[Hg] Status: Heart Rate 85 /min Status: Weight 220.5 lb Status: Body Mass Index Calculated 29.09 kg/m2 Status: Body Surface Area Calculated 2.24 m2 Status: Results Date Description Value Details 11:08 PROTIME PANEL 7000 PROTIME 14.7 secs (Better) Range: 12.0-14.9 INR 1.16 (Better) Plan of Care Planned Observations* Name Dates Details Planned Goals not documented Goal Planned Encounters* Appointment; Provider: Carl Ga On 19-Jun-2016 10:15 * Appointment; Provider: John Aldridge On 08-Feb-2016 11:00 * Appointment; Provider: John Aldridge On 11:30 * Appointment; Provider: Jovita Dhaliwal On 10:00 * Appointment; Provider: Moody Choe On 13:45 * Appointment; Provider: Danyel Rodriguez On 15:00 * Appointment; Provider: Danyel Rodriguez On 13-Jan-2015 [...] Dhaliwal Encounter Diagnosis: Problem not documented On 10:45 Appointment; Jovita Dhaliwal Encounter Diagnosis: Problem not [...] Problem not documented On 29-Jun-2015 14:45 Appointment; aCrl Ga Encounter Diagnosis: Problem not documented On [...]
--- OUTSIDE RECORDS SUMMARY | 2016-07-04 08:58 | XMS REPORT | Summary of Care ---
Author Author Jovita Dhaliwal D.O. Organization Unknown Address [address], [place] [address] Phone Unavailable Care Team Providers Care [place] Flaker Name Role Phone Sp Dawkins M.D. 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, I50.42) Status: Active Cardiac resynchronization therapy defibrillator (PUBLIC POLICY ASSOCIATE-D) in place (V45.02, Z95.810) Status: Active Hyperlipidemia (272.4, E78.5) Status: Active Hypertension (401.9, I10) Status: Active PAF (paroxysmal atrial fibrillation) (427.31, I48.0) Status: Active On warfarin therapy (V58.61, Z79.01) Status: Active Medications Name Dates Details Furosemide 40 MG Oral Tablet TAKE 1 TABLET BY MOUTH DAILY Quantity: 90 Isra D.Juancarlos.Jovita * Start 30-Oct-2010 Active Lantus SoloStar 100 UNIT/ML Subcutaneous Solution Pen-injector INJECT 44 UNITS DAILY DIRECTED * Quantity: 11 Refills: 11 Isra D.O.Jovita * Start 05-Dec-2010 Active 3 ML Pen (5 Pens) Carvedilol 6.25 MG Oral Tablet TAKE 1 TABLET BY MOUTH TWICE DAILY * Quantity: 180 Refills: 1 Isra Salinas.Jovita Frazier * Start 18-Dec-2010 Active Lyons BD PEN NEEDLE MINI 85dcizw9/16 Inject Insulin at hs dx 250.02 * Quantity: 200 Refills: 6 Isra Salinas.Juancarlos.Jovita * Start 23-Dec-2010 Active Pravastatin Sodium 10 MG Oral Tablet TAKE 1/2 TABLET BY MOUTH DAILY * Quantity: 15 Refills: 11 Isra Salinas.Jovita Frazier * Start 30-Mar-2013 Active Warfarin Sodium 6 MG Oral Tablet take 1 tablet by mouth every day * Quantity: 90 Refills: 0 Isra Salinas.Jovita Frazier * Start 11-May-2013 Active Vitamin B-12 1000 MCG Sublingual Tablet Sublingual PLACE 1 MCG Daily * Quantity: 1 Refills: 0 Sp Dawkins M.D. * Start Active 100 Tablet Sublingual Bottle Lantus SoloStar 100 UNIT/ML Subcutaneous Solution Pen-injector INJECT 25 UNITS DAILY DIRECTED * Quantity: 15 Refills: 3 Isra D.Jovita Frazier * Start 20-Nov-2015 Active Losartan Potassium 100 MG Oral Tablet Take one tablet by mouth daily * Quantity: 90 Refills: 0 Isra Salinas.Jovita Frazier * Start 28-Feb-2014 Active Jeronimo Contour Next Test In Vitro Strip TEST THREE TIMES DAILY * Quantity: 100 Refills: 0 Isra D.Jovita Frazier * Start 22-Mar-2014 Active Tamsulosin HCl - 0.4 MG Oral Capsule TAKE 1 CAPSULE Daily * Quantity: 30 Refills: 11 Isra D.O.Jovita * Start 05-Feb-2015 Active Supplies CPAP repair, services and supplies, G47.33 Mask, headgear, filters, heated tubing, chinstrap * Quantity: 1 Refills: 0 Sandip P.A.Savannah * Start 05-Mar-2015 Active Supplies AutoCPAP 9-13 cm H2O, Permanent use, G47.33, Heated humidity, JsxtfsvyC95, mask , headgear, filters, heated tubing, water chamber, chinstrap * Quantity: 1 Refills: 0 Sandip P.A.Savannah * Start 07-Jun-2015 Active Supplies CPAP repair, services and supplies, G47.33 Mask, headgear, filters, heated tubing, chinstrap * Quantity: 1 Refills: 0 Sandip P.A.Savannah * Start 05-Dec-2015 Active BD Pen Needle Mini U/F 31G X 5 MM Miscellaneous USE TO INJECT INSULIN AT BEDTIME * Quantity: 200 Refills: 0 Jovita Dhaliwal D.O. * Start Active Fluticasone Propionate 50 MCG/ACT Nasal Suspension USE 1 SPRAY IN EACH NOSTRIL ONCE DAILY. * Quantity: 1 Refills: 0 Edilson Brennan M.D. * Start 29-Jun-2015 Active 16 GM Bottle Fish Oil 1000 MG Oral Capsule TAKE 1 CAPSULE DAILY. * Refills: 0 * Start 10-May-2015 Active Curbsy Contour Next Monitor w/Device Kit testing three times daily * Quantity: 1 Refills: 3 Sp Dawkins M.D. * Start 22-Mar-2014 Active Allergies and Adverse Reactions Name Dates [...] 3507 Ordered: 22-Oct-2015 PROTIME PANEL 7000 Ordered: 12-Dec-2015 Immunization Name Dates Details Influenza on: 10-Dec-2010 Influenza on: 02-Feb-2012 Diphtheria-Tetanus Toxoids 6.7-5 LFU/0.5ML INJ on: Tdap (Boostrix) on: Adacel 5-2-15.5 LF-MCG/0.5 Intramuscular Suspension Lot #: [id number] on: 21-Jul-2013 Fluzone High-Dose SUSP Lot #: [id number] on: 13-Dec-2013 Prevnar 13 Intramuscular Suspension Lot #: [id number] on: 07-Apr-2014 Pneumovax 23 25 MCG/0.5ML Injection Injectable on: 09-May-2015 Pneumo (Pneumovax) Lot #: [id number] on: 09-May-2015 Family History Name Dates Details Family history of Status: Active Name Dates Details Family history of Status: Active Social History Name Dates Details - Status: Name Dates Details Former smoker Vital Signs Date Test Result Details 12-Dec-2015 14:23 BP Systolic 128 mm[Hg] Status: Comments: Location: ; Position: BP Diastolic 60 mm[Hg] Status: Comments: Location: ; Position: Heart Rate 77 /min Status: Comments: Location: ; Weight 233.375 lb Status: Physical Findings 96 Status: Comments: O2 Saturation Body Mass Index Calculated 32.1 kg/m2 Status: Body Surface Area Calculated 2.26 m2 Status: 05-Dec-2015 14:23 BP Systolic 130 mm[Hg] Status: Comments: Location: ; Position: BP Diastolic 82 mm[Hg] Status: Comments: Location: ; Position: Heart Rate 84 /min Status: Comments: Location: ; Height 71.5 in Status: Weight 235 lb Status: Physical Findings 98 Status: Comments: O2 Saturation Body Mass Index Calculated 32.32 kg/m2 Status: Body Surface Area Calculated 2.27 m2 Status: 30-Nov-2015 13:12 BP Systolic 149 mm[Hg] Status: Comments: Location: ; Position: BP Diastolic 80 mm[Hg] Status: Comments: Location: ; Position: Heart Rate 87 /min Status: Comments: Location: ; Weight 237 lb Status: Body Mass Index Calculated 32.59 kg/m2 Status: Body Surface Area Calculated 2.28 m2 Status: Results Date Description Value Details 22-Nov-2015 15:30 CT CHEST WITH IV CONTRAST Comments: Exam Date: 11/22/2015 14:33Dictation Date: 11/22/2015 15:30 XC CHEST 30-Nov-2015 15:12 PROTIME PANEL 7000 PROTIME 14.1 secs Range: 12.0-14.9 INR 1.10 04-Dec-2015 12:06 PROTIME PANEL 7000 PROTIME 15.5 secs (Above high threshold) Range: 12.0-14.9 INR 1.24 12-Dec-2015 10:30 PROTIME PANEL 7000 PROTIME 33.3 secs (Above high threshold) Range: 12.0-14.9 INR 3.24 Plan of Care Name Dates Details Planned Observations Planned Goals not documented Planned Encounters Appointment; Provider: Monica Mancera On 08-Dec-2016 14:00 Appointment; Provider: John Aldridge M.D. On 10-Jun-2016 10:15 Appointment; Provider: Jovita Dhaliwal D.O. On 19-Feb-2016 10:00 Interventions Provided Labs/Procedures/Imaging* PROTIME PANEL 7000; To be Done: 12 Dec 2015 Instructions Name Dates Details Instructions not [...] not documented On 22-May-2014 11:30 Appointment; Carl aG D.O. Encounter Diagnosis: Problem not documented On [...]
--- OUTSIDE RECORDS SUMMARY | 2016-07-04 08:59 | XMS REPORT | Summary of Care ---
Author Author Jovita Dhaliwal D.O. Organization Unknown Address [address], [place] [address] Phone Unavailable Care Team Providers Care Order Management Specialist Name Role Phone John Aldridge M.D. Unavailable [...] Diabetic foot ulcer (250.80, E11.621) Status: Active Anticoagulant long-term use (V58.61, Z79.01) Status: Active Atrial fibrillation, currently in sinus rhythm (427.31, I48.91) Status: Active Chronic renal failure (585.9, N18.9) Status: Active Congestive heart failure (428.0, I50.9) Status: Active Diabetes mellitus (250.00, E11.9) Status: Active Hypertension (401.9, I10) Status: Active Peripheral neuropathy (356.9, G62.9) Status: Active Obstructive sleep apnea (327.23, G47.33) Status: Active Acute upper respiratory infection (465.9, J06.9) Status: Active Allergic rhinitis (477.9, J30.9) Status: Active Folliculitis (704.8, L73.9) Status: Active Medications Name Dates Details Warfarin [...] Started 05-Dec-2010 ActiveNeedles BD PEN NEEDLE MINI 09pbqjb9/16 Inject Insulin at hs dx 250.02 * [...] 1 Refills: 0 Sp Dawkins M.D.* Started Pbynhz008 Tablet Sublingual Bottle Carvedilol 12.5 MG Oral Tablet TAKE 1 TABLET TWICE DAILY. * Quantity: 180 Refills: 3 John Aldridge M.D.* Started 28-Feb-2014 ActiveLosartan Potassium 50 MG Oral Tablet TAKE 1 TABLET TWICE DAILY. * Quantity: 180 Refills: 3 John Aldridge M.D.* Started 28-Feb-2014 [employer] Next Monitor w/Device Kit testing three times daily * Quantity: 1 Refills: 3 Sp Dawkins M.D.* Started 22-Mar-2014 ActiveBayer Contour Next Test In Vitro Strip TEST THREE TIMES A DAY * Quantity: 1 Refills: 3 Isra RFabio Khan D.O.* Started 22-Mar-2014 Ecxjit592 Strip Box ZyrTEC Allergy 10 MG Oral Tablet TAKE 1 TABLET DAILY DIRECTED. * Quantity: 30 Refills: 2 Isra R. Bill D.O.* Started 19-Jun-2014 ActiveFluticasone Propionate 50 MCG/ACT Nasal Suspension USE 1 TO 2 SPRAYS IN EACH NOSTRIL ONCE DAILY. * Quantity: 1 Refills: 0 Isra R. Bill D.O.* Started 19-Jun-2014 Ksttsg77 GM Bottle Doxycycline Monohydrate 100 MG Oral [...] Ordered:30-May-2014 CBC w/ Auto Diff 7150 Ordered:30-May-2014 Immunization Name Dates Details Influenza Administered on:10-Dec-2010 Influenza Administered on:02-Feb-2012 Diphtheria-Tetanus Toxoids 6.7-5 LFU/0.5ML Intramuscular Injectable Administered on: Tdap (Boostrix) Administered on: Adacel 5-2-15.5 LF-MCG/0.5 Intramuscular Suspension Lot #: [id number] Administered on:21-Jul-2013 Fluzone High-Dose Intramuscular Suspension Lot #: [id number] Administered on:13-Dec-2013 Prevnar 13 Intramuscular Suspension Lot #: [id number] Administered on:07-Apr-2014 Social History Name Dates Details Smoking Status* Former smoker Vital Signs Date Test Result Details 19-Jun-2014 15:17 Heart Rate 88 /min Status: [...] Body Surface Area Calculated 2.29 m2 Status: 22-May-2014 11:05 BP Systolic 130 mm[Hg] Status: [...] Problem not documented On 27-Dec-2012 15:45 Appointment; Aldridge, T. K. Encounter Diagnosis: Problem not documented On 03-Dec-2012 [...]
--- OUTSIDE RECORDS SUMMARY | 2016-07-04 08:59 | XMS REPORT | Summary of Care ---
Author Author Moody Choe M.D. Unknown Address [address] [place], [place] [id number] Phone Unavailable Care Team Providers Care Cook Ice Cream Name Role Phone Sp Dawkins M.D. Unavailable [...] Active Acute sinusitis (461.9, J01.90) Status: Active Chronic ulcer of plantar surface [...] Active Actinic keratosis (702.0, L57.0) Status: Active Dyspnea (786.09, R06.00) Status: Active Obstructive sleep apnea (327.23, G47.33) [...] Started 18-Dec-2010 ActiveNeedles BD PEN NEEDLE MINI 88vqtjc7/16 Inject Insulin at hs dx 250.02 * Quantity: 200 Refills: 6 Jovita Dhaliwal.Juancarlos.* Started 23-Dec-2010 ActiveViagra 50 MG Oral Tablet TAKE DIRECTED. * Quantity: 6 Refills: 0 Sp Dawkins M.D.* Started 25-Mar-2013 ActivePravastatin Sodium 10 MG Oral Tablet TAKE 1/2 TABLET BY MOUTH DAILY * Quantity: 15 Refills: 11 Jovita Dhaliwal.Juancarlos.* Started 30-Mar-2013 ActiveWarfarin Sodium 6 MG Oral Tablet take 1 tablet by mouth every day * Quantity: 90 Refills: 1 Jovita Dhaliwal D.O.* Started 11-May-2013 ActiveVitamin B-12 1000 MCG Sublingual Tablet Sublingual PLACE 1 MCG Daily * Quantity: 1 Refills: 0 Sp Dawkins M.D.* Started Pzlrkd148 Tablet Sublingual Bottle Lantus SoloStar 100 UNIT/ML Subcutaneous Solution Pen-injector INJECT 25 UNITS DAILY DIRECTED * Quantity: 1 Refills: 5 Jovita Dhaliwal D.O.* Started 16-Dec-2013 Active3 ML Pen (5 Pens) Losartan Potassium 50 MG Oral Tablet TAKE 1 TABLET TWICE DAILY. * Quantity: 180 Refills: 3 Jovita Dhaliwal D.O.* Started 28-Feb-2014 ActiveDatabricks Next Monitor w/Device Kit testing three times daily * Quantity: 1 Refills: 3 Sp Dawkins M.D.* Started 22-Mar-2014 ActiveBayer Contour Next Test In Vitro Strip TEST THREE TIMES A DAY * Quantity: 1 Refills: 3 Jovita Dhaliwal D.O.* Started 22-Mar-2014 Ztiquo645 Strip Box Tamsulosin HCl - 0.4 MG Oral Capsule TAKE 1 CAPSULE Daily * Quantity: 30 Refills: 11 Jovita Dhaliwal.Juancarlos.* Started 05-Feb-2015 ActiveClotrimazole 1 % External Cream APPLY SPARINLGY TO TO THE AFFECTED AREA TWICE DAILY UNTIL RESOLVED * Quantity: 15 Refills: 0 Jovita Dhaliwal D.O.* Started 05-Feb-2015 ActiveFluconazole 150 MG Oral Tablet TAKE 1 TABLET ONCE AND REPEAT IN 1 WEEK. * Quantity: 2 Refills: 0 Jovita Dhaliwal D.O.* Started 05-Feb-2015 ActiveSupplies CPAP repair, services and supplies, G47.33 Mask, headgear, filters, heated tubing, chinstrap * Quantity: 1 Refills: 0 Saavnnah Oropeza.Maia* Started 05-Mar-2015 Active Allergies and Adverse Reactions Name Dates [...] of Arterial Catheterization BASIC METABOLIC PROFILE 1210 Ordered:26-Jan-2015 HEMOGLOBIN A1C 3507 Ordered:26-Jan-2015 PROTIME PANEL 7000 Ordered:02-Mar-2015 Immunization Name Dates Details Influenza Administered on:10-Dec-2010 Influenza Administered on:02-Feb-2012 Diphtheria-Tetanus Toxoids 6.7-5 LFU/0.5ML Intramuscular Injectable Administered on: Tdap (Boostrix) Administered on: Adacel 5-2-15.5 LF-MCG/0.5 Intramuscular Suspension Lot #: [id number] Administered on:21-Jul-2013 Fluzone High-Dose Intramuscular Suspension Lot #: [id number] Administered on:13-Dec-2013 Prevnar 13 Intramuscular Suspension Lot #: [id number] Administered on:07-Apr-2014 Family History Mother* Name Dates Details Family history of Status: Active Father* Name Dates Details Family history of Status: Active Social History Name Dates Details Smoking Status* Former smoker Vital Signs Date Test Result Details 05-Mar-2015 13:44 BP Systolic 138 mm[Hg] Status: BP Diastolic 94 mm[Hg] Status: Heart Rate 84 /min Status: Height 73 in Status: Weight 225 lb Status: O2 SAT 98 % Status: Body Mass Index Calculated 29.69 kg/m2 Status: Body Surface Area Calculated 2.26 m2 Status: 15-Feb-2015 13:34 BP Systolic 140 mm[Hg] Status: [...] m2 Status: Results Date Description Value Details 15-Feb-2015 15:03 PROTIME PANEL 7000 PROTIME 17.9 secs (Above high threshold) Range: 12.0-14.9 INR 1.48 (Better) 01-Mar-2015 15:21 PROTIME PANEL 7000 PROTIME 27.4 secs (Above high threshold) Range: 12.0-14.9 INR 2.53 (Better) 05-Mar-2015 13:17 XRay CHEST-PA & LAT Comments: Exam Date: 03/05/2015 12 :30Dictation Date: 03/05/2015 13:17 X CHEST PA & LAT (Better) Plan of Care Planned Observations* Name Dates Details Planned Goals not documented Goal Planned Encounters* Appointment; Provider: Carl Ga On 10-May-2015 09:15 * Appointment; Provider: Jovita Dhaliwal On 09-May-2015 10:15 * Appointment; Provider: John Aldridge On 02-May-2015 09:45 * Appointment; Provider: Moody Choe On 06-Apr-2015 10:15 * Appointment; Provider: Danyel Rodriguez On 13-Jan-2015 [...]
--- OUTSIDE RECORDS SUMMARY | 2016-07-04 08:59 | XMS REPORT ---
Author Author GENERATED, SYSTEM Organization Unknown Address Unknown Phone Unavailable Care Team Providers Care Timber Estimator Name Role Phone DO WHEAT ROBERT PP Unavailable Reason For Visit Reason for Visit from 01/12/2015 1:41 AM:* Pt Stated Reason for Adm : Chest Pain Chief Complaint CHEST PAIN Social History Social History from 01/14/2015 9:55 AM:* Tobacco Use? : Former Smoker Social History from 01/12/2015 2:40 PM:* Tobacco Use? : Former Smoker Social History from 01/12/2015 1:41 AM:* Tobacco Use? : Former Smoker Functional Status Functional Status from 01/14/2015 8:20 AM:* LOC : Alert * Oriented To : Person,Place,Time,Event * Weight Bearing Status : Full * Assist Level : Independent * # Assists : Independent Functional Status from 01/13/2015 7:55 PM:* LOC : Alert * Oriented To : Person,Place,Time,Event * Weight Bearing Status : Full * Assist Level : Independent * # Assists : Independent Functional Status from 01/13/2015 9:00 AM:* LOC : Alert * Oriented To : Person,Place,Time,Event * Weight Bearing Status : Full * Assist Level : Partial * # Assists : 1 Functional Status from 01/12/2015 9:20 PM:* LOC : Alert * Oriented To : Person,Place,Time * Weight Bearing Status : Full * Assist Level : Partial * # Assists : 1 Functional Status from 01/12/2015 8:32 AM:* LOC : Alert * Oriented To : Person,Place,Time,Event * Weight Bearing Status : Full * Assist Level : Partial * # Assists : 1 Functional Status from 01/12/2015 1:41 AM:* LOC : Alert * Oriented To : Person,Place,Time * Weight Bearing Status : Full * Assist Level : Partial * # Assists : 1 Vital Signs Hospital Vital Signs from 01/14/2015 6:44 AM:* Height : 6/1 ft,in * Temperature : 97.3 F * Pulse : 72 * Respirations : 20 * BP : 140/71 Hospital Vital Signs from 01/14/2015 4:03 AM:* Height : 6/1 ft,in * Pulse : 74 * Respirations : 18 * BP : 120/59 Hospital Vital Signs from 01/13/2015 11:08 PM:* Height : 6/1 ft,in * Temperature : 97.1 F * Pulse : 72 * Respirations : 20 * BP : 125/60 Hospital Vital Signs from 01/13/2015 7:55 PM:* Heart Rate : 71 Hospital Vital Signs from 01/13/2015 7:29 PM:* Height : 6/1 ft,in * Temperature : 97.2 F * Pulse : 71 * Respirations : 20 * BP : 121/64 Hospital Vital Signs from 01/13/2015 6:35 PM:* Height : 6/1 ft,in * Temperature : 98.8 F * Pulse : 72 * Respirations : 20 * BP : 118/62 Hospital Vital Signs from 01/13/2015 5:35 PM:* Height : 6/1 ft,in * Temperature : 97.7 F * Pulse : 80 * Respirations : 20 * BP : 115/68 Hospital Vital Signs from 01/13/2015 4:35 PM:* Height : 6/1 ft,in * Pulse : 80 * BP : 107/59 Hospital Vital Signs from 01/13/2015 4:05 PM:* Height : 6/1 ft,in * Temperature : 98.7 F * Pulse : 83 * Respirations : 20 * BP : 115/64 Hospital Vital Signs from 01/13/2015 3:35 PM:* Height : 6/1 ft,in * Pulse : 92 * BP : 114/69 Hospital Vital Signs from 01/13/2015 3:20 PM:* Height : 6/1 ft,in * Pulse : 84 * BP : 107/63 Hospital Vital Signs from 01/13/2015 3:05 PM:* Height : 6/1 ft,in * Pulse : 88 * BP : 105/60 Hospital Vital Signs from 01/13/2015 2:50 PM:* Height : 6/1 ft,in * Pulse : 87 * BP : 109/66 Hospital Vital Signs from 01/13/2015 2:35 PM:* Height : 6/1 ft,in * Temperature : 98.4 F * Pulse : 83 * Respirations : 20 * BP : 112/68 Hospital Vital Signs from 01/13/2015 10:50 AM:* Height : 6/1 ft,in * Temperature : 97.1 F * Pulse : 54 * Respirations : 20 * BP : 122/64 Hospital Vital Signs from 01/13/2015 9:00 AM:* Heart Rate : 64 Hospital Vital Signs from 01/13/2015 7:05 AM:* Height : 6/1 ft,in * Temperature : 98.2 F * Pulse : 66 * Respirations : 20 * BP : 120/67 Hospital Vital Signs from 01/13/2015 4:12 AM:* Weight : 99.1/ kg * Height : 6/1 ft,in Hospital Vital Signs from 01/12/2015 10:50 PM:* Height : 6/1 ft,in * Temperature : 99.3 F * Pulse : 76 * Respirations : 20 * BP : 117/65 Hospital Vital Signs from 01/12/2015 7:18 PM:* Height : 6/1 ft,in * Temperature : 97.1 F * Pulse : 81 * Respirations : 20 * BP : 143/71 Hospital Vital Signs from 01/12/2015 3:52 PM:* Height : 6/1 ft,in * Temperature : 96.0 F * Pulse : 78 * Respirations : 18 * BP : 131/75 Hospital Vital Signs from 01/12/2015 11:07 AM:* Height : 6/1 ft,in * Temperature : 97.9 F * Pulse : 76 * Respirations : 18 * BP : 132/79 Hospital Vital Signs from 01/12/2015 8:57 AM:* Height : 6/1 ft,in Hospital Vital Signs from 01/12/2015 7:26 AM:* Height : 6/1 ft,in * Temperature : 99.7 F * Pulse : 72 * Respirations : 20 * BP : 148/73 Hospital Vital Signs from 01/12/2015 2:54 AM:* Height : 6/1 ft,in * Temperature : 99.6 F * Pulse : 79 * Respirations : 20 * BP : 129/61 Hospital Vital Signs from 01/12/2015 1:41 AM:* Weight : 101.6/ kg * Height : 6/1 ft,in Hospital Vital Signs from 01/12/2015 1:06 AM:* Weight : 101.6/ kg * Height : 6/1 ft,in * Temperature : 99.0 F * Pulse : 78 * Respirations : 20 * BP : 177/81 Results Chemistry from 01/14/2015 5:35 AMSODIUM 136 MMOL/L (136-145 MMOL/L) POTASSIUM 3.8 MMOL/L (3.5-5.1 MMOL/L) CHLORIDE 104 MMOL/L (98-107 MMOL/L) TCO2 26.2 MMOL/L (21.0-32.0 MMOL/L) *ANION GAP 5.8 MMOL/L L (8.0-16.0 MMOL/L) BUN 20 MG/DL H (7-18 MG/DL) CREATININE 1.12 MG/DL (0.70-1.30 MG/DL) *BUN/CREATININE RATIO 17.9 H (9.1-17.0 ) GLUCOSE 129 MG/DL H (65-99 MG/DL) *GFR EST NON AFR CYMRAES 68 ML/MIN *GFRA EST AFR AMER 79 ML/MIN CALCIUM 8.7 MG/DL (8.5-10.1 MG/DL) Chemistry from 01/13/2015 5:05 AMSODIUM 134 MMOL/L L (136-145 MMOL/L) POTASSIUM 4.2 MMOL/L (3.5-5.1 MMOL/L) CHLORIDE 101 MMOL/L (98-107 MMOL/L) TCO2 27.3 MMOL/L (21.0-32.0 MMOL/L) *ANION GAP 5.7 MMOL/L L (8.0-16.0 MMOL/L) BUN 24 MG/DL H (7-18 MG/DL) CREATININE 1.43 MG/DL H (0.70-1.30 MG/DL) *BUN/CREATININE RATIO 16.8 (9.1-17.0 ) GLUCOSE 154 MG/DL H (65-99 MG/DL) *GFR EST NON AFR CYMRAES 50 ML/MIN *GFRA EST AFR AMER 58 ML/MIN CALCIUM 9.0 MG/DL (8.5-10.1 MG/DL) Hematology from 01/14/2015 5:35 AMWBC 6.0 X10e3/UL (3.6-11.2 X10e3/UL) RBC 4.44 X10e6/UL (4.06-5.63 X10e6/UL) HEMOGLOBIN 12.8 G/DL (12.5-16.3 G/DL) HEMATOCRIT 38.1 % (36.7-47.1 %) *MCV 85.9 FL (80.0-100.0 FL) *MCH 28.8 PG (27.0-33.0 PG) *MCHC 33.5 G/DL (32.0-36.0 G/DL) *RDW 13.9 % (12.3-17.0 %) *RDWSD 41.6 (37.1-47.8 ) PLATELET 131 X10e3/UL L (159-386 X10e3/UL) *MPV 8.7 FL (7.4-10.4 FL) AUTOMATED DIFF PERFORMED SEGS 73.5 % *LYMPHOCYTES 15.0 % *MONOCYTES 8.8 % *EOSINOPHILS 2.2 % *BASOPHILS 0.5 % *ABSOLUTE NEUTROPHILS 4.40 X10e3/UL (1.80-7.80 X10e3/UL) *ABSOLUTE LYMPHOCYTES 0.90 X10e3/UL L (1.00-3.00 X10e3/UL) *ABSOLUTE MONOCYTES 0.50 X10e3/UL (0.30-1.00 X10e3/UL) *ABSOLUTE EOSINOPHILS 0.10 X10e3/UL (0.00-0.50 X10e3/UL) *ABSOLUTE BASOPHILS 0.00 X10e3/UL (0.00-0.20 X10e3/UL) Hematology from 01/13/2015 5:05 AMWBC 9.0 X10e3/UL (3.6-11.2 X10e3/UL) RBC 4.69 X10e6/UL (4.06-5.63 X10e6/UL) HEMOGLOBIN 13.4 G/DL (12.5-16.3 G/DL) HEMATOCRIT 40.6 % (36.7-47.1 %) *MCV 86.6 FL (80.0-100.0 FL) *MCH 28.7 PG (27.0-33.0 PG) *MCHC 33.1 G/DL (32.0-36.0 G/DL) *RDW 13.9 % (12.3-17.0 %) *RDWSD 42.0 (37.1-47.8 ) PLATELET 132 X10e3/UL L (159-386 X10e3/UL) *MPV 8.8 FL (7.4-10.4 FL) AUTOMATED DIFF PERFORMED SEGS 79.4 % *LYMPHOCYTES 9.9 % *MONOCYTES 9.6 % *EOSINOPHILS 0.7 % *BASOPHILS 0.4 % *ABSOLUTE NEUTROPHILS 7.20 X10e3/UL (1.80-7.80 X10e3/UL) *ABSOLUTE LYMPHOCYTES 0.90 X10e3/UL L (1.00-3.00 X10e3/UL) *ABSOLUTE MONOCYTES 0.90 X10e3/UL (0.30-1.00 X10e3/UL) *ABSOLUTE EOSINOPHILS 0.10 X10e3/UL (0.00-0.50 X10e3/UL) *ABSOLUTE BASOPHILS 0.00 X10e3/UL (0.00-0.20 X10e3/UL) Coagulation from 01/14/2015 5:35 AM*PROTHROMBIN TIME 12.2 SECONDS H (9.4-11.5 SECONDS) *INR 1.1 (0.9-1.1 ) Coagulation from 01/13/2015 5:05 AM*PROTHROMBIN TIME 18.7 SECONDS H (9.4-11.5 SECONDS) *INR 1.7 H (0.9-1.1 ) Problems Encounter Diagnosis * Altered Mental Status Status:Active. * Atrial Fibrillation Status:Active. * Chest Pain Status:Active. * Coronary Arteriosclerosis Status:Active. * Diabetes Mellitus, Type 2 Status:Active. * Fall Risk Status:Active. * Hypertensive Disorder Status:Active. * Mobility Impairment Status:Active. Encounters Encounter Diagnosis * Altered Mental Status Status:Active. * Atrial Fibrillation Status:Active. * Chest Pain Status:Active. * Coronary Arteriosclerosis Status:Active. * Diabetes Mellitus, Type 2 Status:Active. * Fall Risk Status:Active. * Hypertensive Disorder Status:Active. * Mobility Impairment Status:Active. Plan of Care Follow-up Appointments from 01/14/2015 9:55 AM:* #1 Office appointment: : Cardiology will call to make follow up appt * Address # 1 : [facility]: [address] [place]- or * #2 Office appointment: : Dr. hWeat in one week * Address # 2 : [facility]: [address] [place]- [phone] or Treatment Plan from 01/12/2015 3:19 PM:* Care Management Note : Patient is in need of a heart cath, but is on Coumadin. The Coumadin was stopped today, and INRs will be monitored. Once INR is at an appropriate level the heart cath will be completed - anticipate Thursday/Thursday. D/t monitoring and risk for discharge prior to heart cath patient will stay until completed. Patient is appropriate for inpatient and changed at this time per PCP. Treatment Plan from 01/12/2015 8:42 AM:* Care Management Note : Patient was admitted as observation d/t chest pain. POC is to consult cardio, place on tele , and monitor labs/VS/symptoms. Chest xray was negative, and troponin's 0.12, 0.09. Will continue to follow. Procedures * Completed , on 03/29/2013 12:00 [...] to care for yourself at home from 01/14/2015 9:55 AM:* Discharge Activity : Activity as tolerated,May Shower,Do not engage in sports, heavy work or heavy lifting until your physician gives permission,No Tub Bath * Discharge Diet : As before hospitalization * Call your doctor if: : Fever over 101 F or severe chills,Chest pain or other unexplained symptoms,Tingling or numbness develops,A sudden increase or decrease in weight,You have persistent or worsening symptoms,If you have Heart Failure and you gain 3 pounds within 1 week or your symptoms worsen. (Weigh at home tomorrow morning) * Specific Discharge Teaching Instructions provided: : Yes * Specific Discharge Teaching Instructions Reviewed: : Cardiology Post Catherization Instructions,Coumadin Teaching * Discharge on Warfarin : Yes * Appointment for INR : will call Dr. Wheat on 01/15 to make appt Allergies, Adverse Reactions, Alerts * No Latex Allergy. * No IV Contrast Allergy. * No Known Drug Allergies. Medication It is the responsibility of the patient or patient senior human resources representative to confirm the list of medications with either the patient's personal care provider or the patient's follow-up care provider to ensure the patient has an appropriate list of medications to take at home. Discharge medications New medications* amiodarone 200 mg poBID for 5 days then daily Continued medications* insulin glargine (LanTUS) 100 unit/mL Solution, Ordered By: MONSE FIELDS MD Directions: 44 unit subcutaneous daily at bedtime * losartan 50 mg Tablet, Ordered By: MONSE FIELDS MD Directions: 1 tablet oral daily * warfarin 6 mg Tablet, Ordered By: MONSE FIELDS MD Directions: 1 tablet oral daily Changed medications* carvedilol 3.125 mg Tablet, Ordered By: MONSE FIELDS MD Directions: 1 tablet oral twice a day Stopped medications* None
--- OUTSIDE RECORDS SUMMARY | 2016-07-04 08:59 | XMS REPORT | Summary of Care ---
Author Author Jovita Dhaliwal D.O. Organization Unknown Address [address], [place] [id number] Phone Unavailable Care Team Providers Care Cloud Architect Name Role Phone Sp Dawkins M.D. Unavailable [...] Right shoulder strain (840.9, S46.911A) Status: Active Anticoagulant long-term use (V58.61, Z79.01) Status: Active Insomnia (780.52, G47.00) Status: Active Tooth infection (522.4, K04.7) Status: Active Presence of cardiac resynchronization therapy defibrillator (V45.02, Z95.810) Status: Active On warfarin therapy (V58.61, Z79.01) Status: Active Normal coronary arteries (V71.7, Z03.89) Status: Active Benign prostatic hyperplasia without lower urinary tract symptoms, prostatic enlargement of unspecified morphology Status: Active Actinic keratosis (702.0, L57.0) Status: Active External hemorrhoid (455.3, K64.4) Status: Active Slow transit constipation (564.01, K59.01) Status: Active Hypertension (401.9, I10) Status: Active [...] layer exposed ( 707.14, L97.422) Status: Active Medications Name Dates Details Furosemide [...] Started 18-Dec-2010 ActiveNeedles BD PEN NEEDLE MINI 01ofdsu6/16 Inject Insulin at hs dx 250.02 * Quantity: 200 Refills: 6 Jovita Dhaliwal D.O.* Started 23-Dec-2010 ActiveAmpicillin 500 MG Oral Capsule TAKE 1 [...] 1 Refills: 0 Sp Dawkins M.D.* Started Ituibv187 Tablet Sublingual Bottle Losartan Potassium 50 MG Oral Tablet TAKE 1 TABLET TWICE DAILY. * Quantity: 180 Refills: 3 Jovita Dhaliwal D.O.* Started 28-Feb-2014 [employer] [place] Next Monitor w/Device Kit testing three times daily * Quantity: 1 Refills: 3 Sp Dawkins M.D.* Started 22-Mar-2014 [employer] [place] Next Test In Vitro Strip TEST THREE TIMES A DAY * Quantity: 1 Refills: 3 Jovita Dhaliwal D.O.* Started 22-Mar-2014 Tlzyui989 Strip Box Tamsulosin HCl - 0.4 MG Oral Capsule TAKE 1 CAPSULE Daily * Quantity: 30 Refills: 11 Jovita Dhaliwal D.O.* Started 05-Feb-2015 ActiveClotrimazole 1 % External Cream APPLY SPARINLGY TO TO THE AFFECTED AREA TWICE DAILY UNTIL RESOLVED * Quantity: 15 Refills: 0 Jovita Dhaliwal.Juancarlos.* Started 05-Feb-2015 ActiveSupplies CPAP repair, services and supplies, G47.33 Mask, headgear, filters, heated tubing, chinstrap * Quantity: 1 Refills: 0 Savannah Oropeza P.A.* Started 05-Mar-2015 ActiveColace 100 MG Oral Capsule TAKE 1 CAPSULE TWICE DAILY NEEDED. * Quantity: 60 Refills: 2 Jovita Dhaliwal.Juancarlos.* Started 13-Mar-2015 ActiveProctofoam 1 % Rectal Foam USE 1 APPLICATORFUL RECTALLY 1-2 TIMES DAILY. * Quantity: 1 Refills: 0 Jovita Dhaliwal D.O.* Started 13-Mar-2015 Yotyti10 GM Can Allergies and Adverse Reactions Name Dates Details [...] Adacel 5-2-15.5 LF-MCG/0.5 Intramuscular Suspension Lot #: [id number] Administered on:21-Jul-2013 Fluzone High-Dose Intramuscular Suspension Lot #: [id number] Administered on:13-Dec-2013 Prevnar 13 Intramuscular Suspension Lot #: [id number] Administered on:07-Apr-2014 Pneumovax 23 25 MCG/0.5ML Injection Injectable Administered on:09-May-2015 Pneumo (Pneumovax) Lot #: [id number] Administered on:09-May-2015 Family History Mother* Name Dates Details Family history of Status: Active Father* Name Dates Details Family history of Status: Active Social History Name Dates Details Smoking Status* Former smoker Vital Signs Date Test Result Details 09-May-2015 08:30 BP Systolic 140 mm[Hg] Status: BP Diastolic 82 mm[Hg] Status: Heart Rate 90 /min Status: Weight 230.375 lb Status: Body Mass Index Calculated 30.39 kg/m2 Status: Body Surface Area Calculated 2.29 m2 Status: Results Date Description Value Details 04-May-2015 11:18 Diabetic Eye Exam Diabetic Eye Exam No Diabetic Retinopathy (Better) Diabetic Eye Exam on Chart Yes (Better) 08-May-2015 11:01 BASIC METABOLIC PROFILE 1210 Comments: [...] ml/min (Better) Range: >60 EST GFR, NON-AFR SRI LANKAN 54 ml/min (Below low threshold) Range: >60 Comments: EST GFR is reported in ml/min per 1.73 m2 of body surface area. For -Brune[place], please multiple result by 1.2.----- BUN:CREATININE RATIO [...] not documented Goal Planned Encounters* Appointment; Provider: Jovita Dhaliwal On 08:45 * Appointment; Provider: Moody Choe On 07-Jun-2015 15:15 * Appointment; Provider: John Aldridge On 10-May-2015 15:00 * Appointment; Provider: Carl Ga On 10-May-2015 09:15 * Appointment; Provider: Danyel Rodriguez On 13-Jan-2015 [...]
--- OUTSIDE RECORDS SUMMARY | 2016-07-04 09:00 | XMS REPORT | Referral Summary ---
Author Author [facility] Organization [facility] Address Unknown Phone Unavailable Encounter VC Date(s): 08/29/14 - 08/29/14 [facility] [address] [place] [address] ELLEN Barajas [id number] Discharge Disposition: 01-Home or Self Care Attending [...]
--- OUTSIDE RECORDS SUMMARY | 2016-07-04 09:00 | XMS REPORT | Referral Summary ---
Author Author [facility] Organization [facility] Address Unknown Phone Unavailable Encounter VC Date(s): 01/02/15 - 01/02/15 [facility] [address] [place] [address] [place] [address] Discharge Disposition: 01-Home or Self Care [...] Procedure Date Related Diagnosis Body Site Debridement, subcutaneous tissue (includes 01/02/15 epidermis and dermis, if performed); first 20 sq cm or less.. Replacement/pacemaker/dual chamber 03/2013 Procedure/heart catherization 2012 Placement/pacemaker 2007 Procedure/IV ABX and hyperbaric oxygen Social History No data available for this section Assessment and Plan No data available for this section
--- OUTSIDE RECORDS SUMMARY | 2016-07-04 09:00 | XMS REPORT | Summary of Care ---
Author Author Jovita Dhaliwal D.O. Organization Unknown Address [address] [place], [place] [id number] Phone Unavailable Care Team Providers Care Fmd Teacher Name Role Phone Sp Dawkins M.D. [...] shoulder strain (840.9, S46.911A) Status: Active Chronic ulcer of plantar surface [...] prostatic enlargement of unspecified morphology Status: Active Candidal balanitis (112.2, B37.42) Status: Active Actinic keratosis (702.0, L57.0) Status: Active Dyspnea (786.09, R06.00) Status: Active External hemorrhoid (455.3, K64.4) Status: [...] Started 18-Dec-2010 ActiveNeedles BD PEN NEEDLE MINI 23rtasq4/16 Inject Insulin at hs dx 250.02 * [...] 1 Refills: 0 Sp Dawkins M.D.* Started Dgzwqx253 Tablet Sublingual Bottle Lantus SoloStar 100 UNIT/ML Subcutaneous Solution Pen-injector INJECT 25 UNITS DAILY DIRECTED * Quantity: 1 Refills: 5 Jovita Dhaliwal D.O.* Started 16-Dec-2013 Active3 ML Pen (5 Pens) Losartan Potassium 50 MG Oral Tablet TAKE 1 TABLET TWICE DAILY. * Quantity: 180 Refills: 3 Jovita Dhaliwal D.O.* Started 28-Feb-2014 [employer] Contour Next Monitor w/Device Kit testing three times daily * Quantity: 1 Refills: 3 Sp Dawkins M.D.* Started 22-Mar-2014 [employer] Contour Next Test In Vitro Strip TEST THREE TIMES A DAY * Quantity: 1 Refills: 3 Jovita Dhaliwal.O.* Started 22-Mar-2014 Iprysv357 Strip Box Tamsulosin HCl - 0.4 MG Oral Capsule TAKE 1 CAPSULE Daily * Quantity: 30 Refills: 11 Jovita Dhaliwal D.O.* Started 05-Feb-2015 ActiveClotrimazole 1 % External Cream APPLY SPARINLGY TO TO THE AFFECTED AREA TWICE DAILY UNTIL RESOLVED * Quantity: 15 Refills: 0 Jovita Dhaliwal.O.* Started 05-Feb-2015 ActiveFluconazole 150 MG Oral Tablet TAKE 1 TABLET ONCE AND REPEAT IN 1 WEEK. * Quantity: 2 Refills: 0 Jovita Dhaliwal.O.* Started 05-Feb-2015 ActiveSupplies CPAP repair, services and [...] Refills: 0 Jovita Dhaliwal D.O.* Started 13-Mar-2015 Hxvbra72 GM Can Allergies and Adverse Reactions Name [...] Adacel 5-2-15.5 LF-MCG/0.5 Intramuscular Suspension Lot #: [id number] Administered on:21-Jul-2013 Fluzone High-Dose Intramuscular Suspension Lot #: [id number] Administered on:13-Dec-2013 Prevnar 13 Intramuscular Suspension Lot #: [id number] Administered on:07-Apr-2014 Family History Mother* Name Dates Details Family history of Status: Active Father* Name Dates Details Family history of Status: Active Social History Name Dates Details Smoking Status* Former smoker Vital Signs Date Test Result Details No Known Vitals to report Results Date Description Value Details 04-May-2015 11:18 Diabetic Eye Exam Diabetic Eye Exam No Diabetic Retinopathy (Better) Diabetic Eye Exam on Chart Yes (Better) Plan of Care Planned Observations* Name Dates Details Planned Goals not documented Goal Planned Encounters* Appointment; Provider: Moody Choe On 07-Jun-2015 15:15 * Appointment; Provider: Carl Ga On 10-May-2015 09:15 * Appointment; Provider: John Aldridge On 09-May-2015 10:45 * Appointment; Provider: Jovita Dhaliwal On 09-May-2015 09:15 * Appointment; Provider: Danyel Rodriguez On [...] On 19-Apr-2007 09:15 * Appointment; Provider: Moody Cheo On 18-Apr-2007 09:45 * Appointment; Provider: Moody [...]
--- OUTSIDE RECORDS SUMMARY | 2016-07-04 09:00 | XMS REPORT | Summary of Care ---
Author Author Jovita Dhaliwal D.O. Organization Unknown Address [address], [place] [id number] Phone Unavailable Care Team Providers Care Night Warehouse Selector Name Role Phone Ranjana MARTINEZNTari Unavailable Unavailable Jonh Aldridge M.D. Unavailable Unavailable Sp Dawkins M.D. [...] Status: Active Hypertension (401.9, I10) Status: Active Folliculitis (704.8, L73.9) Status: Active [...] narrow angle glaucoma (365.02, H40.039) Status: Active Pre-operative exam (V72.84, Z01.818) Status: [...] Started 05-Dec-2010 ActiveNeedles BD PEN NEEDLE MINI 00vipij4/16 Inject Insulin at hs dx 250.02 * [...] 1 Refills: 0 Sp Dawkins M.D.* Started Wvkvuk702 Tablet Sublingual Bottle Carvedilol 12.5 MG Oral [...] Refills: 3 Jovita Dhaliwal D.O.* Started 22-Mar-2014 Ldhbdc510 Strip Box ZyrTEC Allergy 10 MG Oral Tablet TAKE 1 TABLET DAILY DIRECTED. * Quantity: 30 Refills: 2 Jovita Dhaliwal D.O.* Started 19-Jun-2014 ActiveFluticasone Propionate 50 MCG/ACT Nasal Suspension USE 1 TO 2 SPRAYS IN EACH NOSTRIL ONCE DAILY. * Quantity: 1 Refills: 0 Jovita Dhaliwal D.O.* Started 19-Jun-2014 Ihajsu57 GM Bottle Doxycycline Monohydrate 100 MG Oral [...] Ordered:28-Jun-2014 CBC w/ Auto Diff 7150 Ordered:28-Jun-2014 XRay CHEST-PA & LAT Ordered: Immunization Name Dates Details Influenza Administered on:10-Dec-2010 Influenza Administered on:02-Feb-2012 Diphtheria-Tetanus Toxoids 6.7-5 LFU/0.5ML Intramuscular Injectable Administered on: Tdap (Boostrix) Administered on: Adacel 5-2-15.5 LF-MCG/0.5 Intramuscular Suspension Lot #: [id number] Administered on:21-Jul-2013 Fluzone High-Dose Intramuscular Suspension Lot #: [id number] Administered on:13-Dec-2013 Prevnar 13 Intramuscular Suspension Lot #: [id number] Administered on:07-Apr-2014 Social History Name Dates Details Smoking Status* Former smoker Vital Signs Date Test Result Details No Known Vitals to report Results Date Description Value Details 14:55 CBC [...] ImageLink button to view/confirm the study. (Better) Plan of Care Planned Observations* Name Dates Details Planned Goals not documented Goal Planned Encounters* Appointment; Provider: Carl Ga On 10-May-2015 09:15 * Appointment; Provider: Jovita Dhaliwal On 10:30 * Appointment; Provider: John Aldridge On 10:15 * Appointment; Provider: Carl Ga On 09:15 * Appointment; Provider: Jovita Dhaliwal On 13:30 * Appointment; Provider: Carl Ga On 12:00 * Appointment; Provider: Jovita Dhaliwal On 09:45 * Appointment; Provider: Debora Figueroa On 03-Jun-2013 11:30 * Appointment; Provider: Christos Turpin On 29-Mar-2013 10:30 * Appointment; Provider: John Aldridge On 29-Mar-2013 08:30 * Appointment; Provider: Sp Dawkins On 14-Feb-2013 14:45 * Appointment; Provider: Christos Turpin On 11-Jan-2013 08:30 * Appointment; Provider: Francisca oCnrad On 08:30 * Appointment; Provider: Francisca Conrad [...]
--- OUTSIDE RECORDS SUMMARY | 2016-07-04 09:00 | XMS REPORT ---
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
--- OUTSIDE RECORDS SUMMARY | 2016-07-04 09:00 | XMS REPORT | Referral Summary ---
Author Author [facility] Organization [facility] Address Unknown Phone Unavailable Encounter VC Date(s): 08/21/14 - 08/21/14 [facility] [address] [place] [address] ELLEN Barajas [id number] Discharge Disposition: 01-Home or Self [...]
--- OUTSIDE RECORDS SUMMARY | 2016-07-04 09:00 | XMS REPORT | Summary of Care ---
Author Author Jovita Dhaliwal D.O. Organization Unknown Address [address], [place] [id number] Phone Unavailable Care Team Providers Care Diesel Locomotive Firer Name Role Phone Sp Dawkins M.D. Unavailable [...] G47.33) Status: Active Cardiac resynchronization therapy defibrillator (BISTRO SERVER-D) in place (V45.02, Z95.810) Status: Active Hypertension [...] Isra Salinas.Jovita Frazier * Start 18-Dec-2010 Active [place] BD PEN NEEDLE MINI 53iqcnw9/16 Inject Insulin at hs dx 250.02 * Quantity: 200 Refills: 6 Isra Salinas.Jovita Frazier * Start 23-Dec-2010 Active Warfarin Sodium 1 MG Oral Tablet TAKE 1 TABLET BY MOUTH DAILY * Quantity: 60 Refills: 2 Isra Salinas.Jovita Frazier * Start 20-May-2011 Active Pravastatin Sodium 10 MG Oral Tablet TAKE 1/2 TABLET BY MOUTH DAILY * Quantity: 15 Refills: 11 Isra D.Juancarlos.Jovita * Start 30-Mar-2013 Active Warfarin Sodium 6 [...] Refills: 0 Isra D.Jovita Frazier * Start 18-Oct-2015 Active Losartan Potassium 50 MG Oral Tablet TAKE 1 TABLET TWICE DAILY. * Quantity: 180 Refills: 3 Isra D.Jovita Frazier * Start 28-Feb-2014 Active [employer] Next Monitor w/Device Kit testing three times daily * Quantity: 1 Refills: 3 Sp Dawkins M.D. * Start 22-Mar-2014 Active Jeronimo Contour Next Test In Vitro Strip TEST THREE TIMES DAILY * Quantity: 100 Refills: 0 Isra D.OJovita Mccarthy * Start 22-Mar-2014 Active Tamsulosin HCl - [...] cm H2O, Permanent use, G47.33, Heated humidity, FxhzacqnR33, mask , headgear, filters, heated tubing, water [...] 0 Isra D.OJovita Mccarthy * Start Active Allergies and Adverse Reactions [...] Ordered: 22-Oct-2015 HEMOGLOBIN A1C 3507 Ordered: 22-Oct-2015 Immunization Name Dates Details Influenza on: 10-Dec-2010 Influenza on: 02-Feb-2012 Diphtheria-Tetanus Toxoids 6.7-5 LFU/0.5ML INJ on: Tdap (Boostrix) on: Adacel 5-2-15.5 LF-MCG/0.5 Intramuscular Suspension Lot #: [id number] on: 21-Jul-2013 Fluzone High-Dose SUSP Lot #: [id number] on: 13-Dec-2013 Prevnar 13 Intramuscular Suspension Lot #: [id number] on: 07-Apr-2014 Pneumovax 23 25 MCG/0.5ML Injection Injectable on: 09-May-2015 Pneumo (Pneumovax) Lot #: [id number] on: 09-May-2015 Family History Name Dates Details Family history of Status: Active Name Dates Details Family history of Status: Active Social History Name Dates Details - Status: Name Dates Details Former smoker Vital Signs Date Test Result Details 14-Nov-2015 10:31 BP Systolic 140 mm[Hg] Status: Comments: Location: ; Position: BP Diastolic 80 mm[Hg] Status: Comments: Location: ; Position: 14-Nov-2015 10:29 BP Systolic 174 mm[Hg] Status: Comments: Location: ; Position: BP Diastolic 96 mm[Hg] Status: Comments: Location: ; Position: Heart Rate 82 /min Status: Comments: Location: ; Weight 240 lb Status: Body Mass Index Calculated 33.01 kg/m2 Status: Body Surface Area Calculated 2.29 m2 Status: 22-Oct-2015 10:28 BP Systolic 120 mm[Hg] Status: Comments: Location: ; Position: BP Diastolic 74 mm[Hg] Status: Comments: Location: ; Position: Heart Rate 74 /min Status: Height 71.5 [...] Provider: Moody Choe M.D. On 05-Dec-2015 14:15 Appointment; Provider: Jovita Dhaliwal D.O. On 16-Nov-2015 09:15 Instructions Name Dates Details Instructions not documented Encounters Appointment; Moody Choe M.D. Encounter Diagnosis: Problem [...] Diagnosis: Problem not documented On 10:15 Appointment; aCrl Ga D.O. Encounter Diagnosis: Problem not documented [...]
--- OUTSIDE RECORDS SUMMARY | 2016-07-04 09:00 | XMS REPORT | Summary of Care ---
Author Author John Aldridge M.D. Organization Unknown Address Unknown Phone Unavailable Care Team Providers Care Cabinet And Trim Installer Name Role Phone John Aldridge M.D. Unavailable Unavailable Sp Dawkins M.D. Unavailable Unavailable Edilson Brennan M.D. Unavailable Unavailable Savannah Zimmerman Unavailable Unavailable Jovita Dhaliwal D.O. 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 * Start 30-Oct-2010 Active Lantus SoloStar 100 UNIT/ML Subcutaneous Solution Pen-injector INJECT 44 UNITS DAILY DIRECTED * Quantity: 11 Refills: 11 Jovita Dhaliwal D.O. * Start 05-Dec-2010 Active 3 ML Pen (5 Pens) Carvedilol 6.25 MG Oral Tablet TAKE 1 TABLET BY MOUTH TWICE DAILY * Quantity: 180 Refills: 1 Jovita Dhaliwal D.O. * Start 18-Dec-2010 Active [place] BD PEN NEEDLE MINI 55vvwtl4/16 Inject Insulin at hs dx 250.02 * Quantity: 200 Refills: 6 Jovita Dhaliwal D.O. * Start 23-Dec-2010 Active Warfarin Sodium 1 MG Oral Tablet TAKE 1 TABLET BY MOUTH DAILY * Quantity: 60 Refills: 2 Jovita Dhaliwal D.O. * Start 20-May-2011 Active Pravastatin Sodium 10 MG Oral Tablet TAKE 1/2 TABLET BY MOUTH DAILY * Quantity: 15 Refills: 11 Jovita Dhaliwal D.O. * Start 30-Mar-2013 Active Warfarin Sodium 6 [...] * Quantity: 180 Refills: 3 Jovita Dhaliwal D.O. * Start 28-Feb-2014 Active Fondu Contour Next Monitor w/Device Kit testing three [...] cm H2O, Permanent use, G47.33, Heated humidity, ChosjjnkZ64, mask , headgear, filters, heated tubing, water chamber, chinstrap * Quantity: 1 Refills: 0 Sandip Montaño.ASavannah Mccarthy * Start 07-Jun-2015 Active Fluticasone Propionate 50 [...] Adacel 5-2-15.5 LF-MCG/0.5 Intramuscular Suspension Lot #: [id number] on: 21-Jul-2013 Fluzone High-Dose SUSP Lot #: [id number] on: 13-Dec-2013 Prevnar 13 Intramuscular Suspension Lot #: [id number] on: 07-Apr-2014 Pneumovax 23 25 MCG/0.5ML Injection Injectable on: 09-May-2015 Pneumo (Pneumovax) Lot #: [id number] on: 09-May-2015 Family History Name Dates Details Family history of Status: Active Name Dates Details Family history of Status: Active Social History Name Dates Details - Status: Name Dates Details Former smoker Vital Signs Date Test Result Details 11:24 BP Systolic 120 mm[Hg] Status: Comments: [...] BP Systolic 130 mm[Hg] Status: Comments: Location: LUE; Position: Sitting BP Diastolic 82 mm[Hg] Status: Comments: Location: E; Position: Sitting Heart Rate 85 /min Status: Comments: Location: ; Weight 220.5 lb Status: Body Mass Index Calculated 29.09 kg/m2 Status: Body Surface Area Calculated 2.24 m2 Status: Results Date Description Value Details 11:08 PROTIME PANEL 7000 PROTIME 14.7 secs Range: 12.0-14.9 INR 1.16 12:27 BASIC METABOLIC PROFILE 1210 Comments: 09/05/15 [...] >60 ml/min Range: >60 EST GFR, NON-AFR QATARI >60 ml/min Range: >60 Comments: EST GFR is reported in ml/min per 1.73 m2 of body surface area. For -Turkmen, please multiple result by 1.2.----- BUN:CREATININE RATIO 17 GLUCOSE 152 mg/dL (Above high threshold) Range: 70-100 CALCIUM 9.1 mg/dL Range: 8.5-10.1 12:30 PROTIME PANEL 7000 PROTIME 22.7 secs (Above high threshold) Range: 12.0-14.9 INR 2.00 13:19 HEMOGLOBIN A1C 3507 Hemoglobin A1C 6.0 % ESTIMATED AVG. GLUCOSE 126 Plan of Care Name Dates Details Planned Observations Planned Goals not documented Planned Encounters Appointment; Provider: Carl Ga D.O. On 19-Jun-2016 10:15 Appointment; Provider: John Aldridge M.D. On 08-Feb-2016 11:00 Appointment; Provider: Moody Choe M.D. On 23-Oct-2015 14:45 Appointment; Provider: Jovita Dhaliwal D.O. On 22-Oct-2015 10:30 Instructions Name Dates Details Instructions not documented [...]
--- OUTSIDE RECORDS SUMMARY | 2016-07-04 09:00 | XMS REPORT ---
Author Author GENERATED, SYSTEM Organization Unknown Address Unknown Phone Unavailable Care Team Providers Care Rail Car Welder Name Role Phone DO WHEAT ROBERT PP Unavailable Reason For Visit Chief Complaint G47.33 Social History Functional Status Vital Signs Results Problems Encounter Diagnosis No relevant problems exist. [...] Discharge Instructions Allergies, Adverse Reactions, Alerts * Latex Allergy has not been assessed. * IV Contrast Allergy has not been assessed. * No Known Drug Allergies. Medication Medication reconciliation has not been performed.
--- OUTSIDE RECORDS SUMMARY | 2016-07-04 09:01 | XMS REPORT | Summary of Care ---
Author Author Tari Chilel APRN Organization Unknown Address [address], [place] [id number] Phone Unavailable Care Team Providers Care Piece Work Checker Name Role Phone Tari Chilel APRN Unavailable Unavailable John Aldridge [...] Blister of finger (915.2, S60.429A) Status: Active Medications Name Dates Details Warfarin [...] Started 05-Dec-2010 ActiveNeedles BD PEN NEEDLE MINI 39yobpa7/16 Inject Insulin at hs dx 250.02 * Quantity: 200 Refills: 6 Jovita Dhaliwal DKelsey* Started 23-Dec-2010 ActiveWarfarin Sodium 1 MG Oral [...] 1 Refills: 0 Sp Dawkins M.D.* Started Qcxurz621 Tablet Sublingual Bottle Carvedilol 12.5 MG Oral Tablet TAKE 1 TABLET TWICE DAILY. * Quantity: 180 Refills: 3 John Aldridge M.D.* Started 28-Feb-2014 ActiveLosartan Potassium 50 MG Oral Tablet TAKE 1 TABLET TWICE DAILY. * Quantity: 180 Refills: 3 John Aldridge M.D.* Started 28-Feb-2014 ActiveWorkbooks Next Monitor w/Device Kit testing three times daily * Quantity: 1 Refills: 3 Sp Dawkins M.D.* Started 22-Mar-2014 ActiveBayer Contour Next Test In Vitro Strip TEST THREE TIMES A DAY * Quantity: 1 Refills: 3 Isra RFabio Khan D.O.* Started 22-Mar-2014 Bkbnlx316 Strip Box ZyrTEC Allergy 10 MG Oral Tablet TAKE 1 TABLET DAILY DIRECTED. * Quantity: 30 Refills: 2 Isra R. Bill D.O.* Started 19-Jun-2014 ActiveFluticasone Propionate 50 MCG/ACT Nasal Suspension USE 1 TO 2 SPRAYS IN EACH NOSTRIL ONCE DAILY. * Quantity: 1 Refills: 0 Isra R. Bill D.O.* Started 19-Jun-2014 Eqzclk64 GM Bottle Doxycycline Monohydrate 100 MG Oral Capsule TAKE 1 CAPSULE TWICE DAILY WITH FOOD. * Quantity: 14 Refills: 0 Isra R. Bill D.O.* Started 19-Jun-2014 ActiveCephalexin 500 MG Oral [...] Ordered:30-May-2014 CBC w/ Auto Diff 7150 Ordered:30-May-2014 BASIC METABOLIC PROFILE 1210 Ordered:28-Jun-2014 HEMOGLOBIN A1C 3507 Ordered:28-Jun-2014 CBC w/ Auto Diff 7150 Ordered:28-Jun-2014 PROTIME PANEL 7000 Ordered:28-Jun-2014 Immunization Name Dates Details Influenza Administered on:10-Dec-2010 Influenza Administered on:02-Feb-2012 Diphtheria-Tetanus Toxoids 6.7-5 LFU/0.5ML Intramuscular Injectable Administered on: Tdap (Boostrix) Administered on: Adacel 5-2-15.5 LF-MCG/0.5 Intramuscular Suspension Lot #: [id number] Administered on:21-Jul-2013 Fluzone High-Dose Intramuscular Suspension Lot #: [id number] Administered on:13-Dec-2013 Prevnar 13 Intramuscular Suspension Lot #: [id number] Administered on:07-Apr-2014 Social History Name Dates Details Smoking Status* Former smoker Vital Signs Date Test Result Details 06-Jul-2014 09:24 BP Systolic 122 mm[Hg] Status: BP Diastolic 68 mm[Hg] Status: Heart Rate 78 /min Status: Respiration Rate 16 /min Status: Temperature 97.5 f Status: Weight 233 lb Status: O2 SAT 99 % Status: Body Mass Index Calculated 30.74 kg/m2 Status: Body Surface Area Calculated 2.3 m2 Status: 27-Jun-2014 15:22 BP Systolic 124 mm[Hg] Status: [...] m2 Status: Results Date Description Value Details 27-Jun-2014 16:32 PROTIME PANEL 7000 PROTIME 31.6 secs (Above high threshold) Range: 12.0-14.9 INR 3.14 (Better) Plan of Care Planned Observations* Name Dates Details Planned Goals not documented Goal Planned Encounters* Appointment; Provider: Carl Ga On 10-May-2015 09:15 * Appointment; Provider: Jovita Dhaliwal On 10:30 * Appointment; Provider: John Aldridge On 10:15 * Appointment; Provider: Jovita Dhaliwal On 13:30 * Appointment; Provider: Debora Figueroa On 03-Jun-2013 [...] On 20-Dec-2010 08:00 * Appointment; Provider: John lAdridge On 13:00 * Appointment; Provider: John Aldridge [...] Instructions * Instructions not documented Encounters Appointment; Tari Chilel Encounter Diagnosis: Problem not [...] not documented On 23-Nov-2013 14:45 Appointment; Sp Dakwins Encounter Diagnosis: Problem not documented On 14:45 [...] Problem not documented On 24-Nov-2012 13:30 Appointment; Cathi, Lindsey Encounter Diagnosis: Problem not documented On 23-Nov-2012 13:15 Appointment; Kirt Love Encounter Diagnosis: Problem not documented On 18-Nov-2012 08:30 Appointment; Sp Dawkins Encounter Diagnosis: Problem not documented On 16-Nov-2012 14:45 Appointment; Sp Dawkins Encounter Diagnosis: Problem not documented On 11-Nov-2012 11:30 Appointment; Cathi, Lindsey Encounter Diagnosis: Problem not documented On 13:30 Appointment; Sp Dawkins Encounter Diagnosis: Problem not documented On 13:45 Appointment; Suzanne Daniel Encounter Diagnosis: Problem not documented On 09:00 Appointment; Sp Dawkins Encounter Diagnosis: Problem not documented On 10:45
--- OUTSIDE RECORDS SUMMARY | 2016-07-04 09:01 | XMS REPORT | Summary of Care ---
Author Author Edilson Brennan M.D. Organization Unknown Address [address], [place] [id number] Phone Unavailable Care Team Providers Care Grading Clerk Name Role Phone Benny Barfield D.O. 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 * Quantity: 180 Refills: 3 Jovita Dhaliwal D.O.* Started 28-Feb-2014 ActiveTamsulosin HCl - 0.4 MG Oral Capsule [...] Refills: 0 Jovita Dhaliwal D.O.* Started 13-Mar-2015 Ggiutj40 GM Can Fish Oil 1000 MG Oral Capsule TAKE 1 CAPSULE DAILY. * Refills: 0 * Started 10-May-2015 ActiveCheratussin AC 100-10 MG/5ML Oral Syrup TAKE 5 - 10 ML EVERY 4 TO 6 HOURS NEEDED FOR COUGH. * Quantity: 1 Refills: 0 Benny Barfield D.O.* Started 04-Jun-2015 Utvihq592 ML Bottle Supplies AutoCPAP 9-13 cm H2O, Permanent use, G47.33, Heated humidity, PzhzlbjcG12, mask , headgear, filters, heated tubing, water chamber, chinstrap * Quantity: 1 Refills: 0 Savannah Oropeza* Started 07-Jun-2015 ActiveFluticasone Propionate 50 MCG/ACT Nasal Suspension USE 1 SPRAY IN EACH NOSTRIL ONCE DAILY. * Quantity: 1 Refills: 0 Edilson Brennan M.D.* Started 29-Jun-2015 Duubpu22 GM Bottle Allergies and Adverse Reactions Name [...] Adacel 5-2-15.5 LF-MCG/0.5 Intramuscular Suspension Lot #: [id number] Administered on:21-Jul-2013 Fluzone High-Dose Intramuscular Suspension Lot #: [id number] Administered on:13-Dec-2013 Prevnar 13 Intramuscular Suspension Lot #: [id number] Administered on:07-Apr-2014 Pneumovax 23 25 MCG/0.5ML Injection Injectable Administered on:09-May-2015 Pneumo (Pneumovax) Lot #: [id number] Administered on:09-May-2015 Family History Mother* Name Dates [...]
--- OUTSIDE RECORDS SUMMARY | 2016-07-04 09:01 | XMS REPORT | Summary of Care ---
Author Author Savannah Zimmerman Unknown Address [address] [place] [address] Phone Unavailable Care Team Providers Care Rejected Items Clerk Name Role Phone Sp Dawkins M.D. Unavailable Unavailable Edilson Brennan M.D. Unavailable Unavailable Savannah Zimmerman Unavailable Unavailable Jovita Dhaliwal D.O. Unavailable Unavailable Juancarlso Choe M.D. Unavailable Unavailable Curry Dhaliwal Unavailable Unavailable [...] Active Actinic keratosis (702.0, L57.0) Status: Active Cardiac resynchronization therapy defibrillator (SHIPPING AND RECEIVING-D) in place (V45.02, Z95.810) Status: Active Hyperlipidemia [...] 1 Isra D.O.Jovita * Start 18-Dec-2010 Active [place] BD PEN NEEDLE MINI 21sptjt9/16 Inject Insulin at hs dx 250.02 * [...] 0 Isra D.O.Jovita * Start 28-Feb-2014 Active Euphoria App Contour Next Monitor w/Device Kit testing three times daily * Quantity: 1 Refills: 3 Sp Dawkins M.D. * Start 22-Mar-2014 Active Jeronimo Contour Next Test In Vitro Strip TEST THREE TIMES DAILY * Quantity: 100 Refills: 0 Isra Salinas.Jovita Frazier * Start 22-Mar-2014 Active Tamsulosin HCl - 0.4 MG Oral Capsule TAKE 1 CAPSULE Daily * Quantity: 30 Refills: 11 Isra D.OJovita Mccarthy * Start 05-Feb-2015 Active Supplies CPAP repair, services and supplies, G47.33 Mask, headgear, filters, heated tubing, chinstrap * Quantity: 1 Refills: 0 Sandip P.A.Savannah * Start 05-Mar-2015 Active Fish Oil 1000 MG Oral Capsule TAKE 1 CAPSULE DAILY. * Refills: 0 * Start 10-May-2015 Active Supplies AutoCPAP 9-13 cm H2O, Permanent use, G47.33, Heated humidity, IdcvpdhdK75, mask , headgear, filters, heated tubing, water chamber, chinstrap * Quantity: 1 Refills: 0 Sandip P.ASavannah Mccarthy * Start 07-Jun-2015 Active Fluticasone Propionate 50 MCG/ACT Nasal Suspension USE 1 SPRAY IN EACH NOSTRIL ONCE DAILY. * Quantity: 1 Refills: 0 Edilson Brennan M.D. * Start 29-Jun-2015 Active 16 GM Bottle BD Pen Needle Mini U/F 31G X 5 MM Miscellaneous USE TO INJECT INSULIN AT BEDTIME * Quantity: 200 Refills: 0 Isra Salinas.Jovita Frazier * Start Active Supplies CPAP repair, services and supplies, G47.33 Mask, headgear, filters, heated tubing, chinstrap * Quantity: 1 Refills: 0 Sandip P.A.Savannah * Start 05-Dec-2015 Active Allergies and Adverse Reactions Name Dates [...] Adacel 5-2-15.5 LF-MCG/0.5 Intramuscular Suspension Lot #: [id number] on: 21-Jul-2013 Fluzone High-Dose SUSP Lot #: [id number] on: 13-Dec-2013 Prevnar 13 Intramuscular Suspension Lot #: [id number] on: 07-Apr-2014 Pneumovax 23 25 MCG/0.5ML Injection Injectable on: 09-May-2015 Pneumo (Pneumovax) Lot #: [id number] on: 09-May-2015 Family History Name Dates Details Family history of Status: Active Name Dates Details Family history of Status: Active Social History Name Dates Details - Status: Name Dates Details Former smoker Vital Signs Date Test Result Details 05-Dec-2015 14:23 BP Systolic 130 mm[Hg] Status: [...] ; Position: Heart Rate 87 /min Status: Weight 237 lb Status: Body Mass Index [...] (Above high threshold) Range: 12.0-14.9 INR 1.24 Plan of Care Name Dates Details Planned Observations PROTIME PANEL 7000 On 11-Dec-2015 Intent Planned Goals not documented Planned Encounters Appointment; Provider: Monica Mancera On 08-Dec-2016 14:00 Appointment; Provider: Jovita Dhaliwal D.O. On 19-Feb-2016 10:00 Appointment; Provider: John Aldridge M.D. On 10-Dec-2015 09:45 Interventions Provided Medication Changes* Supplies - Start Instructions Name Dates Details Instructions [...] Problem not documented On 09-May-2014 09:15 Appointment; pS Dawkins M.D. Encounter Diagnosis: Problem not documented [...]
--- OUTSIDE RECORDS SUMMARY | 2016-07-04 09:01 | XMS REPORT | Summary of Care ---
Author Author Jovita Dhaliwal D.O. Organization Unknown Address [address], [place] [id number] Phone Unavailable Care Team Providers Care Tile Professional Name Role Phone Benny Barfield D.O. Unavailable [...] E78.5) Status: Active Cardiac resynchronization therapy defibrillator (MATERIALS MGMT TECH-D) in place (V45.02, Z95.810) Status: Active Chronic [...] Started 18-Dec-2010 ActiveNeedles BD PEN NEEDLE MINI 86byvmh9/16 Inject Insulin at hs dx 250.02 * [...] 1 Refills: 0 Sp Dawkins M.D.* Started Ezbxuy642 Tablet Sublingual Bottle Lantus SoloStar 100 UNIT/ML Subcutaneous Solution Pen-injector INJECT 25 UNITS DAILY DIRECTED * Quantity: 15 Refills: 0 Jovita Dhaliwal D.O.* Started 16-Dec-2013 ActiveLosartan Potassium 50 MG Oral Tablet TAKE 1 TABLET TWICE DAILY. * Quantity: 180 Refills: 3 Jovita Dhaliwal D.O.* Started 28-Feb-2014 [employer] Next Monitor w/Device Kit testing three times daily * Quantity: 1 Refills: 3 Sp Dawkins M.D.* Started 22-Mar-2014 ActiveNanoleaf Next Test In Vitro Strip TEST THREE [...] Refills: 0 Benny Barfield D.O.* Started 04-Jun-2015 Zcjyul319 ML Bottle Supplies AutoCPAP 9-13 cm H2O, Permanent use, G47.33, Heated humidity, UagolojxP44, mask , headgear, filters, heated tubing, water chamber, chinstrap * Quantity: 1 Refills: 0 Savannah Oropeza.A.* Started 07-Jun-2015 ActiveFluticasone Propionate 50 MCG/ACT Nasal Suspension USE 1 SPRAY IN EACH NOSTRIL ONCE DAILY. * Quantity: 1 Refills: 0 Edilson Brennan M.D.* Started 29-Jun-2015 Xoovdu49 GM Bottle BD Pen Needle Mini U/F [...] Adacel 5-2-15.5 LF-MCG/0.5 Intramuscular Suspension Lot #: [id number] Administered on:21-Jul-2013 Fluzone High-Dose Intramuscular Suspension Lot #: [id number] Administered on:13-Dec-2013 Prevnar 13 Intramuscular Suspension Lot #: [id number] Administered on:07-Apr-2014 Pneumovax 23 25 MCG/0.5ML Injection Injectable Administered on:09-May-2015 Pneumo (Pneumovax) Lot #: [id number] Administered on:09-May-2015 Family History Mother* Name Dates [...] Cherry On 26-Apr-2007 07:00 * Appointment; Provider: oMody Choe On 19-Apr-2007 09:15 * Appointment; Provider: [...]
--- OUTSIDE RECORDS SUMMARY | 2016-07-04 09:02 | XMS REPORT | Summary of Care ---
Author Author Jovita Dhaliwal D.O. Organization Unknown Address [address], [place] [id number] Phone Unavailable Care Team Providers Care Fish Net Maker Name Role Phone Sp Dawkins M.D. Unavailable [...] G47.33) Status: Active Cardiac resynchronization therapy defibrillator (CARBON CUTTER-D) in place (V45.02, Z95.810) Status: Active Hypertension [...] congestive heart failure (428.42, I50.42) Status: Active Medications Name Dates Details Furosemide [...] 1 Isra D.O.Jovita * Start 18-Dec-2010 Active [place] BD PEN NEEDLE MINI 63ggnau9/16 Inject Insulin at hs dx 250.02 * [...] 3 Isra D.O.Jovita * Start 28-Feb-2014 Active Ameibo Contour Next Monitor w/Device Kit testing three times daily * Quantity: 1 Refills: 3 Sp Dawkins M.D. * Start 22-Mar-2014 Active Ameibo Contour Next Test In Vitro Strip TEST [...] cm H2O, Permanent use, G47.33, Heated humidity, ZrkmiikvZ68, mask , headgear, filters, heated tubing, water [...] BEDTIME * Quantity: 200 Refills: 0 Isra DJovita Cole * Start Active Allergies and Adverse Reactions [...] Adacel 5-2-15.5 LF-MCG/0.5 Intramuscular Suspension Lot #: [id number] on: 21-Jul-2013 Fluzone High-Dose SUSP Lot #: [id number] on: 13-Dec-2013 Prevnar 13 Intramuscular Suspension Lot #: [id number] on: 07-Apr-2014 Pneumovax 23 25 MCG/0.5ML Injection Injectable on: 09-May-2015 Pneumo (Pneumovax) Lot #: [id number] on: 09-May-2015 Family History Name Dates Details [...] >60 ml/min Range: >60 EST GFR, NON-AFR SAMMARINESE >60 ml/min Range: >60 Comments: EST GFR is reported in ml/min per 1.73 m2 of body surface area. For -Chinese, please multiple result by 1.2.----- BUN:CREATININE RATIO [...]
--- OUTSIDE RECORDS SUMMARY | 2016-07-04 09:02 | XMS REPORT | Summary of Care ---
Author Author Jovita Dhaliwal D.O. Organization Unknown Address [address], [place] [address] Phone Unavailable Care Team Providers Care Sound Installation Worker Name Role Phone Sp Dawkins M.D. [...] G47.33) Status: Active Cardiac resynchronization therapy defibrillator (PROGRAM ADVISOR-D) in place (V45.02, Z95.810) Status: Active On [...] T65.91XA) Status: Active Medications Name Dates Details Lantus SoloStar 100 UNIT/ML Subcutaneous Solution Pen-injector INJECT 44 UNITS DAILY DIRECTED Quantity: 11 Isra D.O.Jovita * Start 05-Dec-2010 Active 3 ML Pen (5 Pens) Carvedilol 6.25 MG Oral Tablet TAKE 1 TABLET BY MOUTH TWICE DAILY * Quantity: 180 Refills: 0 Isra Salinas.Jovita Frazier * Start 18-Mar-2016 Active [place] BD PEN NEEDLE MINI 03dwltq9/16 Inject Insulin at hs dx 250.02 * Quantity: 200 Refills: 6 Isra D.Juancarlos.Jovita * Start 23-Dec-2010 Active Pravastatin Sodium 10 MG Oral Tablet TAKE 1/2 TABLET BY MOUTH DAILY * Quantity: 15 Refills: 11 Isra D.Jovita Frazier * Start 30-Mar-2013 Active Warfarin Sodium 6 MG Oral Tablet take 1 tablet by mouth every day * Quantity: 90 Refills: 1 Isra Salinas.Jovita Frazier * Start 21-Feb-2016 Active Losartan Potassium 50 MG Oral Tablet TAKE 1 TABLET BY MOUTH TWICE DAILY * Quantity: 180 Refills: 0 Isra D.O.Jovita * Start 21-Feb-2016 Active Lantus SoloStar 100 UNIT/ML Subcutaneous Solution Pen-injector INJECT 25 UNITS DAILY DIRECTED * Quantity: 15 Refills: 0 Isra Salinas.Jovita Frazier * Start 19-Dec-2015 Active Storone Contour Next Monitor w/Device Kit testing three times daily * Quantity: 1 Refills: 3 Sp Dawkins M.D. * Start 22-Mar-2014 Active Jeronimo Contour Next Test In Vitro Strip TEST THREE TIMES DAILY * Quantity: 100 Refills: 1 Isra Salinas.Jovita Frazier * Start 21-Dec-2015 Active Supplies CPAP repair, services and supplies, G47.33 Mask, headgear, filters, heated tubing, chinstrap * Quantity: 1 Refills: 0 Sandip P.ASavannah Mccarthy * Start 05-Mar-2015 Active Fluticasone Propionate 50 MCG/ACT Nasal Suspension [...] * Start 11-Jan-2016 Active 2.5 ML Bottle Supplies AutoCPAP 9-13 cm H2O, Permanent use, G47.33, Heated humidity, ZebbvlnwN19, mask , headgear, filters, heated tubing, water chamber, chinstrap * Quantity: 1 Refills: 0 Sandip PSavannah Alba * Start 07-Jun-2015 Active Fish Oil 1000 MG Oral Capsule TAKE 1 CAPSULE DAILY. * Refills: 0 * Start 10-May-2015 Active Tamsulosin HCl - 0.4 MG Oral Capsule TAKE 1 CAPSULE Daily * Quantity: 30 Refills: 11 Jovita Dhaliwal D.O. * Start 05-Feb-2015 Active Losartan Potassium 100 MG Oral Tablet Take one tablet by mouth daily * Quantity: 90 Refills: 0 Jovita Dhaliwal D.O. * Start 28-Feb-2014 Active Vitamin B-12 1000 MCG Sublingual Tablet Sublingual PLACE 1 MCG Daily * Quantity: 1 Refills: 0 Sp Dawkins M.D. * Start Active 100 Tablet Sublingual Bottle PredniSONE 20 MG Oral Tablet TAKE 2 TABLETS DAILY WITH FOOD * Quantity: 10 Refills: 0 Jovita Dhaliwal D.O. * Start 18-Mar-2016 Active Furosemide 40 MG Oral Tablet TAKE 1 TABLET BY MOUTH DAILY * Quantity: 90 Refills: 2 Jovita Dhaliwal D.O. * Start 30-Oct-2010 Active Allergies and Adverse Reactions Name Dates [...] of Arterial Catheterization PROTIME PANEL 7000 Ordered: 18-Mar-2016 HEMOGLOBIN A1C 3507 Ordered: 19-Feb-2016 BASIC METABOLIC PROFILE 1210 Ordered: 19-Feb-2016 Immunization Name Dates Details Influenza on: 10-Dec-2010 Influenza on: 02-Feb-2012 Diphtheria-Tetanus Toxoids 6.7-5 LFU/0.5ML INJ on: Tdap (Boostrix) on: Adacel 5-2-15.5 LF-MCG/0.5 Intramuscular Suspension Lot #: [id number] on: 21-Jul-2013 Fluzone High-Dose SUSP Lot #: [id number] on: 13-Dec-2013 Prevnar 13 Intramuscular Suspension Lot #: [id number] on: 07-Apr-2014 Pneumovax 23 25 MCG/0.5ML Injection Injectable on: 09-May-2015 Pneumo (Pneumovax) Lot #: [id number] on: 09-May-2015 Fluzone High-Dose 0.5 ML Intramuscular Suspension Prefilled Syringe Lot #: [id number] on: 28-Dec-2015 Zoster (Zostavax) on: 19-Feb-2016 Family [...] m2 Status: Results Date Description Value Details 12-Mar-2016 11:53 XRay KNEE-Right Comments: Exam Date: 03/12/2016 11: 17Dictation Date: 03/12/2016 11:53 X KNEE COMP (MIN 4V) RT 18-Mar-2016 11:19 PROTIME PANEL 7000 PROTIME 23.1 secs (Above high threshold) Range: 12.0-14.9 INR 2.14 19-Mar-2016 15:14 Diabetic Eye Exam Diabetic Eye Exam No Diabetic Retinopathy Diabetic Eye Exam on Chart Yes 15:14 Diabetic Eye Exam Diabetic Eye Exam No Diabetic Retinopathy Diabetic Eye Exam on Chart Yes Plan of Care Name Dates Details Planned [...] not documented On 25-Oct-2014 09:00 Appointment; Jovita Dhaliawl D.O. Encounter Diagnosis: Problem [...]
--- OUTSIDE RECORDS SUMMARY | 2016-07-04 09:02 | XMS REPORT | Summary of Care ---
Author Author Jovita Dhaliwal D.O. Organization Unknown Address [address], [place] [id number] Phone Unavailable Care Team Providers Care Plaster Lather Name Role Phone Sp Dawkins M.D. Unavailable [...] G47.33) Status: Active Cardiac resynchronization therapy defibrillator (RETAIL CLIENT SOLUTIONS CONSULTANT-D) in place (V45.02, Z95.810) Status: Active On [...] Right knee sprain (844.9, S83.91XA) Status: Active Medications Name Dates Details Furosemide [...] DAILY * Quantity: 180 Refills: 0 Isra D.Jovita Frazier * Start 19-Dec-2015 Active [place] BD PEN NEEDLE MINI 03jxbmm5/16 Inject Insulin at hs dx 250.02 * [...] DIRECTED * Quantity: 15 Refills: 0 Isra Salinas.Juancarlos.Jovita * Start 19-Dec-2015 Active Losartan Potassium 100 MG Oral Tablet Take one tablet by mouth daily * Quantity: 90 Refills: 0 Isra Salinas.Jovita Frazier * Start 28-Feb-2014 Active [employer] Contour Next Monitor w/Device Kit testing three times daily * Quantity: 1 Refills: 3 Sp Dawkins M.D. * Start 22-Mar-2014 Active Jeronimo Contour Next Test In Vitro Strip TEST THREE TIMES DAILY * Quantity: 100 Refills: 1 Isra Salinas.Jovita Frazier * Start 21-Dec-2015 Active Tamsulosin HCl - 0.4 MG Oral Capsule TAKE 1 CAPSULE Daily * Quantity: 30 Refills: 11 Isra D.Juancarlos.Jovita * Start 05-Feb-2015 Active Supplies CPAP repair, services and supplies, G47.33 Mask, headgear, filters, heated tubing, chinstrap * Quantity: 1 Refills: 0 Sandip P.A.[place] * Start 05-Mar-2015 Active Fish Oil 1000 MG Oral Capsule TAKE 1 CAPSULE DAILY. * Refills: 0 * Start 10-May-2015 Active Supplies AutoCPAP 9-13 cm H2O, Permanent use, G47.33, Heated humidity, BumgpxcxM13, mask , headgear, filters, heated tubing, water [...] Adacel 5-2-15.5 LF-MCG/0.5 Intramuscular Suspension Lot #: [id number] on: 21-Jul-2013 Fluzone High-Dose SUSP Lot #: [id number] on: 13-Dec-2013 Prevnar 13 Intramuscular Suspension Lot #: [id number] on: 07-Apr-2014 Pneumovax 23 25 MCG/0.5ML Injection Injectable on: 09-May-2015 Pneumo (Pneumovax) Lot #: [id number] on: 09-May-2015 Fluzone High-Dose 0.5 ML Intramuscular Suspension Prefilled Syringe Lot #: [id number] on: 28-Dec-2015 Zoster (Zostavax) on: 19-Feb-2016 Family [...] >60 ml/min Range: >60 EST GFR, NON-AFR KYRGYZ 55 ml/min (Below low threshold) Range: >60 [...] Dhaliwal D.O. On 27-May-2016 09:30 Interventions Provided Labs/Procedures/Imaging* PROTIME PANEL 7000; To be Done: 12 Mar 2016 * XRay KNEE-Right; Done: Mar 12 2016 11:53AM Instructions Name Dates Details Instructions not documented [...]
--- OUTSIDE RECORDS SUMMARY | 2016-07-04 09:02 | XMS REPORT | Summary of Care ---
Author Author Jovita Dhaliwal D.O. Organization Unknown Address [address], [place] [id number] Phone Unavailable Care Team Providers Care Assistant Professor Sculpture Name Role Phone Sp Dawkins M.D. Unavailable [...] Active Candidal balanitis (112.2, B37.42) Status: Active Medications Name Dates Details Furosemide [...] Started 18-Dec-2010 ActiveNeedles BD PEN NEEDLE MINI 59crqrg7/16 Inject Insulin at hs dx 250.02 * Quantity: 200 Refills: 6 Jovita Dhaliwal.O.* Started 23-Dec-2010 ActiveViagra 50 MG Oral Tablet TAKE DIRECTED. * Quantity: 6 Refills: 0 Sp Dawkins M.D.* Started 25-Mar-2013 ActivePravastatin Sodium 10 MG Oral Tablet TAKE 1/2 TABLET BY MOUTH DAILY * Quantity: 15 Refills: 11 Jovita Dhaliwal.O.* Started 30-Mar-2013 ActiveWarfarin Sodium 6 MG Oral Tablet take 1 tablet by mouth every day * Quantity: 90 Refills: 1 Jovita Dhaliwal.O.* Started 11-May-2013 ActiveVitamin B-12 1000 MCG Sublingual Tablet Sublingual PLACE 1 MCG Daily * Quantity: 1 Refills: 0 Sp Dawkins M.D.* Started Uvxoyz125 Tablet Sublingual Bottle Lantus SoloStar 100 UNIT/ML Subcutaneous Solution Pen-injector INJECT 25 UNITS DAILY DIRECTED * Quantity: 1 Refills: 5 Jovita Dhaliwal.O.* Started 16-Dec-2013 Active3 ML Pen (5 Pens) Losartan Potassium 50 MG Oral Tablet TAKE 1 TABLET TWICE DAILY. * Quantity: 180 Refills: 3 Jovita Dhaliwal D.O.* Started 28-Feb-2014 ActiveAdd2paper Next Monitor w/Device Kit testing three times daily * Quantity: 1 Refills: 3 Sp Dawkins M.D.* Started 22-Mar-2014 SportsBoard Next Test In Vitro Strip TEST THREE TIMES A DAY * Quantity: 1 Refills: 3 Jovita Dhaliwal D.O.* Started 22-Mar-2014 Fttjbl357 Strip Box Tamsulosin HCl - 0.4 MG Oral Capsule TAKE 1 CAPSULE Daily * Quantity: 30 Refills: 11 Jovita Dhaliwal D.O.* Started 05-Feb-2015 ActiveClotrimazole 1 % External Cream APPLY SPARINGLY TO AFFECTED AREA(S) TWICE DAILY UNTIL RESOLVED * Quantity: 1 Refills: 0 Jovita Dhaliwal D.O.* Started 05-Feb-2015 Fhqdjc16 GM Tube Fluconazole 150 MG Oral Tablet TAKE 1 TABLET ONCE AND REPEAT IN 1 WEEK. * Quantity: 2 Refills: 0 Jovita Dhaliwal D.O.* Started 05-Feb-2015 Active Allergies and Adverse Reactions [...] Adacel 5-2-15.5 LF-MCG/0.5 Intramuscular Suspension Lot #: [id number] Administered on:21-Jul-2013 Fluzone High-Dose Intramuscular Suspension Lot #: [id number] Administered on:13-Dec-2013 Prevnar 13 Intramuscular Suspension Lot #: [id number] Administered on:07-Apr-2014 Family History Mother* Name Dates Details Family history of Status: Active Father* Name Dates Details Family history of Status: Active Social History Name Dates Details Smoking Status* Former smoker Vital Signs Date Test Result Details 05-Feb-2015 13:41 BP Systolic 138 mm[Hg] Status: [...] ml/min (Better) Range: >60 EST GFR, NON-AFR [place] 58 ml/min (Below low threshold) Range: >60 Comments: EST GFR is reported in ml/min per 1.73 m2 of body surface area. For -Iraqi, please multiple result by 1.2.----- GLUCOSE 97 [...] Choe On 05-Mar-2015 14:30 * Appointment; Provider: Jovita Dhaliwal On 15-Feb-2015 13:30 * Appointment; Provider: Danyel Rodriguez On 13-Jan-2015 [...]
--- OUTSIDE RECORDS SUMMARY | 2016-07-04 09:03 | XMS REPORT | Summary of Care ---
Author Author Jovita Dhaliwal D.O. Organization Unknown Address [address], [place] [address] Phone Unavailable Care Team Providers Care Voucher Examiner Name Role Phone Sp Dawkins M.D. Unavailable Unavailable Edilson Brennan M.D. Unavailable Unavailable Savannah Zimmerman Unavailable Unavailable Jovita Dhaliwal D.O. Unavailable Unavailable Jose King M.D. Unavailable Unavailable Don Reed M.D. Unavailable Unavailable Curry Dhaliwal Unavailable Unavailable Sp Soarse Unavailable Unavailable Unavailable Unavailable Functional Status Name [...] R91.1) Status: Active Cardiac resynchronization therapy defibrillator (BUSINESS FUNCTIONAL ANALYST-D) in place (V45.02, Z95.810) Status: Active Combined [...] D.O., R. Bill * Start 18-Mar-2016 Active [place] BD PEN NEEDLE MINI 61hcxlo3/16 Inject Insulin at hs dx 250.02 * [...] Jovita Dhaliwal D.O. * Start 28-Feb-2014 Active bLife Contour Next Monitor w/Device Kit testing three times daily * Quantity: 1 Refills: 3 Sp Dawkins M.D. * Start 22-Mar-2014 Active bLife Contour Next Test In Vitro Strip TEST [...] cm H2O, Permanent use, G47.33, Heated humidity, CsxjzbjiV81, mask , headgear, filters, heated tubing, water [...] Adacel 5-2-15.5 LF-MCG/0.5 Intramuscular Suspension Lot #: [id number] on: 21-Jul-2013 Fluzone High-Dose SUSP Lot #: [id number] on: 13-Dec-2013 Prevnar 13 Intramuscular Suspension Lot #: [id number] on: 07-Apr-2014 Pneumovax 23 25 MCG/0.5ML Injection Injectable on: 09-May-2015 Pneumo (Pneumovax) Lot #: [id number] on: 09-May-2015 Fluzone High-Dose 0.5 ML Intramuscular Suspension Prefilled Syringe Lot #: [id number] on: 28-Dec-2015 Zoster (Zostavax) on: 19-Feb-2016 Family [...] >60 ml/min Range: >60 EST GFR, NON-AFR [place] 57 ml/min (Below low threshold) Range: >60 [...]
--- OUTSIDE RECORDS SUMMARY | 2016-07-04 09:03 | XMS REPORT | Summary of Care ---
Author Author Jovita Dhaliwal D.O. Organization Unknown Address [address], [place] [address] Phone Unavailable Care Team Providers Care Ip Architect Name Role Phone Sp Dawkins M.D. Unavailable Unavailable Edilson Brennan M.D. Unavailable Unavailable Savannah Zimmerman Unavailable Unavailable Jovita Dhaliwal D.O. Unavailable Unavailable Jose Knig M.D. Unavailable Unavailable Curry Dhaliwal Unavailable Unavailable [...] G47.33) Status: Active Cardiac resynchronization therapy defibrillator (PLANTING MATERIAL REMOVER-D) in place (V45.02, Z95.810) Status: Active On [...] D.O. RFabio Khan * Start 19-Dec-2015 Active [place] BD PEN NEEDLE MINI 96encsr5/16 Inject Insulin at hs dx 250.02 * [...] 0 Isra D.O.Jovita * Start 28-Feb-2014 Active [employer]or Solutions Contour Next Monitor w/Device Kit testing three times daily * Quantity: 1 Refills: 3 Sp Dawkins M.D. * Start 22-Mar-2014 Active [employer] Contour Next Test In Vitro Strip TEST [...] cm H2O, Permanent use, G47.33, Heated humidity, CqifbzmmV30, mask , headgear, filters, heated tubing, water [...] Refills: 0 Sandip Montaño.ASavannah Mccarthy * Start 05-Dec-2015 Active Latanoprost 0.005 [...] Ordered: 11-Feb-2016 PROTIME PANEL 7000 Ordered: 19-Feb-2016 Immunization Name Dates Details Influenza on: 10-Dec-2010 Influenza on: 02-Feb-2012 Diphtheria-Tetanus Toxoids 6.7-5 LFU/0.5ML INJ on: Tdap (Boostrix) on: Adacel 5-2-15.5 LF-MCG/0.5 Intramuscular Suspension Lot #: [id number] on: 21-Jul-2013 Fluzone High-Dose SUSP Lot #: [id number] on: 13-Dec-2013 Prevnar 13 Intramuscular Suspension Lot #: [id number] on: 07-Apr-2014 Pneumovax 23 25 MCG/0.5ML Injection Injectable on: 09-May-2015 Pneumo (Pneumovax) Lot #: [id number] on: 09-May-2015 Fluzone High-Dose 0.5 ML Intramuscular Suspension Prefilled Syringe Lot #: [id number] on: 28-Dec-2015 Zoster (Zostavax) on: 19-Feb-2016 Family History Name Dates Details Family history of Status: Active Name Dates Details Family history of Status: Active Social History Name Dates Details - Status: Name Dates Details Former smoker Vital Signs Date Test Result Details 19-Feb-2016 09:57 BP Systolic 139 mm[Hg] Status: Comments: Location: ; Position: BP Diastolic 83 mm[Hg] Status: Comments: Location: ; Position: Heart Rate 78 /min Status: Comments: Location: ; Weight 243 lb Status: Body Mass Index Calculated 33.42 kg/m2 Status: Body Surface Area Calculated 2.3 m2 Status: 21-Jan-2016 15:39 BP Systolic 149 mm[Hg] Status: [...] (Above high threshold) Range: 12.0-14.9 INR 1.85 18-Feb-2016 14:53 CBC w/ Auto Diff 7150 [...] >60 ml/min Range: >60 EST GFR, NON-AFR CITIZEN OF [place] 55 ml/min (Below low threshold) Range: >60 [...] A1C 7.1 % ESTIMATED AVG. GLUCOSE 157 Plan of Care Name Dates Details Planned Observations PROTIME PANEL 7000 On 04-Mar-2016 Intent Planned Goals not documented Planned Encounters [...]
--- OUTSIDE RECORDS SUMMARY | 2016-07-04 09:03 | XMS REPORT | Summary of Care ---
Author Author Jovita Dhaliwal D.O. Organization Unknown Address [address], [place] [address] Phone Unavailable Care Team Providers Care Sub Master Name Role Phone Sp Dawkins M.D. Unavailable [...] Started 18-Dec-2010 ActiveNeedles BD PEN NEEDLE MINI 73tytxp6/16 Inject Insulin at hs dx 250.02 * [...] 1 Refills: 0 Sp Dawkins M.D.* Started Qcfdfu754 Tablet Sublingual Bottle Lantus SoloStar 100 UNIT/ML Subcutaneous Solution Pen-injector INJECT 25 UNITS DAILY DIRECTED * Quantity: 1 Refills: 5 Jovita DhaliwalO.* Started 16-Dec-2013 Active3 ML Pen (5 Pens) Losartan Potassium 50 MG Oral Tablet TAKE 1 TABLET TWICE DAILY. * Quantity: 180 Refills: 3 Jovita DhaliwalO.* Started 28-Feb-2014 ActivePro V&V Next Monitor w/Device Kit testing three times daily * Quantity: 1 Refills: 3 Sp Dawkins M.D.* Started 22-Mar-2014 ActiveBayer Contour Next Test In Vitro Strip TEST THREE TIMES A DAY * Quantity: 1 Refills: 3 Jovita Dhaliwal D.O.* Started 22-Mar-2014 Dwqvya965 Strip Box Tamsulosin HCl - 0.4 MG [...] HEMOGLOBIN A1C 3507 Ordered:26-Jan-2015 PROTIME PANEL 7000 Ordered:19-Feb-2015 Immunization Name Dates Details Influenza Administered on:10-Dec-2010 Influenza Administered on:02-Feb-2012 Diphtheria-Tetanus Toxoids 6.7-5 LFU/0.5ML Intramuscular Injectable Administered on: Tdap (Boostrix) Administered on: Adacel 5-2-15.5 LF-MCG/0.5 Intramuscular Suspension Lot #: [id number] Administered on:21-Jul-2013 Fluzone High-Dose Intramuscular Suspension Lot #: [id number] Administered on:13-Dec-2013 Prevnar 13 Intramuscular Suspension Lot #: [id number] Administered on:07-Apr-2014 Family History Mother* Name Dates [...] high threshold) Range: 12.0-14.9 INR 1.48 (Better) Plan of Care Planned Observations* Name [...] not documented On 27-Oct-2014 09:45 Appointment; Jovita Dhaliwla Encounter Diagnosis: Problem not documented On 25-Oct-2014 [...]
--- OUTSIDE RECORDS SUMMARY | 2016-07-04 09:03 | XMS REPORT | Summary of Care ---
Author Author Savannah Zimmerman Organization Unknown Address [address] [place] [address] Phone Unavailable Care Team Providers Care Family Life Educator Name Role Phone Sp Dawkins M.D. Unavailable [...] Started 18-Dec-2010 ActiveNeedles BD PEN NEEDLE MINI 90psenv0/16 Inject Insulin at hs dx 250.02 * [...] 1 Refills: 0 Sp Dawkins M.D.* Started Pfekxj976 Tablet Sublingual Bottle Lantus SoloStar 100 UNIT/ML Subcutaneous Solution Pen-injector INJECT 25 UNITS DAILY DIRECTED * Quantity: 1 Refills: 5 Jovita Dhaliwal D.O.* Started 16-Dec-2013 Active3 ML Pen (5 Pens) Losartan Potassium 50 MG Oral Tablet TAKE 1 TABLET TWICE DAILY. * Quantity: 180 Refills: 3 Jovita Dhaliwal D.O.* Started 28-Feb-2014 ActiveBayer Sparkroom Next Monitor w/Device Kit testing three times daily * Quantity: 1 Refills: 3 Sp Dawkins M.D.* Started 22-Mar-2014 ActiveBayer Contour Next Test In Vitro Strip TEST THREE TIMES A DAY * Quantity: 1 Refills: 3 Jovita Dhaliwal D.O.* Started 22-Mar-2014 Bbqhrn943 Strip Box Tamsulosin HCl - 0.4 MG [...] Refills: 0 Savannah Oropeza P.A.* Started 05-Mar-2015 Active Allergies and Adverse Reactions [...] Adacel 5-2-15.5 LF-MCG/0.5 Intramuscular Suspension Lot #: [id number] Administered on:21-Jul-2013 Fluzone High-Dose Intramuscular Suspension Lot #: [id number] Administered on:13-Dec-2013 Prevnar 13 Intramuscular Suspension Lot #: [id number] Administered on:07-Apr-2014 Family History Mother* Name Dates [...] high threshold) Range: 12.0-14.9 INR 2.53 (Better) Plan of Care Planned Observations* Name [...] documented On 21-Mar-2014 13:15 Appointment; oJhn Aldridge Encounter Diagnosis: Problem [...] not documented On 29-Apr-2013 10:45 Appointment; Carl aG Encounter Diagnosis: Problem not documented On 15-Apr-2013 [...]
--- OUTSIDE RECORDS SUMMARY | 2016-07-04 09:04 | XMS REPORT | Summary of Care ---
Author Author Jovita Dhaliwal D.O. Organization Unknown Address [address], [place] [address] Phone Unavailable Care Team Providers Care Balance Bridge Inspector Name Role Phone Sp Dawkins M.D. 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: Active Blood blister (919.2, T14.8) Status: Active Hordeolum externum of right lower eyelid (373.11, H00.012) Status: Active Anatomical narrow angle, bilateral (365.02, H40.033) Status: Active Medications Name Dates Details Furosemide [...] Refills: 0 Isra D.OJovita Mccarthy * Start 19-Dec-2015 Active [place] BD PEN NEEDLE MINI 52dkiey2/16 Inject Insulin at hs dx 250.02 * Quantity: 200 Refills: 6 Isra D.O.Jovita * Start 23-Dec-2010 Active Warfarin Sodium 6 MG Oral Tablet take 1 tablet by mouth every day * Quantity: 90 Refills: 0 Isra D.OJovita Mccarthy * Start 11-May-2013 Active Vitamin B-12 1000 [...] Refills: 0 Isra D.OJovita Mccarthy * Start 19-Dec-2015 Active Jer[employer]imo Contour Next Monitor w/Device Kit testing three times daily * Quantity: 1 Refills: 3 Sp Dawkins M.D. * Start 22-Mar-2014 Active Supplies CPAP repair, services and supplies, G47.33 Mask, headgear, filters, heated tubing, chinstrap * Quantity: 1 Refills: 0 Sandip P.A.[place] * Start 05-Mar-2015 Active Fish Oil 1000 MG Oral Capsule TAKE 1 CAPSULE DAILY. * Refills: 0 * Start 10-May-2015 Active Supplies AutoCPAP 9-13 cm H2O, Permanent use, G47.33, Heated humidity, UradjejxI48, mask , headgear, filters, heated tubing, water chamber, chinstrap * Quantity: 1 Refills: 0 Sandip P.A.[place] * Start 07-Jun-2015 Active BD Pen Needle Mini U/F 31G [...] * Start 11-Jan-2016 Active 2.5 ML Bottle Fluticasone Propionate 50 MCG/ACT Nasal Suspension USE 1 SPRAY IN EACH NOSTRIL ONCE DAILY. * Quantity: 1 Refills: 0 Edilson Brennan M.D. * Start 29-Jun-2015 Active 16 GM Bottle Tamsulosin HCl - 0.4 MG Oral Capsule TAKE 1 CAPSULE Daily * Quantity: 30 Refills: 11 Isra D.O.Jovita * Start 05-Feb-2015 Active [employer]imo Contour Next Test In Vitro Strip TEST THREE TIMES DAILY * Quantity: 100 Refills: 1 Isra D.O.Jovita * Start 21-Dec-2015 Active Losartan Potassium 100 MG Oral Tablet Take one tablet by mouth daily * Quantity: 90 Refills: 0 Jovita Dhaliwal D.O. * Start 28-Feb-2014 Active Pravastatin Sodium 10 MG Oral Tablet TAKE 1/2 TABLET BY MOUTH DAILY * Quantity: 15 Refills: 11 Jovita Dhaliwal D.O. * Start 30-Mar-2013 Active Allergies and Adverse Reactions Name Dates [...] of Arterial Catheterization PROTIME PANEL 7000 Ordered: 01-Jan-2016 Immunization Name Dates Details Influenza on: 10-Dec-2010 Influenza on: 02-Feb-2012 Diphtheria-Tetanus Toxoids 6.7-5 LFU/0.5ML INJ on: Tdap (Boostrix) on: Adacel 5-2-15.5 LF-MCG/0.5 Intramuscular Suspension Lot #: [id number] on: 21-Jul-2013 Fluzone High-Dose SUSP Lot #: [id number] on: 13-Dec-2013 Prevnar 13 Intramuscular Suspension Lot #: [id number] on: 07-Apr-2014 Pneumovax 23 25 MCG/0.5ML Injection Injectable on: 09-May-2015 Pneumo (Pneumovax) Lot #: [id number] on: 09-May-2015 Fluzone High-Dose 0.5 ML Intramuscular Suspension Prefilled Syringe Lot #: [id number] on: 28-Dec-2015 Family History Name Dates Details [...] Body Surface Area Calculated 2.28 m2 Status: 02-Jan-2016 14:01 BP Systolic 138 mm[Hg] Status: Comments: Location: ; Position: BP Diastolic 90 mm[Hg] Status: Comments: Location: ; Position: Temperature 99.1 f Status: Comments: Method: Heart Rate 93 /min Status: Comments: Location: ; Physical Findings 99 Status: Comments: O2 Saturation 28-Dec-2015 10:22 BP Systolic 143 mm[Hg] Status: Comments: Location: ; Position: BP Diastolic 84 mm[Hg] Status: Comments: Location: ; Position: Heart Rate 60 /min Status: Comments: Location: ; Weight 238 lb Status: Body Mass Index Calculated 32.73 kg/m2 Status: Body Surface Area Calculated 2.28 m2 Status: Results Date Description Value Details 01-Jan-2016 10:09 PROTIME PANEL 7000 PROTIME 26.6 secs (Above high threshold) Range: 12.0-14.9 INR 2.44 Plan of Care Name Dates Details Planned Observations Planned Goals not documented Planned Encounters Appointment; Provider: Monica Mancera On 08-Dec-2016 14:00 Appointment; Provider: Prabhakar King M.D. On 30-Jun-2016 10:45 Appointment; Provider: John Aldridge M.D. On 10-Jun-2016 10:15 Appointment; Provider: Jovita Dhaliwal D.O. On 19-Feb-2016 10:00 Appointment; Provider: Prabhakar King M.D. On 28-Jan-2016 10:15 Interventions Provided Labs/Procedures/Imaging* PROTIME PANEL 7000; To be Done: 21 Jan 2016 Instructions Name Dates Details Instructions not documented [...] Problem not documented On 13-Mar-2015 10:15 Appointment; oMody Choe M.D. Encounter Diagnosis: Problem not documented [...]
--- OUTSIDE RECORDS SUMMARY | 2016-07-04 09:04 | XMS REPORT | Summary of Care ---
Author Author Jovita Dhaliwal D.O. Organization Unknown Address [address], [place] [address] Phone Unavailable Care Team Providers Care Asbestos Abatement Technician Name Role Phone Benny Barfield D.O. [...] I50.42) Status: Active Cardiac resynchronization therapy defibrillator (WIG DRESSER-D) in place (V45.02, Z95.810) Status: Active PAF [...] recurrence not specified (461.0, J01.00) Status: Active Bilateral impacted cerumen (380.4, H61.23) Status: Active Medications Name Dates Details Furosemide [...] Started 18-Dec-2010 ActiveNeedles BD PEN NEEDLE MINI 97kupsr7/16 Inject Insulin at hs dx 250.02 * [...] 1 Refills: 0 Sp Dawkins M.D.* Started Dosnfo973 Tablet Sublingual Bottle Losartan Potassium 50 MG Oral Tablet TAKE 1 TABLET TWICE DAILY. * Quantity: 180 Refills: 3 Jovita Dhaliwal D.O.* Started 28-Feb-2014 Buzzoek Next Monitor w/Device Kit testing three times daily * Quantity: 1 Refills: 3 Sp Dawkins M.D.* Started 22-Mar-2014 Paragon 28 Contour Next Test In Vitro Strip TEST THREE TIMES A DAY * Quantity: 1 Refills: 3 Jovita Dhaliwal D.O.* Started 22-Mar-2014 Aogtuq692 Strip Box Tamsulosin HCl - 0.4 MG [...] Refills: 0 Jovita Dhaliwal D.O.* Started 13-Mar-2015 Auabdg26 GM Can Fish Oil 1000 MG Oral Capsule TAKE 1 CAPSULE DAILY. * Refills: 0 * Started 10-May-2015 ActiveCheratussin AC 100-10 MG/5ML Oral Syrup TAKE 5 - 10 ML EVERY 4 TO 6 HOURS NEEDED FOR COUGH. * Quantity: 1 Refills: 0 Benny Barfield D.O.* Started 04-Jun-2015 Htfgwq402 ML Bottle Supplies AutoCPAP 9-13 cm H2O, Permanent use, G47.33, Heated humidity, XzqmsclyU62, mask , headgear, filters, heated tubing, water chamber, chinstrap * Quantity: 1 Refills: 0 Savannah Oropeza* Started 07-Jun-2015 ActiveFluticasone Propionate 50 MCG/ACT Nasal Suspension USE 1 SPRAY IN EACH NOSTRIL ONCE DAILY. * Quantity: 1 Refills: 0 Edilson Brennan M.D.* Started 29-Jun-2015 Gwkxcm25 GM Bottle Allergies and Adverse Reactions Name [...] Adacel 5-2-15.5 LF-MCG/0.5 Intramuscular Suspension Lot #: [id number] Administered on:21-Jul-2013 Fluzone High-Dose Intramuscular Suspension Lot #: [id number] Administered on:13-Dec-2013 Prevnar 13 Intramuscular Suspension Lot #: [id number] Administered on:07-Apr-2014 Pneumovax 23 25 MCG/0.5ML Injection Injectable Administered on:09-May-2015 Pneumo (Pneumovax) Lot #: [id number] Administered on:09-May-2015 Family History Mother* Name Dates Details Family history of Status: Active Father* Name Dates Details Family history of Status: Active Social History Name Dates Details Smoking Status* Former smoker Vital Signs Date Test Result Details 03-Jul-2015 11:53 BP Systolic 148 mm[Hg] Status: [...] Instructions * Instructions not documented Encounters Appointment; Lety Ortiz Encounter Diagnosis: Problem not [...]
--- OUTSIDE RECORDS SUMMARY | 2016-07-04 09:04 | XMS REPORT | Summary of Care ---
Author Author Jovita Dhaliwal D.O. Organization Unknown Address [address], [place] [id number] Phone Unavailable Care Team Providers Care Trash Truck Driver Name Role Phone John Aldridge M.D. Unavailable [...] G47.33) Status: Active Medications Name Dates Details Warfarin [...] Started 05-Dec-2010 ActiveNeedles BD PEN NEEDLE MINI 04gjoru0/16 Inject Insulin at hs dx 250.02 * [...] 1 Refills: 0 Sp Dawkins M.D.* Started Putspz060 Tablet Sublingual Bottle Carvedilol 12.5 MG Oral Tablet TAKE 1 TABLET TWICE DAILY. * Quantity: 180 Refills: 3 John Aldridge M.D.* Started 28-Feb-2014 ActiveLosartan Potassium 50 MG Oral Tablet TAKE 1 TABLET TWICE DAILY. * Quantity: 180 Refills: 3 John Aldridge M.D.* Started 28-Feb-2014 ActiveOfferti Next Monitor w/Device Kit testing three times daily * Quantity: 1 Refills: 3 Sp Dawkins M.D.* Started 22-Mar-2014 ActiveSilistix Contour Next Test In Vitro Strip TEST THREE TIMES A DAY * Quantity: 1 Refills: 3 Jovita Dhaliwal D.O.* Started 22-Mar-2014 Dsseeg309 Strip Box Allergies and Adverse Reactions Name [...] Adacel 5-2-15.5 LF-MCG/0.5 Intramuscular Suspension Lot #: [id number] Administered on:21-Jul-2013 Fluzone High-Dose Intramuscular Suspension Lot #: [id number] Administered on:13-Dec-2013 Prevnar 13 Intramuscular Suspension Lot #: [id number] Administered on:07-Apr-2014 Social History Name Dates Details Smoking Status* Former smoker Vital Signs Date Test Result Details 29-May-2014 14:58 BP Systolic 124 mm[Hg] Status: [...] On 11-Jan-2013 08:30 * Appointment; Provider: Francisca Cornad On 08:30 * Appointment; Provider: Francisca Conrad [...] Problem not documented On 29-May-2014 14:45 Appointment; pS Dawkins Encounter Diagnosis: Problem not documented On 22-May-2014 11:30 Appointment; Carl Ga Encounter Diagnosis: Problem not documented On 09-May-2014 09:15 Appointment; Sp Dawkins Encounter Diagnosis: Problem not documented On 27-Apr-2014 15:00 Appointment; Carl aG Encounter Diagnosis: Problem not documented On 17-Apr-2014 [...] Diagnosis: Problem not documented On 13:30 Appointment; pS Dawkins Encounter Diagnosis: Problem not documented On 13:45 Appointment; Suzanne Daniel Encounter Diagnosis: Problem not documented On 09:00 Appointment; Sp Dawkins Encounter Diagnosis: Problem not documented On 10:45
--- OUTSIDE RECORDS SUMMARY | 2016-07-04 09:04 | XMS REPORT | Summary of Care ---
Author Author Moody Choe M.D. Unknown Address [address], [place] [id number] Phone Unavailable Care Team Providers Care Traffic Manager Name Role Phone Sp Dawkins M.D. Unavailable [...] TABLET BY MOUTH DAILY Quantity: 90 Sp Dawknis M.D.* Started 30-Oct-2010 ActiveLantus SoloStar 100 UNIT/ML Subcutaneous Solution Pen-injector INJECT 25 UNITS DAILY DIRECTED * Quantity: 11 Refills: 11 Jovita Dhaliwal.O.* Started 05-Dec-2010 Active3 ML Pen (5 Pens) Carvedilol 6.25 MG Oral Tablet TAKE 1 TABLET BY MOUTH TWICE DAILY * Quantity: 180 Refills: 1 Jovita Dhaliwal.O.* Started 18-Dec-2010 ActiveNeedles BD PEN NEEDLE MINI 72hoptn6/16 Inject Insulin at hs dx 250.02 * [...] 1 Refills: 0 Sp Dawkins M.D.* Started Dgzzyp468 Tablet Sublingual Bottle Lantus SoloStar 100 UNIT/ML [...] Refills: 3 Sp Dawkins M.D.* Started 22-Mar-2014 ActiveParentsWare Contour Next Test In Vitro Strip TEST THREE TIMES A DAY * Quantity: 1 Refills: 3 Jovita Dhaliwal D.O.* Started 22-Mar-2014 Xpydus661 Strip Box Tamsulosin HCl - 0.4 MG [...] DAILY NEEDED. * Quantity: 60 Refills: 2 David Dhaliwal. Bill D.O.* Started 13-Mar-2015 ActiveProctofoam 1 % Rectal Foam USE 1 APPLICATORFUL RECTALLY 1-2 TIMES DAILY. * Quantity: 1 Refills: 0 Jovita Dhaliwal D.O.* Started 13-Mar-2015 Qzqomw98 GM Can Allergies and Adverse Reactions Name [...] History of Arterial Catheterization PROTIME PANEL 7000 Ordered:02-Mar-2015 Immunization Name Dates Details Influenza Administered on:10-Dec-2010 Influenza Administered on:02-Feb-2012 Diphtheria-Tetanus Toxoids 6.7-5 LFU/0.5ML Intramuscular Injectable Administered on: Tdap (Boostrix) Administered on: Adacel 5-2-15.5 LF-MCG/0.5 Intramuscular Suspension Lot #: [id number] Administered on:21-Jul-2013 Fluzone High-Dose Intramuscular Suspension Lot #: [id number] Administered on:13-Dec-2013 Prevnar 13 Intramuscular Suspension Lot #: [id number] Administered on:07-Apr-2014 Family History Mother* Name Dates Details Family history of Status: Active Father* Name Dates Details Family history of Status: Active Social History Name Dates Details Smoking Status* Former smoker Vital Signs Date Test Result Details 06-Apr-2015 10:18 BP Systolic 161 mm[Hg] Status: BP Diastolic 92 mm[Hg] Status: Heart Rate 89 /min Status: Weight 228 lb Status: O2 SAT 98 % Status: Body Mass Index Calculated 30.08 kg/m2 Status: Body Surface Area Calculated 2.28 m2 Status: 13-Mar-2015 10:31 BP Systolic 130 mm[Hg] Status: BP Diastolic 78 mm[Hg] Status: Heart Rate 98 /min Status: Weight 224.0625 lb Status: Body Mass Index Calculated 29.56 kg/m2 Status: Body Surface Area Calculated 2.26 m2 Status: 13-Mar-2015 10:30 BP Systolic 130 mm[Hg] Status: BP Diastolic 78 mm[Hg] Status: Heart Rate 98 /min Status: Weight 224.0625 lb Status: Body Mass Index Calculated 29.56 kg/m2 Status: Body Surface Area Calculated 2.26 m2 Status: Results Date Description Value Details Results not documented Plan of Care Planned Observations* Name Dates Details Planned Goals not documented Goal Planned Encounters* Appointment; Provider: Carl Ga On 10-May-2015 09:15 * Appointment; Provider: Jovita Dhaliwal On 09-May-2015 10:15 * Appointment; Provider: Danyel Rodriguez On [...]
--- OUTSIDE RECORDS SUMMARY | 2016-07-04 09:04 | XMS REPORT | Referral Summary ---
Author Author [facility] Organization [facility] Address Unknown Phone Unavailable Encounter VC Date(s): 11/14/14 - 11/14/14 [facility] [address] [place] [address] [place] [address] Discharge Disposition: 01-Home or Self Care [...] Diagnosis Body Site Debridement, subcutaneous tissue (includes 11/14/14 epidermis and dermis, if performed); first 20 sq cm or less.. Replacement/pacemaker/dual chamber 03/2013 Procedure/heart catherization 2012 Placement/pacemaker 2007 Procedure/IV ABX and hyperbaric oxygen Social History No data available for this section Assessment and Plan No data available for this section
--- OUTSIDE RECORDS SUMMARY | 2016-07-04 09:04 | XMS REPORT | Referral Summary ---
Author Author [facility] Organization [facility] Address Unknown Phone Unavailable Encounter VC Date(s): 11/21/14 - 11/21/14 [facility] [address] [place] [address] [place] [address] Discharge Disposition: 01-Home or Self Care Attending [...] Procedures Procedure Date Related Diagnosis Body Site Application of rigid total contact leg cast.. 11/28/14 Surgical preparation or creation of recipient 11/28/14 site by excision of open wounds, burn eschar, or scar (including subcutaneous tissues), or incisional release of scar contracture, face, scalp, eyelids, mouth, neck, ears, orbits, genitalia, hands, feet and/or Debridement, subcutaneous tissue (includes 11/21/14 epidermis and dermis, if performed); first 20 sq cm or less.. Replacement/pacemaker/dual chamber 03/2013 Procedure/heart catherization 2012 Placement/pacemaker 2007 Procedure/IV ABX and hyperbaric oxygen Social History No data available for this section Assessment and Plan No data available for this section
--- OUTSIDE RECORDS SUMMARY | 2016-07-04 09:05 | XMS REPORT | Summary of Care ---
Author Author John Aldridge M.D. Organization Unknown Address [address], [place] [address] Phone Unavailable Care Team Providers Care Wafer Production Worker Name Role Phone Carl Ga D.O. Unavailable [...] Anticoagulant long-term use (V58.61, Z79.01) Status: Active Obstructive sleep apnea [...] E78.5) Status: Active Medications Name Dates Details Warfarin Sodium 5 MG Oral Tablet TAKE 1 TABLET DAILY. Quantity: 30 Sp Dawkins M.D.* Started 30-Oct-2010 ActiveFurosemide 40 MG Oral Tablet TAKE 1 TABLET BY MOUTH DAILY * Quantity: 90 Refills: 0 Sp Dwakins M.D.* Started 30-Oct-2010 ActiveLantus SoloStar 100 UNIT/ML Subcutaneous Solution Pen-injector INJECT 25 UNITS DAILY DIRECTED * Quantity: 11 Refills: 11 Jovita Dhaliwal D.O.* Started 05-Dec-2010 Active3 ML Pen (5 Pens) Carvedilol 6.25 MG Oral Tablet TAKE 1 TABLET BY MOUTH TWICE DAILY * Quantity: 180 Refills: 1 Jovita Dhaliwal D.O.* Started 18-Dec-2010 ActiveNeedles BD PEN NEEDLE MINI 41afrfc1/16 Inject Insulin at hs dx 250.02 * [...] 1 Refills: 0 Sp Dawkins M.D.* Started Fzwzxr383 Tablet Sublingual Bottle Lantus SoloStar 100 UNIT/ML [...] Refills: 3 Jovita Dhaliwal D.O.* Started 28-Feb-2014 Balls.ie Next Monitor w/Device Kit testing three times daily * Quantity: 1 Refills: 3 Sp Dawkins M.D.* Started 22-Mar-2014 ActiveBayer Contour Next Test In Vitro Strip TEST THREE TIMES A DAY * Quantity: 1 Refills: 3 Jovita Dhaliwal D.O.* Started 22-Mar-2014 Fisvtk752 Strip Box ZyrTEC Allergy 10 MG Oral Tablet TAKE 1 TABLET DAILY DIRECTED. * Quantity: 30 Refills: 2 Jovita Dhaliwal D.O.* Started 19-Jun-2014 ActiveFluticasone Propionate 50 MCG/ACT Nasal Suspension USE 1 TO 2 SPRAYS IN EACH NOSTRIL ONCE DAILY. * Quantity: 1 Refills: 0 Jovita Dhaliwal D.O.* Started 19-Jun-2014 Dzwbol07 GM Bottle Doxycycline Monohydrate 100 MG Oral [...] Adacel 5-2-15.5 LF-MCG/0.5 Intramuscular Suspension Lot #: [id number] Administered on:21-Jul-2013 Fluzone High-Dose Intramuscular Suspension Lot #: [id number] Administered on:13-Dec-2013 Prevnar 13 Intramuscular Suspension Lot #: [id number] Administered on:07-Apr-2014 Social History Name Dates Details [...] ml/min (Better) Range: >60 EST GFR, NON-AFR NICARAGUAN >60 ml/min (Better) Range: >60 Comments: EST GFR is reported in ml/min per 1.73 m2 of body surface area. For -Armenian, please multiple result by 1.2.----- BUN:CREATININE RATIO [...]
--- OUTSIDE RECORDS SUMMARY | 2016-07-04 09:05 | XMS REPORT | Summary of Care ---
Author Author Jovita Dhaliwal D.O. Organization Unknown Address [address], [place] [address] Phone Unavailable Care Team Providers Care Threading Machine Operator Name Role Phone Sp Dawkins M.D. Unavailable Unavailable Edilson Brennan M.D. Unavailable Unavailable Savannah [place] Unavailable Unavailable Jovita Dhaliwal D.O. Unavailable Unavailable Jose King M.D. Unavailable Unavailable Curry Dhaliawl Unavailable Unavailable Sp Soares Unavailable Unavailable Unavailable [...] G47.33) Status: Active Cardiac resynchronization therapy defibrillator (FISHING FLOATS ASSEMBLER-D) in place (V45.02, Z95.810) Status: Active On warfarin therapy (V58.61, Z79.01) Status: Active Combined form of age-related cataract, [...] Status: Active Hyperlipidemia (272.4, E78.5) Status: Active PAF (paroxysmal atrial fibrillation) (427.31, [...] of colon polyps (V12.72, Z86.010) Status: Active Hypertension (401.9, I10) Status: Active Actinic keratosis (702.0, L57.0) Status: [...] TWICE DAILY * Quantity: 180 Refills: 0 Sira D.O.Jovita * Start 18-Mar-2016 Active [place] BD PEN NEEDLE MINI 22xyoua9/16 Inject Insulin at hs dx 250.02 * [...] Refills: 0 Isra Salinas.Jovita Frazier * Start 14-Apr-2016 Active Losartan Potassium 100 MG Oral Tablet Take one tablet by mouth daily * Quantity: 90 Refills: 0 Jovita Dhaliwal D.O. * Start 28-Feb-2014 Active Nexstim Contour Next Monitor w/Device Kit testing three times daily * Quantity: 1 Refills: 3 Sp Dawkins M.D. * Start 22-Mar-2014 Active Nexstim Contour Next Test In Vitro Strip TEST THREE TIMES DAILY * Quantity: 100 Refills: 1 Isra Salinas.Jovita Frazier * Start 21-Dec-2015 Active Tamsulosin HCl - 0.4 MG Oral Capsule TAKE 1 CAPSULE Daily * Quantity: 30 Refills: 11 Isra D.Jovita Frazier * Start 05-Feb-2015 Active Supplies CPAP repair, services and supplies, G47.33 Mask, headgear, filters, heated tubing, chinstrap * Quantity: 1 Refills: 0 Savannah [place] * Start 05-Mar-2015 Active Fish Oil 1000 MG Oral Capsule TAKE 1 CAPSULE DAILY. * Refills: 0 * Start 10-May-2015 Active Supplies AutoCPAP 9-13 cm H2O, Permanent use, G47.33, Heated humidity, RbfpymdnE68, mask , headgear, filters, heated tubing, water chamber, chinstrap * Quantity: 1 Refills: 0 Sandip Montaño.Savannah Carvalho * Start 07-Jun-2015 Active Fluticasone Propionate 50 [...] Isra D.OJovita Mccarthy * Start 15-Apr-2016 Active Allergies and Adverse Reactions Name Dates [...] Dx Ordered: 15-Apr-2016 PROTIME PANEL 7000 Ordered: 22-Apr-2016 Immunization Name Dates Details Influenza on: 10-Dec-2010 Influenza on: 02-Feb-2012 Diphtheria-Tetanus Toxoids 6.7-5 LFU/0.5ML INJ on: Tdap (Boostrix) on: Adacel 5-2-15.5 LF-MCG/0.5 Intramuscular Suspension Lot #: [id number] on: 21-Jul-2013 Fluzone High-Dose SUSP Lot #: [id number] on: 13-Dec-2013 Prevnar 13 Intramuscular Suspension Lot #: [id number] on: 07-Apr-2014 Pneumovax 23 25 MCG/0.5ML Injection Injectable on: 09-May-2015 Pneumo (Pneumovax) Lot #: [id number] on: 09-May-2015 Fluzone High-Dose 0.5 ML Intramuscular Suspension Prefilled Syringe Lot #: [id number] on: 28-Dec-2015 Zoster (Zostavax) on: 19-Feb-2016 Family History Name Dates Details Family history of Status: Active Name Dates Details Family history of Status: Active Social History Name Dates Details - Status: Name Dates Details Former smoker Vital Signs Date Test Result Details 15-Apr-2016 09:48 BP Systolic 142 mm[Hg] Status: Comments: Location: ; Position: BP Diastolic 83 mm[Hg] Status: Comments: Location: ; Position: Heart Rate 90 /min Status: Comments: Location: ; Weight 240 lb Status: Physical Findings 96 Status: Comments: O2 Saturation Body Mass Index Calculated 33.01 kg/m2 Status: Body Surface Area Calculated 2.29 m2 Status: Results Date Description Value Details 15-Apr-2016 09:53 XRay CHEST-PA & LAT Comments: Exam Date: 04/15/2016 09: 26Dictation Date: 04/15/2016 09:53 X CHEST PA & LAT 21-Apr-2016 14:11 PROTIME PANEL 7000 PROTIME 34.0 secs (Above high threshold) Range: 12.0-14.9 INR 3.53 Plan of Care Name Dates Details Planned Observations PROTIME PANEL 7000 On 25-Apr-2016 Intent Planned Goals not documented Planned Encounters Appointment; Provider: Monica Mancera On 08-Dec-2016 14:00 Appointment; Provider: John Aldridge M.D. On 10-Jun-2016 10:15 Appointment; Provider: Don Reed M.D. On 04-Jun-2016 08:30 Appointment; Provider: Marisela Figueroa On 04-Jun-2016 08:00 Appointment; Provider: Prabhakar King M.D. On 02-Jun-2016 10:15 Appointment; Provider: Jovita Dhaliwal D.O. On 27-May-2016 09:30 Appointment; Provider: Jovita Dhaliwal D.O. On 20-May-2016 16:15 Instructions Name Dates Details Instructions not documented [...]
--- OUTSIDE RECORDS SUMMARY | 2016-07-04 09:05 | XMS REPORT | Summary of Care ---
Author Author Jovita Dhaliwal D.O. Organization Unknown Address [address], [place] [phone] Phone Unavailable Care Team Providers Care Dielectric Testing Machine Operator Name Role Phone Sp Dawkins [...] DIRECTED * Quantity: 11 Refills: 11 Isra RFabio Khan D.O.* Started 05-Dec-2010 Active3 ML Pen (5 Pens) Viagra 50 MG Oral Tablet TAKE DIRECTED. * Quantity: 6 Refills: 0 Sp Dawkins M.D.* Started 25-Mar-2013 ActiveWarfarin Sodium 6 MG Oral Tablet take 1 tablet by mouth every day * Quantity: 90 Refills: 1 Jovita Dhaliwal D.O.* Started 11-May-2013 ActiveVitamin B-12 1000 MCG Sublingual Tablet Sublingual [address] 1 MCG Daily * Quantity: 1 Refills: 0 Sp Dawkins M.D.* Started Bsptro954 Tablet Sublingual Bottle Lantus SoloStar 100 UNIT/ML Subcutaneous Solution Pen-injector INJECT 25 UNITS DAILY DIRECTED * Quantity: 1 Refills: 5 Isra RFabio Khan D.O.* Started 16-Dec-2013 Active3 ML Pen (5 Pens) Jeronimo Contour Next Test In Vitro Strip TEST THREE TIMES A DAY * Quantity: 1 Refills: 3 Jovita Dhaliwal D.O.* Started 22-Mar-2014 Ipwhqw443 Strip Box Tamsulosin HCl - 0.4 MG Oral Capsule TAKE 1 CAPSULE Daily * Quantity: 30 Refills: 11 Joviat Dhaliwal D.O.* Started 05-Feb-2015 ActiveClotrimazole 1 % [...] Refills: 0 Jovita Dhaliwal D.O.* Started 13-Mar-2015 Gtrpdm38 GM Can Number 100 Contour Next Monitor w/Device Kit testing three times daily * Quantity: 1 Refills: 3 Sp Dawkins M.D.* Started 22-Mar-2014 ActiveLosartan Potassium 50 MG Oral Tablet TAKE 1 TABLET TWICE DAILY. * Quantity: 180 Refills: 3 Jovita Dhaliwal.O.* Started 28-Feb-2014 ActivePravastatin Sodium 10 MG Oral Tablet TAKE 1/2 TABLET BY MOUTH DAILY * Quantity: 15 Refills: 11 Jovita Dhaliwal D.O.* Started 30-Mar-2013 ActiveNeedles BD PEN NEEDLE MINI 77goiry7/16 Inject Insulin at hs dx 250.02 * Quantity: 200 Refills: 6 Jovita Dhaliwal D.O.* Started 23-Dec-2010 ActiveCarvedilol 6.25 MG Oral Tablet TAKE 1 TABLET BY MOUTH TWICE DAILY * Quantity: 180 Refills: 1 Jovita Dhaliwal.O.* Started 18-Dec-2010 Active Allergies and Adverse Reactions Name Dates [...] History of Arterial Catheterization PROTIME PANEL 7000 Ordered:07-May-2015 Immunization Name Dates Details Influenza Administered on:10-Dec-2010 Influenza Administered on:02-Feb-2012 Diphtheria-Tetanus Toxoids 6.7-5 LFU/0.5ML Intramuscular Injectable Administered on: Tdap (Boostrix) Administered on: Adacel 5-2-15.5 LF-MCG/0.5 Intramuscular Suspension Lot #: [id number] Administered on:21-Jul-2013 Fluzone High-Dose Intramuscular Suspension Lot #: [id number] Administered on:13-Dec-2013 Prevnar 13 Intramuscular Suspension Lot #: [id number] Administered on:07-Apr-2014 Family History Mother* Name Dates [...]
--- OUTSIDE RECORDS SUMMARY | 2016-07-04 09:05 | XMS REPORT | Summary of Care ---
Author Author Jovita Dhaliwal D.O. Organization Unknown Address [address], [place] [address] Phone Unavailable Care Team Providers Care Air Hammer Stripper Name Role Phone Benny Barfield D.O. 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 * Quantity: 60 Refills: 2 Jovita Dhaliwal D.O.* Started 13-Mar-2015 ActiveFish Oil 1000 MG Oral Capsule TAKE 1 CAPSULE DAILY. * Refills: 0 * Started 10-May-2015 ActiveAzithromycin 250 MG Oral Tablet TAKE 2 TABLETS ON DAY 1 THEN TAKE 1 TABLET A DAY FOR 4 DAYS. * Quantity: 1 Refills: 0 Benny Barfield D.O.* Started 04-Jun-2015 Active6 Tablet Bottle Supplies AutoCPAP 9-13 cm H2O, Permanent use, G47.33, Heated humidity, RcllohqcT77, mask , headgear, filters, heated tubing, water chamber, chinstrap * Quantity: 1 Refills: 0 Savannah Oropeza P.A.* Started 07-Jun-2015 ActiveSupplies CPAP repair, services and supplies, G47.33 Mask, headgear, filters, heated tubing, chinstrap * Quantity: 1 Refills: 0 Savannah Oropeza P.A.* Started 05-Mar-2015 [facility] Contour Next Test In Vitro Strip TEST THREE TIMES A DAY * Quantity: 1 Refills: 3 Jovita Dhaliwal D.O.* Started 22-Mar-2014 Wzlsxt311 Strip Box Losartan Potassium 50 MG Oral Tablet TAKE 1 TABLET TWICE DAILY. * Quantity: 180 Refills: 3 Jovita Dhaliwal D.O.* Started 28-Feb-2014 ActiveProctofoam 1 % Rectal Foam USE 1 APPLICATORFUL RECTALLY 1-2 TIMES DAILY. * Quantity: 1 Refills: 0 Jovita Dhaliwal D.O.* Started 13-Mar-2015 Szknib69 GM Can Tamsulosin HCl - 0.4 MG Oral Capsule TAKE 1 CAPSULE Daily * Quantity: 30 Refills: 11 Jovita Dhaliwal D.O.* Started 05-Feb-2015 ActiveCheratussin AC 100-10 MG/5ML Oral Syrup TAKE 5 - 10 ML EVERY 4 TO 6 HOURS NEEDED FOR COUGH. * Quantity: 1 Refills: 0 Benny Barfield D.O.* Started 04-Jun-2015 Hrofbv111 ML Bottle Allergies and Adverse Reactions Name [...] Of Artery Of Extremity Completed:11-Jan-2013 History of Arterial Catheterization History of Pacemaker - Pulse Generator Replacement BASIC METABOLIC PROFILE 1210 Ordered:10-May-2015 HEMOGLOBIN A1C 3507 Ordered:10-May-2015 Immunization Name Dates Details Influenza Administered on:10-Dec-2010 Influenza Administered on:02-Feb-2012 Diphtheria-Tetanus Toxoids 6.7-5 LFU/0.5ML Intramuscular Injectable Administered on: Tdap (Boostrix) Administered on: Adacel 5-2-15.5 LF-MCG/0.5 Intramuscular Suspension Lot #: [id number] Administered on:21-Jul-2013 Fluzone High-Dose Intramuscular Suspension Lot #: [id number] Administered on:13-Dec-2013 Prevnar 13 Intramuscular Suspension Lot #: [id number] Administered on:07-Apr-2014 Pneumovax 23 25 MCG/0.5ML Injection Injectable Administered on:09-May-2015 Pneumo (Pneumovax) Lot #: [id number] Administered on:09-May-2015 Family History Mother* Name Dates [...]
--- OUTSIDE RECORDS SUMMARY | 2016-07-04 09:06 | XMS REPORT | Summary of Care ---
Author Author Jovita Dhaliwal D.O. Organization Unknown Address [address], [place] [id number] Phone Unavailable Care Team Providers Care Dye Feeder Name Role Phone Sp Dawkins M.D. [...] Started 18-Dec-2010 ActiveNeedles BD PEN NEEDLE MINI 60yttdv0/16 Inject Insulin at hs dx 250.02 * [...] 1 Refills: 0 Sp Dawkins M.D.* Started Fwhjqc411 Tablet Sublingual Bottle Lantus SoloStar 100 UNIT/ML Subcutaneous Solution Pen-injector INJECT 25 UNITS DAILY DIRECTED * Quantity: 1 Refills: 5 Jovita Dhaliwal.O.* Started 16-Dec-2013 Active3 ML Pen (5 Pens) Losartan Potassium 50 MG Oral Tablet TAKE 1 TABLET TWICE DAILY. * Quantity: 180 Refills: 3 Jovita Dhaliwal D.O.* Started 28-Feb-2014 [employer] Next Monitor w/Device Kit testing three times daily * Quantity: 1 Refills: 3 Sp Dawkins M.D.* Started 22-Mar-2014 Epitiro Next Test In Vitro Strip TEST THREE TIMES A DAY * Quantity: 1 Refills: 3 Jovita Dhaliwal D.O.* Started 22-Mar-2014 Puiehm682 Strip Box Tamsulosin HCl - 0.4 MG Oral Capsule TAKE 1 CAPSULE Daily * Quantity: 30 Refills: 11 Jovita Dhaliwal D.O.* Started 05-Feb-2015 ActiveClotrimazole 1 % External Cream APPLY SPARINGLY TO AFFECTED AREA(S) TWICE DAILY UNTIL RESOLVED * Quantity: 1 Refills: 0 Jovita Dhaliwal D.O.* Started 05-Feb-2015 Djeywq22 GM Tube Fluconazole 150 MG Oral Tablet [...] Adacel 5-2-15.5 LF-MCG/0.5 Intramuscular Suspension Lot #: [id number] Administered on:21-Jul-2013 Fluzone High-Dose Intramuscular Suspension Lot #: [id number] Administered on:13-Dec-2013 Prevnar 13 Intramuscular Suspension Lot #: [id number] Administered on:07-Apr-2014 Family History Mother* Name Dates [...] ml/min (Better) Range: >60 EST GFR, NON-AFR FIJIAN 58 ml/min (Below low threshold) Range: >60 Comments: EST GFR is reported in ml/min per 1.73 m2 of body surface area. For -Portuguese, please multiple result by 1.2.----- GLUCOSE 97 [...] On 13-Jan-2015 13:00 * Appointment; Provider: Debora Fiugeroa On 03-Jun-2013 11:30 * Appointment; Provider: Christos [...]
--- OUTSIDE RECORDS SUMMARY | 2016-07-04 09:06 | XMS REPORT | Summary of Care ---
Author Author Jovita Dhaliwal D.O. Organization Unknown Address [address], [place] [id number] Phone Unavailable Care Team Providers Care Typing Section Chief Name Role Phone Sp Dawkins M.D. Unavailable [...] Obstructive sleep apnea (327.23, G47.33) Status: Active External hemorrhoid (455.3, K64.4) Status: Active Slow transit constipation (564.01, K59.01) Status: Active Medications Name Dates Details Furosemide [...] Started 18-Dec-2010 ActiveNeedles BD PEN NEEDLE MINI 19ppqpt4/16 Inject Insulin at hs dx 250.02 * [...] 1 Refills: 0 Sp Dawkins M.D.* Started Spistv905 Tablet Sublingual Bottle Lantus SoloStar 100 UNIT/ML Subcutaneous Solution Pen-injector INJECT 25 UNITS DAILY DIRECTED * Quantity: 1 Refills: 5 Jovita Dhaliwal D.O.* Started 16-Dec-2013 Active3 ML Pen (5 Pens) Losartan Potassium 50 MG Oral Tablet TAKE 1 TABLET TWICE DAILY. * Quantity: 180 Refills: 3 IsraJovita D.O.* Started 28-Feb-2014 ActiveStreamup Next Monitor w/Device Kit testing three times daily * Quantity: 1 Refills: 3 Sp Dawkins M.D.* Started 22-Mar-2014 Activeupad Contour Next Test In Vitro Strip TEST THREE TIMES A DAY * Quantity: 1 Refills: 3 Jovita Dhaliwal D.O.* Started 22-Mar-2014 Eqqvpd390 Strip Box Tamsulosin HCl - 0.4 MG [...] 1 WEEK. * Quantity: 2 Refills: 0 Joivta Dhaliwal D.O.* Started 05-Feb-2015 ActiveSuppli CPAP repair, services and supplies, G47.33 Mask, headgear, filters, heated tubing, chinstrap * Quantity: 1 Refills: 0 Savannah Oropeza P.A.* Started 05-Mar-2015 ActiveColace 100 MG Oral Capsule TAKE 1 CAPSULE TWICE DAILY NEEDED. * Quantity: 60 Refills: 2 Jovita Dhaliwal.Juancarlos.* Started 13-Mar-2015 ActiveProctofoam 1 % Rectal Foam USE 1 APPLICATORFUL RECTALLY 1-2 TIMES DAILY. * Quantity: 1 Refills: 0 Jovita Dhaliwal.Juancarlos.* Started 13-Mar-2015 Ihjjbh05 GM Can Allergies and Adverse Reactions Name [...] Adacel 5-2-15.5 LF-MCG/0.5 Intramuscular Suspension Lot #: [id number] Administered on:21-Jul-2013 Fluzone High-Dose Intramuscular Suspension Lot #: [id number] Administered on:13-Dec-2013 Prevnar 13 Intramuscular Suspension Lot #: [id number] Administered on:07-Apr-2014 Family History Mother* Name Dates Details Family history of Status: Active Father* Name Dates Details Family history of Status: Active Social History Name Dates Details Smoking Status* Former smoker Vital Signs Date Test Result Details 13-Mar-2015 10:31 BP Systolic 130 mm[Hg] Status: [...] Body Surface Area Calculated 2.26 m2 Status: 05-Mar-2015 13:44 BP Systolic 138 mm[Hg] Status: [...] high threshold) Range: 12.0-14.9 INR 1.48 (Better) 17-Dec-2015 15:21 PROTIME PANEL 7000 PROTIME 27.4 secs [...] Problem not documented On 21-Mar-2014 13:15 Appointment; Jonh Aldridge Encounter Diagnosis: Problem not documented On [...]
--- OUTSIDE RECORDS SUMMARY | 2016-07-04 09:06 | XMS REPORT ---
Author Author GENERATED, SYSTEM Organization Unknown Address Unknown Phone Unavailable Care Team Providers Care Email Marketing Processor Name Role Phone DO WHEAT ROBERT PP Unavailable Reason For Visit Chief Complaint CT PELVIS WITH CONTRAST Social History Functional Status Vital Signs Results [...]
--- OUTSIDE RECORDS SUMMARY | 2016-07-04 09:06 | XMS REPORT ---
Author Author GENERATED, SYSTEM Organization Unknown Address Unknown Phone Unavailable Care Team Providers Care Home Health Nurse Name Role Phone DO WHEAT ROBERT PP [...]
--- OUTSIDE RECORDS SUMMARY | 2016-07-04 09:06 | XMS REPORT ---
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
--- OUTSIDE RECORDS SUMMARY | 2016-07-04 09:06 | XMS REPORT | Summary of Care ---
Author Author Jovita Dhaliwal D.O. Organization Unknown Address [address], [place] [address] Phone Unavailable Care Team Providers Care Leverman Name Role Phone Benny Barfield D.O. Unavailable Unavailable Sp Dawkins M.D. Unavailable Unavailable Mika Sands, Edilson Montilla Unavailable Unavailable Savannah Zimmerman Unavailable Unavailable Jovita [...] E78.5) Status: Active Cardiac resynchronization therapy defibrillator (RECORDS SECTION SUPERVISOR-D) in place (V45.02, Z95.810) Status: Active Chronic [...] TABLET BY MOUTH DAILY Quantity: 90 Jovita Dhaliwal.Juancarlos.* Started 30-Oct-2010 ActiveLantus SoloStar 100 UNIT/ML Subcutaneous Solution Pen-injector INJECT 44 UNITS DAILY DIRECTED * Quantity: 11 Refills: 11 Jovita Dhaliwal D.O.* Started 05-Dec-2010 Active3 ML Pen (5 Pens) Carvedilol 6.25 MG Oral Tablet TAKE 1 TABLET BY MOUTH TWICE DAILY * Quantity: 180 Refills: 1 Jovita Dhaliwal D.O.* Started 18-Dec-2010 ActiveNeedles BD PEN NEEDLE MINI 28jxcgv5/16 Inject Insulin at hs dx 250.02 * [...] 1 Refills: 0 Sp Dawkins M.D.* Started Zlkzur847 Tablet Sublingual Bottle Lantus SoloStar 100 UNIT/ML Subcutaneous Solution Pen-injector INJECT 25 UNITS DAILY DIRECTED * Quantity: 15 Refills: 0 Jovita Dhaliwal D.O.* Started 16-Dec-2013 ActiveLosartan Potassium 50 MG Oral Tablet TAKE 1 TABLET TWICE DAILY. * Quantity: 180 Refills: 3 Jovita Dhaliwal D.O.* Started 28-Feb-2014 [employer] Next Monitor w/Device Kit testing three times daily * Quantity: 1 Refills: 3 Sp Dawkins M.D.* Started 22-Mar-2014 ActiveNuLabel Next Test In Vitro Strip TEST THREE [...] Refills: 0 Benny Barfield D.O.* Started 04-Jun-2015 Flcmdd488 ML Bottle Supplies AutoCPAP 9-13 cm H2O, Permanent use, G47.33, Heated humidity, MiordipyP60, mask , headgear, filters, heated tubing, water chamber, chinstrap * Quantity: 1 Refills: 0 Savannah Oropeza.A.* Started 07-Jun-2015 ActiveFluticasone Propionate 50 MCG/ACT Nasal Suspension USE 1 SPRAY IN EACH NOSTRIL ONCE DAILY. * Quantity: 1 Refills: 0 Edilson Brennan M.D.* Started 29-Jun-2015 Gccphd07 GM Bottle BD Pen Needle Mini U/F [...] Adacel 5-2-15.5 LF-MCG/0.5 Intramuscular Suspension Lot #: [id number] Administered on:21-Jul-2013 Fluzone High-Dose Intramuscular Suspension Lot #: [id number] Administered on:13-Dec-2013 Prevnar 13 Intramuscular Suspension Lot #: [id number] Administered on:07-Apr-2014 Pneumovax 23 25 MCG/0.5ML Injection Injectable Administered on:09-May-2015 Pneumo (Pneumovax) Lot #: [id number] Administered on:09-May-2015 Family History Mother* Name Dates [...] Aldridge On 08-Feb-2016 11:00 * Appointment; Provider: Moody Choe On 13:45 * Appointment; Provider: Jovita Dhaliwal On 10:45 * Appointment; Provider: Danyel Rodriguez On 15:00 [...]
--- OUTSIDE RECORDS SUMMARY | 2016-07-04 09:07 | XMS REPORT | Summary of Care ---
Author Author Luis Carlos Sands, T. K. Organization Unknown Address [address], [place] [address] Phone Unavailable Care Team Providers Care Ruby On Rails Developer Name Role Phone Sp Dawkins M.D. Unavailable [...] Started 18-Dec-2010 ActiveNeedles BD PEN NEEDLE MINI 91efbmq7/16 Inject Insulin at hs dx 250.02 * [...] 1 Refills: 0 Sp Dawkins M.D.* Started Miycmx258 Tablet Sublingual Bottle Jeronimo Contour Next Monitor w/Device Kit testing three times daily * Quantity: 1 Refills: 3 Sp Dawkins M.D.* Started 22-Mar-2014 ActiveBayer Contour Next Test In Vitro Strip TEST THREE TIMES A DAY * Quantity: 1 Refills: 3 Jovita Dhaliwal D.O.* Started 22-Mar-2014 Zhxpqr852 Strip Box Losartan Potassium 50 MG Oral Tablet TAKE 1 TABLET TWICE DAILY. * Quantity: 180 Refills: 3 Jovita Dhaliwal D.O.* Started 28-Feb-2014 ActiveTamsulosin HCl - 0.4 MG Oral Capsule TAKE 1 CAPSULE Daily * Quantity: 30 Refills: 11 Jovita Dhaliwal.O.* Started 05-Feb-2015 ActiveSupplies CPAP repair, services and supplies, G47.33 Mask, headgear, filters, heated tubing, chinstrap * Quantity: 1 Refills: 0 Savannah Oropeza.* Started 05-Mar-2015 ActiveColace 100 MG Oral Capsule TAKE 1 CAPSULE TWICE DAILY NEEDED. * Quantity: 60 Refills: 2 Jovita Dhaliwal.Juancarlos.* Started 13-Mar-2015 ActiveProctofoam 1 % Rectal Foam USE 1 APPLICATORFUL RECTALLY 1-2 TIMES DAILY. * Quantity: 1 Refills: 0 Jovita Dhaliwal.Juancarlos.* Started 13-Mar-2015 Qweihf54 GM Can Fish Oil 1000 MG Oral [...] Adacel 5-2-15.5 LF-MCG/0.5 Intramuscular Suspension Lot #: [id number] Administered on:21-Jul-2013 Fluzone High-Dose Intramuscular Suspension Lot #: [id number] Administered on:13-Dec-2013 Prevnar 13 Intramuscular Suspension Lot #: [id number] Administered on:07-Apr-2014 Pneumovax 23 25 MCG/0.5ML Injection Injectable Administered on:09-May-2015 Pneumo (Pneumovax) Lot #: [id number] Administered on:09-May-2015 Family History Mother* Name Dates Details Family history of Status: Active Father* Name Dates Details Family history of Status: Active Social History Name Dates Details Smoking Status* Former smoker Vital Signs Date Test Result Details 10-May-2015 15:08 BP Systolic 156 mm[Hg] Status: [...] ml/min (Better) Range: >60 EST GFR, NON-AFR BAHRAINI 54 ml/min (Below low threshold) Range: >60 Comments: EST GFR is reported in ml/min per 1.73 m2 of body surface area. For -Ugandan, please multiple result by 1.2.----- BUN:CREATININE RATIO [...]
--- OUTSIDE RECORDS SUMMARY | 2016-07-04 09:07 | XMS REPORT | Summary of Care ---
Author Author Sp Dawkins M.D. Unknown Address [address], [place] [address] Phone Unavailable Care Team Providers Care Re Dye Hand Name Role Phone John Aldridge M.D. 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 Quantity: 30 Sp Dawkins M.D.* Started 30-Oct-2010 ActiveFurosemide 40 MG Oral Tablet TAKE 1 TABLET Every other day * Quantity: 45 Refills: 3 Sp Dawkins M.D.* Started 30-Oct-2010 ActiveLantus SoloStar 100 UNIT/ML Subcutaneous Solution Pen-injector INJECT 44 UNIT Daily * Refills: 0 Sp Dawkins M.D.* Started 05-Dec-2010 ActiveNeedles BD PEN NEEDLE MINI 33eavmo7/16 * Quantity: 200 Refills: 6 Gómez Grier M.D.* Started 23-Dec-2010 ActiveWarfarin Sodium 1 MG Oral Tablet Take 1 tablet daily * Quantity: 60 Refills: 11 Sp Dawkins M.D.* Started 20-May-2011 ActiveTriamcinolone .1%/ Eucerin Compound (50/50 mix) -- 1 pound tub (454 grams) Use liberally twice daily * Quantity: 454 Refills: 5 Sp Dawkins M.D.* Started 25-Mar-2013 ActiveViagra 50 MG Oral Tablet TAKE DIRECTED. * Quantity: 6 Refills: 0 Sp Dawkins M.D.* Started 25-Mar-2013 ActiveHydrocodone-Acetaminophen 5-325 MG Oral Tablet TAKE ONE TABLET(S) BY MOUTH EVERY SIX HOURS NEEDED * Quantity: 30 Refills: 0 Sp Dawkins M.D.* Started 28-Mar-2013 ActivePravastatin Sodium 10 MG Oral Tablet TAKE 1/2 TABLET BY MOUTH DAILY * Quantity: 30 Refills: 3 Sp Dawkins M.D.* Started 30-Mar-2013 ActiveVitamin B-12 1000 MCG Sublingual Tablet Sublingual PLACE 1 MCG Daily * Quantity: 1 Refills: 0 Sp Dawkins M.D.* Started Fmcpre831 Tablet Sublingual Bottle Lantus SoloStar 100 UNIT/ML Subcutaneous Solution Pen-injector INJECT 25 UNITS DAILY DIRECTED * Quantity: 15 Refills: 3 Sp Dawkins M.D.* Started 16-Dec-2013 ActiveCarvedilol 12.5 MG Oral Tablet TAKE 1 TABLET [...] Refills: 3 Sp Dawkins M.D.* Started 22-Mar-2014 Urceca341 Strip Box Ampicillin 500 MG Oral Capsule Take 1 capsule twice daily * Quantity: 30 Refills: 2 Sp Dawkins M.D.* Started 07-Apr-2014 ActiveClotrimazole-Betamethasone 1-0.05 % External Cream APPLY AND RUB IN A THIN FILM TO AFFECTED AREAS TWICE DAILY.(AM AND PM). * Quantity: 1 Refills: 0 Sp Dawkins M.D.* Started 27-Apr-2014 Suxabg93 GM Tube Allergies and Adverse Reactions Name Dates Details No Known Drug Allergies Status: Active Past Medical History Name Dates Details History of Diabetes mellitus (250.00, E11.9) Status: Resolved History of hypertension (V12.59, Z86.79) Status: Resolved Procedures Procedure Dates Details History of Catheterization Of Artery Of Extremity Completed:11-Jan-2013 History of Pacemaker - Pulse Generator Replacement PROTIME PANEL 7000 Ordered:12-May-2014 Immunization Name Dates Details Influenza Administered on:10-Dec-2010 Influenza Administered on:02-Feb-2012 Diphtheria-Tetanus Toxoids 6.7-5 LFU/0.5ML Intramuscular Injectable Administered on: Tdap (Boostrix) Administered on: Adacel 5-2-15.5 LF-MCG/0.5 Intramuscular Suspension Lot #: [id number] Administered on:21-Jul-2013 Fluzone High-Dose Intramuscular Suspension Lot #: [id number] Administered on:13-Dec-2013 Prevnar 13 Intramuscular Suspension Lot #: [id number] Administered on:07-Apr-2014 Social History Name Dates Details Smoking Status* Former smoker Vital Signs Date Test Result Details 27-Apr-2014 14:22 BP Systolic 114 mm[Hg] Status: [...]
--- OUTSIDE RECORDS SUMMARY | 2016-07-04 09:07 | XMS REPORT | Summary of Care ---
Author Author Jovita Dhaliwal D.O. Organization Unknown Address [address], [place] [address] Phone Unavailable Care Team Providers Care Supervisor Pyrotechnic Loading Name Role Phone Sp Dawkins M.D. 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 Blood blister (919.2, T14.8) Status: Active Hordeolum externum of right lower eyelid (373.11, H00.012) Status: Active Medications Name Dates Details Furosemide 40 MG Oral Tablet TAKE 1 TABLET BY MOUTH DAILY Quantity: 90 Isra Salinas.Jovita Frazier * Start 30-Oct-2010 Active Lantus SoloStar 100 UNIT/ML Subcutaneous Solution Pen-injector INJECT 44 UNITS DAILY DIRECTED * Quantity: 11 Refills: 11 Isra D.Jovita Frazier * Start 05-Dec-2010 Active 3 ML Pen (5 Pens) Carvedilol 6.25 MG Oral Tablet TAKE 1 TABLET BY MOUTH TWICE DAILY * Quantity: 180 Refills: 0 Isra Salinas.Jovita Frazier * Start 19-Dec-2015 Active [facility] BD PEN NEEDLE MINI 18nmwzr4/16 Inject Insulin at hs dx 250.02 * [...] Isra D.OJovita Mccarthy * Start 19-Dec-2015 Active Lantus SoloStar 100 UNIT/ML Subcutaneous Solution Pen-injector INJECT 25 UNITS DAILY DIRECTED * Quantity: 15 Refills: 0 Isra D.O.Jovita * Start 19-Dec-2015 Active Losartan Potassium 100 MG Oral Tablet Take one tablet by mouth daily * Quantity: 90 Refills: 0 Isra D.Jovita Frazier * Start 28-Feb-2014 Active Sandata Contour Next Monitor w/Device Kit testing three times daily * Quantity: 1 Refills: 3 Sp Dawkins M.D. * Start 22-Mar-2014 Active Jeronimo Contour Next Test In Vitro Strip TEST THREE TIMES DAILY * Quantity: 100 Refills: 1 Isra Salinas.Jovita Frazier * Start 21-Dec-2015 Active Tamsulosin HCl - 0.4 MG Oral Capsule TAKE 1 CAPSULE Daily * Quantity: 30 Refills: 11 Isra Salinas.Juancarlos.Jovita * Start 05-Feb-2015 Active Supplies CPAP repair, services and supplies, G47.33 Mask, headgear, filters, heated tubing, chinstrap * Quantity: 1 Refills: 0 Sandip P.A.Savannah * Start 05-Mar-2015 Active Fish Oil 1000 MG Oral Capsule TAKE 1 CAPSULE DAILY. * Refills: 0 * Start 10-May-2015 Active Supplies AutoCPAP 9-13 cm H2O, Permanent use, G47.33, Heated humidity, IwngwrfbP71, mask , headgear, filters, heated tubing, water [...] Refills: 0 Sandip P.A., Savannah * Start 05-Dec-2015 Active Allergies and Adverse [...] Adacel 5-2-15.5 LF-MCG/0.5 Intramuscular Suspension Lot #: [id number] on: 21-Jul-2013 Fluzone High-Dose SUSP Lot #: [id number] on: 13-Dec-2013 Prevnar 13 Intramuscular Suspension Lot #: [id number] on: 07-Apr-2014 Pneumovax 23 25 MCG/0.5ML Injection Injectable on: 09-May-2015 Pneumo (Pneumovax) Lot #: [id number] on: 09-May-2015 Fluzone High-Dose 0.5 ML Intramuscular Suspension Prefilled Syringe Lot #: [id number] on: 28-Dec-2015 Family History Name Dates Details Family history of Status: Active Name Dates Details Family history of Status: Active Social History Name Dates Details - Status: Name Dates Details Former smoker Vital Signs Date Test Result Details 02-Jan-2016 14:01 BP Systolic 138 mm[Hg] Status: Comments: Location: ; Position: BP Diastolic 90 mm[Hg] Status: Comments: Location: ; Position: Temperature 99.1 f Status: Heart Rate 93 /min Status: Comments: Location: ; Physical Findings 99 Status: Comments: O2 Saturation 28-Dec-2015 10:22 BP Systolic 143 mm[Hg] Status: Comments: Location: ; Position: BP Diastolic 84 mm[Hg] Status: Comments: Location: ; Position: Heart Rate 60 /min Status: Comments: Location: ; Weight 238 lb Status: Body Mass Index Calculated 32.73 kg/m2 Status: Body Surface Area Calculated 2.28 m2 Status: 12-Dec-2015 14:23 BP Systolic 128 mm[Hg] Status: [...] m2 Status: Results Date Description Value Details 04-Dec-2015 12:06 PROTIME PANEL 7000 PROTIME 15.5 secs (Above high threshold) Range: 12.0-14.9 INR 1.24 12-Dec-2015 10:30 PROTIME PANEL 7000 PROTIME 33.3 secs (Above high threshold) Range: 12.0-14.9 INR 3.24 18-Dec-2015 15:01 PROTIME PANEL 7000 PROTIME 24.0 secs (Above high threshold) Range: 12.0-14.9 INR 2.14 01-Jan-2016 10:09 PROTIME PANEL 7000 PROTIME 26.6 [...] 10:00 Appointment; Provider: Prabhakar King M.D. On 11-Jan-2016 08:15 Appointment; Provider: Prabhakar King M.D. On 03-Jan-2016 10:30 Instructions Name Dates Details Instructions not [...]
--- OUTSIDE RECORDS SUMMARY | 2016-07-04 09:07 | XMS REPORT | Summary of Care ---
Author Author Jovita Dhaliwal D.O. Organization Unknown Address [address] [place], [place] [address] Phone Unavailable Care Team Providers Care Communication Consultant Name Role Phone Sp Dawkins M.D. Unavailable [...] G47.33) Status: Active Cardiac resynchronization therapy defibrillator (FOOD PHOTOGRAPHER-D) in place (V45.02, Z95.810) Status: Active On [...] Status: Active Hypertension (401.9, I10) Status: Active Cough (786.2, R05) Status: Active Actinic keratosis (702.0, L57.0) Status: Active Medications Name Dates Details Furosemide 40 MG Oral Tablet TAKE 1 TABLET BY MOUTH DAILY Quantity: 90 Isra D.O. RFabio Khan * Start 30-Oct-2010 Active Lantus SoloStar 100 UNIT/ML Subcutaneous Solution Pen-injector INJECT 44 UNITS DAILY DIRECTED * Quantity: 11 Refills: 11 Isra D.O.Jovita * Start 05-Dec-2010 Active 3 ML Pen (5 Pens) Carvedilol 6.25 MG Oral Tablet TAKE 1 TABLET BY MOUTH TWICE DAILY * Quantity: 180 Refills: 0 Isra D.O.Jovita * Start 18-Mar-2016 Active [place] BD PEN NEEDLE MINI 40nwyhz1/16 Inject Insulin at hs dx 250.02 * Quantity: 200 Refills: 6 Isra D.O.Jovita * Start 23-Dec-2010 Active Pravastatin Sodium 10 MG Oral Tablet TAKE 1/2 TABLET BY MOUTH DAILY * Quantity: 15 Refills: 11 Isra D.O.Jovita * Start 30-Mar-2013 Active Warfarin Sodium 6 MG Oral Tablet take 1 tablet by mouth every day * Quantity: 90 Refills: 1 Isra Salinas.Juancarlos.Jovita * Start 21-Feb-2016 Active Losartan Potassium 50 MG Oral Tablet TAKE 1 TABLET BY MOUTH TWICE DAILY * Quantity: 180 Refills: 0 Isra D.O.Jovita * Start 21-Feb-2016 Active Lantus SoloStar 100 UNIT/ML Subcutaneous Solution Pen-injector INJECT 25 UNITS DAILY DIRECTED * Quantity: 15 Refills: 0 Isra D.Juancarlos.Jovita * Start 14-Apr-2016 Active Losartan Potassium 100 MG Oral Tablet Take one tablet by mouth daily * Quantity: 90 Refills: 0 Isra Salinas.Jovita Frazier * Start 28-Feb-2014 Active [employer] Contour Next Monitor w/Device Kit testing three times daily * Quantity: 1 Refills: 3 Sp Dawkins M.D. * Start 22-Mar-2014 Active [employer] Contour Next Test In Vitro Strip TEST THREE TIMES DAILY * Quantity: 100 Refills: 1 Isra Salinas.Jovita Frazier * Start 21-Dec-2015 Active Tamsulosin HCl - 0.4 MG Oral Capsule TAKE 1 CAPSULE Daily * Quantity: 30 Refills: 11 Isra D.O.Jovita * Start 05-Feb-2015 Active Supplies AutoCPAP 9-13 cm H2O, Permanent use, G47.33, Heated humidity, JyttsstrN09, mask , headgear, filters, heated tubing, water chamber, chinstrap * Quantity: 1 Refills: 0 Savannah Zimmerman * Start 07-Jun-2015 Active BD Pen Needle Mini U/F 31G X 5 MM Miscellaneous USE TO INJECT INSULIN AT BEDTIME * Quantity: 200 Refills: 0 Isra D.O.Jovita * Start Active Latanoprost 0.005 % Ophthalmic Solution INSTILL 1 DROP IN BOTH EYES AT BEDTIME. * Quantity: 1 Refills: 12 Prabhakar King M.D. * Start 11-Jan-2016 Active 2.5 ML Bottle PredniSONE 20 MG Oral Tablet TAKE 2 TABLETS DAILY WITH FOOD * Quantity: 10 Refills: 0 Isra D.O.Jovita * Start 18-Mar-2016 Active Chlorpheniramine Maleate 4 MG Oral Tablet TAKE 1 TABLET EVERY 4 TO 6 HOURS NEEDED. * Quantity: 20 Refills: 0 Isra D.O.Jovita * Start 15-Apr-2016 Active PredniSONE 20 MG Oral Tablet TAKE 2 TABLETS DAILY WITH FOOD * Quantity: 10 Refills: 0 Isra D.O.Jovita * Start 15-Apr-2016 Active Supplies CPAP repair, services and supplies, G47.33 Mask, headgear, filters, heated tubing, chinstrap * Quantity: 1 Refills: 0 Sandip P.ASavannah Mccarthy * Start 05-Dec-2015 Active Fluticasone Propionate 50 MCG/ACT Nasal Suspension USE 1 SPRAY IN EACH NOSTRIL ONCE DAILY. * Quantity: 1 Refills: 0 Edilson Brennan M.D. * Start 29-Jun-2015 Active 16 GM Bottle Fish Oil 1000 MG Oral Capsule TAKE 1 CAPSULE DAILY. * Refills: 0 * Start 10-May-2015 Active Vitamin B-12 1000 MCG Sublingual Tablet Sublingual PLACE 1 MCG Daily * Quantity: 1 Refills: 0 Sp Dawkins M.D. * Start Active 100 Tablet Sublingual Bottle Supplies CPAP repair, services and supplies, G47.33 Mask, headgear, filters, heated tubing, chinstrap * Quantity: 1 Refills: 0 Sandip P.ASavannah Mccarthy * Start 05-Mar-2015 Active Allergies and Adverse Reactions Name [...] Dx Ordered: 15-Apr-2016 PROTIME PANEL 7000 Ordered: 18-Mar-2016 BASIC METABOLIC PROFILE 1210 Ordered: 19-Feb-2016 HEMOGLOBIN A1C 3507 Ordered: 19-Feb-2016 Immunization Name Dates Details Influenza on: 10-Dec-2010 Influenza on: 02-Feb-2012 Diphtheria-Tetanus Toxoids 6.7-5 LFU/0.5ML INJ on: Tdap (Boostrix) on: Adacel 5-2-15.5 LF-MCG/0.5 Intramuscular Suspension Lot #: [id number] on: 21-Jul-2013 Fluzone High-Dose SUSP Lot #: [id number] on: 13-Dec-2013 Prevnar 13 Intramuscular Suspension Lot #: [id number] on: 07-Apr-2014 Pneumovax 23 25 MCG/0.5ML Injection Injectable on: 09-May-2015 Pneumo (Pneumovax) Lot #: [id number] on: 09-May-2015 Fluzone High-Dose 0.5 ML Intramuscular Suspension Prefilled Syringe Lot #: [id number] on: 28-Dec-2015 Zoster (Zostavax) on: 19-Feb-2016 Family [...] 04/15/2016 09:53 X CHEST PA & LAT Plan of Care Name Dates Details Planned Observations PROTIME PANEL 7000 On 07-Apr-2016 Intent Planned Goals not documented Planned Encounters Appointment; Provider: Monica Mancera On 08-Dec-2016 14:00 Appointment; Provider: John Aldridge M.D. On 10-Jun-2016 10:15 Appointment; Provider: Don Reed M.D. On 04-Jun-2016 08:30 Appointment; Provider: Marisela Figueroa On 04-Jun-2016 08:00 Appointment; Provider: Prabhakar King M.D. On 02-Jun-2016 10:15 Appointment; Provider: Jovita Dhaliwal D.O. On 27-May-2016 09:30 Appointment; Provider: Jovita Dhaliwal D.O. On 20-May-2016 16:15 Interventions Provided Medication Changes* PredniSONE 20 MG [...]
--- OUTSIDE RECORDS SUMMARY | 2016-07-04 09:07 | XMS REPORT | Continuity of Care Document ---
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 08/11/2015 GUADALUPE WELCH I22276 Type 2 diabetes mellitus with foot ulcer 08/11/2015 GUADALUPE WELCH E785 Hyperlipidemia, unspecified 08/11/2015 GUADALUPE WELCH G4733 Obstructive sleep apnea (adult) (pediatric) 08/11/2015 GUADALUPE WELCH 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, aortic and tricuspid valves 08/11/2015 GUADALUPE WELCH I129 Hypertensive chronic kidney disease w stg 1-4/ unsp chr kdny 08/11/2015 GUADALUPE WELCH I214 Non-ST elevation (NSTEMI) myocardial infarction 08/11/2015 GUADALUPE WELCH 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 08/11/2015 GUADALUPE WELCH I255 Ischemic cardiomyopathy 08/11/2015 GUADALUEP WELCH I480 Paroxysmal atrial fibrillation 08/11/2015 GUADALUPE WELCH I5022 Chronic systolic (congestive) heart failure 08/11/2015 GUADALUPE WELCH 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 Hemiplga following cerebral infrc affecting left nondom side 08/11/2015 GUADALUPE WELCH 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 08/11/2015 GUADALUPE WELCH W15354 Cellulitis of left lower limb 08/11/2015 GUADALUPE WELCH E33000 Non-prs chronic ulcer oth prt right foot w unsp severity 08/11/2015 GUADALUPE WELCH W04011 Non-pressure chronic ulcer oth prt left foot w unsp severity 08/11/2015 GUADALUPE WELCH M6008 Infective myositis, other site 08/11/2015 GUADALUPE WELCH M7981 Nontraumatic hematoma of soft tissue 08/11/2015 GUADALUPE WELCH N183 Chronic kidney disease, stage 3 (moderate) 08/11/2015 GUADALUPE WELCH N400 Enlarged prostate without lower urinary tract symptoms 08/11/2015 GUADALUPE WELCH R2681 Unsteadiness on feet 08/11/2015 GUADALUPE WELCH Z7901 intermediate (current) use of anticoagulants 08/11/2015 GUADALUPE WELCH Z794 intermediate (current) use of insulin 08/11/2015 GUADALUPE WELCH Q61299 Other hat liner (current) drug therapy 08/11/2015 GUADALUPE WELCH T96837 Personal history of other venous thrombosis and embolism 08/11/2015 GUADALUPE WELCH R71508 Presence of automatic (implantable) cardiac defibrillator Procedures Results Test Result Range CBC WITH MANUAL DIFFERENTIAL - 07/01/16 14:02 SEGS 58.0 % NRG *BASOPHILS 0.0 % NRG *EOSINOPHILS 1.0 % NRG *BANDS 0.0 % NRG *MANUAL DIFF PERFORMED NRG *LYMPHOCYTES 29.0 % NRG *MONOCYTES 12.0 % NRG *ABSOLUTE BASOPHILS 0.00 10*3/uL 0.00- 0.20 *ABSOLUTE EOSINOPHILS 0.04 10*3/uL 0.00- 0.50 *ABSOLUTE LYMPHOCYTES 1.22 10*3/uL 1.00- 3.00 *ABSOLUTE MONOCYTES 0.50 10*3/uL 0.30- 1.00 *ABSOLUTE NEUTROPHILS 2.44 10*3/uL 1.80- 7.80 COMPREHENSIVE METABOLIC PANEL - 07/01/16 14:02 SODIUM 138 mmol/L 136-145 POTASSIUM 5.0 mmol/L 3.5-5.1 CHLORIDE 104 mmol/L 98-107 TCO2 27.2 mmol/L 21.0-32.0 *ANION GAP 6.8 mmol/L 8.0-16.0 BUN 15 7-18 CREATININE 1.40 0.70-1.30 *BUN/CREATININE RATIO 10.7 9.1-17.0 GLUCOSE 111 65-99 CALCIUM 8.7 8.5-10.1 BILIFUBIN TOTAL 0.80 0.20-1.00 TOTAL PROTEIN 7.2 6.4-8.2 ALBUMIN 4.0 3.4-5.0 *GLOBULIN 3.2 2.3-3.5 *A/G RATIO 1.3 1.5-2.2 ALK PHOS 87 U/L 46-116 ALT (SGPT) 20 U/L 14-59 AST (SGOT) 18 U/L 15-37 C-REACTIVE PROTEIN - 07/01/16 14:02 C-REACTIVE PROTEIN <0.05 0.00-0.30 GFR ESTIMATION - 07/01/16 14:02 *GFR EST NON AFR MACEDONIAN 51 mL/min NRG *GRFA EST AFR AMER 59 mL/min NRG ERYTH. SED. RATE - 07/01/16 14:02 ERYTH. SED. RATE 10 mm/h 0-20 Encounters ACCT No. Visit Date/Time Discharge Status Pt. Type Provider Facility Loc./Unit Complaint [id number] 04/13/2013 09:33:00 04/13/2013 23 :59:59 [facility] Outpatient
--- OUTSIDE RECORDS SUMMARY | 2016-07-04 09:08 | XMS REPORT | Summary of Care ---
Author Author John Aldridge M.D. Organization Unknown Address [address], [place] [address] Phone Unavailable Care Team Providers Care Certified Marine Mechanic Name Role Phone John Aldridge M.D. Unavailable [...] I50.42) Status: Active Cardiac resynchronization therapy defibrillator (REGISTERED MIDWIFE-D) in place (V45.02, Z95.810) Status: Active Hyperlipidemia [...] 1 Isra D.O.Jovita * Start 18-Dec-2010 Active [place] BD PEN NEEDLE MINI 28mcvie7/16 Inject Insulin at hs dx 250.02 * [...] 0 Isra D.O.Jovita * Start 28-Feb-2014 Active [employer] Contour Next Monitor w/Device Kit testing three times daily * Quantity: 1 Refills: 3 Sp Dawkins M.D. * Start 22-Mar-2014 Active [employer] Contour Next Test In Vitro Strip TEST THREE TIMES DAILY * Quantity: 100 Refills: 0 Isra D.O., R. Bill * Start 22-Mar-2014 Active Tamsulosin HCl - [...] cm H2O, Permanent use, G47.33, Heated humidity, SxycxgkwB37, mask , headgear, filters, heated tubing, water [...] Adacel 5-2-15.5 LF-MCG/0.5 Intramuscular Suspension Lot #: [id number] on: 21-Jul-2013 Fluzone High-Dose SUSP Lot #: [id number] on: 13-Dec-2013 Prevnar 13 Intramuscular Suspension Lot #: [id number] on: 07-Apr-2014 Pneumovax 23 25 MCG/0.5ML Injection Injectable on: 09-May-2015 Pneumo (Pneumovax) Lot #: [id number] on: 09-May-2015 Family History Name Dates Details [...] ; Position: Heart Rate 84 /min Status: Height 71.5 in Status: Weight 235 lb [...] m2 Status: Results Date Description Value Details 14-Nov-2015 12:12 PROTIME PANEL 7000 PROTIME 19.1 [...] Problem not documented On 26-Jul-2014 09:45 Appointment; Tair Chilel A.P.R.N. Encounter Diagnosis: Problem not documented [...]
--- OUTSIDE RECORDS SUMMARY | 2016-07-04 09:08 | XMS REPORT | Summary of Care ---
Author Author Jovita Dhaliwal D.O. Organization Unknown Address [address] [place], [place] [address] Phone Unavailable Care Team Providers Care Vamp Marker Name Role Phone Sp Dawkins M.D. Unavailable Unavailable Edilson Brennan M.D. Unavailable Unavailable Savannah Zimmerman Unavailable Unavailable Jovita Dhaliwal D.O. Unavailable Unavailable Дмитрий Sands, Juancarlos Unavailable Unavailable Curry Dhaliwal Unavailable Unavailable Sp [...] L57.0) Status: Active Cardiac resynchronization therapy defibrillator (MIXER BLENDER-D) in place (V45.02, Z95.810) Status: Active Hyperlipidemia [...] 1 Isra D.O.Jovita * Start 18-Dec-2010 Active [place] BD PEN NEEDLE MINI 72ydfmb1/16 Inject Insulin at hs dx 250.02 * [...] 0 Isra D.O.Jovita * Start 28-Feb-2014 Active [employer] Contour Next Monitor w/Device Kit testing three times daily * Quantity: 1 Refills: 3 Sp Dawkins M.D. * Start 22-Mar-2014 Active [employer] Contour Next Test In Vitro Strip TEST [...] cm H2O, Permanent use, G47.33, Heated humidity, NicrnrecN77, mask , headgear, filters, heated tubing, water [...] Adacel 5-2-15.5 LF-MCG/0.5 Intramuscular Suspension Lot #: [id number] on: 21-Jul-2013 Fluzone High-Dose SUSP Lot #: [id number] on: 13-Dec-2013 Prevnar 13 Intramuscular Suspension Lot #: [id number] on: 07-Apr-2014 Pneumovax 23 25 MCG/0.5ML Injection Injectable on: 09-May-2015 Pneumo (Pneumovax) Lot #: [id number] on: 09-May-2015 Family History Name Dates Details [...] 10:00 Appointment; Provider: John Aldridge M.D. On 12-Dec-2015 13:45 Interventions Provided Medication Changes* Supplies - Start Labs/Procedures/Imaging* PROTIME PANEL 7000; To be Done: 05 Dec 2015 Instructions Name Dates Details Instructions [...]
--- OUTSIDE RECORDS SUMMARY | 2016-07-04 09:08 | XMS REPORT | Summary of Care ---
Author Author Jovita Dhaliwal D.O. Organization Unknown Address [address], [place] [address] Phone Unavailable Care Team Providers Care Captain/Airline Pilot Name Role Phone Sp Dawkins M.D. Unavailable [...] G47.33) Status: Active Cardiac resynchronization therapy defibrillator (5TH GRADE TEACHER-D) in place (V45.02, Z95.810) Status: Active On [...] Isra D.Jovita Frazier * Start 19-Dec-2015 Active [place] BD PEN NEEDLE MINI 03qctad7/16 Inject Insulin at hs dx 250.02 * [...] Isra Salinas.Jovita Frazier * Start 28-Feb-2014 Active [employer] Contour Next Monitor w/Device Kit testing three [...] cm H2O, Permanent use, G47.33, Heated humidity, MpdthevgG95, mask , headgear, filters, heated tubing, water [...] Arterial Catheterization PROTIME PANEL 7000 Ordered: 11-Feb-2016 BASIC METABOLIC PROFILE 1210 Ordered: 19-Feb-2016 HEMOGLOBIN A1C 3507 Ordered: 19-Feb-2016 PROTIME PANEL 7000 Ordered: 19-Feb-2016 Immunization Name Dates Details Influenza on: 10-Dec-2010 Influenza on: 02-Feb-2012 Diphtheria-Tetanus Toxoids 6.7-5 LFU/0.5ML INJ on: Tdap (Boostrix) on: Adacel 5-2-15.5 LF-MCG/0.5 Intramuscular Suspension Lot #: [id number] on: 21-Jul-2013 Fluzone High-Dose SUSP Lot #: [id number] on: 13-Dec-2013 Prevnar 13 Intramuscular Suspension Lot #: [id number] on: 07-Apr-2014 Pneumovax 23 25 MCG/0.5ML Injection Injectable on: 09-May-2015 Pneumo (Pneumovax) Lot #: [id number] on: 09-May-2015 Fluzone High-Dose 0.5 ML Intramuscular Suspension Prefilled Syringe Lot #: [id number] on: 28-Dec-2015 Zoster (Zostavax) on: 19-Feb-2016 Family History Name Dates Details Family history of Status: Active Name Dates Details Family history of Status: Active Social History Name Dates Details - Status: Name Dates Details Former smoker Vital Signs Date Test Result Details 12-Mar-2016 11:48 BP Systolic 130 mm[Hg] Status: [...] >60 ml/min Range: >60 EST GFR, NON-AFR BURMESE 55 ml/min (Below low threshold) Range: >60 [...] Problem not documented On 17-Apr-2014 09:45 Appointment; pS Dawkins M.D. Encounter Diagnosis: Problem not documented On 07-Apr-2014 10:45 Appointment; John Aldridge M.D. Encounter Diagnosis: Problem not documented On 28-Mar-2014 11:15 Appointment; Sp Dawkins M.D. Encounter Diagnosis: Problem not documented On 21-Mar-2014 13:15
--- OUTSIDE RECORDS SUMMARY | 2016-07-04 09:08 | XMS REPORT ---
Author Author Blayne Warner Organization [employer] Address Unknown Phone Unavailable Care Team Providers Care Industrial Order Clerk Name Role Phone Blayne Warner CP Unavailable Allergies No Known Allergies Problems Problem Type Condition Code Onset Dates Condition Status Problem NYHA class 3 systolic congestive heart failure with reduced left ventricular function I50.20 Active Problem Cardiomyopathy I42.9 Active Medications No Known Medications Results No Known Results Summary Purpose [employer] Submission
--- OUTSIDE RECORDS SUMMARY | 2016-07-04 09:08 | XMS REPORT ---
Author Author Blayne Warner [facility] [employer] Address Unknown Phone Unavailable Care Team Providers Care Parts Designer Name Role Phone Blayne Warner CP Unavailable Allergies, Adverse Reactions, Alerts Substance Reaction Event Type N.K.D.A. Info Not Available Non Drug Allergy Problems Problem Type Condition Code Onset Dates Condition Status Problem Biventricular implantable cardioverter-defibrillator in situ Z95.810 Active Problem Cardiomyopathy I42.9 Active Problem Ischemic cardiomyopathy I25.5 Active Assessment Biventricular implantable cardioverter-defibrillator in situ Z95.810 Active Problem NYHA class 3 systolic congestive heart failure with reduced left ventricular function I50.20 Active Assessment Ischemic cardiomyopathy I25.5 Active Medications Medication Code System Code Instructions Start Date End Date Status Dosage Carvedilol [facility] [address]-99 25 MG Orally Twice a day 1 tablet Lantus SoloStar [facility] [address]-13 100 UNIT/ML Subcutaneous not defined Fluticasone Propionate [facility] [address]-31 50 MCG/ACT Nasally Once a day 1 spray in each nostril Coumadin [facility] [address]-81 7.5 MG Orally Once a day 1 tablet Pravastatin Sodium [facility] [address]-51 10 MG Orally Once a day 1 tablet Fish Oil [facility] [address]-94 not defined Docusate Sodium [facility] [address]-22 100 MG Orally Once a day 1 capsule as needed Lortab [facility] [address]-43 5-325 MG Orally every 6 hrs 1 tablet as needed Potassium [facility] [address]-28 99 MG Orally Once a day 2 tablet Tamsulosin HCl [facility] [address]-75 0.4 MG Orally not defined Vitamin B 12 [facility] 89349-[address]783 not defined Bactrim DS [facility] [address]-74 800-160 MG Orally Twice a day 1 tablet Losartan Potassium [facility] [address]-91 50 MG Orally Twice a day 1 tablet Lasix [facility] [address]-03 40 MG Orally Once a day 1 tablet Procedures Procedure Coding System Code Date Ofc Program ICD BiV, Staff CPT-4 23360 Nov 07, 2015 Office Visit, Est Pt., Level 4 CPT-4 99479 Nov 07, 2015 Vital Signs Date/Time: Nov 07, 2015 BMI 31.33 Index Weight 231 lbs Height 72 in Cardiac Monitoring Heart Rate 77 /min Oximetry 96 % Blood Pressure Diastolic 72 mm Hg Blood Pressure Systolic 118 mm Hg Results No Known Results Summary Purpose [employer] Submission
--- OUTSIDE RECORDS SUMMARY | 2016-07-04 09:08 | XMS REPORT | Summary of Care ---
Author Author John Aldridge M.D. Organization Unknown Address Unknown Phone Unavailable Care Team Providers Care Strap Machine Operator Automatic Name Role Phone John Aldridge M.D. Unavailable [...] G47.33) Status: Active Cardiac resynchronization therapy defibrillator (OIL HOUSE ATTENDANT-D) in place (V45.02, Z95.810) Status: Active Chronic [...] Active Seborrheic keratosis (702.19, L82.1) Status: Active Medications Name Dates Details Furosemide [...] DAILY * Quantity: 180 Refills: 1 Isra D.Jovita Frazier * Start 18-Dec-2010 Active [place] BD PEN NEEDLE MINI 34qhpoj3/16 Inject Insulin at hs dx 250.02 * Quantity: 200 Refills: 6 Isra D.O.Jovita * Start 23-Dec-2010 Active Warfarin Sodium 1 MG Oral Tablet TAKE 1 TABLET BY MOUTH DAILY * Quantity: 60 Refills: 2 Isra D.Juancarlos.Jovita * Start 20-May-2011 Active Pravastatin Sodium 10 MG Oral Tablet TAKE 1/2 TABLET BY MOUTH DAILY * Quantity: 15 Refills: 11 Isra Salinas.O.Jovita * Start 30-Mar-2013 Active Warfarin Sodium 6 [...] DAILY. * Quantity: 180 Refills: 3 Isra D.OJovita Mccarthy * Start 28-Feb-2014 Active [employer] Contour Next Monitor w/Device Kit testing three times daily * Quantity: 1 Refills: 3 Sp Dawkins M.D. * Start 22-Mar-2014 Active [employer] Contour Next Test In Vitro Strip TEST [...] cm H2O, Permanent use, G47.33, Heated humidity, ZibixwugP65, mask , headgear, filters, heated tubing, water [...] Adacel 5-2-15.5 LF-MCG/0.5 Intramuscular Suspension Lot #: [id number] on: 21-Jul-2013 Fluzone High-Dose SUSP Lot #: [id number] on: 13-Dec-2013 Prevnar 13 Intramuscular Suspension Lot #: [id number] on: 07-Apr-2014 Pneumovax 23 25 MCG/0.5ML Injection Injectable on: 09-May-2015 Pneumo (Pneumovax) Lot #: [id number] on: 09-May-2015 Family History Name Dates Details [...] Comments: Location: LUE; Position: Sitting Heart Rate 85 /min Status: [...] >60 ml/min Range: >60 EST GFR, NON-AFR [place] >60 ml/min Range: >60 Comments: EST GFR is reported in ml/min per 1.73 m2 of body surface area. For -Russian, please multiple result by 1.2.----- BUN:CREATININE RATIO [...] documented On 27-Apr-2014 15:00 Appointment; Carl aG D.O. Encounter Diagnosis: Problem [...]
--- OUTSIDE RECORDS SUMMARY | 2016-07-04 09:09 | XMS REPORT | Summary of Care ---
Author Author Jovita Dhaliwal D.O. Organization Unknown Address [address], [place] [address] Phone Unavailable Care Team Providers Care Sewage Treatment Plant Operator Name Role Phone Sp Dawkins M.D. 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 Presbyopia OU (367.4, H52.4) Status: Active Medications Name Dates Details Furosemide [...] Isra Salinas.Jovita Frazier * Start 19-Dec-2015 Active [place] BD PEN NEEDLE MINI 68vxgkw5/16 Inject Insulin at hs dx 250.02 * Quantity: 200 Refills: 6 sIra Salinas.Juancarlos.Jovita * Start 23-Dec-2010 Active Pravastatin Sodium 10 MG Oral Tablet TAKE 1/2 TABLET BY MOUTH DAILY * Quantity: 15 Refills: 11 Isra Salinas.Jvoita Frazier * Start 30-Mar-2013 Active Warfarin Sodium [...] Isra Salinas.Jovita Frazier * Start 28-Feb-2014 Active [employer] Contour Next Monitor w/Device Kit testing three [...] cm H2O, Permanent use, G47.33, Heated humidity, YxecelrrD56, mask , headgear, filters, heated tubing, water [...] of Arterial Catheterization PROTIME PANEL 7000 Ordered: 18-Dec-2015 Immunization Name Dates Details Influenza on: 10-Dec-2010 Influenza on: 02-Feb-2012 Diphtheria-Tetanus Toxoids 6.7-5 LFU/0.5ML INJ on: Tdap (Boostrix) on: Adacel 5-2-15.5 LF-MCG/0.5 Intramuscular Suspension Lot #: [id number] on: 21-Jul-2013 Fluzone High-Dose SUSP Lot #: [id number] on: 13-Dec-2013 Prevnar 13 Intramuscular Suspension Lot #: [id number] on: 07-Apr-2014 Pneumovax 23 25 MCG/0.5ML Injection Injectable on: 09-May-2015 Pneumo (Pneumovax) Lot #: [id number] on: 09-May-2015 Fluzone High-Dose 0.5 ML Intramuscular Suspension Prefilled Syringe Lot #: [id number] on: 28-Dec-2015 Family History Name Dates Details Family history of Status: Active Name Dates Details Family history of Status: Active Social History Name Dates Details - Status: Name Dates Details Former smoker Vital Signs Date Test Result Details 28-Dec-2015 10:22 BP Systolic 143 mm[Hg] Status: [...] (Above high threshold) Range: 12.0-14.9 INR 2.14 Plan of Care Name Dates Details Planned Observations PROTIME PANEL 7000 On 21-Dec-2015 Intent Planned Goals not documented Planned Encounters Appointment; Provider: Monica Mancera On 08-Dec-2016 14:00 Appointment; Provider: Prabhakar King M.D. On 30-Jun-2016 10:45 Appointment; Provider: John Aldridge M.D. On 10-Jun-2016 10:15 Appointment; Provider: Jovita Dhaliwal D.O. On 19-Feb-2016 10:00 Appointment; Provider: Prabhakar King M.D. On 11-Jan-2016 08:15 Appointment; Provider: Prabhakar King M.D. On 03-Jan-2016 10:30 Appointment; Provider: Prabhakar King M.D. On 01-Jan-2016 09:00 Instructions Name Dates Details Instructions not [...] Problem not documented On 21-Mar-2014 13:15 Appointment; Aldridge, T. K., M.D. Encounter Diagnosis: Problem not documented On 28-Feb-2014 10:30 Appointment; John Aldridge M.D. Encounter Diagnosis: Problem not documented On 31-Jan-2014 15:00 Appointment; Larry Mckeon M.D. Encounter Diagnosis: Problem not documented On 04-Jan-2014 15:35
--- OUTSIDE RECORDS SUMMARY | 2016-07-04 09:09 | XMS REPORT | Summary of Care ---
Author Author Jovita Dhaliwal D.O. Organization Unknown Address [address], [place] [address] Phone Unavailable Care Team Providers Care Cabin Supervisor Name Role Phone Carl Ga D.O. Unavailable [...] Started 18-Dec-2010 ActiveNeedles BD PEN NEEDLE MINI 60ndqld0/16 Inject Insulin at hs dx 250.02 * [...] 1 Refills: 0 Sp Dawkins M.D.* Started Ubewki123 Tablet Sublingual Bottle Lantus SoloStar 100 UNIT/ML [...] 1 Refills: 3 Jovita DhaliwalO.* Started 22-Mar-2014 Wcphvf022 Strip Box ZyrTEC Allergy 10 MG Oral Tablet TAKE 1 TABLET DAILY DIRECTED. * Quantity: 30 Refills: 2 Jovita Dhaliwal.Juancarlos.* Started 19-Jun-2014 ActiveFluticasone Propionate 50 MCG/ACT Nasal Suspension USE 1 TO 2 SPRAYS IN EACH NOSTRIL ONCE DAILY. * Quantity: 1 Refills: 0 Jovita Dhaliwal.O.* Started 19-Jun-2014 Yukctr36 GM Bottle PrednisoLONE Acetate 1 % Ophthalmic [...] Adacel 5-2-15.5 LF-MCG/0.5 Intramuscular Suspension Lot #: [id number] Administered on:21-Jul-2013 Fluzone High-Dose Intramuscular Suspension Lot #: [id number] Administered on:13-Dec-2013 Prevnar 13 Intramuscular Suspension Lot #: [id number] Administered on:07-Apr-2014 Social History Name Dates Details [...] ml/min (Better) Range: >60 EST GFR, NON-AFR VIET[place]ESE 58 ml/min (Below low threshold) Range: >60 Comments: EST GFR is reported in ml/min per 1.73 m2 of body surface area. For -Yemeni, please multiple result by 1.2.----- GLUCOSE 97 [...] % (Better) ESTIMATED AVG. GLUCOSE 146 (Better) Plan of Care Planned Observations* Name [...] documented On 26-Jul-2014 09:45 Appointment; Tair Chilel Encounter Diagnosis: Problem not documented On [...]
--- OUTSIDE RECORDS SUMMARY | 2016-07-04 09:09 | XMS REPORT | Summary of Care ---
Author Author Jovita Dhaliwal D.O. Organization Unknown Address [address], [place] [id number] Phone Unavailable Care Team Providers Care Real Estate Transaction Manager Name Role Phone Sp Dawkins M.D. [...] I50.42) Status: Active Cardiac resynchronization therapy defibrillator (LOGISTICS/SHIPPER-D) in place (V45.02, Z95.810) Status: Active Hyperlipidemia (272.4, E78.5) Status: Active Hypertension (401.9, I10) Status: Active PAF (paroxysmal atrial fibrillation) (427.31, I48.0) Status: Active On warfarin therapy (V58.61, Z79.01) Status: Active History of colon polyps (V12.72, Z86.010) Status: Active Medications Name Dates Details Furosemide [...] Isra D.OJovita Mccarthy * Start 13-Jun-2016 Active [place] BD PEN NEEDLE MINI 52ginoy6/16 Inject Insulin at hs dx 250.02 * [...] 3 Isra D.O.Jovita * Start 28-Feb-2014 Active ROAM Data Contour Next Monitor w/Device Kit testing three [...] Refills: 0 Sandip Montaño.ASavannah Mccarthy * Start 05-Mar-2015 Active Fish Oil 1000 MG Oral Capsule TAKE 1 CAPSULE DAILY. * Refills: 0 * Start 10-May-2015 Active Supplies AutoCPAP 9-13 cm H2O, Permanent use, G47.33, Heated humidity, NwtztlksO79, mask , headgear, filters, heated tubing, water [...] 2 Isra D.Juancarlos.Jovita * Start 27-May-2016 Active Warfarin Sodium 5 MG Oral Tablet TAKE 1 TABLET DAILY ALONG WITH 1MG x 2 TO EQUAL 7MG DAILY * Quantity: 30 Refills: 0 Isra D.Juancarlos.Jovita * Start 20-Jun-2016 Active Warfarin Sodium 1 MG Oral Tablet TAKE 2TABLET DAILY WITH 5MG TO EQUAL 7 MG DAILY DIRECTED * Quantity: 30 Refills: 6 Isra D.O.Jovita * Start 20-Jun-2016 Active Sulfamethoxazole-Trimethoprim 800-160 MG Oral Tablet TAKE 1 TABLET TWICE DAILY WITH FOOD. * Refills: 0 * Start 10-Jun-2016 Active Allergies and Adverse Reactions Name Dates [...] Pulse Generator Replacement History of Arterial Catheterization HEMOGLOBIN A1C 3507 Ordered: 03-Jun-2016 Quant Microalbumin 1106 Ordered: 03-Jun-2016 BASIC METABOLIC PROFILE 1210 Ordered: 03-Jun-2016 Immunization Name Dates Details Influenza on: 10-Dec-2010 Influenza on: 02-Feb-2012 Diphtheria-Tetanus Toxoids 6.7-5 LFU/0.5ML INJ on: Tdap (Boostrix) on: Adacel 5-2-15.5 LF-MCG/0.5 Intramuscular Suspension Lot #: [id number] on: 21-Jul-2013 Fluzone High-Dose SUSP Lot #: [id number] on: 13-Dec-2013 Prevnar 13 Intramuscular Suspension Lot #: [id number] on: 07-Apr-2014 Pneumovax 23 25 MCG/0.5ML Injection Injectable on: 09-May-2015 Pneumo (Pneumovax) Lot #: [id number] on: 09-May-2015 Fluzone High-Dose 0.5 ML Intramuscular Suspension Prefilled Syringe Lot #: [id number] on: 28-Dec-2015 Zoster (Zostavax) on: 19-Feb-2016 Family [...] (Above high threshold) Range: 12.0-14.9 INR 1.34 Plan of Care Name Dates Details Planned Observations Planned Goals not documented Planned Encounters Appointment; Provider: John Aldridge M.D. On 11-Dec-2016 10:30 Appointment; Provider: Monica Mancera On 08-Dec-2016 14:00 Appointment; Provider: Prabhakar King M.D. On 14:15 Appointment; Provider: Jovita Dhaliwal D.O. On 10:30 Interventions Provided Medication Changes* Warfarin Sodium 1 MG Oral Tablet - Start * Warfarin Sodium 5 MG Oral Tablet - Start Labs/Procedures/Imaging* PROTIME PANEL 7000; Done: Jul 02 2016 7:46AM Instructions Name Dates Details Instructions not documented [...] not documented On 15-Apr-2016 09:20 Appointment; Jovita Dahliwal D.O. Encounter Diagnosis: Problem not documented On [...]
--- OUTSIDE RECORDS SUMMARY | 2016-07-04 09:09 | XMS REPORT | Summary of Care ---
Author Author Jovita Dhaliwal D.O. Organization Unknown Address [address], [place] [id number] Phone Unavailable Care Team Providers Care Pickling Drum Operator Name Role Phone Sp Dawkins M.D. 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 * Start 22-Mar-2014 Active Jeronimo Contour Next Test In Vitro Strip TEST THREE TIMES DAILY * Quantity: 100 Refills: 1 Isra D.OJovita Mccarthy * Start 21-Dec-2015 Active Supplies CPAP repair, services and supplies, G47.33 Mask, headgear, filters, heated tubing, chinstrap * Quantity: 1 Refills: 0 Sandip P.ASavannah Mccarthy * Start 05-Mar-2015 Active Fish Oil 1000 MG Oral Capsule TAKE 1 CAPSULE DAILY. * Refills: 0 * Start 10-May-2015 Active Supplies AutoCPAP 9-13 cm H2O, Permanent use, G47.33, Heated humidity, GjenpbxjZ65, mask , headgear, filters, heated tubing, water chamber, chinstrap * Quantity: 1 Refills: 0 Sandip P.Savannah Carvalho * Start 07-Jun-2015 Active BD Pen Needle Mini U/F 31G X 5 MM Miscellaneous USE TO INJECT INSULIN AT BEDTIME * Quantity: 200 Refills: 0 Isra D.OJovita Mccarthy * Start Active Supplies CPAP repair, services and supplies, G47.33 Mask, headgear, filters, heated tubing, chinstrap * Quantity: 1 Refills: 0 Sandpi P.A.Savannah * Start 05-Dec-2015 Active Latanoprost 0.005 % Ophthalmic Solution INSTILL 1 DROP IN BOTH EYES AT BEDTIME. * Quantity: 1 Refills: 12 Prabhakar King M.D. * Start 11-Jan-2016 Active 2.5 ML Bottle Lantus SoloStar 100 UNIT/ML Subcutaneous Solution Pen-injector INJECT 25 UNITS DAILY DIRECTED * Quantity: 15 Refills: 0 Isra D.O.Jovita * Start 19-Dec-2015 Active Fluticasone Propionate 50 MCG/ACT Nasal Suspension USE 1 SPRAY IN EACH NOSTRIL ONCE DAILY. * Quantity: 1 Refills: 0 Edilson Brennan M.D. * Start 29-Jun-2015 Active 16 GM Bottle Tamsulosin HCl - 0.4 MG Oral Capsule TAKE 1 CAPSULE Daily * Quantity: 30 Refills: 11 Isra D.OJovita Mccarthy * Start 05-Feb-2015 Active Losartan Potassium 100 MG Oral Tablet Take one tablet by mouth daily * Quantity: 90 Refills: 0 Isra D.Jovita Frazier * Start 28-Feb-2014 Active Allergies and Adverse Reactions Name Dates [...] of Arterial Catheterization PROTIME PANEL 7000 Ordered: 24-Jan-2016 Immunization Name Dates Details Influenza on: 10-Dec-2010 Influenza on: 02-Feb-2012 Diphtheria-Tetanus Toxoids 6.7-5 LFU/0.5ML INJ on: Tdap (Boostrix) on: Adacel 5-2-15.5 LF-MCG/0.5 Intramuscular Suspension Lot #: [id number] on: 21-Jul-2013 Fluzone High-Dose SUSP Lot #: [id number] on: 13-Dec-2013 Prevnar 13 Intramuscular Suspension Lot #: [id number] on: 07-Apr-2014 Pneumovax 23 25 MCG/0.5ML Injection Injectable on: 09-May-2015 Pneumo (Pneumovax) Lot #: [id number] on: 09-May-2015 Fluzone High-Dose 0.5 ML Intramuscular Suspension Prefilled Syringe Lot #: [id number] on: 28-Dec-2015 Family History Name Dates Details [...] (Above high threshold) Range: 12.0-14.9 INR 1.21 Plan of Care Name Dates Details Planned Observations Planned Goals not documented Planned Encounters Appointment; Provider: Monica Mancera On 08-Dec-2016 14:00 Appointment; Provider: John Aldridge M.D. On 10-Jun-2016 10:15 Appointment; Provider: Prabhakar King M.D. On 02-Jun-2016 10:15 Appointment; Provider: Jovita Dhaliwal D.O. On 19-Feb-2016 10:00 Interventions Provided Labs/Procedures/Imaging* PROTIME PANEL 7000; To be Done: 24 Jan 2016 Instructions Name Dates Details Instructions [...]
--- OUTSIDE RECORDS SUMMARY | 2016-07-04 09:09 | XMS REPORT | Continuity of Care Document ---
Author Author Min SINHA, Wendy Dickens Organization Ambulatory Address [address] [place] [address] Phone Care Team Providers Care Wind Energy Technician Name Role Phone Sp Dawkins PP Unavailable Payers Payer name Insurance type Covered republican ID Authorization(s) Unknown Problems Condition Effective Dates (start - stop) Clinical Status Personal history of other malignant neoplasm of skin - *Chronic Unspecified disorder of skin and subcutaneous tissue - *Chronic Family History Family Member Diagnosis Age At Onset Status Unknown Social History Social History Element Description Quantity Unknown Allergies, Adverse Reactions, Alerts Substance Reaction Severity Status Unknown Medications Medication Instructions Dosage Effective Dates (start - stop) Status pravastatin 10 mg tablet take 1 tablet (10MG) by oral route every day 10 MG - Active carvedilol 6.25 mg tablet take 1 tablet (6.25MG) by oral route 2 times every day with food 6.25 MG - Active furosemide 40 mg tablet take 1 tablet (40MG) by oral route every day 40 MG - Active inject by Subcutaneous route as directed by Doctor. - Active lisinopril 10 mg tablet take 1 tablet (10MG) by oral route every day 10 MG - Active warfarin 1 mg tablet take 2 tablet (2MG) by oral route every day 2 MG - Active warfarin 5 mg tablet take 1 tablet (5MG) by oral route every day 5 MG - Active Immunizations Vaccine Date Status Comments Unknown Results Test Name Date and Time Measure Units Reference Range Abnormal Flag Comments Unknown Vital Signs Date / Time: Height Weight Pulse Rate Blood Pressure Temperature /09:42:00 73.00 in 213.00 lbs 96.0 F Procedures Procedure Date Unknown Encounters Encounter Location Date Patient Visit [facility] New Surg Patient Visit [facility] New Surg Advance Directives Directive Effective Date Unknown
--- OUTSIDE RECORDS SUMMARY | 2016-07-04 09:10 | XMS REPORT | Summary of Care ---
Author Author Tari Chilel APRN Organization Unknown Address [address], [place] [address] Phone Unavailable Care Team Providers Care Licensing Director Name Role Phone Tari Chilel APRN Unavailable [...] wound of finger (883.0, S61.239A) Status: Active Medications Name Dates Details Warfarin [...] Started 05-Dec-2010 ActiveNeedles BD PEN NEEDLE MINI 39axcuu7/16 Inject Insulin at hs dx 250.02 * [...] 1 Refills: 0 Sp Dawkins M.D.* Started Bdqqdq656 Tablet Sublingual Bottle Carvedilol 12.5 MG Oral Tablet TAKE 1 TABLET TWICE DAILY. * Quantity: 180 Refills: 3 John Aldridge M.D.* Started 28-Feb-2014 ActiveLosartan Potassium 50 MG Oral Tablet TAKE 1 TABLET TWICE DAILY. * Quantity: 180 Refills: 3 John Aldridge M.D.* Started 28-Feb-2014 [facility] [employer] Next Monitor w/Device Kit testing three times daily * Quantity: 1 Refills: 3 Sp Dawkins M.D.* Started 22-Mar-2014 ActiveBayer Contour Next Test In Vitro Strip TEST THREE TIMES A DAY * Quantity: 1 Refills: 3 Jovita Dhaliwal D.O.* Started 22-Mar-2014 Pmiitq809 Strip Box ZyrTEC Allergy 10 MG Oral Tablet TAKE 1 TABLET DAILY DIRECTED. * Quantity: 30 Refills: 2 Jovita Dhaliwal D.O.* Started 19-Jun-2014 ActiveFluticasone Propionate 50 MCG/ACT Nasal Suspension USE 1 TO 2 SPRAYS IN EACH NOSTRIL ONCE DAILY. * Quantity: 1 Refills: 0 Jovita Dhaliwal D.O.* Started 19-Jun-2014 Ygkmsn83 GM Bottle Doxycycline Monohydrate 100 MG Oral [...] Adacel 5-2-15.5 LF-MCG/0.5 Intramuscular Suspension Lot #: [id number] Administered on:21-Jul-2013 Fluzone High-Dose Intramuscular Suspension Lot #: [id number] Administered on:13-Dec-2013 Prevnar 13 Intramuscular Suspension Lot #: [id number] Administered on:07-Apr-2014 Social History Name Dates Details [...] Problem not documented On 11-Nov-2012 11:30 Appointment; Kyawate, Lindsey Encounter Diagnosis: Problem not documented On 13:30 Appointment; Sp Dawkins Encounter Diagnosis: Problem not documented On 13:45 Appointment; Suzanne Daniel Encounter Diagnosis: Problem not documented On 09:00 Appointment; Sp Dawkins Encounter Diagnosis: Problem not documented On 10:45
--- OUTSIDE RECORDS SUMMARY | 2016-07-04 09:10 | XMS REPORT | Summary of Care ---
Author Author Jovita Dhaliwal D.O. Organization Unknown Address [address], [place] [address] Phone Unavailable Care Team Providers Care Art History Professor Name Role Phone Sp Dawkins M.D. Unavailable [...] G47.33) Status: Active Cardiac resynchronization therapy defibrillator (RAD TECH-D) in place (V45.02, Z95.810) Status: Active On [...] 0 Isra D.O.Jovita * Start 18-Mar-2016 Active [place] BD PEN NEEDLE MINI 36tnoax0/16 Inject Insulin at hs dx 250.02 * [...] Refills: 0 Jovita Dhaliwal D.O. * Start 14-Apr-2016 Active Losartan Potassium 100 MG Oral Tablet Take one tablet by mouth daily * Quantity: 90 Refills: 0 Isra Salinas.Jovita Frazier * Start 28-Feb-2014 Active [employer] Contour Next Monitor w/Device Kit testing three times daily * Quantity: 1 Refills: 3 Sp Dawkins M.D. * Start 22-Mar-2014 Active S[employer] Contour Next Test In Vitro Strip TEST [...] cm H2O, Permanent use, G47.33, Heated humidity, ZulymqdsS88, mask , headgear, filters, heated tubing, water [...] BEDTIME * Quantity: 200 Refills: 0 Isra D.O., R. Bill * Start Active Supplies CPAP repair, services [...] FOOD * Quantity: 10 Refills: 0 Isra D.O., R. Bill * Start 18-Mar-2016 Active Chlorpheniramine Maleate 4 MG Oral Tablet TAKE 1 TABLET EVERY 4 TO 6 HOURS NEEDED. * Quantity: 20 Refills: 0 Isra D.O., R. Bill * Start 15-Apr-2016 Active PredniSONE 20 MG Oral Tablet TAKE 2 TABLETS DAILY WITH FOOD * Quantity: 10 Refills: 0 Isra D.O., R. Bill * Start 15-Apr-2016 Active Allergies and Adverse [...] Catheterization Colonoscopy- Screening or Dx Ordered: 15-Apr-2016 BASIC METABOLIC PROFILE 1210 Ordered: 19-Feb-2016 HEMOGLOBIN A1C 3507 Ordered: 19-Feb-2016 PROTIME PANEL 7000 Ordered: 18-Mar-2016 Immunization Name Dates Details Influenza on: 10-Dec-2010 Influenza on: 02-Feb-2012 Diphtheria-Tetanus Toxoids 6.7-5 LFU/0.5ML INJ on: Tdap (Boostrix) on: Adacel 5-2-15.5 LF-MCG/0.5 Intramuscular Suspension Lot #: [id number] on: 21-Jul-2013 Fluzone High-Dose SUSP Lot #: [id number] on: 13-Dec-2013 Prevnar 13 Intramuscular Suspension Lot #: [id number] on: 07-Apr-2014 Pneumovax 23 25 MCG/0.5ML Injection Injectable on: 09-May-2015 Pneumo (Pneumovax) Lot #: [id number] on: 09-May-2015 Fluzone High-Dose 0.5 ML Intramuscular Suspension Prefilled Syringe Lot #: [id number] on: 28-Dec-2015 Zoster (Zostavax) on: 19-Feb-2016 Family [...] Body Surface Area Calculated 2.29 m2 Status: 18-Mar-2016 09:43 BP Systolic 156 mm[Hg] Status: Comments: Location: ; Position: BP Diastolic 87 mm[Hg] Status: Comments: Location: ; Position: Temperature 97.5 f Status: Heart Rate 85 /min Status: Comments: Location: ; Weight 241 lb Status: Body Mass Index Calculated 33.14 kg/m2 Status: Body Surface Area Calculated 2.29 m2 Status: Results Date Description Value Details 18-Mar-2016 11:19 PROTIME PANEL 7000 PROTIME 23.1 secs (Above high threshold) Range: 12.0-14.9 INR 2.14 4-Av-2017 15:14 Diabetic Eye Exam Diabetic Eye Exam No Diabetic Retinopathy Diabetic Eye Exam on Chart Yes 15:14 Diabetic Eye Exam Diabetic Eye Exam No Diabetic Retinopathy Diabetic Eye Exam on Chart Yes 15-Apr-2016 09:53 XRay CHEST-PA & LAT Comments: Exam Date: 04/15/2016 09: 26Dictation Date: 04/15/2016 09:53 X CHEST PA & LAT Plan of Care Name Dates Details Planned Observations Colonoscopy- Screening or Dx On 04-Jun-2016 Intent Planned Goals not documented Planned Encounters [...] On 20-May-2016 16:15 Interventions Provided Medication Changes* Chlorpheniramine Maleate 4 MG Oral Tablet - Start * PredniSONE 20 MG Oral Tablet - Start Labs/Procedures/Imaging* XRay CHEST-PA & LAT; Done: Apr 15 2016 9:53AM Instructions Name Dates Details Instructions not documented [...] Problem not documented On 31-Jan-2015 15:45 Appointment; Joivta Dhaliwal D.O. Encounter Diagnosis: Problem not documented [...]
--- OUTSIDE RECORDS SUMMARY | 2016-07-04 09:10 | XMS REPORT | Summary of Care ---
Author Author Jovita Dhaliwal D.O. Organization Unknown Address [address], [place] [address] Phone Unavailable Care Team Providers Care Kosher Dietary Service Supervisor Name Role Phone Carl Ga D.O. [...] Started 18-Dec-2010 ActiveNeedles BD PEN NEEDLE MINI 92fetsc0/16 Inject Insulin at hs dx 250.02 * [...] 1 Refills: 0 Sp Dawkins M.D.* Started Gcvyqr276 Tablet Sublingual Bottle Lantus SoloStar 100 UNIT/ML [...] Refills: 3 Jovita Dhaliwal D.O.* Started 28-Feb-2014 [employer] Next Monitor w/Device Kit testing three times daily * Quantity: 1 Refills: 3 Sp Dawkins M.D.* Started 22-Mar-2014 [employer] Next Test In Vitro Strip TEST THREE TIMES A DAY * Quantity: 1 Refills: 3 Jovita Dhaliwal D.O.* Started 22-Mar-2014 Eygwyu451 Strip Box ZyrTEC Allergy 10 MG Oral Tablet TAKE 1 TABLET DAILY DIRECTED. * Quantity: 30 Refills: 2 Jovita Dhaliwal D.O.* Started 19-Jun-2014 ActiveFluticasone Propionate 50 MCG/ACT Nasal Suspension USE 1 TO 2 SPRAYS IN EACH NOSTRIL ONCE DAILY. * Quantity: 1 Refills: 0 Jovita Dhaliwal D.O.* Started 19-Jun-2014 Nvflqy87 GM Bottle Doxycycline Monohydrate 100 MG Oral Capsule TAKE 1 CAPSULE TWICE DAILY WITH FOOD. * Quantity: 14 Refills: 0 Jovita Dhaliwal D.O.* Started 19-Jun-2014 ActiveCephalexin 500 MG Oral Capsule TAKE 1 CAPSULE 3 TIMES DAILY. * Quantity: 5 Refills: [address] MAINTENANCE SUPERVISOR* Started 06-Jul-2014 ActivePrednisoLONE Acetate 1 % Ophthalmic Suspension INSTILL 1 DROP INTO LEFT EYE 3 TIMES DAILY FOR ONE WEEK * Quantity: 1 Refills: 0 Carl Ga.O.* Started Active5 ML Bottle Allergies and Adverse [...] Adacel 5-2-15.5 LF-MCG/0.5 Intramuscular Suspension Lot #: [id number] Administered on:21-Jul-2013 Fluzone High-Dose Intramuscular Suspension Lot #: [id number] Administered on:13-Dec-2013 Prevnar 13 Intramuscular Suspension Lot #: [id number] Administered on:07-Apr-2014 Social History Name Dates Details [...] high threshold) Range: 12.0-14.9 INR 3.39 (Better) Plan of Care Planned Observations* Name Dates Details Planned Goals not documented Goal Planned Encounters* Appointment; Provider: Carl Ga On 10-May-2015 09:15 * Appointment; Provider: John Aldridge On 27-Oct-2014 [...]
--- OUTSIDE RECORDS SUMMARY | 2016-07-04 09:10 | XMS REPORT | Summary of Care ---
Author Author Sp Dawkins M.D. Unknown Address [address], [place] [id number] Phone Unavailable Care Team Providers Care Window Sash Installer Name Role Phone John Aldridge M.D. [...] Started 30-Oct-2010 ActiveNeedles BD PEN NEEDLE MINI 12xvvwz1/16 * Quantity: 200 Refills: 6 Gómez Grier [...] 1 Refills: 0 Sp Dawkins M.D.* Started Udkkdp231 Tablet Sublingual Bottle Carvedilol 12.5 MG Oral Tablet TAKE 1 TABLET TWICE DAILY. * Quantity: 180 Refills: 3 John Aldridge M.D.* Started 28-Feb-2014 ActiveLosartan Potassium 50 MG Oral Tablet TAKE 1 TABLET TWICE DAILY. * Quantity: 180 Refills: 3 John Aldridge M.D.* [facility]ed 28-Feb-2014 [facility] [employer] Next Monitor w/Device Kit testing three times daily * Quantity: 1 Refills: 3 Sp Dawkins M.D.* Started 22-Mar-2014 ActiveBayer Contour Next Test In Vitro Strip TEST THREE TIMES A DAY * Quantity: 1 Refills: 3 Sp Dawkins M.D.* Started 22-Mar-2014 Ctlfyj642 Strip Box Ampicillin 500 MG Oral Capsule [...] Refills: 0 Sp Dawkins M.D.* Started 27-Apr-2014 Sgkslr53 GM Tube Allergies and Adverse Reactions Name [...] Adacel 5-2-15.5 LF-MCG/0.5 Intramuscular Suspension Lot #: [id number] Administered on:21-Jul-2013 Fluzone High-Dose Intramuscular Suspension Lot #: [id number] Administered on:13-Dec-2013 Prevnar 13 Intramuscular Suspension Lot #: [id number] Administered on:07-Apr-2014 Social History Name Dates Details [...]
--- OUTSIDE RECORDS SUMMARY | 2016-07-04 09:11 | XMS REPORT | Summary of Care ---
Author Author Jovita Dhaliwal D.O. Organization Unknown Address [address], [place] [address] Phone Unavailable Care Team Providers Care Prehemmer Name Role Phone Carl Ga D.O. 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 Quantity: 30 Sp Dawkins M.D.* Started 30-Oct-2010 ActiveFurosemide 40 MG Oral Tablet TAKE 1 TABLET BY MOUTH DAILY * Quantity: 90 Refills: 0 Sp Dawkins M.D.* Started 30-Oct-2010 ActiveWarfarin Sodium 1 MG Oral Tablet Take 1 tablet daily * Quantity: 60 Refills: 11 Sp Dawkins M.D.* Started 20-May-2011 ActiveLantus SoloStar 100 UNIT/ML Subcutaneous Solution Pen-injector [...] Refills: 3 Jovita Dhaliwal D.O.* Started 28-Feb-2014 ActiveZyrTEC Allergy 10 MG Oral Tablet TAKE 1 TABLET DAILY DIRECTED. * Quantity: 30 Refills: 2 Jovita Dhaliwal D.O.* Started 19-Jun-2014 ActiveFluticasone Propionate 50 MCG/ACT Nasal Suspension USE 1 TO 2 SPRAYS IN EACH NOSTRIL ONCE DAILY. * Quantity: 1 Refills: 0 Jovita Dhaliwal D.O.* Started 19-Jun-2014 Osznal23 GM Bottle Cephalexin 500 MG Oral Capsule TAKE 1 CAPSULE 3 TIMES DAILY. * Quantity: 5 Refills: 0 Tari Chilel APRN* Started 06-Jul-2014 ActiveDoxycycline Monohydrate 100 MG Oral Capsule TAKE 1 CAPSULE TWICE DAILY WITH FOOD. * Quantity: 14 Refills: 0 Jovita Dhaliwal D.O.* Started 19-Jun-2014 ActiveBayer Contour Next Monitor w/Device Kit testing three times daily * Quantity: 1 Refills: 3 Sp Dawkins M.D.* Started 22-Mar-2014 ActiveWarfarin Sodium 6 MG Oral Tablet take 1 tablet by mouth every day * Quantity: 90 Refills: 1 Jovita Dhaliwal D.O.* Started 11-May-2013 ActivePravastatin Sodium 10 MG Oral Tablet TAKE 1/2 TABLET BY MOUTH DAILY * Quantity: 15 Refills: 11 Jovita Dhaliwal D.O.* Started 30-Mar-2013 ActiveCarvedilol 6.25 MG Oral Tablet TAKE 1 TABLET BY MOUTH TWICE DAILY * Quantity: 180 Refills: 1 Jovita Dhaliwal D.O.* Started 18-Dec-2010 ActivePrednisoLONE Acetate 1 % Ophthalmic Suspension INSTILL 1 DROP INTO LEFT EYE 3 TIMES DAILY FOR ONE WEEK * Quantity: 1 Refills: 0 Carl Ga D.O.* Started Active5 ML Bottle Viagra 50 MG Oral Tablet TAKE DIRECTED. * Quantity: 6 Refills: 0 Sp Dawkins M.D.* Started 25-Mar-2013 ActiveVitamin B-12 1000 MCG Sublingual Tablet Sublingual PLACE 1 MCG Daily * Quantity: 1 Refills: 0 Sp Dawkins M.D.* Started Xdddly500 Tablet Sublingual Bottle Jeronimo Contour Next Test In Vitro Strip TEST THREE TIMES A DAY * Quantity: 1 Refills: 3 Jovita Dhaliwal D.O.* Started 22-Mar-2014 Fyjqir904 Strip Box Lantus SoloStar 100 UNIT/ML Subcutaneous Solution Pen-injector INJECT 25 UNITS DAILY DIRECTED * Quantity: 11 Refills: 11 Jovita Dhaliwal D.O.* Started 05-Dec-2010 Active3 ML Pen (5 Pens) [place] BD PEN NEEDLE MINI 87isksd4/16 Inject Insulin at hs dx 250.02 * Quantity: 200 Refills: 6 Jovita Dhaliwal D.O.* Started 23-Dec-2010 Active Allergies and Adverse Reactions Name Dates [...] Adacel 5-2-15.5 LF-MCG/0.5 Intramuscular Suspension Lot #: [id number] Administered on:21-Jul-2013 Fluzone High-Dose Intramuscular Suspension Lot #: [id number] Administered on:13-Dec-2013 Prevnar 13 Intramuscular Suspension Lot #: [id number] Administered on:07-Apr-2014 Social History Name Dates Details [...] not documented On 06-Jul-2014 09:20 Appointment; Jovita Dhaliwla Encounter Diagnosis: Problem not documented On 27-Jun-2014 [...]
--- OUTSIDE RECORDS SUMMARY | 2016-07-04 09:11 | XMS REPORT | Summary of Care ---
Author Author Jovita Dhaliwal D.O. Organization Unknown Address [address], [place] [address] Phone Unavailable Care Team Providers Care Quality Rn Name Role Phone Ranjana MARTINEZNTari Unavailable Unavailable [...] Dry skin dermatitis (692.89, L85.0) Status: Active Folliculitis (704.8, L73.9) Status: Active Peripheral neuropathy (356.9, G62.9) Status: Active Puncture wound of finger (883.0, S61.239A) Status: Active Blister of finger (915.2, S60.429A) Status: Active Anticoagulant long-term use (V58.61, Z79.01) Status: Active Atrial fibrillation, currently in sinus rhythm (427.31, I48.91) Status: Active Chronic renal failure (585.9, N18.9) Status: Active Congestive heart failure (428.0, I50.9) Status: Active Diabetes mellitus (250.00, E11.9) Status: Active Hypertension (401.9, I10) Status: Active Pre-operative exam (V72.84, Z01.818) Status: Active 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 * Quantity: 30 Refills: 2 Isra RFabio Khan D.O.* Started 19-Jun-2014 ActiveFluticasone Propionate 50 MCG/ACT Nasal Suspension USE 1 TO 2 SPRAYS IN EACH NOSTRIL ONCE DAILY. * Quantity: 1 Refills: 0 Jovita Dhaliwal D.O.* Started 19-Jun-2014 Voahpi52 GM Bottle Doxycycline Monohydrate 100 MG Oral [...] Adacel 5-2-15.5 LF-MCG/0.5 Intramuscular Suspension Lot #: [id number] Administered on:21-Jul-2013 Fluzone High-Dose Intramuscular Suspension Lot #: [id number] Administered on:13-Dec-2013 Prevnar 13 Intramuscular Suspension Lot #: [id number] Administered on:07-Apr-2014 Social History Name Dates Details [...] 10:11 Urinalysis, reflex to Micro and Culture ([facility]) 8016 pH 5.0 (Better) Range: 5.0-7.5 SP [...] Range: Negative LEUKOCYTES Negative (Better) Range: Negative 10:29 BASIC METABOLIC PROFILE 1210 Comments: Items were attached to this order: C7 Fastin hours SODIUM 137 mmol/L (Better) Range: 133-144 POTASSIUM 4.5 mmol/L (Better) Range: 3.5-5.1 CHLORIDE 99 mmol/L (Better) Range: 98-110 CARBON DIOXIDE 20.6 mmol/L (Below low threshold) Range: 23.0-33.0 Comments: Verified by Repeat Analysis----- ANION GAP 17 mmol/L (Above high threshold) Range: 6-16 BUN 26 mg/dL (Above high threshold) Range: 7-18 CREATININE, SERUM 1.92 mg/dL (Above high threshold) Range: 0.55-1.02 Comments: Please note new reference ranges effective 2014.----- EST GFR, 43 ml/min (Below low threshold) Range: >60 EST GFR, NON-AFR TRINIDADIAN 35 ml/min (Below low threshold) Range: >60 Comments: EST GFR is reported in ml/min per 1.73 m2 of body surface area. For -South African, please multiple result by 1.2.----- BUN:CREATININE RATIO 14 (Better) GLUCOSE 138 mg/dL (Above high threshold) Range: 70-100 CALCIUM 9.7 mg/dL (Better) Range: 8.5-10.1 Plan of Care [...]
--- OUTSIDE RECORDS SUMMARY | 2016-07-04 09:11 | XMS REPORT ---
Author Author GENERATED, SYSTEM Organization Unknown Address Unknown Phone Unavailable Care Team Providers Care Lead Network Engineer Name Role Phone DO WHEAT ROBERT PP Unavailable Reason For Visit Chief Complaint TRANS TO [facility] FROM [facility] Social History Functional Status Vital Signs Results [...]
--- OUTSIDE RECORDS SUMMARY | 2016-07-04 09:11 | XMS REPORT | Summary of Care ---
Author Author Jovita Dhaliwal D.O. Organization Unknown Address [address], [place] [id number] Phone Unavailable Care Team Providers Care Boat Rental Clerk Name Role Phone Ranjana MARTINEZNTari Unavailable Unavailable [...] Started 05-Dec-2010 ActiveNeedles BD PEN NEEDLE MINI 06uplhy5/16 Inject Insulin at hs dx 250.02 * [...] 1 Refills: 0 Sp Dawkins M.D.* Started Ygplek694 Tablet Sublingual Bottle Carvedilol 12.5 MG Oral Tablet TAKE 1 TABLET TWICE DAILY. * Quantity: 180 Refills: 3 John Aldridge M.D.* Started 28-Feb-2014 ActiveLosartan Potassium 50 MG Oral Tablet TAKE 1 TABLET TWICE DAILY. * Quantity: 180 Refills: 3 John Aldridge M.D.* Started 28-Feb-2014 ActiveAccupass Contour Next Monitor w/Device Kit testing three times daily * Quantity: 1 Refills: 3 Sp Dwakins M.D.* Started 22-Mar-2014 ActiveBayer Contour Next Test In Vitro Strip TEST THREE TIMES A DAY * Quantity: 1 Refills: 3 Isra RFabio Khan D.O.* Started 22-Mar-2014 Yxaccy241 Strip Box ZyrTEC Allergy 10 MG Oral Tablet TAKE 1 TABLET DAILY DIRECTED. * Quantity: 30 Refills: 2 Isra R. Bill D.O.* Started 19-Jun-2014 ActiveFluticasone Propionate 50 MCG/ACT Nasal Suspension USE 1 TO 2 SPRAYS IN EACH NOSTRIL ONCE DAILY. * Quantity: 1 Refills: 0 Isra R. Bill D.O.* Started 19-Jun-2014 Xxyqat39 GM Bottle Doxycycline Monohydrate 100 MG Oral [...] Auto Diff 7150 Ordered:28-Jun-2014 PROTIME PANEL 7000 Ordered: Immunization Name Dates Details Influenza Administered on:10-Dec-2010 Influenza Administered on:02-Feb-2012 Diphtheria-Tetanus Toxoids 6.7-5 LFU/0.5ML Intramuscular Injectable Administered on: Tdap (Boostrix) Administered on: Adacel 5-2-15.5 LF-MCG/0.5 Intramuscular Suspension Lot #: [id number] Administered on:21-Jul-2013 Fluzone High-Dose Intramuscular Suspension Lot #: [id number] Administered on:13-Dec-2013 Prevnar 13 Intramuscular Suspension Lot #: [id number] Administered on:07-Apr-2014 Social History Name Dates Details [...] Choe On 07-Jun-2007 19:15 * Appointment; Provider: Yousfi Cherry On 27-Apr-2007 07:30 * Appointment; Provider: [...] Problem not documented On 09:00 Appointment; Sp Dawknis Encounter Diagnosis: Problem not documented On 10:45
--- OUTSIDE RECORDS SUMMARY | 2016-07-04 09:11 | XMS REPORT | Summary of Care ---
Author Author Jovita Dhaliwal D.O. Organization Unknown Address [address], [place] [address] Phone Unavailable Care Team Providers Care Monument Setter Name Role Phone Carl Ga D.O. Unavailable [...] Started 18-Dec-2010 ActiveNeedles BD PEN NEEDLE MINI 38evufn3/16 Inject Insulin at hs dx 250.02 * [...] 1 Refills: 0 Sp Dawkins M.D.* Started Lrpudb902 Tablet Sublingual Bottle Lantus SoloStar 100 UNIT/ML [...] Refills: 3 Jovita Dhaliwal D.O.* Started 28-Feb-2014 FreedomQuture Next Monitor w/Device Kit testing three times daily * Quantity: 1 Refills: 3 Sp Dawkins M.D.* Started 22-Mar-2014 Boost Media Next Test In Vitro Strip TEST THREE TIMES A DAY * Quantity: 1 Refills: 3 Jovita Dhaliwal D.O.* Started 22-Mar-2014 Iydfsl409 Strip Box ZyrTEC Allergy 10 MG Oral Tablet TAKE 1 TABLET DAILY DIRECTED. * Quantity: 30 Refills: 2 Jovita Dhaliwal D.O.* Started 19-Jun-2014 ActiveFluticasone Propionate 50 MCG/ACT Nasal Suspension USE 1 TO 2 SPRAYS IN EACH NOSTRIL ONCE DAILY. * Quantity: 1 Refills: 0 Jovita Dhaliwal D.O.* Started 19-Jun-2014 Oplstl67 GM Bottle Doxycycline Monohydrate 100 MG Oral Capsule TAKE 1 CAPSULE TWICE DAILY WITH FOOD. * Quantity: 14 Refills: 0 Jovita Dhaliwal D.O.* Started 19-Jun-2014 ActiveCephalexin 500 MG Oral Capsule TAKE 1 CAPSULE 3 TIMES DAILY. * Quantity: 5 Refills: 0 Tari Chilel CROP GRAIN OR LIVESTOCK FARMER* Started 06-Jul-2014 ActivePrednisoLONE Acetate 1 % Ophthalmic [...] Adacel 5-2-15.5 LF-MCG/0.5 Intramuscular Suspension Lot #: [id number] Administered on:21-Jul-2013 Fluzone High-Dose Intramuscular Suspension Lot #: [id number] Administered on:13-Dec-2013 Prevnar 13 Intramuscular Suspension Lot #: [id number] Administered on:07-Apr-2014 Social History Name Dates Details [...] ml/min (Better) Range: >60 EST GFR, NON-AFR QATARI >60 ml/min (Better) Range: >60 Comments: EST GFR is reported in ml/min per 1.73 m2 of body surface area. For -[place]jib[place], please multiple result by 1.2.----- BUN:CREATININE RATIO [...] Problem not documented On 08-Apr-2013 13:45 Appointment; pS Dawkins Encounter Diagnosis: Problem not [...]
--- OUTSIDE RECORDS SUMMARY | 2016-07-04 09:12 | XMS REPORT ---
Author Author Blayne Warner [facility] eClinicalWorks Address Unknown Phone Unavailable Care Team Providers Care Electronic Service Technician Name Role Phone Blayne Warner CP Unavailable Allergies No Known Allergies Problems Problem Type Condition Code Onset Dates Condition Status Problem NYHA class 3 systolic congestive heart failure with reduced left ventricular function I50.20 Active Problem Cardiomyopathy I42.9 Active Medications No Known Medications Results No Known Results Summary Purpose eClinicalWorks Submission
--- OUTSIDE RECORDS SUMMARY | 2016-07-04 09:12 | XMS REPORT | Summary of Care ---
Author Author Jovita Dhaliwal D.O. Organization Unknown Address [address], [place] [id number] Phone Unavailable Care Team Providers Care Java Software Name Role Phone Carl Ga D.O. Unavailable [...] Refills: 0 Sp Dawkins M.D.* Started 30-Oct-2010 ActiveCarvedilol 6.25 MG Oral Tablet TAKE 1 TABLET BY MOUTH TWICE DAILY * Quantity: 180 Refills: 1 Jovita Dhaliwal D.O.* Started 18-Dec-2010 ActiveNeedles BD PEN NEEDLE MINI 23rbjjt5/16 Inject Insulin at hs dx 250.02 * Quantity: 200 Refills: 6 Jovita Dhaliwal D.O.* Started 23-Dec-2010 ActiveWarfarin Sodium 6 MG Oral Tablet take 1 tablet by mouth every day * Quantity: 90 Refills: 1 Jovita Dhaliwal D.O.* Started 11-May-2013 ActiveLosartan Potassium 50 MG Oral Tablet TAKE 1 TABLET TWICE DAILY. * Quantity: 180 Refills: 3 Jovita Dhaliwal D.O.* Started 28-Feb-2014 ActiveBayer Contour Next Test In Vitro Strip TEST THREE TIMES A DAY * Quantity: 1 Refills: 3 Jovita Dhaliwal D.O.* Started 22-Mar-2014 Zexegy995 Strip Box PrednisoLONE Acetate 1 % Ophthalmic Suspension INSTILL 1 DROP INTO LEFT EYE 3 TIMES DAILY FOR ONE WEEK * Quantity: 1 Refills: 0 Carl Ga D.O.* Started Active5 ML Bottle Jeronimo Contour Next Monitor w/Device Kit testing three times daily * Quantity: 1 Refills: 3 Sp Dawkins M.D.* Started 22-Mar-2014 ActiveCarvedilol 12.5 MG Oral Tablet TAKE 1 TABLET TWICE DAILY. * Quantity: 180 Refills: 3 John Aldridge M.D.* Started 28-Feb-2014 ActiveLantus SoloStar 100 UNIT/ML Subcutaneous Solution Pen-injector INJECT 25 UNITS DAILY DIRECTED * Quantity: 1 Refills: 5 Jovita Dhaliwal D.O.* Started 16-Dec-2013 Active3 ML Pen (5 Pens) Vitamin B-12 1000 MCG Sublingual Tablet Sublingual PLACE 1 MCG Daily * Quantity: 1 Refills: 0 Sp Dawkins M.D.* Started Auzbnz099 Tablet Sublingual Bottle Pravastatin Sodium 10 MG Oral Tablet TAKE 1/2 TABLET BY MOUTH DAILY * Quantity: 30 Refills: 3 Sp Dawkins M.D.* Started 30-Mar-2013 ActiveViagra 50 MG Oral Tablet TAKE DIRECTED. [...] Started 05-Dec-2010 Active3 ML Pen (5 Pens) Cephalexin 500 MG Oral Capsule TAKE 1 CAPSULE 3 TIMES DAILY. * Quantity: 5 Refills: 0 Tari Chilel APRN* Started 06-Jul-2014 ActiveDoxycycline Monohydrate 100 MG Oral Capsule TAKE 1 CAPSULE TWICE DAILY WITH FOOD. * Quantity: 14 Refills: 0 Jovita Dhaliwal D.O.* Started 19-Jun-2014 ActiveFluticasone Propionate 50 MCG/ACT Nasal Suspension USE 1 TO 2 SPRAYS IN EACH NOSTRIL ONCE DAILY. * Quantity: 1 Refills: 0 Jovita Dhaliwal D.O.* Started 19-Jun-2014 Ofgjsk80 GM Bottle ZyrTEC Allergy 10 MG Oral Tablet TAKE 1 TABLET DAILY DIRECTED. * Quantity: 30 Refills: 2 Jovita Dhaliwal D.O.* Started 19-Jun-2014 Active Allergies and Adverse [...] Adacel 5-2-15.5 LF-MCG/0.5 Intramuscular Suspension Lot #: [id number] Administered on:21-Jul-2013 Fluzone High-Dose Intramuscular Suspension Lot #: [id number] Administered on:13-Dec-2013 Prevnar 13 Intramuscular Suspension Lot #: [id number] Administered on:07-Apr-2014 Social History Name Dates Details Smoking Status* Former smoker Vital Signs Date Test Result Details No Known Vitals to report Results Date Description Value Details Results not documented Plan of Care Planned Observations* Name Dates Details Planned Goals not documented Goal Planned Encounters* Appointment; Provider: Carl Ga On 10-May-2015 09:15 * Appointment; Provider: Debora Figueroa On 03-Jun-2013 [...] Problem not documented On 10:15 Appointment; Carl aG Encounter Diagnosis: Problem not documented On 09:15 [...] Problem not documented On 17-Jun-2013 09:00 Appointment; Ealdia Kerr Encounter Diagnosis: Problem not documented On [...]
--- OUTSIDE RECORDS SUMMARY | 2016-07-04 09:12 | XMS REPORT | Summary of Care ---
Author Author Jovita Dhaliwal D.O. Organization Unknown Address [address], [place] [address] Phone Unavailable Care Team Providers Care Photo Retoucher Name Role Phone Carl Ga D.O. Unavailable Unavailable Tari Chilel APRN Unavailable Unavailable Luis Carlos Sands, T. Sofia Unavailable Unavailable Sp Dawkins M.D. 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 After-cataract obscuring vision (366.53, H26.499) Status: Active Medications Name Dates Details Warfarin [...] Started 05-Dec-2010 Active3 ML Pen (5 Pens) [place] BD PEN NEEDLE MINI 86hiafv2/16 Inject Insulin at hs dx 250.02 * [...] 1 Refills: 0 Sp Dawkins M.D.* Started Spkecj651 Tablet Sublingual Bottle Lantus SoloStar 100 UNIT/ML [...] Refills: 3 John Aldridge M.D.* Started 28-Feb-2014 ActiveTuring Data Next Monitor w/Device Kit testing three times daily * Quantity: 1 Refills: 3 Sp Dawkins M.D.* Started 22-Mar-2014 ActiveSinimanes Contour Next Test In Vitro Strip TEST THREE TIMES A DAY * Quantity: 1 Refills: 3 Jovita Dhaliwal D.O.* Started 22-Mar-2014 Lpuqqj958 Strip Box ZyrTEC Allergy 10 MG Oral Tablet TAKE 1 TABLET DAILY DIRECTED. * Quantity: 30 Refills: 2 Jovita Dhaliwal.O.* Started 19-Jun-2014 ActiveFluticasone Propionate 50 MCG/ACT Nasal Suspension USE 1 TO 2 SPRAYS IN EACH NOSTRIL ONCE DAILY. * Quantity: 1 Refills: 0 Jovita Dhaliwal.O.* Started 19-Jun-2014 Wocumj74 GM Bottle Doxycycline Monohydrate 100 MG Oral Capsule TAKE 1 CAPSULE TWICE DAILY WITH FOOD. * Quantity: 14 Refills: 0 Jovita Dhaliwal.O.* Started 19-Jun-2014 ActiveCephalexin 500 MG Oral Capsule TAKE 1 CAPSULE 3 TIMES DAILY. * Quantity: 5 Refills: 0 Tari Chilel MEASUREMENT PSYCHOLOGIST* Started 06-Jul-2014 ActivePrednisoLONE Acetate 1 % Ophthalmic [...] Adacel 5-2-15.5 LF-MCG/0.5 Intramuscular Suspension Lot #: [id number] Administered on:21-Jul-2013 Fluzone High-Dose Intramuscular Suspension Lot #: [id number] Administered on:13-Dec-2013 Prevnar 13 Intramuscular Suspension Lot #: [id number] Administered on:07-Apr-2014 Social History Name Dates Details [...] (Better) 09:59 ECG/ EKG Preop Electro CardioGram (Better) 10:06 XRay CHEST-PA & LAT Comments: Exam Date: 08/17/2014 09: 44Dictation Date: 08/17/2014 10:06 X CHEST PA & LAT (Better) 10:11 Urinalysis, reflex to Micro and Culture ([facility]) 8016 pH 5.0 (Better) Range: 5.0-7.5 SP [...] low threshold) Range: >60 EST GFR, NON-AFR ENGLISH 35 ml/min (Below low threshold) Range: >60 Comments: EST GFR is reported in ml/min per 1.73 m2 of body surface area. For -South Korean, please multiple result by 1.2.----- BUN:CREATININE RATIO [...]
--- OUTSIDE RECORDS SUMMARY | 2016-07-04 09:12 | XMS REPORT | Summary of Care ---
Author Author Jovita Dhaliwal D.O. Organization Unknown Address [address], [place] [phone] Phone Unavailable Care Team Providers Care Shipping Room Helper Name Role Phone Sp Dawkins M.D. [...] Active Candidal balanitis (112.2, B37.42) Status: Active Dyspnea (786.09, R06.00) Status: Active External hemorrhoid (455.3, K64.4) Status: Active Slow transit constipation (564.01, K59.01) Status: Active Obstructive sleep apnea (327.23, G47.33) Status: Active Actinic keratosis (702.0, L57.0) Status: [...] DAILY * Quantity: 180 Refills: 1 Jovita Dhaliwal.Juancarlos.* Started 18-Dec-2010 ActiveNeedles BD PEN NEEDLE MINI 81wdzlg1/16 Inject Insulin at hs dx 250.02 * [...] Refills: 1 Jovita Dhaliwal D.O.* Started 11-May-2013 ActiveLantus SoloStar 100 UNIT/ML Subcutaneous Solution Pen-injector INJECT 25 UNITS DAILY DIRECTED * Quantity: 1 Refills: 5 Jovita DhaliwalO.* Started 16-Dec-2013 Active3 ML Pen (5 Pens) Jeronimo Contour Next Monitor w/Device Kit testing three times daily * Quantity: 1 Refills: 3 Sp Dawkins M.D.* Started 22-Mar-2014 ActiveBayer Contour Next Test In Vitro Strip TEST THREE TIMES A DAY * Quantity: 1 Refills: 3 Jovita DhaliwalO.* Started 22-Mar-2014 Cbdihf606 Strip Box Tamsulosin HCl - 0.4 MG [...] 1 Refills: 0 Savannah Oropeza* Started 05-Mar-2015 ActiveProctofoam 1 % Rectal Foam USE 1 APPLICATORFUL RECTALLY 1-2 TIMES DAILY. * Quantity: 1 Refills: 0 Jovita Dhaliwal.Juancarlos.* Started 13-Mar-2015 Kydbyc47 GM Can Colace 100 MG Oral Capsule TAKE 1 CAPSULE TWICE DAILY NEEDED. * Quantity: 60 Refills: 2 Jovita Dhaliwal.O.* Started 13-Mar-2015 ActiveLosartan Potassium 50 MG Oral Tablet TAKE 1 TABLET TWICE DAILY. * Quantity: 180 Refills: 3 Jovita Dhaliwal.Juancarlos.* Started 28-Feb-2014 ActiveVitamin B-12 1000 MCG Sublingual Tablet Sublingual PLACE 1 MCG Daily * Quantity: 1 Refills: 0 Sp Dawkins M.D.* Started Cdimqf217 Tablet Sublingual Bottle Allergies and Adverse Reactions Name Dates [...] Adacel 5-2-15.5 LF-MCG/0.5 Intramuscular Suspension Lot #: [id number] Administered on:21-Jul-2013 Fluzone High-Dose Intramuscular Suspension Lot #: [id number] Administered on:13-Dec-2013 Prevnar 13 Intramuscular Suspension Lot #: [id number] Administered on:07-Apr-2014 Family History Mother* Name Dates [...]
--- OUTSIDE RECORDS SUMMARY | 2016-07-04 09:12 | XMS REPORT ---
Author Author GENERATED, SYSTEM Organization Unknown Address Unknown Phone Unavailable Care Team Providers Care Prenatal Nurse Name Role Phone DO WHEAT ROBERT [...]
--- OUTSIDE RECORDS SUMMARY | 2016-07-04 09:12 | XMS REPORT | Summary of Care ---
Author Author Jovita Dhaliwal D.O. Organization Unknown Address [address], [place] [address] Phone Unavailable Care Team Providers Care Teller Manager Name Role Phone Sp Dawkins M.D. [...] I50.42) Status: Active Cardiac resynchronization therapy defibrillator (RAM CAR OPERATOR-D) in place (V45.02, Z95.810) Status: Active Hyperlipidemia [...] D.O. RFabio Khan * Start 19-Dec-2015 Active Tatums BD PEN NEEDLE MINI 15coppo6/16 Inject Insulin at hs dx 250.02 * [...] 0 Isra D.O.Jovita * Start 28-Feb-2014 Active Carbon Voyage Contour Next Monitor w/Device Kit testing three times daily * Quantity: 1 Refills: 3 Sp Dawkins M.D. * Start 22-Mar-2014 Active Carbon Voyage Contour Next Test In Vitro Strip TEST [...] cm H2O, Permanent use, G47.33, Heated humidity, IzwymsqoD43, mask , headgear, filters, heated tubing, water [...] Adacel 5-2-15.5 LF-MCG/0.5 Intramuscular Suspension Lot #: [id number] on: 21-Jul-2013 Fluzone High-Dose SUSP Lot #: [id number] on: 13-Dec-2013 Prevnar 13 Intramuscular Suspension Lot #: [id number] on: 07-Apr-2014 Pneumovax 23 25 MCG/0.5ML Injection Injectable on: 09-May-2015 Pneumo (Pneumovax) Lot #: [id number] on: 09-May-2015 Fluzone High-Dose 0.5 ML Intramuscular Suspension Prefilled Syringe Lot #: [id number] on: 28-Dec-2015 Family History Name Dates Details [...] Observations CBC w/ Auto Diff 7150 On 04-Jan-2016 Intent BASIC METABOLIC PROFILE 1210 On 04-Jan-2016 Intent HEMOGLOBIN A1C 3507 On 04-Jan-2016 Intent Planned Goals not documented Planned Encounters Appointment; Provider: Monica Mancera On 08-Dec-2016 14:00 Appointment; Provider: John Aldridge M.D. On 10-Jun-2016 10:15 Appointment; Provider: Prabhakar King M.D. On 02-Jun-2016 10:15 Appointment; Provider: Jovita Dhaliwal D.O. On 19-Feb-2016 10:00 Appointment; Provider: Schedule Radiology On 23-Nov-2015 14:30 Interventions Provided Labs/Procedures/Imaging* Diabetic Foot - Pulse Exam; Done: 22-Oct-2015 * Diabetic Foot - Sensory Exam; Done: 22-Oct-2015 * Diabetic Foot - Visual Exam; Done: 22-Oct-2015 * PROTIME PANEL 7000; Done: Oct 29 2015 8:13AM Instructions Name Dates Details Instructions not documented [...]
--- OUTSIDE RECORDS SUMMARY | 2016-07-04 09:13 | XMS REPORT | Summary of Care ---
Author Author Sp Dawkins M.D. 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 Unavailable [...] Started 05-Dec-2010 ActiveNeedles BD PEN NEEDLE MINI 85npdvw6/16 * Quantity: 200 Refills: 6 Gómez Grier [...] 1 Refills: 0 Sp Dawkins M.D.* Started [id number] Tablet Sublingual Bottle Lantus SoloStar 100 UNIT/ML [...] Refills: 3 Sp Dawkins M.D.* Started 22-Mar-2014 Jwnkfw887 Strip Box Ampicillin 500 MG Oral Capsule Take 1 capsule twice daily * Quantity: 30 Refills: 2 Sp Dawkins M.D.* Started 07-Apr-2014 ActiveClotrimazole-Betamethasone 1-0.05 % External Cream APPLY AND RUB IN A THIN FILM TO AFFECTED AREAS TWICE DAILY.(AM AND PM). * Quantity: 1 Refills: 0 Sp Dawkins M.D.* Started 27-Apr-2014 Quuboj56 GM Tube Allergies and Adverse Reactions Name [...] Adacel 5-2-15.5 LF-MCG/0.5 Intramuscular Suspension Lot #: [id number] Administered on:21-Jul-2013 Fluzone High-Dose Intramuscular Suspension Lot #: [id number] Administered on:13-Dec-2013 Prevnar 13 Intramuscular Suspension Lot #: [id number] Administered on:07-Apr-2014 Social History Name Dates Details [...]
--- OUTSIDE RECORDS SUMMARY | 2016-07-04 09:13 | XMS REPORT | Summary of Care ---
Author Author Jovita Dhaliwal D.O. Organization Unknown Address [address], [place] [id number] Phone Unavailable Care Team Providers Care Engineering Systems Analyst Name Role Phone Sp Dawkins M.D. Unavailable [...] G47.33) Status: Active Cardiac resynchronization therapy defibrillator (PROCESS IMPROVEMENT SPECIALIST-D) in place (V45.02, Z95.810) Status: Active On [...] 0 Isra D.O.Jovita * Start 18-Mar-2016 Active [place] BD PEN NEEDLE MINI 07umfmz1/16 Inject Insulin at hs dx 250.02 * [...] DAILY * Quantity: 180 Refills: 0 Isra Salinas.Juancarlos.Jovita * Start 21-Feb-2016 Active Lantus SoloStar 100 UNIT/ML Subcutaneous Solution Pen-injector INJECT 25 UNITS DAILY DIRECTED * Quantity: 15 Refills: 0 Isra Salinas.Jovita Frazier * Start 12-May-2016 Active Losartan Potassium 100 MG Oral Tablet Take one tablet by mouth daily * Quantity: 90 Refills: 0 Isra Salinas.Jovita Frazier * Start 28-Feb-2014 Active [employer] Contour Next Monitor w/Device Kit testing three times daily * Quantity: 1 Refills: 3 Sp Dawkins M.D. * Start 22-Mar-2014 Active [employer] Contour Next Test In Vitro Strip TEST [...] cm H2O, Permanent use, G47.33, Heated humidity, VyyyjwzbQ84, mask , headgear, filters, heated tubing, water [...] 0 Isra D.O.Jovita * Start 15-Apr-2016 Active Allergies and Adverse [...] Adacel 5-2-15.5 LF-MCG/0.5 Intramuscular Suspension Lot #: [id number] on: 21-Jul-2013 Fluzone High-Dose SUSP Lot #: [id number] on: 13-Dec-2013 Prevnar 13 Intramuscular Suspension Lot #: [id number] on: 07-Apr-2014 Pneumovax 23 25 MCG/0.5ML Injection Injectable on: 09-May-2015 Pneumo (Pneumovax) Lot #: [id number] on: 09-May-2015 Fluzone High-Dose 0.5 ML Intramuscular Suspension Prefilled Syringe Lot #: [id number] on: 28-Dec-2015 Zoster (Zostavax) on: 19-Feb-2016 Family [...] O2 Saturation Results Date Description Value Details 21-Apr-2016 14:11 PROTIME PANEL 7000 PROTIME 34.0 secs (Above high threshold) Range: 12.0-14.9 INR 3.53 09-May-2016 15:08 PROTIME PANEL 7000 PROTIME 23.0 [...] not documented On 15-Feb-2015 13:45 Appointment; Jovita hDaliwal D.O. Encounter Diagnosis: Problem [...]
--- OUTSIDE RECORDS SUMMARY | 2016-07-04 09:13 | XMS REPORT | Summary of Care ---
Author Author John Aldridge M.D. Organization Unknown Address [address] [place], [place] [id number] Phone Unavailable Care Team Providers Care Rn Clinical Review Name Role Phone John Aldridge M.D. 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 * Start 18-Mar-2016 Active [place] BD PEN NEEDLE MINI 70ualxh7/16 Inject Insulin at hs dx 250.02 * Quantity: 200 Refills: 6 Jovita Dhaliwal D.O. * Start 23-Dec-2010 Active Pravastatin Sodium 10 MG Oral Tablet TAKE 1/2 TABLET BY MOUTH DAILY * Quantity: 15 Refills: 3 Jovita Dhaliwal D.O. * Start 16-May-2016 Active Warfarin Sodium 6 [...] TABLET DAILY. * Quantity: 90 Refills: 3 Jovita Dhaliwal D.O. * Start 28-Feb-2014 Active Fuzmo Next Monitor w/Device Kit testing three times daily * Quantity: 1 Refills: 3 Sp Dawkins M.D. * Start 22-Mar-2014 Active Tranz Contour Next Test In Vitro Strip TEST THREE TIMES DAILY * Quantity: 100 Refills: 1 Jovita Dhaliwal D.O. * Start 21-Dec-2015 Active Supplies CPAP repair, services and supplies, G47.33 Mask, headgear, filters, heated tubing, chinstrap * Quantity: 1 Refills: 0 Sandip P.A.[place] * Start 05-Mar-2015 Active Fish Oil 1000 MG Oral Capsule TAKE 1 CAPSULE DAILY. * Refills: 0 * Start 10-May-2015 Active Supplies AutoCPAP 9-13 cm H2O, Permanent use, G47.33, Heated humidity, FolmrxhnY75, mask , headgear, filters, heated tubing, water [...] Ordered: 15-Apr-2016 PROTIME PANEL 7000 Ordered: 09-May-2016 BASIC METABOLIC PROFILE 1210 Ordered: 03-Jun-2016 Quant Microalbumin 1106 Ordered: 03-Jun-2016 HEMOGLOBIN A1C 3507 Ordered: 03-Jun-2016 Immunization Name Dates Details Influenza on: 10-Dec-2010 Influenza on: 02-Feb-2012 Diphtheria-Tetanus Toxoids 6.7-5 LFU/0.5ML INJ on: Tdap (Boostrix) on: Adacel 5-2-15.5 LF-MCG/0.5 Intramuscular Suspension Lot #: [id number] on: 21-Jul-2013 Fluzone High-Dose SUSP Lot #: [id number] on: 13-Dec-2013 Prevnar 13 Intramuscular Suspension Lot #: [id number] on: 07-Apr-2014 Pneumovax 23 25 MCG/0.5ML Injection Injectable on: 09-May-2015 Pneumo (Pneumovax) Lot #: [id number] on: 09-May-2015 Fluzone High-Dose 0.5 ML Intramuscular Suspension Prefilled Syringe Lot #: [id number] on: 28-Dec-2015 Zoster (Zostavax) on: 19-Feb-2016 Family [...] >60 ml/min Range: >60 EST GFR, NON-AFR LAO 57 ml/min (Below low threshold) Range: >60 [...] 10:30 Appointment; Provider: Don Reed M.D. On 11-Jun-2016 09:30 Appointment; Provider: Marisela Figueroa On 11-Jun-2016 09:00 Interventions Provided Medication Changes* Losartan Potassium 50 MG Oral Tablet - Completed Instructions Name Dates Details Instructions [...] not documented On 19-Feb-2016 10:00 Appointment; Prabhakar Kign M.D. Encounter Diagnosis: Problem not documented On [...]
--- OUTSIDE RECORDS SUMMARY | 2016-07-04 09:13 | XMS REPORT | Summary of Care ---
Author Author Jovita Dhaliwal D.O. Organization Unknown Address [address], [place] [address] Phone Unavailable Care Team Providers Care Table Setter Name Role Phone John Aldridge M.D. Unavailable [...] INJECT 44 UNIT Daily * Refills: 0 pS Dawkins M.D.* Started 05-Dec-2010 ActiveNeedles BD PEN NEEDLE MINI 53qikxv6/16 Inject Insulin at hs dx 250.02 * [...] 1 Refills: 0 Sp Dawkins M.D.* Started [id number] Tablet Sublingual Bottle Carvedilol 12.5 MG Oral Tablet TAKE 1 TABLET TWICE DAILY. * Quantity: 180 Refills: 3 John Aldridge M.D.* Started 28-Feb-2014 ActiveLosartan Potassium 50 MG Oral Tablet TAKE 1 TABLET TWICE DAILY. * Quantity: 180 Refills: 3 John Aldridge M.D.* Started 28-Feb-2014 [employer] Next Monitor w/Device Kit testing three times daily * Quantity: 1 Refills: 3 Sp Dawkins M.D.* Started 22-Mar-2014 ActiveBayer Contour Next Test In Vitro Strip TEST THREE TIMES A DAY * Quantity: 1 Refills: 3 Isra RFabio Khan D.O.* Started 22-Mar-2014 Trspch754 Strip Box ZyrTEC Allergy 10 MG Oral Tablet TAKE 1 TABLET DAILY DIRECTED. * Quantity: 30 Refills: 2 Isra R. Bill D.O.* Started 19-Jun-2014 ActiveFluticasone Propionate 50 MCG/ACT Nasal Suspension USE 1 TO 2 SPRAYS IN EACH NOSTRIL ONCE DAILY. * Quantity: 1 Refills: 0 Isra RFabio Khan D.O.* Started 19-Jun-2014 Tdiozp40 GM Bottle Doxycycline Monohydrate 100 MG Oral [...] Adacel 5-2-15.5 LF-MCG/0.5 Intramuscular Suspension Lot #: [id number] Administered on:21-Jul-2013 Fluzone High-Dose Intramuscular Suspension Lot #: [id number] Administered on:13-Dec-2013 Prevnar 13 Intramuscular Suspension Lot #: [id number] Administered on:07-Apr-2014 Social History Name Dates Details [...]
--- OUTSIDE RECORDS SUMMARY | 2016-07-04 09:14 | XMS REPORT | Summary of Care ---
Author Author Jovita Dhaliwal D.O. Organization Unknown Address [address], [place] [id number] Phone Unavailable Care Team Providers Care Policyholder Information Clerk Name Role Phone Sp Dawkins M.D. [...] I50.42) Status: Active Cardiac resynchronization therapy defibrillator (MENTALLY RETARDED TEACHER-D) in place (V45.02, Z95.810) Status: Active Hyperlipidemia [...] 180 Refills: 0 Isra D.Juancarlos.Jovita * Start 19-Dec-2015 Active [place] BD PEN NEEDLE MINI 89wuzvr5/16 Inject Insulin at hs dx 250.02 * [...] 0 Isra D.O.Jovita * Start 28-Feb-2014 Active [employer] Next Monitor w/Device Kit testing three times daily * Quantity: 1 Refills: 3 Sp Dawkins M.D. * Start 22-Mar-2014 Active [place] Contour Next Test In Vitro Strip TEST THREE TIMES DAILY * Quantity: 100 Refills: 1 Joivta Dhaliwal D.O. * Start 21-Dec-2015 Active Tamsulosin [...] cm H2O, Permanent use, G47.33, Heated humidity, FqxepaicO42, mask , headgear, filters, heated tubing, water [...] of Arterial Catheterization PROTIME PANEL 7000 Ordered: 4-Oct-2016 Immunization Name Dates Details Influenza on: 10-Dec-2010 Influenza on: 02-Feb-2012 Diphtheria-Tetanus Toxoids 6.7-5 LFU/0.5ML INJ on: Tdap (Boostrix) on: Adacel 5-2-15.5 LF-MCG/0.5 Intramuscular Suspension Lot #: [id number] on: 21-Jul-2013 Fluzone High-Dose SUSP Lot #: [id number] on: 13-Dec-2013 Prevnar 13 Intramuscular Suspension Lot #: [id number] on: 07-Apr-2014 Pneumovax 23 25 MCG/0.5ML Injection Injectable on: 09-May-2015 Pneumo (Pneumovax) Lot #: [id number] on: 09-May-2015 Fluzone High-Dose 0.5 ML Intramuscular Suspension Prefilled Syringe Lot #: [id number] on: 28-Dec-2015 Family History Name Dates Details [...] m2 Status: Results Date Description Value Details 30-Nov-2015 15:12 PROTIME PANEL 7000 PROTIME 14.1 [...] 14:00 Appointment; Provider: Prabhakar King M.D. On 13-Jun-2016 10:00 Appointment; Provider: John Aldridge M.D. On 10-Jun-2016 10:15 Appointment; Provider: Jovita Dhaliwal D.O. On 19-Feb-2016 10:00 Appointment; Provider: Prabhakar King M.D. On 31-Dec-2015 13:30 Interventions Provided Medications/Immunizations Administered* Fluzone High-Dose 0.5 ML Intramuscular Suspension Prefilled Syringe; Done: 28 Dec 2015 Instructions Name Dates Details Instructions [...]
--- OUTSIDE RECORDS SUMMARY | 2016-07-04 09:14 | XMS REPORT | Summary of Care ---
Author Author Jovita Dhaliwal D.O. Organization Unknown Address [address] [place] [address], [place] [address] Phone Unavailable Care Team Providers Care It Project Lead Name Role Phone Sp Dawkins M.D. Unavailable [...] I50.42) Status: Active Cardiac resynchronization therapy defibrillator (SPINDLE REPAIRER-D) in place (V45.02, Z95.810) Status: Active Hyperlipidemia [...] Low back pain (724.2, M54.5) Status: Active Medications Name Dates Details Furosemide 40 MG Oral Tablet TAKE 1 TABLET BY MOUTH DAILY Quantity: 90 Isra Salinas.O.Jovita * Start 30-Oct-2010 Active Lantus SoloStar 100 UNIT/ML Subcutaneous Solution Pen-injector INJECT 44 UNITS DAILY DIRECTED * Quantity: 11 Refills: 11 Isra D.Juancarlos.Jovita * Start 05-Dec-2010 Active 3 ML Pen (5 Pens) Carvedilol 6.25 MG Oral Tablet TAKE 1 TABLET BY MOUTH TWICE DAILY * Quantity: 180 Refills: 0 Isra Salinas.Jovita Frazier * Start 19-Dec-2015 Active [place] BD PEN NEEDLE MINI 56bthkn0/16 Inject Insulin at hs dx 250.02 * [...] daily * Quantity: 90 Refills: 0 Isra Salinas.OJovita Mccarthy * Start 28-Feb-2014 Active [facility] [facility] Contour Next Monitor w/Device Kit testing three [...] cm H2O, Permanent use, G47.33, Heated humidity, IbocgposQ55, mask , headgear, filters, heated tubing, water [...] 0 Isra DJovita Cole * Start Active Supplies CPAP repair, services [...] not documented Immunization Name Dates Details Influenza on: 10-Dec-2010 Influenza on: 02-Feb-2012 Diphtheria-Tetanus Toxoids 6.7-5 LFU/0.5ML INJ on: Tdap (Boostrix) on: Adacel 5-2-15.5 LF-MCG/0.5 Intramuscular Suspension Lot #: [id number] on: 21-Jul-2013 Fluzone High-Dose SUSP Lot #: [id number] on: 13-Dec-2013 Prevnar 13 Intramuscular Suspension Lot #: [id number] on: 07-Apr-2014 Pneumovax 23 25 MCG/0.5ML Injection Injectable on: 09-May-2015 Pneumo (Pneumovax) Lot #: [id number] on: 09-May-2015 Fluzone High-Dose 0.5 ML Intramuscular Suspension Prefilled Syringe Lot #: [id number] on: 28-Dec-2015 Family History Name Dates Details [...] (Above high threshold) Range: 12.0-14.9 INR 2.44 21-Jan-2016 17:07 PROTIME PANEL 7000 PROTIME 15.2 secs (Above high threshold) Range: 12.0-14.9 INR 1.21 Plan of Care Name Dates Details Planned Observations Planned Goals not documented Planned Encounters Appointment; Provider: Monica Mancera On 08-Dec-2016 14:00 Appointment; Provider: Prabhakar Kign M.D. On 30-Jun-2016 10:45 Appointment; Provider: John Aldridge M.D. On 10-Jun-2016 10:15 Appointment; Provider: Jovita Dhaliwal D.O. On 19-Feb-2016 10:00 Appointment; Provider: Prabhakar King M.D. On 28-Jan-2016 10:15 Interventions Provided Labs/Procedures/Imaging* PROTIME PANEL 7000; Done: Jan 21 2016 3:56PM Instructions Name Dates Details Instructions not documented [...]
--- OUTSIDE RECORDS SUMMARY | 2016-07-04 09:14 | XMS REPORT | Referral Summary ---
Author Author [facility] Organization [facility] Address Unknown Phone Unavailable Encounter VC Date(s): 12/05/14 - 12/05/14 [facility] [address] [place] [address] ELLEN [place] [id number] Discharge Disposition: 01-Home or Self Care [...]
--- OUTSIDE RECORDS SUMMARY | 2016-07-04 09:14 | XMS REPORT ---
Author Author GENERATED, SYSTEM Organization Unknown Address Unknown Phone Unavailable Care Team Providers Care Chemical Equipment Sales Engineer Name Role Phone DO WHEAT ROBERT PP Unavailable Reason For Visit Reason for Visit from 08/15/2015 8:39 AM:* Pt Stated Reason for Adm : Vancomycin infusions Chief Complaint MRSA SEPTICEMIA D/T L DM FOOT INFECTION Social History Functional Status Functional Status from 08/29/2015 7:30 AM:* LOC : Alert * Oriented To : Person,Place,Time Functional Status from 08/28/2015 7:43 AM:* LOC : Alert * Oriented To : Person,Place,Time,Event Functional Status from 08/27/2015 7:27 AM:* LOC : Alert * Oriented To : Person,Place,Time,Event Functional Status from 08/26/2015 7:30 AM:* LOC : Alert * Oriented To : Person,Place,Time,Event Functional Status from 08/24/2015 7:30 AM:* LOC : Alert * Oriented To : Person,Place,Time Functional Status from 08/23/2015 7:31 AM:* LOC : Alert * Oriented To : Person,Place,Time,Event Functional Status from 08/22/2015 7:55 AM:* LOC : Alert * Oriented To : Person,Place,Time Functional Status from 08/21/2015 7:35 AM:* LOC : Alert * Oriented To : Person,Place,Time,Event Functional Status from 08/20/2015 9:28 AM:* LOC : Alert * Oriented To : Person,Place,Time,Event Functional Status from 08/19/2015 7:57 AM:* LOC : Alert * Oriented To : Person,Place,Time Functional Status from 08/18/2015 7:50 AM:* LOC : Alert * Oriented To : Person,Place,Time Functional Status from 08/17/2015 7:35 AM:* LOC : Alert * Oriented To : Person,Place,Time Functional Status from 08/16/2015 7:55 AM:* LOC : Alert * Oriented To : Person,Place,Time,Event Functional Status from 08/15/2015 8:39 AM:* LOC : Alert * Oriented To : Person,Place,Time,Event Vital Signs Hospital Vital Signs from 08/29/2015 7:30 AM:* Height : 6/1 ft,in * Temperature : 97.2 F * Pulse : 80 * Respirations : 18 * BP : 143/90 Hospital Vital Signs from 08/28/2015 7:39 AM:* Height : 6/1 ft,in * Temperature : 97.2 F * Pulse : 76 * BP : 174/91 Hospital Vital Signs from 08/27/2015 7:27 AM:* Height : 6/1 ft,in * Temperature : 97.3 F * Pulse : 84 * Respirations : 16 * BP : 148/81 Hospital Vital Signs from 08/26/2015 7:35 AM:* Height : 6/1 ft,in * Temperature : 98.3 F * Pulse : 70 * Respirations : 18 * BP : 146/78 Hospital Vital Signs from 08/24/2015 7:30 AM:* Height : 6/1 ft,in * Temperature : 96.1 F * Pulse : 74 * Respirations : 18 * BP : 144/87 Hospital Vital Signs from 08/23/2015 7:33 AM:* Height : 6/1 ft,in * Temperature : 97.4 F * Pulse : 83 * Respirations : 18 * BP : 155/87 Hospital Vital Signs from 08/22/2015 7:55 AM:* Height : 6/1 ft,in * Temperature : 96.5 F * Pulse : 91 * Respirations : 18 * BP : 161/94 Hospital Vital Signs from 08/21/2015 7:38 AM:* Height : 6/1 ft,in * Temperature : 97.2 F * Pulse : 85 * Respirations : 18 * BP : 167/93 Hospital Vital Signs from 08/20/2015 9:00 AM:* Height : 6/1 ft,in * Temperature : 98.1 F * Pulse : 81 * Respirations : 18 * BP : 149/93 Hospital Vital Signs from 08/19/2015 7:57 AM:* Height : 6/1 ft,in * Temperature : 97.7 F * Pulse : 77 * Respirations : 18 * BP : 160/89 Hospital Vital Signs from 08/18/2015 7:50 AM:* Height : 6/1 ft,in * Temperature : 97.1 F * Pulse : 76 * Respirations : 18 * BP : 162/85 Hospital Vital Signs from 08/17/2015 7:35 AM:* Height : 6/1 ft,in * Temperature : 97.7 F * Pulse : 81 * Respirations : 18 * BP : 162/87 Hospital Vital Signs from 08/16/2015 7:58 AM:* Height : 6/1 ft,in * Temperature : 97.0 F * Pulse : 73 * Respirations : 18 * BP : 151/85 Hospital Vital Signs from 08/15/2015 8:39 AM:* Weight : 225/ lbs,oz * Height : 6/1 ft,in Hospital Vital Signs from 08/15/2015 7:49 AM:* Height : 6/1 ft,in * Temperature : 97.6 F * Pulse : 85 * Respirations : 18 * BP : 152/87 Results Blood Gas from 09/03/2015 12:15 AM*VENOUS PH 7.322 (7.320-7.430 ) VENOUS PCO2 49.7 MM HG (38.0-50.0 MM HG) *VENOUS PO2 <40 MM HG (38-42 MM HG) *VENOUS TCO2 22.9 mmol/L L (23.0-30.0 mmol/L) GUIDO. BICARBONATE 25.0 MEQ/L (22.0-29.0 MEQ/L) *GUIDO. BASE EXCESS -1.2 (-3.0-3.0 ) GUIDO. O2 SATURATION 24.0 % L (70.0-80.0 %) PATIENT ATMOSPHERE ROOM AIR Chemistry from 09/04/2015 3:48 AMSODIUM 135 MMOL/L L (136-145 MMOL/L) POTASSIUM 3.9 MMOL/L (3.5-5.1 MMOL/L) CHLORIDE 104 MMOL/L (98-107 MMOL/L) TCO2 26.1 MMOL/L (21.0-32.0 MMOL/L) *ANION GAP 4.9 MMOL/L L (8.0-16.0 MMOL/L) BUN 19 MG/DL H (7-18 MG/DL) CREATININE 1.39 MG/DL H (0.70-1.30 MG/DL) *BUN/CREATININE RATIO 13.7 (9.1-17.0 ) GLUCOSE 92 MG/DL (65-99 MG/DL) *GFR EST NON AFR MONTENEGRIN 52 ML/MIN *GFRA EST AFR AMER 60 [...] LACTIC ACID 2.0 mmol/L H (0.9-1.7 mmol/L) Chemistry from 09/03/2015 12:15 AMSODIUM 139 MMOL/L (136-145 MMOL/L) POTASSIUM 4.0 MMOL/L (3.5-5.1 MMOL/L) CHLORIDE 101 MMOL/L (98-107 MMOL/L) TCO2 29.0 MMOL/L (21.0-32.0 MMOL/L) *ANION GAP 9.0 MMOL/L (8.0-16.0 MMOL/L) BUN 22 MG/DL H (7-18 MG/DL) CREATININE 1.45 MG/DL H (0.70-1.30 MG/DL) *BUN/CREATININE RATIO 15.2 (9.1-17.0 ) GLUCOSE 168 MG/DL H (65-99 MG/DL) *GFR EST NON AFR MONTENEGRIN 49 ML/MIN *GFRA EST AFR AMER 57 ML/MIN CALCIUM 9.3 MG/DL (8.5-10.1 MG/DL) BILIRUBIN TOTAL 0.50 MG/DL (0.20-1.00 MG/DL) TOTAL PROTEIN 8.4 GM/DL H (6.4-8.2 GM/DL) ALBUMIN 4.5 GM/DL (3.4-5.0 GM/DL) *GLOBULIN 3.9 GM/DL H (2.3-3.5 GM/DL) *A/G RATIO 1.2 MG/DL L (1.5-2.2 MG/DL) ALK PHOS 118 U/L H (46-116 U/L) ALT (SGPT) 18 U/L (14-59 U/L) AST (SGOT) 12 U/L L (15-37 U/L) MAGNESIUM 1.8 MG/DL (1.8-2.4 MG/DL) LIPASE 113 U/L (73-393 U/L) TROPONIN-I 0.143 NG/ML H (0.000-0.056 NG/ML) C-REACTIVE PROTEIN 0.91 MG/DL H (0.00-0.30 MG/DL) LACTIC ACID 3.1 mmol/L H (0.9-1.7 mmol/L) LACTIC ACID 3.1 mmol/L H (0.9-1.7 mmol/L) Chemistry from 08/27/2015 7:50 AMSODIUM 140 MMOL/L (136-145 MMOL/L) POTASSIUM 4.0 MMOL/L (3.5-5.1 MMOL/L) CHLORIDE 107 MMOL/L (98-107 MMOL/L) TCO2 25.9 MMOL/L (21.0-32.0 MMOL/L) *ANION GAP 7.1 MMOL/L L (8.0-16.0 MMOL/L) BUN 20 MG/DL H (7-18 MG/DL) CREATININE 1.15 MG/DL (0.70-1.30 MG/DL) *BUN/CREATININE RATIO 17.4 H (9.1-17.0 ) GLUCOSE 173 MG/DL H (65-99 MG/DL) *GFR EST NON AFR MONTENEGRIN 65 ML/MIN *GFRA EST AFR AMER 76 ML/MIN CALCIUM 8.6 MG/DL (8.5-10.1 MG/DL) C-REACTIVE PROTEIN 1.14 MG/DL H (0.00-0.30 MG/DL) VANCOMYCIN TROUGH 8.8 MCG/ML (5.0-10.0 MCG/ML) Chemistry from 08/20/2015 9:00 AMSODIUM 142 MMOL/L (136-145 MMOL/L) POTASSIUM 4.2 MMOL/L (3.5-5.1 MMOL/L) CHLORIDE 108 MMOL/L H (98-107 MMOL/L) TCO2 26.6 MMOL/L (21.0-32.0 MMOL/L) *ANION GAP 7.4 MMOL/L L (8.0-16.0 MMOL/L) BUN 17 MG/DL (7-18 MG/DL) CREATININE 1.19 MG/DL (0.70-1.30 MG/DL) *BUN/CREATININE RATIO 14.3 (9.1-17.0 ) GLUCOSE 93 MG/DL (65-99 MG/DL) *GFR EST NON AFR MONTENEGRIN 63 ML/MIN *GFRA EST AFR AMER 73 ML/MIN CALCIUM 8.9 MG/DL (8.5-10.1 MG/DL) C-REACTIVE PROTEIN 0.24 MG/DL (0.00-0.30 MG/DL) VANCOMYCIN TROUGH 11.9 MCG/ML H (5.0-10.0 MCG/ML) Hematology from 09/04/2015 3:48 AMWBC 11.1 X10e3/UL [...] (0.00-0.20 X10e3/UL) *POLYCHROMASIA 1+ BASOPHILIC STIPPLING 1+ Hematology from 09/03/2015 12:15 AMWBC 9.8 X10e3/UL (3.6-11.2 X10e3/UL) RBC 5.26 X10e6/UL (4.06-5.63 X10e6/UL) HEMOGLOBIN 13.9 G/DL (12.5-16.3 G/DL) HEMATOCRIT 43.3 % (36.7-47.1 %) *MCV 82.3 FL (80.0-100.0 FL) *MCH 26.4 PG L (27.0-33.0 PG) *MCHC 32.1 G/DL (32.0-36.0 G/DL) *RDW 13.7 % (12.3-17.0 %) PLATELET 187 X10e3/UL (159-386 X10e3/UL) *MPV 7.7 FL (7.4-10.4 FL) SED RATE 24 MM/HR H (0-20 MM/HR) Hematology from 08/27/2015 7:50 AMWBC 4.6 X10e3/UL (3.6-11.2 X10e3/UL) RBC 4.43 X10e6/UL (4.06-5.63 X10e6/UL) HEMOGLOBIN 12.0 G/DL L (12.5-16.3 G/DL) HEMATOCRIT 36.7 % (36.7-47.1 %) *MCV 82.8 FL (80.0-100.0 FL) *MCH 27.0 PG (27.0-33.0 PG) *MCHC 32.6 G/DL (32.0-36.0 G/DL) *RDW 14.5 % (12.3-17.0 %) *RDWSD 42.4 (37.1-47.8 ) PLATELET 149 X10e3/UL L (159-386 X10e3/UL) *MPV 8.0 FL (7.4-10.4 FL) *MANUAL DIFF PERFORMED SEGS 67.0 % *BANDS 3.0 % *LYMPHOCYTES 12.0 % *MONOCYTES 6.0 % *EOSINOPHILS 12.0 % *BASOPHILS 0.0 % *ABSOLUTE NEUTROPHILS 3.22 X10e3/UL (1.80-7.80 X10e3/UL) *ABSOLUTE LYMPHOCYTES 0.55 X10e3/UL L (1.00-3.00 X10e3/UL) *ABSOLUTE MONOCYTES 0.28 X10e3/UL L (0.30-1.00 X10e3/UL) *ABSOLUTE EOSINOPHILS 0.55 X10e3/UL H (0.00-0.50 X10e3/UL) *ABSOLUTE BASOPHILS 0.00 X10e3/UL (0.00-0.20 X10e3/UL) *POLYCHROMASIA 1+ *TEARDROP CELLS 1+ SED RATE 40 MM/HR H (0-20 MM/HR) Hematology from 08/20/2015 9:00 AMWBC 5.3 X10e3/UL (3.6-11.2 X10e3/UL) RBC 4.42 X10e6/UL (4.06-5.63 X10e6/UL) HEMOGLOBIN 12.1 G/DL L (12.5-16.3 G/DL) HEMATOCRIT 36.8 % (36.7-47.1 %) *MCV 83.3 FL (80.0-100.0 FL) *MCH 27.3 PG (27.0-33.0 PG) *MCHC 32.8 G/DL (32.0-36.0 G/DL) *RDW 14.6 % (12.3-17.0 %) *RDWSD 42.9 (37.1-47.8 ) PLATELET 152 X10e3/UL L (159-386 X10e3/UL) *MPV 7.5 FL (7.4-10.4 FL) *MANUAL DIFF PERFORMED SEGS 75.0 % *BANDS 0.0 % *LYMPHOCYTES 18.0 % *MONOCYTES 2.0 % *EOSINOPHILS 4.0 % *BASOPHILS 1.0 % *ABSOLUTE NEUTROPHILS 3.98 X10e3/UL (1.80-7.80 X10e3/UL) *ABSOLUTE LYMPHOCYTES 0.95 X10e3/UL L (1.00-3.00 X10e3/UL) *ABSOLUTE MONOCYTES 0.11 X10e3/UL L (0.30-1.00 X10e3/UL) *ABSOLUTE EOSINOPHILS 0.21 X10e3/UL (0.00-0.50 X10e3/UL) *ABSOLUTE BASOPHILS 0.05 X10e3/UL (0.00-0.20 X10e3/UL) *POLYCHROMASIA 1+ SED RATE 34 MM/HR H (0-20 MM/HR) Coagulation from 09/04/2015 3:48 AM*PROTHROMBIN TIME 28.6 SECONDS H (9.4-11.5 SECONDS) *INR 2.6 H (0.9-1.1 ) Coagulation from 09/03/2015 11:36 AM*PROTHROMBIN TIME 47.0 SECONDS H (9.4-11.5 SECONDS) *INR 4.1 HH (0.9-1.1 ) Microbiology from 09/03/2015 6:15 PM* C. DIFFICILE Specimen Number: [id number] Sample Collection Date/Time: 09/03/2015 6:15 PM Specimen Source: Stool C. DIFFICILE: Negative-No toxigenic C. difficile detected. THE ILLUMIGENE C.DIFFICILE PCR ASSAY UTILIZES LOOP-MEDIATED ISOTHERMAL DNA AMPLIFICATION (LAMP ) TECHNOLOGY TO DETECT A GENE SEGMENT PRESENT IN ALL KNOWN TOXIGENIC C. DIFFICILE STRAINS. Microbiology from 09/03/2015 12:50 PM* CULTURE WOUND (Preliminary Result) Specimen Number: [id number] Sample Collection Date/Time: 09/03/2015 12:50 PM Specimen Source: Foot Left *GRAM STAIN: Few Epithelial cells Rare RBC's Rare WBC's No organisms seen CULTURE WOUND: Rare mixed colony types Further report to follow * *GRAM STAIN Specimen Number: [id number] Sample Collection Date/Time: 09/03/2015 12:50 PM Specimen Source: Foot Left CULTURE WOUND: Rare mixed colony types Further report to follow *GRAM STAIN: Few Epithelial cells Rare RBC's Rare WBC's No organisms seen Microbiology from 09/03/2015 12:20 AM* CULTURE BLOOD (Preliminary Result) Specimen Number: [id number] Sample Collection Date/Time: 09/03/2015 12:20 AM Specimen Source: Blood PERIPHRL CULTURE BLOOD: Gram stain:Gram positive cocci in clusters 09/03/2015 13:42 Staphylococcus aureus Microbiology from 09/03/2015 12:15 AM* CULTURE BLOOD (Preliminary Result) Specimen Number: [id number] Sample Collection Date/Time: 09/03/2015 12:15 AM Specimen Source: Blood Peripheral (IV start) CULTURE BLOOD: Gram stain:Gram positive cocci in clusters 09/03/2015 13:29 Staphylococcus aureus DX Radiology from 09/03/2015 12:59 AMFOOT LEFT 3 VIEWS History: Lower extremity wound. Technique: 3view foot Priors: 05/22/09 Findings: There is no acute fracture or dislocation. There is a hallux valgus deformity of the 1st digit. There are what appears to be erosive changes involving 1 of the sesamoid bones the 1st digit. This could be chronic in nature but osteomyelitis is not excluded. Impression: Appear erosive changes involving 1 of the sesamoid bones. Possibility osteo myelitis is not excluded. MRI would be helpful for further evaluation. Electronically signed by: Sabino Gore MD Dictated: 09/03/2015 10:30 DX Radiology from 09/03/2015 12:50 AMCHEST 1 VIEW History: nausea/shaking Priors: 01/12/15 Findings: A left-sided cardiac pacemaker is in place. The cardiac silhouette is enlarged. There is mild pulmonary venous congestion. There are no focal areas consolidation or pleural effusions. Impression: Cardiomegaly and mild pulmonary venous congestion. Electronically signed by: Sabino Gore MD Dictated: 09/03/2015 10:30 CT Scan from 09/03/2015 2:26 PMCT ABD/PELVIS [...] MD Dictated: 09/03/2015 14:46 Problems Encounter Diagnosis No relevant problems exist. Additional Problems * Altered Mental Status Comment:Problem resolved by [facility] Workflow upon Discharge, Status:Resolved. * Atrial Fibrillation Comment:Problem resolved by [facility] Workflow upon Discharge, Status:Resolved. * Chest Pain Comment:Problem resolved by [facility] Workflow upon Discharge, Status :Resolved. * Chest Pain Comment:Problem resolved by [facility] Workflow upon Discharge, Status :Resolved. * Chronic Kidney Disease, Stage 2 Status:Active. * Coronary Arteriosclerosis Comment:Problem resolved by [facility] Workflow upon Discharge, Status:Resolved. * Diabetes Mellitus Status:Active. * Diabetes Mellitus, Type 2 Comment:Problem resolved by [facility] Workflow upon Discharge, Status:Resolved. * Diabetic Foot Ulcer Status:Active. * Fall Risk Comment:Problem resolved by [facility] Workflow upon Discharge, Status: Resolved. * Fall Risk Comment:Problem resolved by [facility] Workflow upon Discharge, Status: Resolved. * Fall Risk Status:Active. * Hypertensive Disorder Comment:Problem resolved by [facility] Workflow upon Discharge, Status:Resolved. * Infection Risk Comment:Problem resolved by [facility] Workflow upon Discharge, Status:Resolved. * Mobility Impairment Comment:Problem resolved by [facility] Workflow upon Discharge, Status:Resolved. * Mobility Impairment Status:Active. * Obstructive Sleep Apnea Syndrome Status:Active. * Skin Integrity Impairment Risk Status:Active. Encounters Encounter Diagnosis No relevant problems exist. [...]
--- OUTSIDE RECORDS SUMMARY | 2016-07-04 09:14 | XMS REPORT ---
Author Author GENERATED, SYSTEM Organization Unknown Address Unknown Phone Unavailable Care Team Providers Care Supervisor Accounting Clerks Name Role Phone DO WHEAT ROBERT PP Unavailable Reason For Visit Chief Complaint HEMORRHOIDS Social History Functional Status Vital Signs Results [...]
--- OUTSIDE RECORDS SUMMARY | 2016-07-04 09:14 | XMS REPORT | Summary of Care ---
Author Author Sp Dawkins M.D. Unknown Address [address], [place] [id number] Phone Unavailable Care Team Providers Care Inside Sales Professional Name Role Phone John Aldridge M.D. Unavailable Unavailable Sp Dawkins M.D. Unavailable Unavailable Gómez Grier M.D. 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 Yeast infection of the skin (112.3, B37.2) Status: Active Dry skin dermatitis (692.89, L85.0) Status: Active Acute upper respiratory infection (465.9, J06.9) Status: Active Medications Name Dates Details Warfarin [...] Started 05-Dec-2010 ActiveNeedles BD PEN NEEDLE MINI 10tjpmr0/16 * Quantity: 200 Refills: 6 Gómez Grier [...] 1 Refills: 0 Sp Dawkins M.D.* Started [id number] Tablet Sublingual Bottle Lantus SoloStar 100 UNIT/ML [...] Refills: 3 Sp Dawkins M.D.* Started 22-Mar-2014 [id number] Strip Box Ampicillin 500 MG Oral Capsule Take 1 capsule twice daily * Quantity: 30 Refills: 2 Sp Dawkins M.D.* Started 07-Apr-2014 ActiveClotrimazole-Betamethasone 1-0.05 % External Cream APPLY AND RUB IN A THIN FILM TO AFFECTED AREAS TWICE DAILY.(AM AND PM). * Quantity: 1 Refills: 0 Sp Dawkins M.D.* Started 27-Apr-2014 [id number] GM Tube Allergies and Adverse Reactions Name [...] Adacel 5-2-15.5 LF-MCG/0.5 Intramuscular Suspension Lot #: [id number] Administered on:21-Jul-2013 Fluzone High-Dose Intramuscular Suspension Lot #: [id number] Administered on:13-Dec-2013 Prevnar 13 Intramuscular Suspension Lot #: [id number] Administered on:07-Apr-2014 Social History Name Dates Details Smoking Status* Former smoker Vital Signs Date Test Result Details 27-Apr-2014 14:22 BP Systolic 114 mm[Hg] Status: BP Diastolic 80 mm[Hg] Status: Heart Rate 89 /min Status: Weight 225 lb Status: O2 SAT 94 % Status: Body Mass Index Calculated 29.69 kg/m2 Status: Body Surface Area Calculated 2.26 m2 Status: 07-Apr-2014 10:49 BP Systolic 100 mm[Hg] Status: BP Diastolic 70 mm[Hg] Status: Heart Rate 69 /min Status: Temperature 98.5 f Status: Weight 229 lb Status: Body Mass Index Calculated 30.21 kg/m2 Status: Body Surface Area Calculated 2.28 m2 Status: Results Date Description Value Details Results not documented Plan of Care Planned Observations* Name Dates Details Planned Goals not documented Goal Planned Encounters* Appointment; Provider: Jhon Aldridge On 10:15 * Appointment; Provider: Carl Ga On 09-May-2014 09:15 * Appointment; Provider: Debora Figueroa On [...] Diagnosis: Problem not documented On 26-May-2012 10:30 Appointment; Sp Dawkins Encounter Diagnosis: Problem not documented On 10-May-2012 10:00
--- OUTSIDE RECORDS SUMMARY | 2016-07-04 09:15 | XMS REPORT | Summary of Care ---
Author Author Jovita Dhaliwal D.O. Organization Unknown Address [address], [place] [id number] Phone Unavailable Care Team Providers Care Sawmill Supervisor Name Role Phone John Aldirdge M.D. Unavailable Unavailable Sp Dawkins M.D. Unavailable [...] Started 05-Dec-2010 ActiveNeedles BD PEN NEEDLE MINI 05vqdip8/16 Inject Insulin at hs dx 250.02 * [...] Daily * Quantity: 1 Refills: 0 Sp Dawikns M.D.* Started [id number] Tablet Sublingual Bottle Carvedilol 12.5 MG Oral Tablet TAKE 1 TABLET TWICE DAILY. * Quantity: 180 Refills: 3 John Aldridge M.D.* Started 28-Feb-2014 ActiveLosartan Potassium 50 MG Oral Tablet TAKE 1 TABLET TWICE DAILY. * Quantity: 180 Refills: 3 John Aldridge M.D.* Started 28-Feb-2014 [employer] Next Monitor w/Device Kit testing three times daily * Quantity: 1 Refills: 3 Sp Dawkins M.D.* Started 22-Mar-2014 ActiveBayer Contour Next Test In Vitro Strip TEST THREE TIMES A DAY * Quantity: 1 Refills: 3 Isra RFabio Khan D.O.* Started 22-Mar-2014 [id number] Strip Box ZyrTEC Allergy 10 MG Oral Tablet TAKE 1 TABLET DAILY DIRECTED. * Quantity: 30 Refills: 2 Isra R. Bill D.O.* Started 19-Jun-2014 ActiveFluticasone Propionate 50 MCG/ACT Nasal Suspension USE 1 TO 2 SPRAYS IN EACH NOSTRIL ONCE DAILY. * Quantity: 1 Refills: 0 Isra R. Bill D.O.* Started 19-Jun-2014 [id number] GM Bottle Doxycycline Monohydrate 100 MG Oral [...] - Pulse Generator Replacement PROTIME PANEL 7000 Ordered:27-Jun-2014 PSA ( PROSTATE SPECIFIC ANTIGEN) 3100 Ordered:12-May-2014 CBC w/ Auto Diff 7150 Ordered:30-May-2014 Comprehensive Metabolic Panel 1212 Ordered:30-May-2014 HEMOGLOBIN A1C 3507 Ordered:30-May-2014 LIPID PROFILE 1184 Ordered:30-May-2014 Immunization Name Dates Details Influenza Administered on:10-Dec-2010 Influenza Administered on:02-Feb-2012 Diphtheria-Tetanus Toxoids 6.7-5 LFU/0.5ML Intramuscular Injectable Administered on: Tdap (Boostrix) Administered on: Adacel 5-2-15.5 LF-MCG/0.5 Intramuscular Suspension Lot #: [id number] Administered on:21-Jul-2013 Fluzone High-Dose Intramuscular Suspension Lot #: [id number] Administered on:13-Dec-2013 Prevnar 13 Intramuscular Suspension Lot #: [id number] Administered on:07-Apr-2014 Social History Name Dates Details [...] 10:15 * Appointment; Provider: Jovita Dhaliwal On 27-Jun-2014 15:15 * Appointment; Provider: Debora Figueroa On 03-Jun-2013 [...] Diagnosis: Problem not documented On 10:00 Appointment; pS Dawkins Encounter Diagnosis: Problem not [...]
--- OUTSIDE RECORDS SUMMARY | 2016-07-04 09:15 | XMS REPORT ---
Author Author GENERATED, SYSTEM Organization Unknown Address Unknown Phone Unavailable Care Team Providers Care Envelope Maker Name Role Phone DO WHEAT ROBERT PP [...] Vital Signs Hospital Vital Signs from 09/06/2015 11:00 AM:* Temp : 100.1 Hospital Vital Signs from 09/06/2015 10:45 AM:* Heart Rate : 69 * Resp Rate : 26 * O2 Saturation (%) : 88 Hospital Vital Signs from 09/06/2015 10:30 AM:* Heart Rate : 71 * Resp Rate : 23 * O2 Saturation (%) : 86 Hospital Vital Signs from 09/06/2015 10:15 AM:* Heart Rate : 69 * Resp Rate : 18 * O2 Saturation (%) : 88 Hospital Vital Signs from 09/06/2015 10:00 AM:* Heart Rate : 70 * Resp Rate : 19 * Systolic BP (mmHg) : 120 * Diastolic BP (mmHg) : 67 * Mean BP (mmHg) : 84 * O2 Saturation (%) : 84 Hospital Vital Signs from 09/06/2015 9:45 AM:* Heart Rate : 69 * Resp Rate : 17 * O2 Saturation (%) : 84 Hospital Vital Signs from 09/06/2015 9:30 AM:* Heart Rate : 69 * Resp Rate : 18 * O2 Saturation (%) : 86 Hospital Vital Signs from 09/06/2015 9:15 AM:* Heart Rate : 70 * Resp Rate : 17 * O2 Saturation (%) : 88 Hospital Vital Signs from 09/06/2015 9:00 AM:* Heart Rate : 72 * Resp Rate : 24 * Systolic BP (mmHg) : 124 * Diastolic BP (mmHg) : 67 * Mean BP (mmHg) : 89 * O2 Saturation (%) : 87 Hospital Vital Signs from 09/06/2015 8:45 AM:* Heart Rate : 73 * Resp Rate : 19 * O2 Saturation (%) : 84 Hospital Vital Signs from 09/06/2015 8:30 AM:* Heart Rate : 72 * Resp Rate : 22 * O2 Saturation (%) : 84 Hospital Vital Signs from 09/06/2015 8:15 AM:* Heart Rate : 72 * Resp Rate : 24 * O2 Saturation (%) : 84 Hospital Vital Signs from 09/06/2015 8:00 AM:* Heart Rate : 72 * Resp Rate : 21 * Systolic BP (mmHg) : 136 * Diastolic BP (mmHg) : 67 * Mean BP (mmHg) : 92 * O2 Saturation (%) : 85 Hospital Vital Signs from 09/06/2015 7:45 AM:* [...] 14 * O2 Saturation (%) : 97 Results Chemistry from 09/06/2015 6:20 AMSODIUM 135 MMOL/L L (136-145 MMOL/L) POTASSIUM 4.3 MMOL/L (3.5-5.1 MMOL/L) CHLORIDE 106 MMOL/L (98-107 MMOL/L) TCO2 20.2 MMOL/L L (21.0-32.0 MMOL/L) *ANION GAP 8.8 MMOL/L (8.0-16.0 MMOL/L) BUN 18 MG/DL (7-18 MG/DL) CREATININE 1.25 MG/DL (0.70-1.30 MG/DL) *BUN/CREATININE RATIO 14.4 (9.1-17.0 ) GLUCOSE 97 MG/DL (65-99 MG/DL) *GFR EST NON AFR FILIPINO 59 ML/MIN *GFRA EST AFR AMER 68 ML/MIN CALCIUM 8.1 MG/DL L (8.5-10.1 MG/DL) BILIRUBIN TOTAL 2.40 MG/DL H (0.20-1.00 MG/DL) TOTAL PROTEIN 5.6 GM/DL L (6.4-8.2 GM/DL) ALBUMIN 2.4 GM/DL L (3.4-5.0 GM/DL) *GLOBULIN 3.2 GM/DL (2.3-3.5 GM/DL) *A/G RATIO 0.8 MG/DL L (1.5-2.2 MG/DL) ALK PHOS 74 U/L (46-116 U/L) ALT (SGPT) 78 U/L H (14-59 U/L) AST (SGOT) 48 U/L H (15-37 U/L) CK 53 U/L (39-308 U/L) Chemistry from 09/04/2015 1:16 PMVANCOMYCIN TROUGH 8.9 [...] MG/DL (65-99 MG/DL) *GFR EST NON AFR FILIPINO 52 ML/MIN *GFRA EST AFR AMER 60 [...] 4.1 HH (0.9-1.1 ) Microbiology from 09/05/2015 9:49 AM* CULTURE BLOOD (Preliminary Result) Specimen Number: [id number] Sample Collection Date/Time: 09/05/2015 9:49 AM Specimen Source: Blood Peripheral CULTURE BLOOD: Gram stain:Gram positive cocci in clusters 09/06/2015 18:36 Microbiology from 09/05/2015 9:40 AM* CULTURE BLOOD (Preliminary Result) Specimen Number: [id number] Sample Collection Date/Time: 09/05/2015 9:40 AM Specimen Source: Blood Peripheral CULTURE BLOOD: Gram stain:Gram positive cocci in clusters 09/06/2015 12:20 Microbiology from 09/05/2015 4:20 AM* CULTURE BLOOD (Preliminary Result) Specimen Number: [id number] Sample Collection Date/Time: 09/05/2015 4:20 AM Specimen Source: Blood Peripheral CULTURE BLOOD: No growth after 24 hours of incubation, testing to continue for an additional 96 hours. * CULTURE BLOOD (Preliminary Result) Specimen Number: [id number] Sample Collection Date/Time: 09/05/2015 4:20 AM Specimen Source: Blood Peripheral CULTURE BLOOD: Gram stain:Gram positive cocci in clusters 09/05/2015 23:18 JDN Staphylococcus aureus See report #[id number] for MARCO ANTONIO Microbiology from 09/03/2015 6:15 PM* C. DIFFICILE Specimen Number: [id number] Sample Collection Date/Time: 09/03/2015 6:15 PM Specimen Source: Stool C. DIFFICILE: Negative-No toxigenic C. difficile detected. THE ILLUMIGENE C.DIFFICILE PCR ASSAY UTILIZES LOOP-MEDIATED ISOTHERMAL DNA AMPLIFICATION (LAMP ) TECHNOLOGY TO DETECT A GENE SEGMENT PRESENT IN ALL KNOWN TOXIGENIC C. DIFFICILE STRAINS. Microbiology from 09/03/2015 12:50 PM* CULTURE ANAEROBIC Specimen Number: [id number] Sample Collection Date/Time: 09/03/2015 12:50 PM Specimen [...] =1 S * CULTURE WOUND Specimen Number: [id number] Sample Collection Date/Time: 09/03/2015 12:50 PM Specimen [...] =1 S * *GRAM STAIN Specimen Number: [id number] Sample Collection Date/Time: 09/03/2015 12:50 PM Specimen [...] Status:Active. Plan of Care Treatment Plan from 09/06/2015 1:55 PM:* Care Management Note : Patient was found to have vegetation on his AICD lead and has been transferred to [facility] for further treatment. Treatment Plan from 09/05/2015 11:15 AM:* [facility] to reveiw discharge planning. Dr. Whalen would like for patient to consider LTAC at discharge for wound care. Patient declined and stated he didn' t want to go to [place]. 'er discussed possibility of skilled care and patient declined this as well stating he felt he could go home. SW'er asked patient if he would consider any options to receive the care needed for getting his wounds healed. He asked "what do you mean?" [facility] began to discuss with patient the need for more medical services that what he can receive at home or as outpatient, but discussion was interrupted by visit from MARIANNE Kelley. SW'er left so he could meet with patient. [facility] tomorrow. Treatment Plan from 09/04/2015 4:44 PM:* Care Management Note : Water Engineer reviewed POC. Patient cont to receive IV [...] to be set up again. Home health, [facility] may be options if needed. Will continue [...] the responsibility of the patient or patient phlebotomy services representative to confirm the list of medications [...]
--- OUTSIDE RECORDS SUMMARY | 2016-07-04 09:15 | XMS REPORT | Summary of Care ---
Author Author Jovita Dhaliwal D.O. Organization Unknown Address [address], [place] [id number] Phone Unavailable Care Team Providers Care Patient Care Associate Name Role Phone Benny Barfield D.O. Unavailable [...] I50.42) Status: Active Cardiac resynchronization therapy defibrillator (NETWORK SYSTEMS INTEGRATOR-D) in place (V45.02, Z95.810) Status: Active PAF [...] Started 18-Dec-2010 ActiveNeedles BD PEN NEEDLE MINI 90lajwl9/16 Inject Insulin at hs dx 250.02 * [...] 1 Refills: 0 Sp Dawkins M.D.* Started Srzngl311 Tablet Sublingual Bottle Losartan Potassium 50 MG Oral Tablet TAKE 1 TABLET TWICE DAILY. * Quantity: 180 Refills: 3 Jovita Dhaliwal D.O.* Started 28-Feb-2014 ActiveDrop Messages Next Monitor w/Device Kit testing three times daily * Quantity: 1 Refills: 3 Sp Dawkins M.D.* Started 22-Mar-2014 ActiveNovacta Biosystems Contour Next Test In Vitro Strip TEST THREE TIMES A DAY * Quantity: 1 Refills: 3 Jovita Dhaliwal D.O.* Started 22-Mar-2014 Ogrgta059 Strip Box Tamsulosin HCl - 0.4 MG [...] Refills: 0 Benny Barfield D.O.* Started 04-Jun-2015 Cstgxh824 ML Bottle Supplies AutoCPAP 9-13 cm H2O, Permanent use, G47.33, Heated humidity, FgowtvpcE05, mask , headgear, filters, heated tubing, water chamber, chinstrap * Quantity: 1 Refills: 0 Savannah Oropeza P.A.* Started 07-Jun-2015 ActiveFluticasone Propionate 50 MCG/ACT Nasal Suspension USE 1 SPRAY IN EACH NOSTRIL ONCE DAILY. * Quantity: 1 Refills: 0 Edilson Brennan M.D.* Started 29-Jun-2015 Nigiim32 GM Bottle Allergies and Adverse Reactions Name [...] Adacel 5-2-15.5 LF-MCG/0.5 Intramuscular Suspension Lot #: [id number] Administered on:21-Jul-2013 Fluzone High-Dose Intramuscular Suspension Lot #: [id number] Administered on:13-Dec-2013 Prevnar 13 Intramuscular Suspension Lot #: [id number] Administered on:07-Apr-2014 Pneumovax 23 25 MCG/0.5ML Injection Injectable Administered on:09-May-2015 Pneumo (Pneumovax) Lot #: [id number] Administered on:09-May-2015 Family History Mother* Name Dates [...] Turpin On 29-Mar-2013 10:30 * Appointment; Provider: oJhn Aldridge On 29-Mar-2013 08:30 * Appointment; Provider: [...]
--- OUTSIDE RECORDS SUMMARY | 2016-07-04 09:15 | XMS REPORT | Summary of Care ---
Author Author John Aldridge M.D. Organization Unknown Address [address] [place], [place] [id number] Phone Unavailable Care Team Providers Care Mower Sharpener Name Role Phone John Aldridge M.D. Unavailable [...] I50.42) Status: Active Cardiac resynchronization therapy defibrillator (GRAPE GROWER-D) in place (V45.02, Z95.810) Status: Active Hyperlipidemia [...] Jovita Dhaliwal D.O. * Start 18-Mar-2016 Active Godley BD PEN NEEDLE MINI 52dbblc5/16 Inject Insulin at hs dx 250.02 * [...] Jovita Dhaliwal D.O. * Start 28-Feb-2014 Active ISI [employer] Sciences Next Monitor w/Device Kit testing three times daily * Quantity: 1 Refills: 3 Sp Dawkins M.D. * Start 22-Mar-2014 Active PureWRX Contour Next Test In Vitro Strip TEST [...] cm H2O, Permanent use, G47.33, Heated humidity, TpvxahpyR41, mask , headgear, filters, heated tubing, water [...] Adacel 5-2-15.5 LF-MCG/0.5 Intramuscular Suspension Lot #: [id number] on: 21-Jul-2013 Fluzone High-Dose SUSP Lot #: [id number] on: 13-Dec-2013 Prevnar 13 Intramuscular Suspension Lot #: [id number] on: 07-Apr-2014 Pneumovax 23 25 MCG/0.5ML Injection Injectable on: 09-May-2015 Pneumo (Pneumovax) Lot #: [id number] on: 09-May-2015 Fluzone High-Dose 0.5 ML Intramuscular Suspension Prefilled Syringe Lot #: [id number] on: 28-Dec-2015 Zoster (Zostavax) on: 19-Feb-2016 Family [...] ml/min Range: >60 EST GFR, NON-AFR ECUADOREAN 57 ml/min (Below low threshold) Range: >60 [...] Jovita Dhaliwal D.O. On 10:30 Appointment; Provider: Marisela Figueroa On 11-Jun-2016 09:00 [...] not documented On 16-Nov-2015 09:15 Appointment; Jovita hDaliwal D.O. Encounter Diagnosis: Problem [...]
[2016-07-04 09:24] LABS: BASOPHILS % (AUTO) 0.4 % (0-2); EOSINOPHILS # (AUTO) 0.1 T/MM3 (0-0.5); EOSINOPHILS % (AUTO) 2.4 % (0-4); HCT - HEMATOCRIT 44.5 % (41-53); HGB - HEMOGLOBIN 15.2 GM/DL (13.5-17.5); IMMATURE GRANULOCYTE # (AUTO) 0.05 T/MM3 (0.00-0.03); IMMATURE GRANULOCYTE % (AUTO) 1.1 % (0.0-0.5); LYMPHOCYTES % (AUTO) 21.3 % (23-45); MEAN CORPUSCULAR HGB 29.5 UUG (26-34); MEAN CORPUSCULAR HGB CONC(MCHC 34.2 GM/DL (31-37); MEAN CORPUSCULAR VOLUME 86.4 UM3 (80-100); MEAN PLATELET VOLUME 10.1 UM3 (9.4-12.4); MONOCYTES # (AUTO) 0.3 T/MM3 (0-0.8); MONOCYTES % (AUTO) 6.8 % (0-9.0); NEUTROPHILS #(AUTO)-ABSOLUTE 3.1 T/MM3 (1.8-7.7); RED BLOOD COUNT 5.15 M/MM3 (4.50-5.90); WBC - WHITE BLOOD COUNT 4.6 T/MM3 (4.5-11.0)
[2016-07-04 09:28] LABS: INR 1.17 (0.76-1.04); PROTHROMBIN TIME 12.7 SEC (9.31-12.49)
[2016-07-04 09:35] LABS: ALBUMIN 4.5 G/DL (3.5-5.0); ALBUMIN/GLOBULIN RATIO 1.6 RATIO (1.1-2.2); ALKALINE PHOSPHATASE 86 U/L (38-126); ALT (SGPT) 26 U/L (21-72); ANION GAP 13 MEQ/L (5-15); AST (SGOT) 26 U/L (17-59); BUN/CREATININE RATIO 15 RATIO (6-26); CALCIUM 9.4 MG/DL (8.4-10.2); CHLORIDE 107 MEQ/L (98-107); CO2 - CARBON DIOXIDE 25 MEQ/L (22-30); CREATININE 1.2 MG/DL (0.8-1.5); GLOMERULAR FILTRATION RATE 60; GLUCOSE 126 MG/DL (75-110); POTASSIUM 4.5 MEQ/L (3.6-5); SODIUM 145 MEQ/L (134-144); TOTAL PROTEIN 7.4 G/DL (6.3-8.2)
[2016-07-04] MEDS ORDERED: KETAMINE 500mg/10ml INJECTION ONE (10:04)
[2016-07-04] MEDS ORDERED: FENTANYL 100mcg/2ml INJECTION ONE (10:04)
[2016-07-04] MEDS ORDERED: MIDAZOLAM 2mg/2ml INJECTION ONE (10:04)
[2016-07-04] MEDS ORDERED: ROPIVACAINE 0.5% (5mg/ml) 30ml INJ ONE (10:10)
[2016-07-04] MEDS ORDERED: LIDOCAINE 1% (10mg/ml) 30ml SDV ONE (10:10)
[2016-07-04] MEDS ORDERED: CEFAZOLIN 1 GRAM INJECTION ONE (10:22)
[2016-07-04] MEDS ORDERED: POLY17PO6 PO (10:36)
[2016-07-04] MEDS ORDERED: HYDR-4246 PO (10:36)
--- NOTE | 2016-07-04 10:54 | PDOPERATE ---
Operative Report Date of Operation 07/04/16 Side: Left Preoperative Diagnosis: other (left foot diabetic foot ulcer with possible osteomyelitis) Postoperative Diagnosis Same as preoperative diagnosis. Operation/Procedure: other (surgical debridement of left foot diabetic foot ulcer with bone biopsy of left foot sesamoid) Surgeon Madie Merchant MD Clothes Separator None Complications None. Anesthesia Plan: TIVA Estimated Blood Loss See Anesthesia Record. Fluids Please See Anesthesia Record. Description of Operation Mr. Fournier and his left foot were identified and marked in the the preoperative holding area. He was then brought back to the operating suite and proper anesthesia was administered. He was then positioned supine on the operating table. The left lower extremity was then prepped and draped in my normal sterile fashion. Timeout was performed with all operating room personnel. The wound measured 2.1 x 1.8 cm with a base with subcutaneous tissue with a small thin layer of slough. There was some necrotic skin around the edges especially proximally. I first started with a surgical debridement using a sharp curette to remove skin and necrotic subcutaneous tissue again most of this was in the proximal aspect of the wound. Also I sharply the bread the slough from the base of the wound. I then used a 15 made to make a longitudinal incision into the base of the subcutaneous tissue there was an expression of a clear yellow fluid which I did culture I opened this area up with a pair of Luana's and thoroughly irrigated the wound. I then used a Sheldon needle biopsy set to take a biopsy of the sesamoid bone. This was then placed into a sterile cup and sent to microbiology and pathology. The wound was then thoroughly irrigated once more. A dressing with 4 x 4's and a Kerlix wrap to provide pressure at the wound to help control bleeding was performed. The drapes were then removed and taken back to the recovery room in the care of anesthesia he tolerated the procedure well there were no complications. GRACY MERCHANT MD Jul 04, 2016 10:54
--- NOTE | 2016-07-04 10:56 | ANESPO ---
Post-Op Note Date 07/04/16 Time: 10:56 Status Pt Participated in Evaluation: Pt participated in person Vital Signs Date Time Temp Pulse Resp B/P Pulse Ox O2 Delivery O2 Flow Rate FiO2 07/04/16 09:29 97.6 63 16 178/93 96 Room Air Respiratory Function: Airway patent Cardiovascular Function: Regular pulse Mental Status: Alert/oriented Pain Level Intensity: 0 Hydration: Taking po fluids Complications during Recovery None apparent Follow-Up Instructions Instructions Per Surgeon NADIRA MATTHEW CRNA Jul 04, 2016 10:56
--- NOTE | 2016-07-04 10:56 | ANESPREOP ---
Anesthesia Record Date and Time DATE: 07/04/16 TIME: 09:43 Proposed Surgical Procedure LT DIABETIC FOOT DEBRIDEMENT WITH BONE BX POSS SESAMOIDECTOMY Allergies: Coded Allergies: No Known Allergies (Unverified , 07/16/15) Ht/Wt/BMI Height: 6 ' 0.00 " Weight: 106.800 kg BMI: 31.9 kg/m2 Vital Signs Date Time Temp Pulse Resp B/P Pulse Ox O2 Delivery O2 Flow Rate FiO2 07/04/16 09:29 97.6 63 16 178/93 96 Room Air Medications Inpatient Medications Current Medications Medications (Trade) Dose Ordered Sig/Brandon Start Time Stop Time Status Last Admin Dose Admin Sodium Chloride (Normal Saline IV) 1,000 ml @ 50 mls/hr Q20H PRN 07/04/16 07:00 Carvedilol (Coreg) 25 Mg Tablet, 25 MG PO BIDWM Last Taken: on 07/02/161899 Cyanocobalamin (Vitamin B-12) (Vitamin B12) 2, 500 Mcg Tablet, 1,000 MCG SL DAILY, (Reported) Last Taken: on 07/02/161899 Fluticasone Propionate (Flonase Allergy Relief 50 mcg/actuation Nasal) 9.9 Ml [place].susp, 1 SPRAY NS DAILY, (Reported) Last Taken: on Unknown Date & Time Furosemide (Lasix) 40 Mg Tablet, 1 TAB PO DAILY, (Reported) Last Taken: on Unknown Date & Time Hydrocodone/Acetaminophen ([place] 5-325 Tablet) 5-325 Tablet, 1-2 TAB PO Q6H PRN for PAIN This medication contains Tylenol, do not take more than 3,000 mg of Tylenol in a 24 hr period. Hydrocortisone/Pramoxine (Proctofoam-Hc 1%-1% Foam) 10 Gm Foam, 1 APPLIC RECTALLY DAILY, (Reported) Last Taken: on Unknown Date & Time Insulin Glargine,Hum.rec.anlog (Lantus) 100 Unit/Ml Inj, 44 UNIT SQ HS, (Reported) Last Taken: on 07/03/161929 Losartan Potassium (Losartan Potassium) 50 Mg Tablet, 50 MG PO BID, (Reported) Last Taken: on 07/03/161899 [place]-3 Fatty Acids/Fish Oil (Fish Oil 1,000 mg Capsule) 1 Each Capsule, 1,000 MG PO DAILY, (Reported) Last Taken: on 4/20/17 1900 Polyethylene Glycol 3350 (Miralax) 17 Gm Powd.pack, 17 G PO DAILY PRN for CONSTIPATION Take 17 Grams (1 capful), by mouth, once a day. Potassium Chloride (Potassium Chloride) Unknown Strength Capsule.er, Unknown Dose PO DAILY, (Reported) Last Taken: on 07/01/16 Pravastatin Sodium (Pravastatin Sodium) 10 Mg Tablet, 5 MG PO DAILY, (Reported) Take 1 tablet, by mouth, daily at bedtime. Last Taken: on 07/01/16 0800 Warfarin Sodium (Warfarin Sodium) 6 Mg Tablet, 7 MG PO NOON, (Reported) Take 1 tablet, by mouth, 1 time a day (at NOON). Last Taken: on 07/02/16 Discontinued Medications Hydrocodone/Acetaminophen ([place] 5-325 Tablet) 1 Tab Tablet, 1 TAB PO Q6H PRN for PAIN Last Taken: on Unknown Date & Time Currently on Beta Bill: Yes Medical/Surgical History Anesthesia PMH: Reports: *Diabetes (IDDM), *Dyspnea (SOB OF EXERTION), * Hypertension, CHF, CVA/Stroke/TIA (CVA 10 YRS AGO -), Cancer (BCC OF SKIN), Deep Vein Thrombosis (PT THINKS HE HAD A BLOOD CLOT), Renal Disease (CHRONIC RENAL FAILURE), Seizures (LAST ONE OVER 5 YEARS AGO - NO MEDS), Sleep Apnea ( USES CPAP), Denies: *Angina (DENIES), Anesthesia Reactions (NO AIRWAY ISSUES), Arthritis, Asthma, Blood Transfusion Reac, COPD, Clotting Problems, Glaucoma, Malignant Hyperthermia, Pacemaker, Reflux, Thyroid Disease Smoking Status: Never smoker Use Chewing Tobacco?: No Substance Use Type: does not use Alcohol Intake: none Past Surgical History Orthopedic Surgeries: No Abdominal Surgeries: No Genitourinary Surgeries: No Cardiac Surgeries: No Endocrine Surgeries: No Reproductive Surgeries: No Neurological Surgeries: No Ear Surgeries: No Nose Surgeries: No Throat Surgeries: No Other Surgeries: Yes - some skin cancer removal on the chest; colonoscopy Anesthesia Adverse Reactions: FOUND none Family Hx of Anesthesia Advers: none Hx of Motion Sickness: No Pertinent Findings Laboratory Tests 07/04/16 09:17 Test 07/04/16 09:17 Prothromb Time International Ratio 1.17 (0.76-1.04) Physical Exam Respiratory: Lungs clear Cardiovascular: FOUND Regular rate, rhythm Airway Assessment Mallampati Score: II TMD: 3 Fingerbreadths Neck Extension: Fair Teeth: Other (multiple missing) Overall Assessment: No Airway Concerns ASA: 3 Plan Anesthesia Plan: MAC, Other (left ankle block) Discussion Discussed risks/options/alternatives of anesthesia and questions answered. Patient consents. Nursing pain assessment noted. Attestation Statement Prior to the delivery of any anesthetic medication, I examined the patient, developed the plan, obtained the patient's consent and discussed the risk and benefits of the procedure with the patient/guardian. NADIRA MATTHEW CLERICAL DENTIST ASSISTANT Jul 04, 2016 09:46
--- NOTE | 2016-07-04 10:58 | ANESPD ---
Peripheral Nerve Blockade Physician: Herb Merchant MD Date: 07/04/16 Discussion Discussed risks/options/alternatives of anesthesia and questions answered. Patient consents. Nursing pain assessment noted. Block Start: 10:10 Block Stop: 10:15 Block Employed: Ankle/Foot Indication: operative anesthesia Approach: left side confirmed Position: supine Patient: Consent, risks/benefits discussed, Informed, post block act. discussed Monitors: EKG, SpO2, NIBP IV Sedation: Yes Sedation: sedate w/meaningful contact (see anesthesia record) Initial Vital Signs First Documented Vital Signs Date Time Temp Pulse Resp B/P Pulse Ox O2 Delivery O2 Flow Rate FiO2 07/04/16 09:29 97.6 63 16 178/93 96 Room Air Post Vital Signs Vital Signs Date Time Temp Pulse Resp B/P Pulse Ox O2 Delivery O2 Flow Rate FiO2 07/04/16 09:29 97.6 63 16 178/93 96 Room Air Initial Pain Score: 0 Post Block Score: 0 Prep: chlorhexadine/ETOH Ultrasound Used?: No Injectate Ropivacaine (%): 0.5 Ropivacaine (mL): 10 Lidocaine (%): 1 Lidocaine (mL): 10 Was Epi 1:200,000 Used?: No Injection Injection made incrementally with constant monitoring and aspiration every [] ml. NADIRA MATTHEW CRNA Jul 04, 2016 10:58
[2016-07-04] MEDS ORDERED: CEFAZOLIN 2 G in NORMAL SALINE 100 ML IV ONE (16:00)
== END 2016-07-04 11:55 | disposition home or self-care (01) ==
LOC: NSC 08:45
PROVIDERS: ATTEND Orthopaedic Surgery
DX: E11.621 Type 2 diabetes mellitus with foot ulcer (principal); L97.529 Non-pressure chronic ulcer of other part of left foot with unspecified severity; E11.42 Type 2 diabetes mellitus with diabetic polyneuropathy; I13.0 Hypertensive heart and chronic kidney disease with heart failure and stage 1 through stage 4 chronic kidney disease, or unspecified chronic kidney disease; E11.22 Type 2 diabetes mellitus with diabetic chronic kidney disease; N18.9 Chronic kidney disease, unspecified; I50.9 Heart failure, unspecified; I48.91 Unspecified atrial fibrillation; I42.9 Cardiomyopathy, unspecified; Z79.01 Long term (current) use of anticoagulants; Z79.4 Long term (current) use of insulin; Z79.899 Other long term (current) drug therapy; Z86.73 Personal history of transient ischemic attack (TIA), and cerebral infarction without residual deficits; Z86.14 Personal history of Methicillin resistant Staphylococcus aureus infection; Z95.810 Presence of automatic (implantable) cardiac defibrillator
CPT/HCPCS: 11042; 20220; 36415; 80053; 85025; 85610; 87070; 87075; 87077; 87147; 87186; 87205; 88307; 88311; J0690; J2250; J2795; J3010; J7030; J7050

== ENCOUNTER → 2016-07-07 | Outpatient (CLI) | payer MEDICARE, MEDICAID ==
[~2016-07-07] MED LIST changes: -ACET-2321 PO; -BISA10SU61 RECTALLY; +CALMOSEPTINE OINTMENT 3.5 G PACKET TOP ONE; -DOCU-168 PO; -INSU100V SQ; -LIDOCAINE 1% (10mg/ml) 2ml SDV INJ ONE; -LORA0.5T86 PO; -NORMAL SALINE 1,000 ML IV PRN; +POLY17PO6 PO; -POTA20TA10 PO; +SALINE FLUSH 10ml SYRINGE IVF ONE; -SPIR25TA PO; -TAMS0.4C47 PO; -VANC2PLA IV
== END ==
LOC: NWCC 13:26
PROVIDERS: ATTEND Internal Medicine
DX: E11.621 Type 2 diabetes mellitus with foot ulcer (principal); L97.422 Non-pressure chronic ulcer of left heel and midfoot with fat layer exposed; M86.172 Other acute osteomyelitis, left ankle and foot; Z86.14 Personal history of Methicillin resistant Staphylococcus aureus infection; L53.9 Erythematous condition, unspecified; E11.21 Type 2 diabetes mellitus with diabetic nephropathy
CPT/HCPCS: 11042; A6209; A6210; A9270

== ENCOUNTER → 2016-07-14 | Outpatient (CLI) | payer MEDICARE, MEDICAID ==
[~2016-07-14] MED LIST changes: -SALINE FLUSH 10ml SYRINGE IVF ONE
== END ==
LOC: NWCC 13:51
PROVIDERS: ATTEND Internal Medicine
DX: E11.621 Type 2 diabetes mellitus with foot ulcer (principal); L97.422 Non-pressure chronic ulcer of left heel and midfoot with fat layer exposed; M86.172 Other acute osteomyelitis, left ankle and foot; Z86.14 Personal history of Methicillin resistant Staphylococcus aureus infection; E11.21 Type 2 diabetes mellitus with diabetic nephropathy; B96.89 Other specified bacterial agents as the cause of diseases classified elsewhere
CPT/HCPCS: 11042; A6209; A9270